=== PATIENT | female | born 1935 | race Caucasian/White ===

== ENCOUNTER → 2016-11-08 | Outpatient (CLI) | payer MEDICARE, BC ==
[~2016-11-08] MED LIST: DENOSUMAB 60 MG/ML 1 ML SYRINGE SQ ONE
[2016-11-08 12:14] VITALS: BP 97/56; PULSE 89; RESP 20; TEMP 97.9
[2016-11-08 12:28] LABS: Basophils # (A) 0.1 k/uL (0-0.2); Basophils % (A) 1 %; CH 28.4; CHCM 32.6; Eosinophils # (A) 0.4 k/uL (0-0.7); Eosinophils % (A) 3 %; HCT 40.8 % (34.0-46.0); HDW 2.45; HGB 13.3 gm/dL (11.4-16.0); Luc # (Auto) 0.14; Luc % (Auto) 1; Lymphocytes # (A) 1.4 k/uL (1.0-4.8); Lymphocytes % (A) 14 %; MCH 28.5 pg (25.0-35.0); MCHC 32.5 g/dL (31.0-37.0); MCV 87.6 fL (80.0-100.0); Mean Platelet Volume 7.9; Monocytes # (A) 0.4 k/uL (0-1.0); Monocytes % (A) 4 %; Neutrophils # (A) 8.1 k/uL (1.3-7.7); Neutrophils % (A) 77 %; RBC 4.66 m/uL (3.80-5.40); RDW 15.7 % (11.5-15.5); WBC 10.6 k/uL (3.8-10.6); WBC (Perox) 10.51
[2016-11-08 12:40] LABS: Potassium 4.2 mmol/L (3.5-5.1); Total Bilirubin 0.7 mg/dL (0.2-1.3); Total Protein 6.5 g/dL (6.3-8.2)
== END | disposition home or self-care (01) ==
LOC: PROCWHC3 11:32
PROVIDERS: ATTEND Family Medicine
DX: M81.0 Age-related osteoporosis without current pathological fracture (principal); I10 Essential (primary) hypertension; Z79.899 Other long term (current) drug therapy
CPT/HCPCS: 80061; 80053; 84443; 85025; 96372; 36415; J0897

== ENCOUNTER 2017-09-13 13:05 | Inpatient (IN) | payer MEDICARE, BC ==
[2017-09-13] MEDS ORDERED: SODIUM CHLORIDE 0.9% 1,000 ML IV STA (13:42)
[2017-09-13] MEDS ORDERED: methylPREDNISolone SOD SUCCI 125 MG/2 ML VIAL IV STA (13:46)
[2017-09-13 14:34] LABS: VBG PH 7.46 (7.31-7.41)
[2017-09-13 14:37] LABS: Calcium 9.5 mg/dL (8.4-10.2); Total Bilirubin 0.7 mg/dL (0.2-1.3); Total Protein 5.8 g/dL (6.3-8.2)
[2017-09-13 14:41] LABS: HCT 37.2 % (34.0-46.0); HGB 12.2 gm/dL (11.4-16.0); MCH 27.4 pg (25.0-35.0); MCHC 32.7 g/dL (31.0-37.0); MCV 83.7 fL (80.0-100.0); Mean Platelet Volume 7.3; Platelet Count 415 k/uL (150-450); Potassium 5.2 mmol/L (3.5-5.1); RBC 4.44 m/uL (3.80-5.40); RDW 14.9 % (11.5-15.5)
--- NOTE | 2017-09-13 14:45 | CT ---
EXAMINATION TYPE: CT brain wo con DATE OF EXAM: 09/13/2017 COMPARISON: NONE HISTORY: Altered mental status, weakness CT DLP: 1072.3 mGycm Automated exposure control for dose reduction was used. FINDINGS: Mild generalized degenerative change. Faint periventricular low-attenuation nonspecific but most typi karson remote microvascular ischemia. No midline shift or acute hemorrhage. Calvarium intact. Dental artifact does limit the exam. IMPRESSION: NO ACUTE HEMORRHAGE OR MASS EFFECT. IF THERE IS CONCERN FOR ACUTE ISCHEMIA CORRELATE WITH MRI CLIN ICALLY WARRANTED.
[2017-09-13 14:46] LABS: WBC 29.4 k/uL (3.8-10.6)
[2017-09-13] MEDS ORDERED: PIPERACILLIN-TAZOBACTAM 3.375 GM in DEXTROSE/WATER 1 50ML.BAG IVPB STA (14:47)
--- NOTE | 2017-09-13 14:47 | XR ---
EXAMINATION TYPE: XR chest 2V DATE OF EXAM: 09/13/2017 COMPARISON: NONE HISTORY: Shortness of breath TECHNIQUE: Frontal and lateral views of the chest are obtained. FINDINGS: Scattered senescent parenchymal changes noted. No evidence for infiltrate. No evidence for atelectasis. Heart size is stable. Mediastinal structures are stable and grossly unremarkable. No evidence for hilar prominence. Degenerative changes dorsal spine. IMPRESSION: 1. No evidence for acute pulmonary disease.
[2017-09-13 15:03] LABS: Creatine Kinase MB 1.9 ng/mL (0.0-2.4); Troponin I 0.014 ng/mL (0.000-0.034)
[2017-09-13 15:04] LABS: INR 1.2 (<1.2); Partial Thromboplastin Time 24.9 sec (22.0-30.0); Prothrombin Time 11.8 sec (9.0-12.0)
[2017-09-13 15:06] LABS: D-Dimer 5.64 mg/L FEU (<0.60)
[2017-09-13 15:08] LABS: Eosinophils # (M) 0.29 k/uL (0-0.7); Lymphocytes # (M) 0.88 k/uL (1.0-4.8); Monocytes # (M) 1.18 k/uL (0-1.0); Neutrophils # (M) 27.05 k/uL (1.3-7.7); Neutrophils % (M) 92 %; Nucleated Red Blood Cells 0 /100 WBC (0-0); Total Cells Counted 100
[2017-09-13 15:09] LABS: Toxic Granulation Present
--- NOTE | 2017-09-13 15:59 | US ---
EXAMINATION TYPE: US venous doppler duplex LE RT DATE OF EXAM: 09/13/2017 1:44 PM COMPARISON: NONE CLINICAL HISTORY: Pain. Right leg swelling per patient. Discomfort when tries to elevated leg. SIDE PERFORMED: Right TECHNIQUE: The lower extremity deep venous system is examined utilizing real time linear array sonog nilesh with graded compression, doppler sonography and color-flow sonography. VESSELS IMAGED: External Iliac Vein (EIV) Common Femoral Vein Deep Femoral Vein Greater Saphenous Vein * Femoral Vein Popliteal Vein Small Saphenous Vein * Proximal Calf Veins (* superficial vessels) Grayscale, color doppler, spectral doppler imaging performed of the deep veins of the lower extremiti es. There is normal flow, compressibility, vascular waveforms. Right Leg: Negative for DVT IMPRESSION: No evidence for DVT
--- NOTE | 2017-09-13 16:00 | ED ---
General Adult HPI - General Chief complaint: Weakness Stated complaint: COPD Time Seen by Provider: 09/13/17 13:33 Source: patient Mode of arrival: ambulatory Limitations: no limitations - History of Present Illness Initial comments: 81 years old female was sent in by her caregiver she noticed that her shortness of breath is worse heart rate was high weakness has gotten worse she is not able to ambulate she does have a history of COPD she has smoked for greater than 60 years and family noticed that she is confused today there is altered mental status and she herself denies any headache no neck stiffness she is short -winded no abdominal pain no frequency urgency dysuria, no signs of TIA or CVA - Related Data Home Medications Medication Instructions Recorded Confirmed Aspirin 81 mg PO HS 02/25/14 09/13/17 Donepezil [Aricept] 10 mg PO DAILY 09/13/17 09/13/17 Famotidine [Pepcid] 20 mg PO DAILY 09/13/17 09/13/17 Meclizine [Antivert] 12.5 mg PO DAILY 09/13/17 09/13/17 Memantine [Namenda] 10 mg PO BID 09/13/17 09/13/17 Multivitamins, Thera [Multivitamin 1 tab PO DAILY 09/13/17 09/13/17 (formulary)] Naproxen Sodium [Aleve] 220 mg PO DAILY 09/13/17 09/13/17 [place]-3 Fatty Acids [[place]-3] 1,000 mg PO HS 09/13/17 09/13/17 Allergies Allergy/AdvReac Type Severity Reaction Status Date / Time No Known Allergies Allergy Verified 09/13/17 13:55 Review of Systems ROS Statement: Those systems with pertinent positive or pertinent negative responses have been documented in the HPI. ROS Other: All systems not noted in ROS Statement are negative. Past Medical History Past Medical History: COPD, Hyperlipidemia Additional Past Medical History / Comment(s): VERTIGO Past Surgical History: Joint Replacement, Orthopedic Surgery Smoking Status: Former smoker General Exam - General Exam Comments Initial Comments: General: The patient is awake and alert, seems confused pleasant and cooperative Skin: Skin is warm and dry and no rashes or lesions are noted. Eye: Pupils are equal, round and reactive to light, extra-ocular movements are intact; there is normal conjunctiva bilaterally. Ears, nose, mouth and throat: Quite dehydrated, mucous membranes are dry Neck: The neck is supple, there is no tenderness, or signs of meningitis Cardiovascular: There is a regular rate and rhythm. No murmur, rub or gallop is appreciated. Noticed tachycardia Respiratory: To auscultation bilateral, exam consistent with COPD Gastrointestinal: Soft, non-distended, non-tender abdomen without masses or organomegaly noted. There is no rebound or guarding present. Bowel sounds are unremarkable. Back: There is no tenderness to palpation in the midline. There is no obvious deformity. Musculoskeletal: Normal ROM, no tenderness, There is no pedal edema. There is no calf tenderness or swelling. No cords were appreciated. Neurological: CN II-XII intact, Cranial nerves III through XII are intact. There are no obvious motor or sensory deficits. Coordination appears grossly intact. Speech is normal. Psychiatric: Cooperative, appropriate mood & affect, normal judgment. Limitations: no limitations Course Vital Signs 09/13/17 09/13/17 09/13/17 13:17 14:13 15:19 Temperature 98.7 F Pulse Rate 111 H 109 H 108 H Respiratory 20 16 16 Rate Blood Pressure 127/61 119/67 108/55 O2 Sat by Pulse 93 L 93 L 98 Oximetry EKG Findings - EKG Comments: EKG Findings:: EKG is sinus tachycardia ventricular rate is 110 DC interval is 122 QRS duration is 68 QT/QTC 320/433 review of this EKG does not reveal any ST elevation or ST depression noticed T-wave inversion in lead 3 Medical Decision Making - Lab Data Result diagrams: 09/13/17 14:00 09/13/17 14:00 Lab Results 09/13/17 09/13/17 09/13/17 Range/Units 14:00 14:00 14:00 WBC 29.4 H* (3.8-10.6) k/uL RBC 4.44 (3.80-5.40) m/uL Hgb 12.2 (11.4-16.0) gm/dL Hct 37.2 (34.0-46.0) % MCV 83.7 (80.0-100.0) fL MCH 27.4 (25.0-35.0) pg MCHC 32.7 (31.0-37.0) g/dL RDW 14.9 (11.5-15.5) % Plt Count 415 (150-450) k/uL Neutrophils % (Manual) 92 % Lymphocytes % (Manual) 3 % Monocytes % (Manual) 4 % Eosinophils % (Manual) 1 % Neutrophils # (Manual) 27.05 H (1.3-7.7) k/uL Lymphocytes # (Manual) 0.88 L (1.0-4.8) k/uL Monocytes # (Manual) 1.18 H (0-1.0) k/uL Eosinophils # (Manual) 0.29 (0-0.7) k/uL Nucleated RBCs 0 (0-0) /100 WBC Toxic Granulation Present PT (9.0-12.0) sec INR (<1.2) APTT (22.0-30.0) sec D-Dimer (<0.60) mg/L FEU VBG pH (7.31-7.41) VBG pCO2 (37-51) mmHg VBG HCO3 (24-28) mmol/L Sodium 144 (137-145) mmol/L Potassium 5.2 H (3.5-5.1) mmol/L Chloride 101 (98-107) mmol/L Carbon Dioxide 27 (22-30) mmol/L Anion Gap 16 mmol/L BUN 40 H (7-17) mg/dL Creatinine 1.20 H (0.52-1.04) mg/dL Est GFR (CKD-EPI)AfAm 48 (>60 ml/min/1.73 sqM) Est GFR (CKD-EPI)NonAf 42 (>60 ml/min/1.73 sqM) Glucose 94 (74-99) mg/dL Plasma Lactic Acid Mundo (0.7-2.0) mmol/L Calcium 9.5 (8.4-10.2) mg/dL Total Bilirubin 0.7 (0.2-1.3) mg/dL AST 47 H (14-36) U/L ALT 20 (9-52) U/L Alkaline Phosphatase 145 H (38-126) U/L Total Creatine Kinase 32 (30-135) U/L CK-MB (CK-2) 1.9 (0.0-2.4) ng/mL CK-MB (CK-2) Rel Index 5.9 Troponin I 0.014 (0.000-0.034) ng/mL Total Protein 5.8 L (6.3-8.2) g/dL Albumin 3.0 L (3.5-5.0) g/dL TSH (0.465-4.680) mIU/L 09/13/17 09/13/17 09/13/17 Range/Units 14:00 14:00 14:00 WBC (3.8-10.6) k/uL RBC (3.80-5.40) m/uL Hgb (11.4-16.0) gm/dL Hct (34.0-46.0) % MCV (80.0-100.0) fL MCH (25.0-35.0) pg MCHC (31.0-37.0) g/dL RDW (11.5-15.5) % Plt Count (150-450) k/uL Neutrophils % (Manual) % Lymphocytes % (Manual) % Monocytes % (Manual) % Eosinophils % (Manual) % Neutrophils # (Manual) (1.3-7.7) k/uL Lymphocytes # (Manual) (1.0-4.8) k/uL Monocytes # (Manual) (0-1.0) k/uL Eosinophils # (Manual) (0-0.7) k/uL Nucleated RBCs (0-0) /100 WBC Toxic Granulation PT 11.8 (9.0-12.0) sec INR 1.2 H (<1.2) APTT 24.9 (22.0-30.0) sec D-Dimer 5.64 H (<0.60) mg/L FEU VBG pH 7.46 H (7.31-7.41) VBG pCO2 35 L (37-51) mmHg VBG HCO3 24 (24-28) mmol/L Sodium (137-145) mmol/L Potassium (3.5-5.1) mmol/L Chloride (98-107) mmol/L Carbon Dioxide (22-30) mmol/L Anion Gap mmol/L BUN (7-17) mg/dL Creatinine (0.52-1.04) mg/dL Est GFR (CKD-EPI)AfAm (>60 ml/min/1.73 sqM) Est GFR (CKD-EPI)NonAf (>60 ml/min/1.73 sqM) Glucose (74-99) mg/dL Plasma Lactic Acid Mundo 1.5 (0.7-2.0) mmol/L Calcium (8.4-10.2) mg/dL Total Bilirubin (0.2-1.3) mg/dL AST (14-36) U/L ALT (9-52) U/L Alkaline Phosphatase (38-126) U/L Total Creatine Kinase (30-135) U/L CK-MB (CK-2) (0.0-2.4) ng/mL CK-MB (CK-2) Rel Index Troponin I (0.000-0.034) ng/mL Total Protein (6.3-8.2) g/dL Albumin (3.5-5.0) g/dL TSH (0.465-4.680) mIU/L 09/13/17 Range/Units 14:00 WBC (3.8-10.6) k/uL RBC (3.80-5.40) m/uL Hgb (11.4-16.0) gm/dL Hct (34.0-46.0) % MCV (80.0-100.0) fL MCH (25.0-35.0) pg MCHC (31.0-37.0) g/dL RDW (11.5-15.5) % Plt Count (150-450) k/uL Neutrophils % (Manual) % Lymphocytes % (Manual) % Monocytes % (Manual) % Eosinophils % (Manual) % Neutrophils # (Manual) (1.3-7.7) k/uL Lymphocytes # (Manual) (1.0-4.8) k/uL Monocytes # (Manual) (0-1.0) k/uL Eosinophils # (Manual) (0-0.7) k/uL Nucleated RBCs (0-0) /100 WBC Toxic Granulation PT (9.0-12.0) sec INR (<1.2) APTT (22.0-30.0) sec D-Dimer (<0.60) mg/L FEU VBG pH (7.31-7.41) VBG pCO2 (37-51) mmHg VBG HCO3 (24-28) mmol/L Sodium (137-145) mmol/L Potassium (3.5-5.1) mmol/L Chloride (98-107) mmol/L Carbon Dioxide (22-30) mmol/L Anion Gap mmol/L BUN (7-17) mg/dL Creatinine (0.52-1.04) mg/dL Est GFR (CKD-EPI)AfAm (>60 ml/min/1.73 sqM) Est GFR (CKD-EPI)NonAf (>60 ml/min/1.73 sqM) Glucose (74-99) mg/dL Plasma Lactic Acid Mundo (0.7-2.0) mmol/L Calcium (8.4-10.2) mg/dL Total Bilirubin (0.2-1.3) mg/dL AST (14-36) U/L ALT (9-52) U/L Alkaline Phosphatase (38-126) U/L Total Creatine Kinase (30-135) U/L CK-MB (CK-2) (0.0-2.4) ng/mL CK-MB (CK-2) Rel Index Troponin I (0.000-0.034) ng/mL Total Protein (6.3-8.2) g/dL Albumin (3.5-5.0) g/dL TSH 1.720 (0.465-4.680) mIU/L Critical Care Time Total Critical Care Time: 30 Critical Care Time: Blood pressure initially was slow though she was afebrile but term she was quite confused head CT is normal white count is 30 with a massive left shift d- dimer is quite elevated she was started on a fluids we did fluid resuscitation was given some broad-spectrum antibiotics creatinine is 1.20 potassium is 5.2 chest x-ray is fine unfortunately urine sample, contaminated blood cultures urine cultures lactate were drawn fluid resuscitation was done venous Doppler of the right leg is normal rule out any DVT though she does have a massive swelling of the right leg to follow up with the d-dimer I am unable to do the CT chest angiogram or do a VQ scan she be admitted to Dr. Tejada's service empiric heparin therapy be started to get up consult the nephrology as well as ID Disposition Clinical Impression: Sepsis, Elevated d-dimer, Change in mental status Disposition: ADMITTED IP TO THIS HOSP Referrals: Laine Fuentes DO [Primary Care Provider] - 1-2 days
[2017-09-13] MEDS ORDERED: HEPARIN SODIUM,PORCINE 5,000 UNIT/ML 1 ML VIAL IV ONE (16:23)
[2017-09-13] MEDS ORDERED: HEPARIN SODIUM,PORCINE 5,000 UNIT/ML 1 ML VIAL IV PRN (16:23)
[2017-09-13] MEDS ORDERED: ONDANSETRON 4 MG/2 ML VIAL IVP PRN (16:23)
[2017-09-13] MEDS ORDERED: NALOXONE 0.4 MG/ML 1 ML VIAL IV PRN (16:23)
[2017-09-13] MEDS ORDERED: HEPARIN SODIUM,PORCINE 25,000 UNIT in DEXTROSE 5% IN WATER 500 ML IV SCH ×2 (16:30)
[2017-09-13] MEDS: SODIUM CHLORIDE 0.9% 1,000 ML IV SCH (16:42)
[2017-09-13 16:47] LABS: Amorphous Sediment,Urine Few /hpf; Appearance,Urine Cloudy (Clear); Bilirubin,Urine Negative (Negative); Blood,Urine Negative (Negative); Color,Urine Yellow; Glucose,Urine (UA) Negative (Negative); Granular Casts,Urine 20 /lpf (0); Ketones,Urine Trace (Negative); Leukocyte Esterase,Urine Negative (Negative); Mucus,Urine Rare /hpf; Nitrite,Urine Negative (Negative); PH, Urine 5.5 (5.0-8.0); Protein,Urine 1+ (Negative); RBC,Urine 1 /hpf (0-5); Specific Gravity,Urine 1.025 (1.001-1.035); Squamous Epithelial Cell,Urine 1 /hpf (0-4); WBC,Urine 4 /hpf (0-5)
--- NOTE | 2017-09-13 18:26 | NM ---
EXAMINATION TYPE: NM pul vent and perfuse DATE OF EXAM: 09/13/2017 COMPARISON: Chest radiographs 09/13/2017 at 2:37 PM HISTORY: Dyspnea. Patient confused, suspicion for pulmonary embolism clinically TECHNIQUE: Utilizing inhalation of 35.3 mCi Tc 99m DTPA aerosol and intravenous injection of 5.1 mCi of Tc 99m MAA, ventilation and perfusion images are acquired post injection in multiple projections. FINDINGS: There is a markedly heterogeneous distribution of the ventilation radiopharmaceutical activity throug hout the lung. There is relatively mild heterogeneity of the perfusion radiopharmaceutical activity throughout the l ungs. There are no definite mismatched defects. IMPRESSION: Overall impression is low probability for pulmonary embolism.
[2017-09-13] MEDS ORDERED: NON-FORMULARY DRUG (Omega-3 Fatty Acids [Omega-3] 1,000 MG) PO SCH (21:00)
[2017-09-13 22:17] LABS: Hemoglobin A1C 5.4 % (4.0-6.0)
[2017-09-13] MEDS: ASPIRIN 81 MG PO SCH (22:39)
[2017-09-13] MEDS: MEMANTINE 10 MG TAB PO SCH (22:39)
--- NOTE | 2017-09-13 23:29 | CONS ---
CONSULTATION DATE OF SERVICE: 09/13/2017. REASON FOR CONSULTATION: Leukocytosis and possible sepsis. HISTORY OF PRESENT ILLNESS: The patient is an 81-year-old female, past medical history significant for COPD, has been brought into the ER at [facility] by the caregiver; however, the patient noticed to have increasing shortness of breath, tachycardia, weakness that is getting worse until finally the patient was unable to ambulate. Apparently, her symptoms had been going on for more than a week now and she was evaluated in the outpatient setting by her primary care physician about a week ago and diagnosed with a possible UTI and the patient had just finished a course of oral Macrobid. However, the patient continued very weak and tired and no energy. There is no clear history of any increased fever or chills. No history of any high-grade shortness of breath, any cough or sputum production. No clear history of any abdominal pain or any diarrhea. Recently the patient has been evaluated by the ER physician. The patient on arrival to the ER did have a high white count of 29,000, slightly elevated BUN and creatinine. Urine was not significantly positive. Chest x-ray report was negative. She did have elevated D-dimer related to a nuclear scan that was reported negative or low probability for PE. The patient has been started on Zosyn, admitted to the hospital. Infectious Disease was consulted for further recommendation of antibiotic therapy. Most of the information has been obtained from the caregiver, who is present at bedside, as the patient denies any symptoms or not specifically. REVIEW OF SYSTEMS: CONSTITUTIONAL: Positive for weakness, but no high-grade fever. EYES: No complaint. ENT: No complaint. RESPIRATORY: As per HPI. CARDIOVASCULAR: No complaint. GENITOURINARY: No complaint. GASTROINTESTINAL: No complaint. MUSCULOSKELETAL: No complaint. INTEGUMENTARY: No complaint. PSYCHOLOGICAL: No complaint. ENDOCRINE: No complaint. NEUROLOGIC: No complaint. PAST MEDICAL HISTORY: COPD, hyperlipidemia, osteoarthritis. PAST SURGICAL HISTORY: Joint replacement. SOCIAL HISTORY: 60 pack-years smoking. No drinking or drug use. FAMILY HISTORY: No pertinent findings noticed. ALLERGIES: No known drug allergies. MEDICATIONS: Include the patient is currently on: 1. Aspirin. 2. Aricept. 3. Pepcid. 4. Heparin. 5. Antivert. 6. Narcan. 7. Zofran. 8. Pip/tazobactam and. 9. IV fluid. EXAMINATION: Her blood pressure is 115/60 with a pulse of 103, temperature 98.6, 95% on 4L nasal cannula. General description is an elderly female lying in bed in no distress. No tachypnea or accessory muscle of respiration use. HEENT shows no pallor or scleral icterus. Oral mucous membranes dry. No pharyngeal erythema or thrush. NECK: Trachea central. No thyromegaly. LUNGS: Unlabored breathing with decreased breath sounds. No wheeze. HEART: S1, S2. Regular rate and rhythm. ABDOMEN: Soft. No guarding, rigidity. No organomegaly. EXTREMITIES: No edema of feet. SKIN: No rash or mass palpable. NEUROLOGICAL: The patient is awake, alert, oriented x2. Mood and affect normal. LABS: Hemoglobin is 12.2 with a white count of 9.4. BUN of 14, creatinine 1.20. D-dimer 5.64. ALT was normal. Urine was cloudy; however, leukocyte esterase and nitrite negative. Chest x-ray reported negative for any acute infiltrate. DIAGNOSTIC IMPRESSION AND PLAN: Patient admitted to hospital with generalized weakness in a patient who did have a component of elevated white count of 29,000. She was noticed to be slightly tachycardic; however, no high-grade fever or any hypertension. Symptomatology could be related to underlying dehydration from decreased oral intake, as the patient seemed to have no clear focus of infection at this point. Chest x-ray report negative for any pneumonia. Urine was negative. No evidence of any cellulitis or joint swelling. However, underlying intra-abdominal pathology not entirely excluded. PLAN: 1. We will order a CT of abdomen and pelvis with oral contrast for the morning to complete the workup. 2. Keep the patient empirically on Zosyn at 3.75 g q.8h while waiting for the culture to finalize. 3. IV fluid. 4. Depending upon the clinical response as well as cultures, will adjust her medications further if needed. Thank you for this consultation. Will follow this patient along with you. MMODL / IJN: [id number] /
[2017-09-14] MEDS: PIPERACILLIN-TAZOBACTAM 3.375 GM in DEXTROSE/WATER 1 50ML.BAG IVPB SCH ×4 (01:07→23:50)
[2017-09-14] MEDS: HEPARIN SODIUM,PORCINE 5,000 UNIT/ML 1 ML VIAL SQ SCH ×4 (01:09→23:50)
[2017-09-14] MEDS: SODIUM CHLORIDE 0.9% 1,000 ML IV SCH ×3 (06:49→22:02)
[2017-09-14 07:09] LABS: Basophils % (A) 0 %; Eosinophils % (A) 0 %; HCT 37.5 % (34.0-46.0); HGB 11.8 gm/dL (11.4-16.0); Lymphocytes # (A) 0.8 k/uL (1.0-4.8); Lymphocytes % (A) 2 %; MCH 27.1 pg (25.0-35.0); MCHC 31.4 g/dL (31.0-37.0); MCV 86.4 fL (80.0-100.0); Mean Platelet Volume 7.1; Monocytes # (A) 0.5 k/uL (0-1.0); Monocytes % (A) 2 %; Neutrophils # (A) 31.8 k/uL (1.3-7.7); Neutrophils % (A) 96 %; Platelet Count 416 k/uL (150-450); RBC 4.34 m/uL (3.80-5.40); RDW 14.9 % (11.5-15.5)
[2017-09-14 07:11] LABS: WBC 33.2 k/uL (3.8-10.6)
[2017-09-14 07:37] LABS: Albumin 2.6 g/dL (3.5-5.0); Potassium 4.7 mmol/L (3.5-5.1); Total Bilirubin 0.5 mg/dL (0.2-1.3); Total Protein 5.2 g/dL (6.3-8.2)
[2017-09-14] MEDS: IOPAMIDOL-300 CONTRAST 30 ML VIAL (ORAL USE) PO PRN ×2 (08:32→09:35)
[2017-09-14] MEDS: MECLIZINE 12.5 MG TAB PO SCH (08:33)
[2017-09-14] MEDS: FAMOTIDINE 20 MG TAB PO SCH (08:33)
[2017-09-14] MEDS: MEMANTINE 10 MG TAB PO SCH ×2 (08:33→21:35)
[2017-09-14] MEDS: DONEPEZIL 10 MG TAB PO SCH (08:33)
--- NOTE | 2017-09-14 10:33 | CT ---
EXAMINATION TYPE: CT abdomen pelvis wo con DATE OF EXAM: 09/14/2017 COMPARISON: NONE HISTORY: Generalized pain CT DLP: 267.8 mGycm Automated exposure control for dose reduction was used. FINDINGS: There is interstitial change within the lungs. This may be on the basis of heart failure. T here are small, bilateral effusions, greater on the right than the left. There is a 7 mm pericardial effusion. There is extensive calcification of the mitral annulus. Within the abdomen, there is a gallstone within the collapsed gallbladder. Liver and spleen are wyatt l. Both adrenal glands are normal. There is a 9 mm nonobstructing calculus in one of the lower pole calyces of the right kidney. There i s no evidence of hydronephrosis. Limited views of the pancreas are unremarkable. There is extensive extensive calcification of the visualized arterial tree. There is no significant r etroperitoneal, iliac or inguinal adenopathy. The bladder is unremarkable. Uterus is unremarkable. The ovaries are not visualized with certainty. There is moderate diverticular change involving the sigmoid colon with scattered diverticula elsewher e throughout the left side of the colon. The appendix is not visualized. There is thickening of the small bowel proximally suggestive of enteritis. There is a ventral hernia containing fat only with a mouth measuring 27 mm. There is a left hip prosthesis in place. There is a moderate dextroscoliosis. There is extensive dege nerative disc disease, facet arthropathy and hypertrophic spondylosis. IMPRESSION: 1. INTERSTITIAL CHANGE WITHIN THE LUNGS MAY REFLECT HEART FAILURE. 2. SMALL, BILATERAL PLEURAL EFFUSIONS AND A PERICARDIAL EFFUSION. 3. CHOLELITHIASIS. 4. THICKENING OF THE PROXIMAL SMALL BOWEL SUGGESTIVE OF ENTERITIS. 5. NONOBSTRUCTING, 9 MM RIGHT LOWER POLE RENAL CALCULUS. 6. UNCOMPLICATED DIVERTICULOSIS. 7. EXTENSIVE DEGENERATIVE CHANGE WITHIN THE SPINE. 8. VENTRAL HERNIA CONTAINING FAT ONLY WITH A MOUTH MEASURING 2.7 CM.
[2017-09-14] MEDS: MULTIVITAMINS, THERA 1 EACH TAB PO SCH (11:29)
--- NOTE | 2017-09-14 12:42 | P.HPIM ---
History of Present Illness H&P Date: 09/14/17 Brenda Dave is an 81-year-old female, patient of [facility], who presented to [facility] emergency room with a chief complaint of generalized weakness, daughter states that patient was seen at [facility] one week ago, she was given an antibiotic for presumed urinary tract infection, however her condition continued to worsen, she was seen by her visiting nurse and was advised to come to emergency room. Patient was evaluated by Dr. Brown in the emergency room, she had evidence of sepsis with hypotension, tachycardia, and leukocytosis, also d-dimer was elevated at 5.64, she was admitted to telemetry floor, she was started on IV antibiotic and IV fluid. Bilateral lower extremity Doppler was done and was negative for DVT, VQ scan was done and was low probability for pulmonary embolism. Past Medical History Past Medical History: COPD, Dementia, GERD/Reflux, Hyperlipidemia, Memory Impairment, Pneumonia Additional Past Medical History / Comment(s): VERTIGO ,per family pt has home 02 3 liters,family stated pt does have some dementia but request you don't talk about it with pt she gets upset.phlebitis long time ago, arthritis,hx of cholesterol but was taken off her meds 3 months ago History of Any Multi-Drug Resistant Organisms: None Reported Past Surgical History: Joint Replacement, Orthopedic Surgery, Tonsillectomy Additional Past Surgical History / Comment(s): hip replacement, shoulder replacement Past Anesthesia/Blood Transfusion Reactions: Motion Sickness, Postoperative Nausea & Vomiting (PONV) Additional Past Anesthesia/Blood Transfusion Reaction / Comment(s): never received any blood transfusions Smoking Status: Former smoker - Past Family History Father Additional Family Medical History / Comment(s): committed suicide in his 50's Mother Family Medical History: No Reported History Additional Family Medical History / Comment(s): of unk causes at age 62 Sister(s) Family Medical History: Cancer Additional Family Medical History / Comment(s): breast cancer Medications and Allergies Home Medications Medication Instructions Recorded Confirmed Type Aspirin 81 mg PO HS 02/25/14 09/13/17 History Donepezil [Aricept] 10 mg PO DAILY 09/13/17 09/13/17 History Famotidine [Pepcid] 20 mg PO DAILY 09/13/17 09/13/17 History Meclizine [Antivert] 12.5 mg PO DAILY 09/13/17 09/13/17 History Memantine [Namenda] 10 mg PO BID 09/13/17 09/13/17 History Multivitamins, Thera [Multivitamin 1 tab PO DAILY 09/13/17 09/13/17 History (formulary)] Naproxen Sodium [Aleve] 220 mg PO DAILY 09/13/17 09/13/17 History [place]-3 Fatty Acids [[place]-3] 1,000 mg PO HS 09/13/17 09/13/17 History Allergies Allergy/AdvReac Type Severity Reaction Status Date / Time No Known Allergies Allergy Verified 09/13/17 13:55 Physical Exam Vitals: Vital Signs Temp Pulse Pulse Resp BP BP Pulse Ox 09/14/17 11:13 103 H 09/14/17 11:12 98.2 F 103 H 18 117/69 93 L 09/14/17 08:00 97.0 F L 105 H 18 117/57 100 09/14/17 04:00 97.0 F L 97 16 126/70 93 L 09/14/17 00:00 97.1 F L 108 H 16 115/64 92 L 09/13/17 20:00 97.6 F 100 16 101/64 92 L 09/13/17 19:02 98.6 F 103 H 16 09/13/17 18:13 106 H 16 115/60 95 09/13/17 16:37 103 H 16 108/60 94 L 09/13/17 15:19 108 H 16 108/55 98 09/13/17 14:13 109 H 16 119/67 93 L 09/13/17 13:17 98.7 F 111 H 20 127/61 93 L Intake and Output 09/13/17 09/14/17 09/14/17 22:59 06:59 14:59 Other: Voiding Method Bedside Commode Bedside Commode # Voids 1 Weight 49.895 kg 48.5 kg In general patient is alert, slightly confused in no apparent distress HEENT head normocephalic and atraumatic Neck is supple no JVD no goiter no lymphadenopathy Chest exam reveals a few scattered rhonchi no wheezing Cardiac exam reveals regular heart sounds S1 and S2 no gallops no murmurs Abdomen is soft nontender no organomegaly with normal bowel sounds Extremity exam reveals no edema no cyanosis or clubbing Results CBC & Chem 7: 09/14/17 06:42 09/14/17 06:42 Labs: Abnormal Lab Results - Last 24 Hours (Table) 09/13/17 09/13/17 09/13/17 Range/Units 14:00 14:00 14:00 WBC 29.4 H* (3.8-10.6) k/uL Neutrophils # (1.3-7.7) k/uL Neutrophils # (Manual) 27.05 H (1.3-7.7) k/uL Lymphocytes # (1.0-4.8) k/uL Lymphocytes # (Manual) 0.88 L (1.0-4.8) k/uL Monocytes # (Manual) 1.18 H (0-1.0) k/uL INR 1.2 H (<1.2) D-Dimer 5.64 H (<0.60) mg/L FEU VBG pH (7.31-7.41) VBG pCO2 (37-51) mmHg Sodium (137-145) mmol/L Potassium 5.2 H (3.5-5.1) mmol/L BUN 40 H (7-17) mg/dL Creatinine 1.20 H (0.52-1.04) mg/dL Glucose (74-99) mg/dL AST 47 H (14-36) U/L Alkaline Phosphatase 145 H (38-126) U/L Total Protein 5.8 L (6.3-8.2) g/dL Albumin 3.0 L (3.5-5.0) g/dL Urine Appearance (Clear) Urine Protein (Negative) Urine Ketones (Negative) Amorphous Sediment (None) /hpf Urine Mucus (None) /hpf 09/13/17 09/13/17 09/14/17 Range/Units 14:00 16:30 06:42 WBC 33.2 H* (3.8-10.6) k/uL Neutrophils # 31.8 H (1.3-7.7) k/uL Neutrophils # (Manual) (1.3-7.7) k/uL Lymphocytes # 0.8 L (1.0-4.8) k/uL Lymphocytes # (Manual) (1.0-4.8) k/uL Monocytes # (Manual) (0-1.0) k/uL INR (<1.2) D-Dimer (<0.60) mg/L FEU VBG pH 7.46 H (7.31-7.41) VBG pCO2 35 L (37-51) mmHg Sodium (137-145) mmol/L Potassium (3.5-5.1) mmol/L BUN (7-17) mg/dL Creatinine (0.52-1.04) mg/dL Glucose (74-99) mg/dL AST (14-36) U/L Alkaline Phosphatase (38-126) U/L Total Protein (6.3-8.2) g/dL Albumin (3.5-5.0) g/dL Urine Appearance Cloudy H (Clear) Urine Protein 1+ H (Negative) Urine Ketones Trace H (Negative) Amorphous Sediment Few H (None) /hpf Urine Mucus Rare H (None) /hpf 09/14/17 Range/Units 06:42 WBC (3.8-10.6) k/uL Neutrophils # (1.3-7.7) k/uL Neutrophils # (Manual) (1.3-7.7) k/uL Lymphocytes # (1.0-4.8) k/uL Lymphocytes # (Manual) (1.0-4.8) k/uL Monocytes # (Manual) (0-1.0) k/uL INR (<1.2) D-Dimer (<0.60) mg/L FEU VBG pH (7.31-7.41) VBG pCO2 (37-51) mmHg Sodium 146 H (137-145) mmol/L Potassium (3.5-5.1) mmol/L BUN 43 H (7-17) mg/dL Creatinine 1.46 H (0.52-1.04) mg/dL Glucose 130 H (74-99) mg/dL AST (14-36) U/L Alkaline Phosphatase (38-126) U/L Total Protein 5.2 L (6.3-8.2) g/dL Albumin 2.6 L (3.5-5.0) g/dL Urine Appearance (Clear) Urine Protein (Negative) Urine Ketones (Negative) Amorphous Sediment (None) /hpf Urine Mucus (None) /hpf Thrombosis Risk Factor Assmnt - Choose All That Apply Any of the Below Risk Factors Present?: Yes Each Factor Represents 1 point: Sepsis (< 1month), Swollen legs (current) Each Risk Factor Represents 3 Points: Age 75 years or older, Family history of DVT/PE Thrombosis Risk Factor Assessment Total Risk Factor Score: 8 Thrombosis Risk Factor Assessment Level: High Risk Assessment and Plan Plan: #1 sepsis, initial site of infection is not clear, patient was partially treated with oral antibiotic as outpatient, will check blood culture and urine culture, patient was started on IV antibiotic Zosyn Will continue at this time. #2 elevated d-dimer, lower extremity Doppler was negative for DVT, VQ scan was low probability for pulmonary embolism, at this time patient is maintained on subcu heparin for DVT prophylaxis. #3 underlying history of COPD, at this time patient will be given DuoNeb updraft , no need for systemic steroids #4 evidence of bilateral pleural effusion and pericardial effusion on computed tomography scan, will obtain echocardiogram #5 underlying history of dementia maintained on Aricept and Namenda #6 for GI prophylaxis patient on Pepcid for DVT prophylaxis patient on subcu heparin Continue was current management will follow closely
--- NOTE | 2017-09-14 13:54 | P.CNPUL ---
History of Present Illness Consult date: 09/14/17 Reason for consult: COPD, abnormal CXR/CT Chief complaint: Mental status changes, sepsis History of present illness: Pulmonary consult dated 09/14/2017 This is an 81-year-old female who was sent in by her caregiver because of mental status changes and possibly some shortness of breath as well as a high heart rate. She was very weak and fatigued and could not ambulate. We are asked to see her because she has some underlying COPD. She does wear oxygen at home religiously 03/12. She does have medications for her breathing at home but does not use them at all. She has smoked for more than 60 years. Apparently used to see a lung doctor but she does not remember the name of that doctor. Also, her daughter who was in the room with her cannot remember the name of that doctor. Again she has inhalers puffers and a nebulizer machine at home but does not use any of them. She is a very poor historian. It appears that her only complaint is shortness of breath on exertion. She is apparently much more awake now than she was when she first came in. She is not complaining of any respiratory issues at this time. She's not short of breath at rest. Her primary care physician is Dr. Laine Fuentes. Her home medications in addition to oxygen include aspirin Aricept Pepcid Antivert Namenda multiple vitamins Aleve and 3 omega fatty acids. Review of Systems ROS unobtainable: due to mental status (Most of the history is obtained from the daughter who was in the room with the patient. The patient herself is a very poor historian.) Past Medical History Past Medical History: COPD, Dementia, GERD/Reflux, Hyperlipidemia, Memory Impairment, Pneumonia Additional Past Medical History / Comment(s): VERTIGO ,per family pt has home 02 3 liters,family stated pt does have some dementia but request you don't talk about it with pt she gets upset.phlebitis long time ago, arthritis,hx of cholesterol but was taken off her meds 3 months ago History of Any Multi-Drug Resistant Organisms: None Reported Past Surgical History: Joint Replacement, Orthopedic Surgery, Tonsillectomy Additional Past Surgical History / Comment(s): hip replacement, shoulder replacement Past Anesthesia/Blood Transfusion Reactions: Motion Sickness, Postoperative Nausea & Vomiting (PONV) Additional Past Anesthesia/Blood Transfusion Reaction / Comment(s): never received any blood transfusions Smoking Status: Former smoker - Past Family History Father Additional Family Medical History / Comment(s): committed suicide in his 50's Mother Family Medical History: No Reported History Additional Family Medical History / Comment(s): of unk causes at age 62 Sister(s) Family Medical History: Cancer Additional Family Medical History / Comment(s): breast cancer Medications and Allergies Home Medications Medication Instructions Recorded Confirmed Type Aspirin 81 mg PO HS 02/25/14 09/13/17 History Donepezil [Aricept] 10 mg PO DAILY 09/13/17 09/13/17 History Famotidine [Pepcid] 20 mg PO DAILY 09/13/17 09/13/17 History Meclizine [Antivert] 12.5 mg PO DAILY 09/13/17 09/13/17 History Memantine [Namenda] 10 mg PO BID 09/13/17 09/13/17 History Multivitamins, Thera [Multivitamin 1 tab PO DAILY 09/13/17 09/13/17 History (formulary)] Naproxen Sodium [Aleve] 220 mg PO DAILY 09/13/17 09/13/17 History [place]-3 Fatty Acids [[place]-3] 1,000 mg PO HS 09/13/17 09/13/17 History Allergies Allergy/AdvReac Type Severity Reaction Status Date / Time No Known Allergies Allergy Verified 09/13/17 13:55 Physical Exam Osteopathic Statement: *. No significant issues noted on an osteopathic structural exam other than those noted in the History and Physical/Consult. Vitals: Vital Signs Temp Pulse Pulse Resp BP BP Pulse Ox 09/14/17 11:13 103 H 09/14/17 11:12 98.2 F 103 H 18 117/69 93 L 09/14/17 08:00 97.0 F L 105 H 18 117/57 100 09/14/17 04:00 97.0 F L 97 16 126/70 93 L 09/14/17 00:00 97.1 F L 108 H 16 115/64 92 L 09/13/17 20:00 97.6 F 100 16 101/64 92 L 09/13/17 19:02 98.6 F 103 H 16 09/13/17 18:13 106 H 16 115/60 95 09/13/17 16:37 103 H 16 108/60 94 L 09/13/17 15:19 108 H 16 108/55 98 09/13/17 14:13 109 H 16 119/67 93 L Intake and Output 09/13/17 09/14/17 09/14/17 22:59 06:59 14:59 Other: Voiding Method Bedside Commode Bedside Commode # Voids 1 Weight 49.895 kg 48.5 kg No acute distress, oriented X2, wearing oxygen therapy. In no acute distress. HEENT examination is grossly unremarkable. Mucous membranes are moist. No oral lesions. Neck supple. Full range of motion. No adenopathy thyromegaly or neck vein distention. Cardiovascular examination reveals regular rhythm rate. S1-S2 normal. No S3 or S4. No discernible murmur noted. Lungs reveal clear but diminished breath sounds. No wheezes rhonchi or crackles. Breath sounds are equal bilaterally. Abdomen soft bowel sounds are heard. No masses or tenderness. Extremities are intact. No cyanosis clubbing or edema. Skin is without rash or lesion. Neurologic examination is brief but nonfocal. Results - Laboratory Findings CBC and BMP: 09/14/17 06:42 09/14/17 06:42 PT/INR, D-dimer PT 11.8 sec (9.0-12.0) 09/13/17 14:00 INR 1.2 (<1.2) H 09/13/17 14:00 D-Dimer 5.64 mg/L FEU (<0.60) H 09/13/17 14:00 Abnormal lab findings: Abnormal Labs 09/13/17 09/13/17 09/13/17 14:00 14:00 14:00 WBC 29.4 H* Neutrophils # Neutrophils # (Manual) 27.05 H Lymphocytes # Lymphocytes # (Manual) 0.88 L Monocytes # (Manual) 1.18 H INR 1.2 H D-Dimer 5.64 H VBG pH VBG pCO2 Sodium Potassium 5.2 H BUN 40 H Creatinine 1.20 H Glucose AST 47 H Alkaline Phosphatase 145 H Total Protein 5.8 L Albumin 3.0 L Urine Appearance Urine Protein Urine Ketones Amorphous Sediment Urine Mucus 09/13/17 09/13/17 09/14/17 14:00 16:30 06:42 WBC 33.2 H* Neutrophils # 31.8 H Neutrophils # (Manual) Lymphocytes # 0.8 L Lymphocytes # (Manual) Monocytes # (Manual) INR D-Dimer VBG pH 7.46 H VBG pCO2 35 L Sodium Potassium BUN Creatinine Glucose AST Alkaline Phosphatase Total Protein Albumin Urine Appearance Cloudy H Urine Protein 1+ H Urine Ketones Trace H Amorphous Sediment Few H Urine Mucus Rare H 09/14/17 06:42 WBC Neutrophils # Neutrophils # (Manual) Lymphocytes # Lymphocytes # (Manual) Monocytes # (Manual) INR D-Dimer VBG pH VBG pCO2 Sodium 146 H Potassium BUN 43 H Creatinine 1.46 H Glucose 130 H AST Alkaline Phosphatase Total Protein 5.2 L Albumin 2.6 L Urine Appearance Urine Protein Urine Ketones Amorphous Sediment Urine Mucus - Diagnostic Findings Chest x-ray: image reviewed (Labs x-rays and medications are all reviewed.) Assessment and Plan Assessment: Assessment Mental status changes which apparently have improved over the last 24-36 hours Suspected infection, source unclear Possible mild heart failure History of COPD with chronic oxygen therapy. Medical noncompliance with COPD regimen. History of heavy tobacco use Doubt pulmonary embolism Plan: Plan dated 09/14/2017 The patient seemed be doing a lot better. She is awake and alert. Much of the history is provided by the daughter. The patient does wear oxygen 03/12. " COPD." Currently she is just on oxygen therapy. Not on any treatments. She does not want any treatments. I did ask her to come back and see us in the office post discharge. That may help to better define her COPD. No clearcut source of infection at this time. Chest x-ray does not show any clear-cut infiltrate. Microbiologic studies are negative and urine looks pretty good. We 'll continue to follow. No additional recommendations are made. Time with Patient: Greater than 30
[2017-09-14] MEDS ORDERED: IPRATROPIUM-ALBUTEROL 3 ML NEB INHALATION PRN (13:58)
[2017-09-14] MEDS: IPRATROPIUM-ALBUTEROL 3 ML NEB INHALATION SCH (19:22)
[2017-09-14] MEDS: ASPIRIN 81 MG PO SCH (21:35)
[2017-09-15] MEDS: SODIUM CHLORIDE 0.9% 1,000 ML IV SCH (06:30)
[2017-09-15] MEDS: IPRATROPIUM-ALBUTEROL 3 ML NEB INHALATION SCH ×3 (07:28→20:17)
[2017-09-15] MEDS: PIPERACILLIN-TAZOBACTAM 3.375 GM in DEXTROSE/WATER 1 50ML.BAG IVPB SCH ×3 (07:40→23:56)
[2017-09-15] MEDS: HEPARIN SODIUM,PORCINE 5,000 UNIT/ML 1 ML VIAL SQ SCH ×3 (07:40→23:56)
[2017-09-15] MEDS: MECLIZINE 12.5 MG TAB PO SCH (07:41)
[2017-09-15] MEDS: FAMOTIDINE 20 MG TAB PO SCH (07:41)
[2017-09-15] MEDS: DONEPEZIL 10 MG TAB PO SCH (07:41)
[2017-09-15] MEDS: MEMANTINE 10 MG TAB PO SCH ×2 (07:41→20:08)
[2017-09-15 07:54] LABS: Basophils # (A) 0.1 k/uL (0-0.2); Basophils % (A) 0 %; Eosinophils # (A) 0.1 k/uL (0-0.7); Eosinophils % (A) 0 %; HCT 39.3 % (34.0-46.0); HGB 12.3 gm/dL (11.4-16.0); Lymphocytes # (A) 1.4 k/uL (1.0-4.8); Lymphocytes % (A) 5 %; MCH 26.5 pg (25.0-35.0); MCHC 31.3 g/dL (31.0-37.0); MCV 84.8 fL (80.0-100.0); Mean Platelet Volume 7.3; Monocytes % (A) 3 %; Neutrophils # (A) 27.7 k/uL (1.3-7.7); Neutrophils % (A) 91 %; Platelet Count 412 k/uL (150-450); RBC 4.64 m/uL (3.80-5.40); RDW 15.4 % (11.5-15.5)
[2017-09-15 07:55] LABS: WBC 30.5 k/uL (3.8-10.6)
[2017-09-15 08:23] LABS: Albumin 2.8 g/dL (3.5-5.0); Calcium 8.8 mg/dL (8.4-10.2); Total Bilirubin 0.6 mg/dL (0.2-1.3); Total Protein 5.5 g/dL (6.3-8.2)
[2017-09-15 08:29] LABS: Potassium 4.9 mmol/L (3.5-5.1)
--- NOTE | 2017-09-15 10:27 | P.PN ---
Subjective Progress Note Date: 09/15/17 Principal diagnosis: Shortness of breath, mental status changes, possible sepsis Progress note dated 09/15/2017 81-year-old female with history of mental status changes, possible sepsis/ infection, mild CHF COPD medical noncompliance with COPD regimen and previous history of heavy tobacco use. The patient was feeling better and was able to be moved from the 6 for down to the fifth floor yesterday. Her respiratory status is improved. She does use oxygen 24 7. Does not really take her breathing medications at this time. Apparently has seen a lung doctor in the past. Does have an established diagnosis of COPD. Her primary care physician is Dr. Laine Fuentes. Objective - Vital Signs Vital signs: Vital Signs Temp 97.6 F 09/15/17 07:45 Pulse 109 H 09/15/17 08:00 Resp 16 09/15/17 08:00 BP 135/67 09/15/17 07:45 Pulse Ox 95 09/15/17 07:45 Intake & Output 09/14/17 09/15/17 09/15/17 18:59 06:59 18:59 Intake Total 550 Balance 550 Intake: Intake, IV Titration 550 Amount Sodium Chloride 0.9% 1, 550 000 ml @ 100 mls/hr IV . Q10H [facility] Rx#:[id number] Other: Voiding Method Bedside Commode Bedside Commode # Voids 3 1 # Bowel Movements 3 - Exam No acute distress, oriented 3. Nasal O2 at [address] HEENT examination is grossly unremarkable. Mucous membranes are moist. No oral lesions. Neck supple. Full range of motion. No adenopathy thyromegaly or neck vein distention. Cardiovascular examination reveals regular rhythm rate. S1-S2 normal. No S3 or S4. No discernible murmur noted. Lungs reveal a few scattered bibasilar crackles. Breath sounds are equal. No wheezes. No rhonchi.. Abdomen soft bowel sounds are heard. No masses or tenderness. Extremities are intact. No cyanosis clubbing or edema. Skin is without rash or lesion. Neurologic examination is brief but nonfocal. - Labs CBC & Chem 7: 09/15/17 07:32 09/15/17 07:32 Labs: Abnormal Lab Results - Last 24 Hours (Table) 09/15/17 09/15/17 Range/Units 07:32 07:32 WBC 30.5 H* (3.8-10.6) k/uL Neutrophils # 27.7 H (1.3-7.7) k/uL Sodium 149 H (137-145) mmol/L Chloride 112 H (98-107) mmol/L BUN 45 H (7-17) mg/dL Creatinine 1.30 H (0.52-1.04) mg/dL AST 47 H (14-36) U/L Total Protein 5.5 L (6.3-8.2) g/dL Albumin 2.8 L (3.5-5.0) g/dL Assessment and Plan Assessment: Assessment Mental status changes which apparently have improved over the last 24-36 hours Suspected infection, source unclear Possible mild heart failure History of COPD with chronic oxygen therapy. Medical noncompliance with COPD regimen. History of heavy tobacco use Doubt pulmonary embolism Hypernatremia and hyperchloremia. Prerenal azotemia Plan: Plan dated 09/14/2017 The patient seemed be doing a lot better. She is awake and alert. Much of the history is provided by the daughter. The patient does wear oxygen 03/12. " COPD." Currently she is just on oxygen therapy. Not on any treatments. She does not want any treatments. I did ask her to come back and see us in the office post discharge. That may help to better define her COPD. No clearcut source of infection at this time. Chest x-ray does not show any clear-cut infiltrate. Microbiologic studies are negative and urine looks pretty good. We 'll continue to follow. No additional recommendations are made. Plan dated 09/15/2017 The patient appears much more stable today. Much more awake and alert. Not having any respiratory issues. The patient remains on oxygen therapy. She remains on Zosyn for suspected infection, source unclear. She also remains on updrafts with DuoNeb 3 times a day and when necessary. Lung sounds have improved. She's is not a particular good historian. Has a history of significant dementia. Time with Patient: Less than 30
[2017-09-15] MEDS ORDERED: SODIUM CHLORIDE 0.45% 1,000 ML IV SCH (13:15)
[2017-09-15] MEDS ORDERED: VANCOMYCIN IV PER PHARMACY 1 EACH MISC MISCELLANE PRN (15:40)
--- NOTE | 2017-09-15 15:46 | P.PN ---
Subjective Progress Note Date: 09/15/17 Brenda Dave is an 81-year-old female, patient of [facility], who presented to [facility] emergency room with a chief complaint of generalized weakness, daughter states that patient was seen at [facility] one week ago, she was given an antibiotic for presumed urinary tract infection, however her condition continued to worsen, she was seen by her visiting nurse and was advised to come to emergency room. Patient was evaluated by Dr. Brown in the emergency room, she had evidence of sepsis with hypotension, tachycardia, and leukocytosis, also d-dimer was elevated at 5.64, she was admitted to telemetry floor, she was started on IV antibiotic and IV fluid. Bilateral lower extremity Doppler was done and was negative for DVT, VQ scan was done and was low probability for pulmonary embolism. On 09/15/2017 patient is alert and oriented 3 in no apparent distress, she is complaining of feeling cold and having shaking chills, otherwise no complaints, patient has tachycardia, and has evidence sepsis, with leukocytosis white blood count still at 30,000, primary site of infection is still unclear she is complaining of cough, chest x-ray did not reveal any evidence of pneumonia, blood culture is pending, echocardiogram is pending, sodium is up to 114 9 IV fluid change to half-normal saline, will check lactic acid. Objective - Vital Signs Vital signs: Vital Signs Temp 97.6 F 09/15/17 07:45 Pulse 88 09/15/17 13:45 Resp 16 09/15/17 08:00 BP 135/67 09/15/17 07:45 Pulse Ox 95 09/15/17 07:45 Intake & Output 09/14/17 09/15/17 09/15/17 18:59 06:59 18:59 Intake Total 550 575 Balance 550 575 Intake: Intake, IV Titration 550 575 Amount Piperacillin-Tazobactam 3 50 .375 gm In Dextrose/Water 1 50ml.bag @ 12.5 mls/hr IVPB Q8HR [facility] Rx#: [id number] Sodium Chloride 0.45% 1, 525 000 ml @ 75 mls/hr IV . [id number] [facility] Rx#:[id number] Sodium Chloride 0.9% 1, 550 000 ml @ 100 mls/hr IV . Q10H [facility] Rx#:[id number] Other: Voiding Method Bedside Commode Bedside Commode # Voids 3 1 # Bowel Movements 3 - Exam In general patient is alert, slightly confused in no apparent distress HEENT head normocephalic and atraumatic Neck is supple no JVD no goiter no lymphadenopathy Chest exam reveals a few scattered rhonchi no wheezing Cardiac exam reveals regular heart sounds S1 and S2 no gallops no murmurs Abdomen is soft nontender no organomegaly with normal bowel sounds Extremity exam reveals no edema no cyanosis or clubbing - Labs CBC & Chem 7: 09/15/17 07:32 09/15/17 07:32 Labs: Abnormal Lab Results - Last 24 Hours (Table) 09/15/17 09/15/17 Range/Units 07:32 07:32 WBC 30.5 H* (3.8-10.6) k/uL Neutrophils # 27.7 H (1.3-7.7) k/uL Sodium 149 H (137-145) mmol/L Chloride 112 H (98-107) mmol/L BUN 45 H (7-17) mg/dL Creatinine 1.30 H (0.52-1.04) mg/dL AST 47 H (14-36) U/L Total Protein 5.5 L (6.3-8.2) g/dL Albumin 2.8 L (3.5-5.0) g/dL Microbiology - Last 24 Hours (Table) 09/14/17 13:10 Blood Culture - Preliminary Blood No Growth after 24 hours Assessment and Plan Plan: #1 sepsis, initial site of infection is not clear, patient was partially treated with oral antibiotic as outpatient, will check blood culture and urine culture, patient was started on IV antibiotic Zosyn Will continue at this time. We will add IV vancomycin due to continued leukocytosis and having shaking chills awaiting culture results. #2 elevated d-dimer, lower extremity Doppler was negative for DVT, VQ scan was low probability for pulmonary embolism, at this time patient is maintained on subcu heparin for DVT prophylaxis. #3 underlying history of COPD, at this time patient will be given DuoNeb updraft , no need for systemic steroids #4 evidence of bilateral pleural effusion and pericardial effusion on computed tomography scan, will obtain echocardiogram #5 underlying history of dementia maintained on Aricept and Namenda #6 for GI prophylaxis patient on Pepcid for DVT prophylaxis patient on subcu heparin Continue was current management will follow closely
[2017-09-15] MEDS: MULTIVITAMINS, THERA 1 EACH TAB PO SCH (15:59)
[2017-09-15] MEDS ORDERED: VANCOMYCIN 750 MG in SODIUM CHLORIDE 0.9% 250 ML IVPB ONE ×2 (16:00→20:00)
[2017-09-15] MEDS: ASPIRIN 81 MG PO SCH (20:08)
[2017-09-15] MEDS: SODIUM CHLORIDE 0.45% 1,000 ML IV SCH (23:09)
--- NOTE | 2017-09-15 23:55 | PN ---
PROGRESS NOTE DATE OF SERVICE: 09/15/2017 REASON FOR FOLLOWUP: Leukocytosis and concern of sepsis. INTERVAL HISTORY: The patient remains to be afebrile. She is currently feeling weak and tired and some chills. The patient denies any nausea, no vomiting. No abdominal pain. No diarrhea. Oral intake remains to be poor. EXAMINATION: Blood pressure 126/58 with a pulse of 105, temperature of 98.3. She is 98% on 3 L nasal cannula. General description is an elderly female lying in bed in no distress. RESPIRATORY SYSTEM: Unlabored breathing, decreased breath sounds at bases. No wheeze. HEART: S1, S2. Regular rate and rhythm and rhythm. ABDOMEN: Soft, no tenderness. LABS: Hemoglobin 12.2, white count of 30,000, BUN of 45, creatinine 1.30. Lactic acid elevated at 2.5. Repeat is 1.7. Blood culture negative so far. Urine is negative. DIAGNOSTIC IMPRESSION AND PLAN: Patient admitted to the hospital with generalized weakness in a patient who did have elevated white count. However, the patient did have extensive workup including a chest x-ray that was reported to be negative for any pneumonia. A CT abdomen and pelvis did not show any acute inflammation. Urine has been negative and continued to have jump in white count. Vanco has been added today. We will repeat a chest x-ray tomorrow. Keep the patient on Zosyn. Continue supportive care. MMODL / IJN: [id number] /
[2017-09-16] MEDS: SODIUM CHLORIDE 0.45% 1,000 ML IV SCH ×2 (02:55→08:03)
[2017-09-16] MEDS: IPRATROPIUM-ALBUTEROL 3 ML NEB INHALATION SCH ×3 (07:31→20:29)
[2017-09-16] MEDS: MECLIZINE 12.5 MG TAB PO SCH (07:54)
[2017-09-16] MEDS: MEMANTINE 10 MG TAB PO SCH ×2 (07:54→21:43)
[2017-09-16] MEDS: FAMOTIDINE 20 MG TAB PO SCH (07:54)
[2017-09-16] MEDS: DONEPEZIL 10 MG TAB PO SCH (07:55)
[2017-09-16] MEDS: PIPERACILLIN-TAZOBACTAM 3.375 GM in DEXTROSE/WATER 1 50ML.BAG IVPB SCH ×2 (07:55→16:14)
[2017-09-16] MEDS: HEPARIN SODIUM,PORCINE 5,000 UNIT/ML 1 ML VIAL SQ SCH ×2 (07:55→16:14)
[2017-09-16 08:27] LABS: Albumin 2.5 g/dL (3.5-5.0); Calcium 8.6 mg/dL (8.4-10.2); Potassium 4.6 mmol/L (3.5-5.1); Total Bilirubin 0.9 mg/dL (0.2-1.3)
[2017-09-16 08:50] LABS: Basophils # (A) 0.1 k/uL (0-0.2); Basophils % (A) 0 %; Eosinophils # (A) 0.2 k/uL (0-0.7); Eosinophils % (A) 1 %; HGB 10.7 gm/dL (11.4-16.0); Lymphocytes # (A) 1.3 k/uL (1.0-4.8); Lymphocytes % (A) 4 %; MCH 26.8 pg (25.0-35.0); MCHC 31.4 g/dL (31.0-37.0); MCV 85.3 fL (80.0-100.0); Mean Platelet Volume 8.3; Monocytes % (A) 3 %; Neutrophils # (A) 27.8 k/uL (1.3-7.7); Neutrophils % (A) 91 %; Platelet Count 442 k/uL (150-450); RBC 3.99 m/uL (3.80-5.40); RDW 15.7 % (11.5-15.5); WBC 30.5 k/uL (3.8-10.6)
--- NOTE | 2017-09-16 09:57 | XR ---
EXAMINATION TYPE: XR chest 1V portable DATE OF EXAM: 09/16/2017 CLINICAL HISTORY: Difficulty breathing, sepsis, flulike symptoms, and elevated d-dimer. TECHNIQUE: Single AP portable upright view of the chest is obtained. COMPARISON: Chest x-ray from 3 days earlier. FINDINGS: Cardiomegaly with atherosclerotic and ectatic thoracic aorta is redemonstrated. There is c hronic parenchymal change without suspicious new focal airspace opacity, pleural effusion, or pneumot horax seen. Osseous structures are demineralized. S-shaped scoliosis is present. Metallic hardware fr om left shoulder surgery is redemonstrated IMPRESSION: Overall stable findings, chronic changes and cardiomegaly without suspicious acute infi ltrate.
[2017-09-16] MEDS ORDERED: VANCOMYCIN 750 MG in SODIUM CHLORIDE 0.9% 250 ML IVPB ONE (12:00)
--- NOTE | 2017-09-16 12:22 | P.PN ---
Subjective Progress Note Date: 09/16/17 Brenda Dave is an 81-year-old female, patient of [facility], who presented to [facility] emergency room with a chief complaint of generalized weakness, daughter states that patient was seen at [facility] one week ago, she was given an antibiotic for presumed urinary tract infection, however her condition continued to worsen, she was seen by her visiting nurse and was advised to come to emergency room. Patient was evaluated by Dr. Brown in the emergency room, she had evidence of sepsis with hypotension, tachycardia, and leukocytosis, also d-dimer was elevated at 5.64, she was admitted to telemetry floor, she was started on IV antibiotic and IV fluid. Bilateral lower extremity Doppler was done and was negative for DVT, VQ scan was done and was low probability for pulmonary embolism. On 09/15/2017 patient is alert and oriented 3 in no apparent distress, she is complaining of feeling cold and having shaking chills, otherwise no complaints, patient has tachycardia, and has evidence sepsis, with leukocytosis white blood count still at 30,000, primary site of infection is still unclear she is complaining of cough, chest x-ray did not reveal any evidence of pneumonia, blood culture is pending, echocardiogram is pending, sodium is up to 114 9 IV fluid change to half-normal saline, will check lactic acid. 09/16/2017 patient is confused. She states things like "did you know that I am ". Patient's son is at bedside patient does have some baseline confusion usually mostly short term memory loss. However, since she's been sick the confusion has worsened. Patient is lying in bed comfortably no evidence of distress. Earlier this morning per nursing staff patient was satting around 84% on 3 L and had to be increased to 5 L and was able to get into the 90s. Patient's white count is still elevated at 30.5. Infectious disease and pulmonary service are following. Repeat chest x-ray shows no acute changes. And for the screening negative. Patient denies any chest pain. Patient has been having some cough. Denies any nausea or vomiting no diarrhea. Patient did have one loose stool, but not watery. Objective - Vital Signs Vital signs: Vital Signs Temp 97.8 F 09/16/17 07:50 Pulse 108 H 09/16/17 07:50 Resp 20 09/16/17 07:50 BP 115/71 09/16/17 07:50 Pulse Ox 92 L 09/16/17 07:50 Intake & Output 09/15/17 09/16/17 09/16/17 18:59 06:59 18:59 Intake Total 575 1487 Balance 575 1487 Weight 48.6 kg Intake: Intake, IV Titration 575 1487 Amount Piperacillin-Tazobactam 3 50 50 .375 gm In Dextrose/Water 1 50ml.bag @ 12.5 mls/hr IVPB Q8HR OBDULIO Rx#: [id number] Sodium Chloride 0.45% 1, 1437 000 ml @ 125 mls/hr IV . Q8H OBDULIO Rx#:[id number] Sodium Chloride 0.45% 1, 525 000 ml @ 75 mls/hr IV . [id number] OBDULIO Rx#:[id number] Other: Voiding Method Bedside Commode Bedside Commode Bedside Commode # Voids 3 - Exam Head normocephalic Neck supple Lungs clear to auscultation bilaterally no wheezing or crackles Heart regular rate and rhythm S1-S2, no rub or gallop Abdomen is soft nontender nondistended positive bowel sounds no hepatosplenomegaly Extremities no edema Neuro awake and alert but confused - Labs CBC & Chem 7: 09/16/17 07:08 09/16/17 07:08 Labs: Abnormal Lab Results - Last 24 Hours (Table) 09/15/17 09/16/17 09/16/17 Range/Units 15:47 07:08 07:08 WBC 30.5 H* (3.8-10.6) k/uL Hgb 10.7 L (11.4-16.0) gm/dL RDW 15.7 H (11.5-15.5) % Neutrophils # 27.8 H (1.3-7.7) k/uL Chloride 113 H (98-107) mmol/L Carbon Dioxide 15 L (22-30) mmol/L BUN 33 H (7-17) mg/dL Creatinine 1.23 H (0.52-1.04) mg/dL Plasma Lactic Acid Mundo 2.8 H* (0.7-2.0) mmol/L AST 57 H (14-36) U/L ALT 54 H (9-52) U/L Total Protein 5.0 L (6.3-8.2) g/dL Albumin 2.5 L (3.5-5.0) g/dL Microbiology - Last 24 Hours (Table) 09/14/17 13:10 Blood Culture - Preliminary Blood No Growth after 24 hours Assessment and Plan Assessment: #1 sepsis, initial site of infection is not clear, patient was partially treated with oral antibiotic as outpatient, blood culture negative. Urinalysis no evidence of UTI. Repeat chest x-ray no evidence of pneumonia. Patient remains on Zosyn and vancomycin. Infectious disease following closely #2 elevated d-dimer, lower extremity Doppler was negative for DVT, VQ scan was low probability for pulmonary embolism, at this time patient is maintained on subcu heparin for DVT prophylaxis. #3 underlying history of COPD, at this time patient will be given DuoNeb updraft , no need for systemic steroids #4 evidence of bilateral pleural effusion and pericardial effusion on computed tomography scan, will obtain echocardiogram #5 underlying history of dementia maintained on Aricept and Namenda #6 hypernatremia improved. Sodium has gone down to 144 #7 acute on chronic renal failure, stage III. Creatinine down to 1.23. Continue to monitor on IV fluids for GI prophylaxis patient on Pepcid for DVT prophylaxis patient on subcu heparin I performed an examination of the patient and discussed their management with the physician Food Service Supervisor. I have reviewed the Physician Food Service Supervisor's notes and agree with the documented findings and plan of care
[2017-09-16] MEDS: MULTIVITAMINS, THERA 1 EACH TAB PO SCH (12:37)
--- NOTE | 2017-09-16 13:41 | ECHOF ---
Referral Reason:pleural and pericardial effusion MEASUREMENTS -------- HEIGHT: 154.9 cm WEIGHT: 48.5 kg BP: 126/58 IVSd: 1.3 cm (0.6 - 1.1) LVIDd: 3.8 cm (3.9 - 5.3) LVPWd: 1.4 cm (0.6 - 1.1) EDV(Teich): 62 ml IVSs: 1.4 cm LVIDs: 2.6 cm LVPWs: 1.6 cm ESV(Teich): 24 ml EF(Teich): 62 % %FS: 33 % SV(Teich): 38 ml LVOT Diam: 2.0 cm RVIDd: 3.1 cm (< 3.3) LALs A4C: 6.2 cm LAAs A4C: 24.8 cm LAESV A-L A4C: 86 ml LAESV MOD A4C: 84 ml LALs A2C: 5.8 cm LAAs A2C: 18.8 cm LAESV A-L A2C: 52 ml LAESV MOD A2C: 51 ml LAESV(A-L): 69 ml LAESV Index (A-L): 47.40 ml/m Ao Diam: 2.7 cm (2.0 - 3.7) LA Diam: 4.1 cm (2.7 - 3.8) AV Cusp: 1.0 cm (1.5 - 2.6) MV E Myke: 0.98 m/s MV DecT: 438 ms MV Dec [place]: 2.2 m/s MV A Myke: 2.08 m/s MV E/A Ratio: 0.47 MV Vmax: 2.18 m/s MV Vmean: 1.11 m/s MV maxP.14 mmHg MV meanP.41 mmHg MV VTI: 30.3 cm MVA (VTI): 3.0 cm LVOT Vmax: 1.52 m/s LVOT Vmean: 1.01 m/s LVOT maxP.26 mmHg LVOT meanP.67 mmHg LVOT Env.Ti: 298 ms LVOT VTI: 30.2 cm AV Vmax: 2.08 m/s AV Vmean: 1.43 m/s AV maxP.34 mmHg AV meanP.90 mmHg AV Env.Ti: 241 ms AV VTI: 34.4 cm REJI Vmax: 2.2 cm REJI (VTI): 2.6 cm AVAI (VTI): 1.805 cm/m AVAI Vmax: 1.508 cm/m TR Vmax: 4.91 m/s TR maxP.26 mmHg RAP: 15.00 mmHg RVSP: 113.26 mmHg FINDINGS -------- Resting tachycardia (HR>100bpm). This was a technically good study. The left ventricular size is normal. There is mild concentric left ventricular hypertrophy. Left ventricular systolic function is hyperdynamic with an estimated EF of >70%. Possible left ventricul ar cavity obliteration. The right ventricle is normal in size. The right ventricular systolic function is moderately impair ed. The right ventricular septal wall is flattened in diastole and systole which is consistent wit h right ventricular volume and pressure overload. LA is severely dilated >40 ml/m2 The right atrium is markedly enlarged. Aortic valve is trileaflet and is moderately thickened. There is no evidence of aortic regurgitatio n. There is no evidence of aortic stenosis. The mitral valve leaflets are moderately thickened. Moderate mitral annular calcification present. The peak and mean MV gradients are 19.14mmHg 6.41mmHg as measured by doppler. Mild mitral stenos is. Severe tricuspid regurgitation present. There is severe pulmonary hypertension. The right ventric ular systolic pressure, as measured by Doppler, is 113.26mmHg. Trace/mild (physiologic) pulmonic regurgitation. The aortic root size is normal. The inferior vena cava is dilated with no significant inspiratory collapse which is consistent estima dayron right atrial pressure of >20 mmHg. There is a small pericardial effusion is located near the right ventricle. CONCLUSIONS -------- 1. Resting tachycardia (HR>100bpm). 2. This was a technically good study. 3. The left ventricular size is normal. 4. There is mild concentric left ventricular hypertrophy. 5. Left ventricular systolic function is hyperdynamic with an estimated EF of >70%. 6. Possible left ventricular cavity obliteration. 7. The right ventricular systolic function is moderately impaired. 8. The right ventricular septal wall is flattened in diastole and systole which is consistent with r ight ventricular volume and pressure overload. 9. LA is severely dilated >40 ml/m2 10. The right atrium is markedly enlarged. 11. Aortic valve is trileaflet and is moderately thickened. 12. The mitral valve leaflets are moderately thickened. 13. Moderate mitral annular calcification present. 14. The peak and mean MV gradients are 19.14mmHg 6.41mmHg as measured by doppler. 15. Mild mitral stenosis. 16. Severe tricuspid regurgitation present. 17. There is severe pulmonary hypertension. 18. The right ventricular systolic pressure, as measured by Doppler, is 113.26mmHg. 19. Trace/mild (physiologic) pulmonic regurgitation. 20. The aortic root size is normal. 21. The inferior vena cava is dilated with no significant inspiratory collapse which is consistent es timated right atrial pressure of >20 mmHg. 22. There is a small pericardial effusion is located near the right ventricle. DIRECTOR CHILD ABUSE THERAPY: Reynaldo Chavis RDCS
[2017-09-16] MEDS ORDERED: RX INFO: IV CONTRAST WAS GIVEN 1 EACH MISC MISCELLANE PRN (14:18)
[2017-09-16] MEDS ORDERED: DEXTROSE 5% IN WATER 1,000 ML with SODIUM BICARB (1 MEQ/ML) 150 ML IV SCH (15:00)
--- NOTE | 2017-09-16 15:34 | P.PN ---
Subjective Progress Note Date: 09/16/17 I'm seeing this 81-year-old female patient in follow-up and there is an obvious concern about her health in general as the patient comes in with altered mentation, hypoxic history failure with worsening in her oxygenation status as the patient has limited at least about 2 by nasal cannula and currently is up to 6 L in addition to leukocytosis and evolving metabolic acidosis. A septic workup has been completed and the patient is being seen by infectious disease. Cultures of been negative. The patient is slightly tachycardic. She has leukocytosis. D-dimer is positive. Echocardiogram shows severe pulmonary hypertension with a PA pressure estimated to be around 120 and there is also evidence of moderate mitral regurgitation, mild mitral stenosis, severe tricuspid regurgitation, severe pulmonary hypertension, small pericardial effusion, and dilated the right-sided cardiac structures. The left and ejection fraction is about 70%. The CAT scan of the abdomen revealed no acute abnormalities then some chronic interstitial changes in lung bases, small bilateral pleural effusion, small pericardial effusion, cholelithiasis and questionable thickening of the proximal small bowel/enteritis and nonobstructing 9 mm right lower pole renal calculus and complicated diverticulosis. There is also degenerative changes in the spine and Ventolin hernia containing fat only. Doppler of the lower extremities was negative. Patient has underlying dementia at baseline. On and off she sounds to be more confused. Things Objective - Vital Signs Vital signs: Vital Signs Temp 98 F 09/16/17 14:35 Pulse 110 H 09/16/17 14:35 Resp 18 09/16/17 14:35 BP 120/73 09/16/17 14:35 Pulse Ox 93 L 09/16/17 14:35 Intake & Output 09/15/17 09/16/17 09/16/17 18:59 06:59 18:59 Intake Total 575 1487 Balance 575 1487 Weight 48.6 kg Intake: Intake, IV Titration 575 1487 Amount Piperacillin-Tazobactam 3 50 50 .375 gm In Dextrose/Water 1 50ml.bag @ 12.5 mls/hr IVPB Q8HR [facility]BDULIO Rx#: [id number] Sodium Chloride 0.45% 1, 1437 000 ml @ 125 mls/hr IV . Q8H OBDULIO Rx#:[id number] Sodium Chloride 0.45% 1, 525 000 ml @ 75 mls/hr IV . [id number] OBDULIO Rx#:[id number] Other: Voiding Method Bedside Commode Bedside Commode Bedside Commode # Voids 3 - Exam Gen. appearance the patient is arousable and awake it seems to be lethargic at times confused. A mild degree of respiratory distress even at rest. Examination of the neck reveals bilateral jugular venous distention. This is also noted that third-degree bed elevation. No neck masses. Neck is supple there is no lymphadenopathy and there is no cervical or supraclavicular lymphadenopathy. Mucous membranes are dry and there is no thrush. Head exam was generally normal. There was no scleral icterus or corneal arcus. Mucous membranes were moist. Lungs sounds are diminished bilaterally along with some limited bibasilar crackles. Breath sounds are diminished bilaterally and there is some scattered expiratory wheezes throughout the lung bosch. Heart sounds reveal accentuation of the second heart sound. No cervical murmurs appreciated. The patient is slightly tachycardic yet the rhythm seems to be sinus at this point. Abdominal exam revealed normal bowel sounds. The abdomen was soft, non-tender, and without masses, organomegaly, or appreciable enlargement of the abdominal aorta. Examination of the extremities revealed easily palpable radial, femoral and pedal pulses. There was no cyanosis, clubbing or edema. Examination of the skin revealed no evidence of significant rashes, suspicious appearing nevi or other concerning lesions. Neurologically the patient is neurologic exam is nonfocal. The patient will go 4 extremities without any limitation. No cranial nerve deficits. - Labs CBC & Chem 7: 09/16/17 07:08 09/16/17 07:08 Labs: Abnormal Lab Results - Last 24 Hours (Table) 09/15/17 09/16/17 09/16/17 Range/Units 15:47 07:08 07:08 WBC 30.5 H* (3.8-10.6) k/uL Hgb 10.7 L (11.4-16.0) gm/dL RDW 15.7 H (11.5-15.5) % Neutrophils # 27.8 H (1.3-7.7) k/uL Chloride 113 H (98-107) mmol/L Carbon Dioxide 15 L (22-30) mmol/L BUN 33 H (7-17) mg/dL Creatinine 1.23 H (0.52-1.04) mg/dL Plasma Lactic Acid Mundo 2.8 H* (0.7-2.0) mmol/L AST 57 H (14-36) U/L ALT 54 H (9-52) U/L Total Protein 5.0 L (6.3-8.2) g/dL Albumin 2.5 L (3.5-5.0) g/dL Microbiology - Last 24 Hours (Table) 09/14/17 13:10 Blood Culture - Preliminary Blood No Growth after 24 hours Assessment and Plan Plan: Assessment 1 acute on chronic hypoxic history failure with worsening in her oxygenation and the patient is currently requiring high flow oxygen 6 L/m nasal cannula. No clear indication of an underlying pneumonia. Rule out pulmonary embolism especially with the worsening or very high right-sided pressures and severe pulmonary hypertension 2 severe pulmonary hypertension, acute versus chronic currently under investigation. 3 COPD with chronic hypoxic respiratory failure maintained on feeds of oxygen at baseline 4 leukocytosis 5 mild anion gap metabolic acidosis with some lactic acidosis at the time of admission which is improving and the lactic acid is down to 1.7 6 dementia with episodes of altered mentation 7. Generalized weakness 8 acute versus chronic renal insufficiency, probably stage II to 3 chronic kidney failure and creatinine is at 1.2 9 small bilateral pleural effusion 10 nephrolithiasis 11 degenerative arthritis Plan The patient will to the intensive care unit for close monitoring. Check lactic acid level. Check blood gas. Check fever pattern. Monitor white cell count. Continue current antibiotic coverage. ID to be staying on the case. Obtain a CT angios the chest with contrast to further investigate the hypoxemia and the severely elevated pulmonary artery pressure. Echocardiac Juanito was noted. The patient has severe pulmonary hypertension and this is likely an acute on top of chronic secondary pulmonary hypertension and will look for any other secondary causes of the beatings is high pressures including possibility of pulmonary embolism. Doubt infective endocarditis. Put the patient on bicarb drip to help her with an anion gap metabolic acidosis. Heparin subcu for DVT prophylaxis. Continue DuoNeb about seems on the clock. Empiric antibiotic coverage with IV Zosyn along with vancomycin. We'll continue to follow.
--- NOTE | 2017-09-16 16:33 | CT ---
EXAMINATION TYPE: CT chest angio for PE DATE OF EXAM: 09/16/2017 COMPARISON: NONE HISTORY: Shortness of breath. CT DLP: 480 mGycm. Automated Exposure Control for Dose Reduction was Utilized. CONTRAST: CTA scan of the thorax is performed with IV Contrast, patient injected with 80 mL of Isovue 370, pulm onary embolism protocol. MIP Images are created on CT scanner and reviewed. FINDINGS: LUNGS: Small right and trace left pleural effusions with associated bibasilar subsegmental atelectasi s are seen. Additionally there are extensive centrilobular and paraseptal emphysematous changes throu ghout the lungs. The lungs are grossly clear, there is no concerning parenchymal mass or nodule ident ified. There is no pleural effusion or pneumothorax seen. The tracheobronchial tree is patent. MEDIASTINUM: There is satisfactory enhancement of the pulmonary artery and its branches, there is no CT evidence for pulmonary embolism. There are no greater than 1 cm hilar or mediastinal lymph nodes. There is a moderate low-density pericardial effusion measuring 1.2 cm in greatest thickness with no pericardial enhancement to suggest pericarditis. OTHER: No additional significant abnormality is seen. Mild multilevel degenerative changes of the th oracic spine are noted. IMPRESSION: 1. No evidence of pulmonary embolus. 2. Extensive centrilobular and paraseptal emphysematous changes throughout the entirety of the lungs. 3. Small right and trace left pleural effusions with associated compressive atelectasis. 4. Moderate simple appearing pericardial effusion without CT evidence of pericarditis.
[2017-09-16 16:37] LABS: ABG Base Excess -4.3 mmol/L; ABG HCO3 20 mmol/L (21-25); ABG Oxygen Saturation 90.3 % (94-97); ABG PCO2 31 mmHg (35-45); ABG PH 7.42 (7.35-7.45); ABG PO2 56 mmHg (83-108); ABG TCO2 21 mmol/L (19-24)
[2017-09-16] MEDS: ASPIRIN 81 MG PO SCH (21:43)
--- NOTE | 2017-09-16 22:17 | PN ---
PROGRESS NOTE DATE OF SERVICE: 09/16/2017. REASON FOR FOLLOWUP: Leukocytosis and possible sepsis. INTERVAL HISTORY: The patient was seen on rounds this morning. The patient has been afebrile and slightly confused though. The patient denies having any chest pain or cough. Some shortness of breath. No nausea, vomiting. No abdominal pain. No diarrhea. EXAMINATION: Blood pressure 127/56, pulse of 109, temperature 98.2. She is 97% on high-flow oxygen. General description is an elderly female lying in bed in no distress. Respiratory system unlabored breathing. Decreased breath sounds at bases. No wheeze. Heart S1, S2. Tachycardic. ABDOMEN: Soft, no tenderness. No guarding or rigidity. Extremities: No edema of the feet. LABS: Hemoglobin 10.7, white count of 13,000, BUN of 33, creatinine 1.23. Liver enzymes slightly elevated. Cultures have been negative. DIAGNOSTIC IMPRESSION AND PLAN: Patient admitted to the hospital with weakness, no energy. The patient did have elevated white count on admission of 29,000. Subsequently, white count remains to be elevated. The patient did have extensive workup including a UA that was negative. CT of abdominal and pelvis was negative for any inflammation except some and a CT angiogram done this morning him by Pulmonary did not show any evidence of PE. She is currently is on broad spectrum antibiotic in the form Vancomycin, this can be continued. White count is being watching the kidney function closely as well as cultures. Continue with supportive care. MMODL / IJN: [id number] /
[2017-09-17] MEDS: PIPERACILLIN-TAZOBACTAM 3.375 GM in DEXTROSE/WATER 1 50ML.BAG IVPB SCH ×3 (01:39→16:22)
[2017-09-17] MEDS: HEPARIN SODIUM,PORCINE 5,000 UNIT/ML 1 ML VIAL SQ SCH ×3 (01:39→16:21)
[2017-09-17 05:24] LABS: Basophils % (A) 0 %; Eosinophils # (A) 0.5 k/uL (0-0.7); Eosinophils % (A) 2 %; HCT 31.7 % (34.0-46.0); HGB 10.1 gm/dL (11.4-16.0); Hypochromasia Slight; Lymphocytes # (A) 1.2 k/uL (1.0-4.8); Lymphocytes % (A) 5 %; MCH 27.2 pg (25.0-35.0); MCHC 31.8 g/dL (31.0-37.0); MCV 85.8 fL (80.0-100.0); Monocytes # (A) 0.9 k/uL (0-1.0); Monocytes % (A) 3 %; Neutrophils # (A) 22.6 k/uL (1.3-7.7); Neutrophils % (A) 89 %; Platelet Count 437 k/uL (150-450); RDW 15.9 % (11.5-15.5)
[2017-09-17 05:43] LABS: Calcium 8.5 mg/dL (8.4-10.2); Phosphorus 4.1 mg/dL (2.5-4.5); Potassium 4.1 mmol/L (3.5-5.1)
[2017-09-17 05:45] LABS: WBC 25.4 k/uL (3.8-10.6)
[2017-09-17] MEDS: IPRATROPIUM-ALBUTEROL 3 ML NEB INHALATION SCH ×3 (07:58→20:57)
--- NOTE | 2017-09-17 08:08 | XR ---
EXAMINATION TYPE: XR chest 1V DATE OF EXAM: 09/17/2017 COMPARISON: 09/16/2017 HISTORY: 81 year-old female shortness of breath TECHNIQUE: Single frontal view of the chest is obtained. FINDINGS: Heart remains mildly enlarged. Diffuse interstitial prominence may be slightly increased. There is ne w blunting of the costophrenic angles and new patchy opacity at the right base. IMPRESSION: 1. Interval worsening. There is cardiomegaly and possible developing pulmonary vascular congestion. 2. New right greater than left bibasilar infiltrates could represent areas of pulmonary edema versus infectious or aspiration pneumonitis. Underlying small effusions are suggested as well.
[2017-09-17] MEDS ORDERED: FUROSEMIDE 10 MG/ML 4 ML VIAL IV STA (08:16)
--- NOTE | 2017-09-17 08:57 | US ---
EXAMINATION TYPE: US abdomen complete DATE OF EXAM: 09/17/2017 COMPARISON: CT 09/14/2017 CLINICAL HISTORY: 81-year-old female elevated LFTs , gallstones on CT scan. Screwhead Polisher notes: Patient disoriented, poor historian, exam done portable in ICU. TECHNIQUE: Multiple sonographic images of the abdomen are obtained. FINDINGS: EXAM MEASUREMENTS: Liver Length: 15.6 cm Gallbladder Wall: 0.2 cm CBD: 7.8 mm Spleen: 9.7 cm Right Kidney: 9.6 x 4.4 x 4.4 cm Left Kidney: 9.1 x 4.3 x 3.9 cm Pancreas: tail obscured by overlying bowel gas. Visualized portions show no gross abnormality. Liver: somewhat heterogeneous without any definite lesions seen at this time, mildly dilated portal vein at 1.6 cm. Gallbladder: 0.6cm echogenic foci, small amount of fluid seen adjacent to gallbladder Evidence for sonographic Bender's sign: suboptimal assessment due to patient positioning. CBD: dilated, but within normal limits given patient's age. Spleen: visualized portions wnl, limited by rib shadowing and overlying bowel gas Right Kidney: No hydronephrosis. 0.6cm echogenic shadowing foci inferior pole, small amount of fluid in Holt's pouch Left Kidney: visualized portions wnl, limited by rib shadowing and overlying bowel gas. No hydroneph rosis. Upper IVC: wnl Abd Aorta: distal portion obscured by overlying midline bowel gas Right pleural effusion noted IMPRESSION: 1. Mildly heterogeneous liver parenchyma could been on a technical basis or could reflect nonspecific hepatocellular disease. 2. 6 mm gallstone. Small amount of fluid adjacent to the gallbladder, nonspecific, possible trace asc ites. A small right pleural effusion is also noted. No ancillary findings of acute cholecystitis at t his time. 3. Mildly dilated bile duct (7.8 mm), within normal limits for patient's age. 4. A 6 mm nonobstructive lower pole right renal calculus.
[2017-09-17] MEDS: MEMANTINE 10 MG TAB PO SCH ×2 (09:24→20:25)
[2017-09-17] MEDS: FAMOTIDINE 20 MG TAB PO SCH (09:24)
[2017-09-17] MEDS: DONEPEZIL 10 MG TAB PO SCH (09:24)
[2017-09-17] MEDS: MECLIZINE 12.5 MG TAB PO SCH (09:24)
[2017-09-17] MEDS: SODIUM CHLORIDE 0.45% 1,000 ML IV SCH (11:22)
[2017-09-17] MEDS ORDERED: VANCOMYCIN 1,000 MG in SODIUM CHLORIDE 0.9% 250 ML IVPB ONE (12:00)
[2017-09-17] MEDS: MULTIVITAMINS, THERA 1 EACH TAB PO SCH (12:03)
--- NOTE | 2017-09-17 13:00 | P.PN ---
Subjective Progress Note Date: 09/17/17 I'm seeing this 81-year-old female patient in follow-up and there is an obvious concern about her health in general as the patient comes in with altered mentation, hypoxic history failure with worsening in her oxygenation status as the patient has limited at least about 2 by nasal cannula and currently is up to 6 L in addition to leukocytosis and evolving metabolic acidosis. A septic workup has been completed and the patient is being seen by infectious disease. Cultures of been negative. The patient is slightly tachycardic. She has leukocytosis. D-dimer is positive. Echocardiogram shows severe pulmonary hypertension with a PA pressure estimated to be around 120 and there is also evidence of moderate mitral regurgitation, mild mitral stenosis, severe tricuspid regurgitation, severe pulmonary hypertension, small pericardial effusion, and dilated the right-sided cardiac structures. The left and ejection fraction is about 70%. The CAT scan of the abdomen revealed no acute abnormalities then some chronic interstitial changes in lung bases, small bilateral pleural effusion, small pericardial effusion, cholelithiasis and questionable thickening of the proximal small bowel/enteritis and nonobstructing 9 mm right lower pole renal calculus and complicated diverticulosis. There is also degenerative changes in the spine and Ventolin hernia containing fat only. Doppler of the lower extremities was negative. Patient has underlying dementia at baseline. On and off she sounds to be more confused. On today's evaluation of 09/17/2017 the patient is being seen in follow-up in the intensive care unit. She seems to be improved compared to yesterday. On and off she is still confused. No focal neurological deficits. Family is at the bedside. She is on 6 L of oxygen nasal cannula and she is also having some bibasilar crackles and for that reason I have suggested some diuresis. Meanwhile, the white cell count is improving is down to 25. He was dynamically stable. No pressors. The patient has not been found to have any source of an infection. She is afebrile. Ultrasound the gallbladder showed no evidence of any cholecystitis. The patient is cholelithiasis. Abnormalities in LFTs is probably related to right-sided failure. No evidence of any urine tract infection. No evidence of any blood infection. Doubt endocarditis. Echocardiogram showed severe pulmonary hypertension and evidence of right-sided heart failure probably related to chronic hypoxemia. CAT scan of the chest showed diffuse emphysema and small right-sided pleural effusion and compressive atelectasis of the right lung base and there was no evidence of any pulmonary embolism or filling defects. The patient is on DuoNeb nebulized treatments around the clock. The patient was given a dose of Lasix. The patient is on examination of Zosyn and vancomycin for now as an empiric antibiotic coverage. ID is on the case. Objective - Vital Signs Vital signs: Vital Signs Temp 97.7 F 09/17/17 12:00 Pulse 109 H 09/17/17 12:55 Resp 12 09/17/17 12:00 BP 123/68 09/17/17 12:00 Pulse Ox 90 L 09/17/17 12:00 Intake & Output 09/16/17 09/17/17 09/17/17 18:59 06:59 18:59 Intake Total 220 770 50 Output Total 800 1000 Balance 220 -30 -950 Weight 59.8 kg 59.8 kg Intake: IV 720 50 Dextrose 5% in Water 1, 600 000 ml @ 50 mls/hr IV . Q23H OBDULIO with Sodium Bicarb (1 Meq/ml) 150 ml Rx#:[id number] Sodium Chloride 0.45% 1, 120 50 000 ml @ 125 mls/hr IV . Q8H OBDULIO Rx#:[id number] Intake, IV Titration 100 50 Amount Dextrose 5% in Water 1, 50 000 ml @ 50 mls/hr IV . Q23H OBDULIO with Sodium Bicarb (1 Meq/ml) 150 ml Rx#:[id number] Piperacillin-Tazobactam 3 50 50 .375 gm In Dextrose/Water 1 50ml.bag @ 12.5 mls/hr IVPB Q8HR OBDULIO Rx#: [id number] Oral 120 Output: Urine 800 1000 Other: Voiding Method Incontinent Incontinent Incontinent - Exam Gen. appearance the patient is arousable and awake it seems to be lethargic at times confused. A mild degree of respiratory distress even at rest. Examination of the neck reveals bilateral jugular venous distention. This is also noted that third-degree bed elevation. No neck masses. Neck is supple there is no lymphadenopathy and there is no cervical or supraclavicular lymphadenopathy. Mucous membranes are dry and there is no thrush. Head exam was generally normal. There was no scleral icterus or corneal arcus. Mucous membranes were moist. Lungs sounds are diminished bilaterally along with some limited bibasilar crackles. Breath sounds are diminished bilaterally and there is some scattered expiratory wheezes throughout the lung bosch. Heart sounds reveal accentuation of the second heart sound. No cervical murmurs appreciated. The patient is slightly tachycardic yet the rhythm seems to be sinus at this point. Abdominal exam revealed normal bowel sounds. The abdomen was soft, non-tender, and without masses, organomegaly, or appreciable enlargement of the abdominal aorta. Examination of the extremities revealed easily palpable radial, femoral and pedal pulses. There was no cyanosis, clubbing or edema. Examination of the skin revealed no evidence of significant rashes, suspicious appearing nevi or other concerning lesions. Neurologically the patient is neurologic exam is nonfocal. The patient will go 4 extremities without any limitation. No cranial nerve deficits. - Labs CBC & Chem 7: 09/17/17 04:15 09/17/17 04:15 Labs: Abnormal Lab Results - Last 24 Hours (Table) 09/16/17 09/17/17 09/17/17 Range/Units 16:35 04:15 04:15 WBC 25.4 H* (3.8-10.6) k/uL RBC 3.70 L (3.80-5.40) m/uL Hgb 10.1 L (11.4-16.0) gm/dL Hct 31.7 L (34.0-46.0) % RDW 15.9 H (11.5-15.5) % Neutrophils # 22.6 H (1.3-7.7) k/uL ABG pCO2 31 L (35-45) mmHg ABG pO2 56 L (83-108) mmHg ABG HCO3 20 L (21-25) mmol/L ABG O2 Saturation 90.3 L (94-97) % Chloride 108 H (98-107) mmol/L BUN 31 H (7-17) mg/dL Creatinine 1.30 H (0.52-1.04) mg/dL Microbiology - Last 24 Hours (Table) 09/15/17 15:46 Blood Culture - Preliminary Blood No Growth after 24 hours 09/14/17 13:10 Blood Culture - Preliminary Blood No Growth after 48 hours Assessment and Plan Plan: Assessment 1 acute on chronic hypoxic history failure with worsening in her oxygenation and the patient is currently requiring high flow oxygen 6 L/m nasal cannula. No clear indication of an underlying pneumonia. The patient had a CT angios the chest that showed no evidence of any pulmonary embolism. His advanced COPD and emphysema and small right-sided pleural effusion and compressive atelectasis of the right lung base. 2 severe pulmonary hypertension, most likely chronic in nature and a CT angios the chest showed no this any pulmonary embolism. 3 COPD with chronic hypoxic respiratory failure maintained on 3 L of oxygen at baseline 4 leukocytosis, improving 5 mild anion gap metabolic acidosis with some lactic acidosis at the time of admission , , recovered and the patient will be taken off the bicarb drip today as the patient's bicarb level is normalized 6 dementia with episodes of altered mentation 7. Generalized weakness 8 acute versus chronic renal insufficiency, probably stage II to 3 chronic kidney failure and creatinine is at 1.2 9 small bilateral pleural effusion 10 nephrolithiasis 11 degenerative arthritis 12 cholelithiasis without evidence of any cholecystitis Plan Give the patient dose of Lasix 40 mg IV push. Continue with the antibiotics. Kept on the IV fluids and stop the bicarb drip for now. Monitor the blood cultures. Monitor the white cell count. Monitor the liver function tests. Acidosis of recovered. Mentation is still on and off altered and confused. We' ll continue to follow. The patient is somewhat more stable compared to yesterday and she'll be kept in ICU for further monitoring. Family was updated on her condition.
--- NOTE | 2017-09-17 14:06 | CONS ---
CONSULTATION Mrs. Dave is an 81-year-old female, who is seen for cardiac evaluation. Patient's chart reviewed. History was obtained from the patient as well as patient's daughter and chart. This patient has been in the hospital for last 3 days. She was intubated with change in the mental status and hypoxic respiratory failure. Patient condition worsened yesterday and patient was transferred to the intensive care unit for the sepsis workup. Patient's echocardiogram shows evidence of severe degree of pulmonary hypertension. Left ventricular systolic function was normal and it was hyperdynamic. Patient does have a history of advanced COPD. There is no definite previous history of myocardial infarction. According to the patient's daughter, she has been told in the past that she has a pulmonary hypertension, she uses oxygen for last 3 years. There is no definite previous history of myocardial infarction. PAST MEDICAL HISTORY: Includes history of joint replacement, orthopedic surgery, hip replacement, shoulder replacement, history of home oxygen, hyperlipidemia and memory impairment. HOME MEDICATIONS: Included Truxton-3 once a day, naproxen, Antivert, Pepcid, Aricept, and Namenda. PHYSICAL EXAMINATION: At present reveals an 81-year-old female, who is at present lying comfortably in the bed without any respiratory distress. Patient's heart rate is 110 per minute, blood pressure is 121/79 mmHg, oxygen saturation is 94%. HEENT examination is negative. Neck is supple. There is no increase in jugular venous pressure. Both the carotid pulses are felt. There is no bruit. Chest is symmetrical. Heart, the PMI is not felt. First and second heart sounds are heard. Lung examination reveals bilateral diminished air entry. Abdomen is soft. Extremities, peripheral pulsations are not very well felt. EKG on admission revealed sinus tachycardia. Patient's white count remains elevated in the range of 25 to 30,000. So far all the cultures are negative and an exact source of infection is unclear. Patient's creatinine is 1.3. FINAL IMPRESSION: 1. This patient is admitted with change in the mental status and acute hypoxic respiratory failure. Patient has a history of severe chronic obstructive pulmonary disease and she has been oxygen-dependent. 2. Patient has evidence of severe degree of pulmonary hypertension which is probably exacerbated by a recent illness. Patient must have a chronic secondary pulmonary hypertension due to underlying chronic obstructive pulmonary disease. We will recommend patient to continue her respiratory treatments and diuretics if patient's blood pressure permits. We will recommend to start the patient on Aldactone 25 mg daily. MMODL / IJN: [id number] /
--- NOTE | 2017-09-17 14:50 | P.PN ---
Subjective Progress Note Date: 09/17/17 Brenda Dave is an 81-year-old female, patient of [facility], who presented to [facility] emergency room with a chief complaint of generalized weakness, daughter states that patient was seen at [facility] one week ago, she was given an antibiotic for presumed urinary tract infection, however her condition continued to worsen, she was seen by her visiting nurse and was advised to come to emergency room. Patient was evaluated by Dr. Brown in the emergency room, she had evidence of sepsis with hypotension, tachycardia, and leukocytosis, also d-dimer was elevated at 5.64, she was admitted to telemetry floor, she was started on IV antibiotic and IV fluid. Bilateral lower extremity Doppler was done and was negative for DVT, VQ scan was done and was low probability for pulmonary embolism. On 09/15/2017 patient is alert and oriented 3 in no apparent distress, she is complaining of feeling cold and having shaking chills, otherwise no complaints, patient has tachycardia, and has evidence sepsis, with leukocytosis white blood count still at 30,000, primary site of infection is still unclear she is complaining of cough, chest x-ray did not reveal any evidence of pneumonia, blood culture is pending, echocardiogram is pending, sodium is up to 114 9 IV fluid change to half-normal saline, will check lactic acid. 09/16/2017 patient is confused. She states things like "did you know that I am ". Patient's son is at bedside patient does have some baseline confusion usually mostly short term memory loss. However, since she's been sick the confusion has worsened. Patient is lying in bed comfortably no evidence of distress. Earlier this morning per nursing staff patient was satting around 84% on 3 L and had to be increased to 5 L and was able to get into the 90s. Patient's white count is still elevated at 30.5. Infectious disease and pulmonary service are following. Repeat chest x-ray shows no acute changes. And for the screening negative. Patient denies any chest pain. Patient has been having some cough. Denies any nausea or vomiting no diarrhea. Patient did have one loose stool, but not watery. 09/17/2017 patient was transferred to the ICU yesterday afternoon for closer monitoring. She remains in the ICU. Case was discussed with pulmonary service in detail. Patient's white count has been decreased from 30.5-25.4 she's on 10 L oxygen satting at 95%. The exact source of infection is still unclear. She remains on Zosyn and vancomycin. Echocardiogram shows severe pulmonary hypertension and severe tricuspid regurgitation. CTA of the chest was negative for a PE did reveal atelectasis and a small right-sided pleural effusion. Moderate pericardial effusion and no evidence of pericarditis. Abdominal ultrasound showed no evidence of an acute cholecystitis. Did reveal cholelithiasis. Pulmonary service did order a dose of IV Lasix for her fluid overload. Infectious disease is also following. Urine output is adequate. Patient is still confused. Objective - Vital Signs Vital signs: Vital Signs Temp 97.7 F 09/17/17 12:00 Pulse 114 H 09/17/17 14:00 Resp 20 09/17/17 14:00 BP 108/56 09/17/17 14:00 Pulse Ox 92 L 09/17/17 14:00 Intake & Output 09/16/17 09/17/17 09/17/17 18:59 06:59 18:59 Intake Total 220 770 70 Output Total 800 1400 Balance Weight 59.8 kg 59.8 kg Intake: IV 720 70 Dextrose 5% in Water 1, 600 000 ml @ 50 mls/hr IV . Q23H OBDULIO with Sodium Bicarb (1 Meq/ml) 150 ml Rx#:[id number] Sodium Chloride 0.45% 1, 120 70 000 ml @ 125 mls/hr IV . Q8H OBDULIO Rx#:[id number] Intake, IV Titration 100 50 Amount Dextrose 5% in Water 1, 50 000 ml @ 50 mls/hr IV . Q23H OBDULIO with Sodium Bicarb (1 Meq/ml) 150 ml Rx#:[id number] Piperacillin-Tazobactam 3 50 50 .375 gm In Dextrose/Water 1 50ml.bag @ 12.5 mls/hr IVPB Q8HR OBDULIO Rx#: [id number] Oral 120 Output: Urine 800 1400 Other: Voiding Method Incontinent Incontinent Incontinent - Exam Head normocephalic Neck supple Lungs crackles at the bases with diffuse wheezing Heart regular rate and rhythm S1-S2, no rub or gallop Abdomen is soft nontender nondistended positive bowel sounds no hepatosplenomegaly Extremities no edema Neuro awake and alert but confused - Labs CBC & Chem 7: 09/17/17 04:15 09/17/17 04:15 Labs: Abnormal Lab Results - Last 24 Hours (Table) 09/16/17 09/17/17 09/17/17 Range/Units 16:35 04:15 04:15 WBC 25.4 H* (3.8-10.6) k/uL RBC 3.70 L (3.80-5.40) m/uL Hgb 10.1 L (11.4-16.0) gm/dL Hct 31.7 L (34.0-46.0) % RDW 15.9 H (11.5-15.5) % Neutrophils # 22.6 H (1.3-7.7) k/uL ABG pCO2 31 L (35-45) mmHg ABG pO2 56 L (83-108) mmHg ABG HCO3 20 L (21-25) mmol/L ABG O2 Saturation 90.3 L (94-97) % Chloride 108 H (98-107) mmol/L BUN 31 H (7-17) mg/dL Creatinine 1.30 H (0.52-1.04) mg/dL Microbiology - Last 24 Hours (Table) 09/15/17 15:46 Blood Culture - Preliminary Blood No Growth after 24 hours 09/14/17 13:10 Blood Culture - Preliminary Blood No Growth after 48 hours Assessment and Plan Assessment: #1 sepsis, initial site of infection is not clear, patient was partially treated with oral antibiotic as outpatient, blood culture negative. Urinalysis no evidence of UTI. Repeat chest x-ray no evidence of pneumonia. Patient remains on Zosyn and vancomycin. Infectious disease following closely. Blood cultures remain negative. Abdominal ultrasound showed no evidence of cholecystitis. Infectious disease following #2 acute on chronic hypoxic respiratory failure. Patient requiring high flow oxygen. No evidence of pneumonia. CT of the chest showed no evidence of a pulmonary embolism. Possibly related to her advanced COPD and fluid overload #3 underlying history of COPD, at this time patient will be given DuoNeb updraft , no need for systemic steroids #4 severe pulmonary hypertension likely secondary to her COPD and exacerbated by her recent illness. Seen by cardiology they're recommending respiratory treatments and diuretics. #5 underlying history of dementia maintained on Aricept and Namenda #6 hypernatremia improved. Sodium has gone down to 144 #7 acute on chronic renal failure, stage III. Creatinine down to 1.23. Continue to monitor on IV fluids #8 metabolic acidosis improved after sodium bicarb drip. Sodium bicarbonate drip discontinued by pulmonary service today #9 metabolic encephalopathy secondary to her acute infection with underlying history of dementia for GI prophylaxis patient on Pepcid for DVT prophylaxis patient on subcu heparin I performed an examination of the patient and discussed their management with the physician Insecticide Supervisor. I have reviewed the Physician Insecticide Supervisor's notes and agree with the documented findings and plan of care
[2017-09-17] MEDS: ASPIRIN 81 MG PO SCH (20:25)
--- NOTE | 2017-09-17 22:30 | PN ---
PROGRESS NOTE DATE OF SERVICE: 09/17/2017 REASON FOR FOLLOWUP: Leukocytosis and questionable sepsis. INTERVAL HISTORY: The patient is afebrile. She seems to be breathing more comfortably. She did have slight cough. No significant sputum, though. No chest pain. No abdominal pain. No diarrhea. PHYSICAL EXAMINATION: Blood pressure is 116/66, pulse of 100, temperature 98.2. She is 97% on 10 L of high- flow oxygen. General description is a middle-aged female lying in bed in no distress. RESPIRATORY SYSTEM: Unlabored breathing with decreased breath sounds at the bases. No wheeze. HEART: S1, S2. Regular rate and rhythm. ABDOMEN: Soft. No tenderness. EXTREMITIES: No edema of the feet. LABS: Hemoglobin is 10.1, white count 25.4, BUN of 31, creatinine 1.30. Blood culture so far negative. DIAGNOSTIC IMPRESSION AND PLAN: Patient with leukocytosis, also has a component of hypoxemia with a question of possible pulmonary source. She did have negative. Blood culture is negative so far. White count is responding to the Zosyn, and that will be continued while waiting for clinical condition to stabilize. Continue with supportive care. MMODL / IJN: [id number] /
[2017-09-18] MEDS: PIPERACILLIN-TAZOBACTAM 3.375 GM in DEXTROSE/WATER 1 50ML.BAG IVPB SCH ×4 (00:03→23:15)
[2017-09-18] MEDS: HEPARIN SODIUM,PORCINE 5,000 UNIT/ML 1 ML VIAL SQ SCH ×4 (00:50→23:15)
[2017-09-18] MEDS: SODIUM CHLORIDE 0.45% 1,000 ML IV SCH ×2 (04:21→23:15)
[2017-09-18 04:24] LABS: Basophils # (A) 0.1 k/uL (0-0.2); Basophils % (A) 0 %; Eosinophils # (A) 0.5 k/uL (0-0.7); Eosinophils % (A) 2 %; HCT 33.8 % (34.0-46.0); HGB 10.6 gm/dL (11.4-16.0); Hypochromasia Slight; Lymphocytes # (A) 1.1 k/uL (1.0-4.8); Lymphocytes % (A) 5 %; MCH 26.8 pg (25.0-35.0); MCHC 31.3 g/dL (31.0-37.0); MCV 85.9 fL (80.0-100.0); Mean Platelet Volume 7.9; Monocytes # (A) 0.7 k/uL (0-1.0); Monocytes % (A) 3 %; Neutrophils # (A) 20.8 k/uL (1.3-7.7); Neutrophils % (A) 89 %; Platelet Count 474 k/uL (150-450); RBC 3.94 m/uL (3.80-5.40); RDW 15.9 % (11.5-15.5); WBC 23.2 k/uL (3.8-10.6)
[2017-09-18 04:34] LABS: Calcium 8.9 mg/dL (8.4-10.2)
[2017-09-18] MEDS ORDERED: VANCOMYCIN TROUGH DUE 1 EACH MISC MISCELLANE ONE (07:00)
--- NOTE | 2017-09-18 07:08 | XR ---
EXAMINATION TYPE: XR chest 1V DATE OF EXAM: 09/18/2017 COMPARISON: 09/27/2018 HISTORY: Shortness of breath TECHNIQUE: Single frontal view of the chest is obtained. FINDINGS: There is improved aeration of the lung bases with residual minimal bibasilar strand-like o pacities, right greater than left. There is also diffuse interstitial prominence unchanged from the p rior. Cardiomegaly remains. Left-sided arthroplasty is partially visualized degenerative changes of t he osseous structures and diffuse osseous demineralization. Again there is blunting of the costophren ic angles. IMPRESSION: 1. Improved aeration of the lung bases with minimal residual strand-like bibasilar opacities, right g reater than left. 2. Diffuse interstitial prominence remains unchanged and may represent mild interstitial edema or pne umonitis. 3. Trace pleural effusions are unchanged.
--- NOTE | 2017-09-18 09:14 | P.PN ---
Subjective Progress Note Date: 09/18/17 Brenda Dave is an 81-year-old female, patient of [facility], who presented to [facility] emergency room with a chief complaint of generalized weakness, daughter states that patient was seen at [facility] one week ago, she was given an antibiotic for presumed urinary tract infection, however her condition continued to worsen, she was seen by her visiting nurse and was advised to come to emergency room. Patient was evaluated by Dr. Brown in the emergency room, she had evidence of sepsis with hypotension, tachycardia, and leukocytosis, also d-dimer was elevated at 5.64, she was admitted to telemetry floor, she was started on IV antibiotic and IV fluid. Bilateral lower extremity Doppler was done and was negative for DVT, VQ scan was done and was low probability for pulmonary embolism. On 09/15/2017 patient is alert and oriented 3 in no apparent distress, she is complaining of feeling cold and having shaking chills, otherwise no complaints, patient has tachycardia, and has evidence sepsis, with leukocytosis white blood count still at 30,000, primary site of infection is still unclear she is complaining of cough, chest x-ray did not reveal any evidence of pneumonia, blood culture is pending, echocardiogram is pending, sodium is up to 114 9 IV fluid change to half-normal saline, will check lactic acid. 09/16/2017 patient is confused. She states things like "did you know that I am ". Patient's son is at bedside patient does have some baseline confusion usually mostly short term memory loss. However, since she's been sick the confusion has worsened. Patient is lying in bed comfortably no evidence of distress. Earlier this morning per nursing staff patient was satting around 84% on 3 L and had to be increased to 5 L and was able to get into the 90s. Patient's white count is still elevated at 30.5. Infectious disease and pulmonary service are following. Repeat chest x-ray shows no acute changes. And for the screening negative. Patient denies any chest pain. Patient has been having some cough. Denies any nausea or vomiting no diarrhea. Patient did have one loose stool, but not watery. 09/17/2017 patient was transferred to the ICU yesterday afternoon for closer monitoring. She remains in the ICU. Case was discussed with pulmonary service in detail. Patient's white count has been decreased from 30.5-25.4 she's on 10 L oxygen satting at 95%. The exact source of infection is still unclear. She remains on Zosyn and vancomycin. Echocardiogram shows severe pulmonary hypertension and severe tricuspid regurgitation. CTA of the chest was negative for a PE did reveal atelectasis and a small right-sided pleural effusion. Moderate pericardial effusion and no evidence of pericarditis. Abdominal ultrasound showed no evidence of an acute cholecystitis. Did reveal cholelithiasis. Pulmonary service did order a dose of IV Lasix for her fluid overload. Infectious disease is also following. Urine output is adequate. Patient is still confused. On 09/18/2017 patient is more alert she denies any pain or discomfort she was seen and examined in the intensive care unit there is no fever or chills no headache no dizziness no chest pain, shortness of breath is improving, still complaining of cough, no nausea or vomiting no abdominal pain no diarrhea and no urinary symptoms. Objective - Vital Signs Vital signs: Vital Signs Temp 98.8 F 09/18/17 04:00 Pulse 97 09/18/17 07:00 Resp 22 09/18/17 07:00 BP 99/63 09/18/17 07:00 Pulse Ox 95 09/18/17 07:00 Intake & Output 09/17/17 09/18/17 09/18/17 18:59 06:59 18:59 Intake Total 110 150.0 10 Output Total 2200 780 200 Balance -2090 -630.0 -190 Weight 59.8 kg 61 kg Intake: IV 80 100.0 10 Piperacillin-Tazobactam 3 50.0 .375 gm In Dextrose/Water 1 50ml.bag @ 12.5 mls/hr IVPB Q8HR [facility] Rx#: [id number] Sodium Chloride 0.45% 1, 80 50 10 000 ml @ 125 mls/hr IV . Q8H [facility] Rx#:[id number] Intake, IV Titration 30 50 Amount Sodium Chloride 0.45% 1, 30 50 000 ml @ 50 mls/hr IV . Q20H [facility] Rx#:[id number] Output: Urine 2200 780 200 Other: Voiding Method Incontinent Incontinent - Exam In general patient is alert, slightly confused in no apparent distress HEENT head normocephalic and atraumatic Neck is supple no JVD no goiter no lymphadenopathy Chest exam reveals a few scattered rhonchi no wheezing Cardiac exam reveals regular heart sounds S1 and S2 no gallops no murmurs Abdomen is soft nontender no organomegaly with normal bowel sounds Extremity exam reveals no edema no cyanosis or clubbing - Labs CBC & Chem 7: 09/18/17 03:44 09/18/17 03:44 Labs: Abnormal Lab Results - Last 24 Hours (Table) 09/18/17 09/18/17 Range/Units 03:44 03:44 WBC 23.2 H (3.8-10.6) k/uL Hgb 10.6 L (11.4-16.0) gm/dL Hct 33.8 L (34.0-46.0) % RDW 15.9 H (11.5-15.5) % Plt Count 474 H (150-450) k/uL Neutrophils # 20.8 H (1.3-7.7) k/uL BUN 30 H (7-17) mg/dL Creatinine 1.60 H (0.52-1.04) mg/dL Glucose 71 L (74-99) mg/dL Microbiology - Last 24 Hours (Table) 09/17/17 15:00 Gram Stain - Preliminary Sputum Sputum Culture - Preliminary 09/15/17 15:46 Blood Culture - Preliminary Blood No Growth after 48 hours 09/14/17 13:10 Blood Culture - Preliminary Blood No Growth after 72 hours Assessment and Plan Plan: #1 sepsis, initial site of infection is not clear, possibly related to pneumonia.patient was partially treated with oral antibiotic as outpatient, blood culture negative. Urinalysis no evidence of UTI. Patient remains on Zosyn and vancomycin. Infectious disease following closely. Blood cultures remain negative. Abdominal ultrasound showed no evidence of cholecystitis. Infectious disease following #2 acute on chronic hypoxic respiratory failure. Patient requiring high flow oxygen. No evidence of pneumonia. CT of the chest showed no evidence of a pulmonary embolism. Possibly related to her advanced COPD and fluid overload #3 underlying history of COPD, at this time patient will be given DuoNeb updraft , no need for systemic steroids #4 severe pulmonary hypertension likely secondary to her COPD and exacerbated by her recent illness. Seen by cardiology they're recommending respiratory treatments and diuretics. #5 underlying history of dementia maintained on Aricept and Namenda #6 hypernatremia improved. Sodium has gone down to 144 #7 acute on chronic renal failure, stage III. Creatinine down to 1.23. Continue to monitor on IV fluids #8 metabolic acidosis improved after sodium bicarb drip. Sodium bicarbonate drip discontinued by pulmonary service today #9 metabolic encephalopathy secondary to her acute infection with underlying history of dementia for GI prophylaxis patient on Pepcid for DVT prophylaxis patient on subcu heparin
[2017-09-18] MEDS ORDERED: FUROSEMIDE 10 MG/ML 4 ML VIAL IV STA (09:27)
[2017-09-18] MEDS: MULTIVITAMINS, THERA 1 EACH TAB PO SCH (09:28)
[2017-09-18] MEDS: MEMANTINE 10 MG TAB PO SCH ×2 (09:28→20:21)
[2017-09-18] MEDS: DONEPEZIL 10 MG TAB PO SCH (09:28)
[2017-09-18] MEDS: FAMOTIDINE 20 MG TAB PO SCH (09:28)
[2017-09-18] MEDS: SPIRONOLACTONE 25 MG TAB PO SCH (09:28)
[2017-09-18] MEDS: MECLIZINE 12.5 MG TAB PO SCH (09:29)
[2017-09-18] MEDS: IPRATROPIUM-ALBUTEROL 3 ML NEB INHALATION SCH ×3 (09:34→19:26)
[2017-09-18] MEDS ORDERED: VANCOMYCIN 1,000 MG in SODIUM CHLORIDE 0.9% 250 ML IVPB ONE (12:00)
--- NOTE | 2017-09-18 13:22 | PN ---
PROGRESS NOTE DATE OF SERVICE: 09/18/2017. REASON FOR FOLLOWUP: Leukocytosis, questionable pneumonia. INTERVAL HISTORY: The patient is afebrile. She is to be more awake, alert. Her breathing has improved and O2 requirement is down to 4 L. The patient denies having any chest pain. Cough is mostly dry in nature. No abdominal pain. No diarrhea. EXAMINATION: Blood pressure 104/57, pulse of 107, temperature 98.1. She is 93% on 4 L nasal cannula. General description is an elderly female lying in bed in no distress. RESPIRATORY SYSTEM: Unlabored breathing, decreased breath sounds at base. No wheeze. HEART: S1, S2. Regular rate and rhythm. ABDOMEN: Soft, no tenderness. LABS: Hemoglobin is 10.6, white count 23.2 with a BUN of 30, creatinine 1.60. Blood culture negative so far. Sputum has been obtained, currently pending. DIAGNOSTIC IMPRESSION AND PLAN: Patient with leukocytosis, respiratory difficulty and hypoxemia pointing more towards a possible respiratory tract infection. CT angiogram was negative for any PE. CT abdomen and pelvis negative for any infection. He is currently on Zosyn and vancomycin with a white count showing downward trend. That will be continued while waiting for the culture to finalize. Continue supportive care. MMODL / IJN: [id number] /
--- NOTE | 2017-09-18 13:36 | P.PN ---
Subjective Progress Note Date: 09/18/17 I'm seeing this 81-year-old female patient in follow-up and there is an obvious concern about her health in general as the patient comes in with altered mentation, hypoxic history failure with worsening in her oxygenation status as the patient has limited at least about 2 by nasal cannula and currently is up to 6 L in addition to leukocytosis and evolving metabolic acidosis. A septic workup has been completed and the patient is being seen by infectious disease. Cultures of been negative. The patient is slightly tachycardic. She has leukocytosis. D-dimer is positive. Echocardiogram shows severe pulmonary hypertension with a PA pressure estimated to be around 120 and there is also evidence of moderate mitral regurgitation, mild mitral stenosis, severe tricuspid regurgitation, severe pulmonary hypertension, small pericardial effusion, and dilated the right-sided cardiac structures. The left and ejection fraction is about 70%. The CAT scan of the abdomen revealed no acute abnormalities then some chronic interstitial changes in lung bases, small bilateral pleural effusion, small pericardial effusion, cholelithiasis and questionable thickening of the proximal small bowel/enteritis and nonobstructing 9 mm right lower pole renal calculus and complicated diverticulosis. There is also degenerative changes in the spine and Ventolin hernia containing fat only. Doppler of the lower extremities was negative. Patient has underlying dementia at baseline. On and off she sounds to be more confused. On today's evaluation of 09/17/2017 the patient is being seen in follow-up in the intensive care unit. She seems to be improved compared to yesterday. On and off she is still confused. No focal neurological deficits. Family is at the bedside. She is on 6 L of oxygen nasal cannula and she is also having some bibasilar crackles and for that reason I have suggested some diuresis. Meanwhile, the white cell count is improving is down to 25. He was dynamically stable. No pressors. The patient has not been found to have any source of an infection. She is afebrile. Ultrasound the gallbladder showed no evidence of any cholecystitis. The patient is cholelithiasis. Abnormalities in LFTs is probably related to right-sided failure. No evidence of any urine tract infection. No evidence of any blood infection. Doubt endocarditis. Echocardiogram showed severe pulmonary hypertension and evidence of right-sided heart failure probably related to chronic hypoxemia. CAT scan of the chest showed diffuse emphysema and small right-sided pleural effusion and compressive atelectasis of the right lung base and there was no evidence of any pulmonary embolism or filling defects. The patient is on DuoNeb nebulized treatments around the clock. The patient was given a dose of Lasix. The patient is on examination of Zosyn and vancomycin for now as an empiric antibiotic coverage. ID is on the case. On 09/18/2017 the patient is still in the intensive care unit. She is calm and comfortable. She is on and off confused and I think there is obvious component of dementia. According to the family she is more alert and awake compared to yesterday. Family is at the bedside. She is having no significant respiratory distress. Her pulse ox is 92% on 4 L of oxygen by nasal cannula and she baseline carries on 3 L of oxygen by nasal cannula. She has a congested cough. She was given another dose of Lasix today. She was given a dose yesterday and her net fluid balance has been negative over the past 24 hours. She denies having any chest pain. No shortness of breath. Her white cell count is down to 23. Her CAT scan of the chest showed no evidence of any pulmonary embolism and the patient had extensive emphysema, right-sided pleural effusion, right lower lobe compressive atelectasis. Renal function remains impaired with a creatinine of 1.6 and this is a chronic renal failure. She remains on a combination of Zosyn and vancomycin although there is no clear-cut infectious source for this patient. Objective - Vital Signs Vital signs: Vital Signs Temp 98.1 F 09/18/17 12:00 Pulse 111 H 09/18/17 13:00 Resp 14 09/18/17 13:00 BP 106/64 09/18/17 13:00 Pulse Ox 92 L 09/18/17 13:00 Intake & Output 09/17/17 09/18/17 09/18/17 18:59 06:59 18:59 Intake Total 110 150.0 60 Output Total 2200 780 1200 Balance -2090 -630.0 -1140 Weight 59.8 kg 61 kg Intake: IV 80 100.0 60 Piperacillin-Tazobactam 3 50.0 50 .375 gm In Dextrose/Water 1 50ml.bag @ 12.5 mls/hr IVPB Q8HR [facility] Rx#: [id number] Sodium Chloride 0.45% 1, 80 50 10 000 ml @ 125 mls/hr IV . Q8H [facility] Rx#:[id number] Intake, IV Titration 30 50 Amount Sodium Chloride 0.45% 1, 30 50 000 ml @ 50 mls/hr IV . Q20H [facility] Rx#:[id number] Output: Urine 2200 780 1200 Other: Voiding Method Incontinent Incontinent Incontinent # Bowel Movements 1 - Exam Gen. appearance the patient is arousable and awake it seems to be lethargic at times confused. A mild degree of respiratory distress even at rest. Examination of the neck reveals bilateral jugular venous distention. This is also noted that third-degree bed elevation. No neck masses. Neck is supple there is no lymphadenopathy and there is no cervical or supraclavicular lymphadenopathy. Mucous membranes are dry and there is no thrush. Head exam was generally normal. There was no scleral icterus or corneal arcus. Mucous membranes were moist. Lungs sounds are diminished bilaterally along with some limited bibasilar crackles. Breath sounds are diminished bilaterally and there is some scattered expiratory wheezes throughout the lung bosch. Heart sounds reveal accentuation of the second heart sound. No cervical murmurs appreciated. The patient is slightly tachycardic yet the rhythm seems to be sinus at this point. Abdominal exam revealed normal bowel sounds. The abdomen was soft, non-tender, and without masses, organomegaly, or appreciable enlargement of the abdominal aorta. Examination of the extremities revealed easily palpable radial, femoral and pedal pulses. There was no cyanosis, clubbing or edema. Examination of the skin revealed no evidence of significant rashes, suspicious appearing nevi or other concerning lesions. Neurologically the patient is neurologic exam is nonfocal. The patient will go 4 extremities without any limitation. No cranial nerve deficits. The patient is on off confused and she has memory problems specially with short-term memory. She was unable to tell me what. Her breakfast. This morning however she was able to recall the year - Labs CBC & Chem 7: 09/18/17 03:44 09/18/17 03:44 Labs: Abnormal Lab Results - Last 24 Hours (Table) 09/18/17 09/18/17 Range/Units 03:44 03:44 WBC 23.2 H (3.8-10.6) k/uL Hgb 10.6 L (11.4-16.0) gm/dL Hct 33.8 L (34.0-46.0) % RDW 15.9 H (11.5-15.5) % Plt Count 474 H (150-450) k/uL Neutrophils # 20.8 H (1.3-7.7) k/uL BUN 30 H (7-17) mg/dL Creatinine 1.60 H (0.52-1.04) mg/dL Glucose 71 L (74-99) mg/dL Microbiology - Last 24 Hours (Table) 09/17/17 15:00 Gram Stain - Preliminary Sputum Sputum Culture - Preliminary 09/15/17 15:46 Blood Culture - Preliminary Blood No Growth after 48 hours 09/14/17 13:10 Blood Culture - Preliminary Blood No Growth after 72 hours Assessment and Plan Plan: Assessment 1 acute on chronic hypoxic history failure with worsening in her oxygenation and the patient is currently requiring high flow oxygen 6 L/m nasal cannula. No clear indication of an underlying pneumonia. The patient had a CT angios the chest that showed no evidence of any pulmonary embolism. His advanced COPD and emphysema and small right-sided pleural effusion and compressive atelectasis of the right lung base. The patient got diuresed yesterday and she is in a negative fluid balance. Another dose of diuretics will be given to her today. No signs of any respiratory distress. FiO2 has been weaned down to 3 oxygen nasal cannula. 2 severe pulmonary hypertension, most likely chronic in nature and a CT angios the chest showed no this any pulmonary embolism. 3 COPD with chronic hypoxic respiratory failure maintained on 3 L of oxygen at baseline 4 leukocytosis, improving and the white cell count is down to 23. 5 mild anion gap metabolic acidosis with some lactic acidosis at the time of admission , recovered completely 6 dementia with episodes of altered mentation, episodic 7. Generalized weakness 8 acute versus chronic renal insufficiency, probably stage II to 3 chronic kidney failure 9 small bilateral pleural effusion 10 nephrolithiasis 11 degenerative arthritis 12 cholelithiasis without evidence of any cholecystitis Plan Monitor the white cell count. The white cell count is dropped down to 23. Monitor mental status and the patient has an underlying component of dementia for sure. Monitor the oxygenation. Give the patient another dose of Lasix and wean down the FiO2 if possible down to 3 L today. Sit up on a chair. We'll continue to follow. She can be transferred to a telemetry unit. No signs of septicemia or any infectious source. The patient remains on accommodation Zosyn and vancomycin. Cultures of been all negative for now.
--- NOTE | 2017-09-18 13:37 | PN ---
PROGRESS NOTE This patient was transferred to the intensive care unit with the change in the mental status, acute respiratory distress and possible sepsis syndrome. Patient is feeling better. Her heart rate is 100 per minute, blood pressure is 104/72 mmHg. Lungs examination reveals bilateral diminished air entry. The patient has been diuresing fairly [place] [id number]. Exact source of infection is unclear at present. Patient's creatinine is 1.6. We will continue the current medications. We will recommend to follow up for echocardiogram as an outpatient to monitor the pulmonary pressures. MMODL / IJN: [id number] /
[2017-09-18] MEDS: ASPIRIN 81 MG PO SCH (20:21)
[2017-09-19 05:55] LABS: Anisocytosis Slight; Basophils # (A) 0.1 k/uL (0-0.2); Basophils % (A) 0 %; Eosinophils # (A) 0.4 k/uL (0-0.7); Eosinophils % (A) 2 %; HCT 31.4 % (34.0-46.0); HGB 10.4 gm/dL (11.4-16.0); Lymphocytes # (A) 1.4 k/uL (1.0-4.8); Lymphocytes % (A) 7 %; MCH 27.7 pg (25.0-35.0); MCHC 33.2 g/dL (31.0-37.0); MCV 83.4 fL (80.0-100.0); Mean Platelet Volume 7.3; Monocytes # (A) 0.7 k/uL (0-1.0); Monocytes % (A) 3 %; Neutrophils # (A) 17.7 k/uL (1.3-7.7); Neutrophils % (A) 87 %; Platelet Count 540 k/uL (150-450); RBC 3.76 m/uL (3.80-5.40); RDW 16.5 % (11.5-15.5); WBC 20.4 k/uL (3.8-10.6)
[2017-09-19 06:07] LABS: Albumin 2.4 g/dL (3.5-5.0); Calcium 8.5 mg/dL (8.4-10.2); Magnesium 1.8 mg/dL (1.6-2.3); Potassium 3.6 mmol/L (3.5-5.1); Total Bilirubin 0.6 mg/dL (0.2-1.3); Total Protein 4.6 g/dL (6.3-8.2)
--- NOTE | 2017-09-19 07:16 | XR ---
EXAMINATION TYPE: XR chest 1V DATE OF EXAM: 09/19/2017 CLINICAL HISTORY: Difficulty breathing progress study. TECHNIQUE: Single AP portable upright view of the chest is obtained. COMPARISON: Chest x-ray from one day earlier and older studies. CTA chest from 3 days ago. FINDINGS: Osseous structures are demineralized. Underlying scoliosis is again seen. Metallic hardwar e from left shoulder surgery is partially imaged. There is persistent cardiomegaly with atherosclerot ic and ectatic thoracic aorta. There is chronic emphysematous change with persistent bibasilar opacit y felt to reflect atelectasis and/or infiltrate and likely small bilateral pleural effusions. There i s moderate right greater than left biapical pleural/parenchymal scarring. No new suspicious focal air space opacity or pneumothorax is identified. IMPRESSION: Overall stable findings, cardiomegaly and chronic emphysematous change with small to ti ny bilateral pleural effusions and associated bibasilar atelectasis and/or infiltrate all redemonstra dayron. No new infiltrate is seen.
[2017-09-19] MEDS: IPRATROPIUM-ALBUTEROL 3 ML NEB INHALATION SCH ×3 (08:42→19:19)
[2017-09-19] MEDS: MEMANTINE 10 MG TAB PO SCH ×2 (08:57→21:48)
[2017-09-19] MEDS: DONEPEZIL 10 MG TAB PO SCH (08:57)
[2017-09-19] MEDS: MECLIZINE 12.5 MG TAB PO SCH (08:57)
[2017-09-19] MEDS: FAMOTIDINE 20 MG TAB PO SCH (08:57)
[2017-09-19] MEDS: HEPARIN SODIUM,PORCINE 5,000 UNIT/ML 1 ML VIAL SQ SCH (08:57)
[2017-09-19] MEDS: PIPERACILLIN-TAZOBACTAM 3.375 GM in DEXTROSE/WATER 1 50ML.BAG IVPB SCH ×2 (08:58→18:40)
[2017-09-19] MEDS: SPIRONOLACTONE 25 MG TAB PO SCH (08:58)
[2017-09-19] MEDS: MULTIVITAMINS, THERA 1 EACH TAB PO SCH (08:58)
[2017-09-19 11:26] LABS: Anisocytosis Slight; Basophils # (A) 0.1 k/uL (0-0.2); Basophils % (A) 0 %; Eosinophils # (A) 0.3 k/uL (0-0.7); Eosinophils % (A) 2 %; HCT 33.3 % (34.0-46.0); HGB 10.8 gm/dL (11.4-16.0); Lymphocytes # (A) 1.2 k/uL (1.0-4.8); Lymphocytes % (A) 6 %; MCH 27.4 pg (25.0-35.0); MCHC 32.2 g/dL (31.0-37.0); MCV 84.9 fL (80.0-100.0); Mean Platelet Volume 7.8; Monocytes # (A) 0.6 k/uL (0-1.0); Monocytes % (A) 3 %; Neutrophils # (A) 18.8 k/uL (1.3-7.7); Neutrophils % (A) 89 %; Platelet Count 548 k/uL (150-450); RBC 3.93 m/uL (3.80-5.40); RDW 16.7 % (11.5-15.5); WBC 21.2 k/uL (3.8-10.6)
[2017-09-19 11:45] LABS: Glucose,Whole Blood 100 mg/dL (75-99)
--- NOTE | 2017-09-19 12:51 | P.CONS ---
History of Present Illness - Reason for Consult Consult date: 09/19/17 GI bleed Requesting physician: Lacho Tejada - History of Present Illness 81-year-old female admitted week ago acute on chronic hypoxic respiratory failure small right pleural effusion with underlying advanced COPD emphysema. Consult requested for GI bleed. Patient had a large painless burgundy bowel movement transferred to the ICU setting for further evaluation. CT imaging 09/14/17 reported moderate colonic sigmoid diverticulosis. Resume resting in the ICU setting without abdominal pain nausea vomiting. No reports of fever chills hematemesis or melena. Son is at bedside assisting with history taking. Last colonoscopy several years ago to her memory was normal. No EGD. No history GI bleeds or peptic ulcer disease. No history of gastric or colonic surgeries. Patient was receiving aspirin and Lovenox since discontinued. Admission hemoglobin 12.2 presently 10.8. Platelet 548. White count 21.2. INR 1.2. BUN 30. Creatinine 1.4 relatively unchanged over the last 48 hours and improved since admission. Review of Systems Constitutional: Denies fever, chills, sweats, weight gain, or loss. HEENT: Negative for migraines, blurred vision or loss, earaches, drainage, tinnitus, oral mucosal lesions, dysphagia, or odynophagia. CARDIAC: Negative for chest pain, arrhythmias, or palpitation. RESPIRATORY: Admitted with shortness of breath denies hemoptysis, cough, or sputum production. GI: See HPI for pertinent findings. : Negative for hematuria, urgency, frequency, polyuria, or dysuria. GYNc: Denies possibility of . Negative vaginal discharge. MUSCULOSKELETAL: Negative for muscle aches, swelling, arthritis, and arthralgias. NEUROLOGIC: Negative for stroke or TIA. ENDOCRINE: Negative for thyroid problems. SKIN: Negative for rash or itching. PSYCHIATRIC: Negative history for depression and anxiety Past Medical History Past Medical History: COPD, Dementia, GERD/Reflux, Hyperlipidemia, Memory Impairment, Pneumonia Additional Past Medical History / Comment(s): VERTIGO ,per family pt has home 02 3 liters,family stated pt does have some dementia but request you don't talk about it with pt she gets upset.phlebitis long time ago, arthritis,hx of cholesterol but was taken off her meds 3 months ago History of Any Multi-Drug Resistant Organisms: None Reported Past Surgical History: Joint Replacement, Orthopedic Surgery, Tonsillectomy Additional Past Surgical History / Comment(s): hip replacement, shoulder replacement Past Anesthesia/Blood Transfusion Reactions: Motion Sickness, Postoperative Nausea & Vomiting (PONV) Additional Past Anesthesia/Blood Transfusion Reaction / Comm: never received any blood transfusions Smoking Status: Former smoker - Past Family History Father Additional Family Medical History / Comment(s): committed suicide in his 50's Mother Family Medical History: No Reported History Additional Family Medical History / Comment(s): of unk causes at age 62 Sister(s) Family Medical History: Cancer Additional Family Medical History / Comment(s): breast cancer Medications and Allergies Home Medications Medication Instructions Recorded Confirmed Type Aspirin 81 mg PO HS 02/25/14 09/13/17 History Donepezil [Aricept] 10 mg PO DAILY 09/13/17 09/13/17 History Famotidine [Pepcid] 20 mg PO DAILY 09/13/17 09/13/17 History Meclizine [Antivert] 12.5 mg PO DAILY 09/13/17 09/13/17 History Memantine [Namenda] 10 mg PO BID 09/13/17 09/13/17 History Multivitamins, Thera [Multivitamin 1 tab PO DAILY 09/13/17 09/13/17 History (formulary)] Naproxen Sodium [Aleve] 220 mg PO DAILY 09/13/17 09/13/17 History [place]-3 Fatty Acids [[place]-3] 1,000 mg PO HS 09/13/17 09/13/17 History Allergies Allergy/AdvReac Type Severity Reaction Status Date / Time No Known Allergies Allergy Verified 09/13/17 13:55 Physical Exam Vitals: Vital Signs Temp Pulse Pulse Resp BP BP BP 09/19/17 09:26 97.7 F 104 H 16 101/57 09/19/17 08:57 104 H 09/19/17 08:42 102 H 09/19/17 04:00 100 14 99/58 09/19/17 00:00 103 H 14 09/18/17 23:13 98.5 F 103 H 93/54 09/18/17 20:00 112 H 14 92/56 09/18/17 19:36 107 H 09/18/17 19:29 105 H 09/18/17 17:58 100 18 09/18/17 17:57 98.1 F 100 18 104/60 09/18/17 15:00 118 H 20 94/53 09/18/17 14:00 110 H 22 101/62 09/18/17 13:55 108 H 09/18/17 13:45 112 H 09/18/17 13:00 111 H 14 106/64 Pulse Ox 09/19/17 09:26 91 L 09/19/17 08:57 09/19/17 08:42 92 L 09/19/17 04:00 91 L 09/19/17 00:00 09/18/17 23:13 91 L 09/18/17 20:00 91 L 09/18/17 19:36 09/18/17 19:29 09/18/17 17:58 09/18/17 17:57 91 L 09/18/17 15:00 92 L 09/18/17 14:00 92 L 09/18/17 13:55 09/18/17 13:45 09/18/17 13:00 92 L Intake and Output 09/18/17 09/19/17 09/19/17 22:59 06:59 14:59 Intake Total 960 400 Output Total 100 Balance 860 400 Intake: IV 60 50 Piperacillin-Tazobactam 3 50 50 .375 gm In Dextrose/Water 1 50ml.bag @ 12.5 mls/hr IVPB Q8HR [facility] Rx#: [id number] Sodium Chloride 0.45% 1, 10 000 ml @ 125 mls/hr IV . Q8H [facility] Rx#:[id number] Intake, IV Titration 600 350 Amount Sodium Chloride 0.45% 1, 600 350 000 ml @ 50 mls/hr IV . Q20H [facility] Rx#:[id number] Oral 300 Output: Urine 100 Other: Voiding Method Incontinent Incontinent Incontinent # Voids 1 # Bowel Movements 1 Weight 100.5 kg 100.5 kg General appearance: The patient is alert, oriented, in no acute distress. HET: Head is normocephalic and atraumatic. Pupils are equal and reactive. Oropharynx is clear without lesions. Neck: Supple without lymphadenopathy. Trachea midline. Heart: S1 S2. Regular rate and rhythm. Lungs: No crackles or wheezes are heard. Abdomen: Soft, nontender, nondistended with bowel sounds. No peritoneal signs. No palpable organomegaly or masses. Extremities: Normal skin color and turgor. No cyanosis, rash, ulceration, clubbing, or edema. Radial and pedal pulses are 2/4 bilaterally. Neurological: No focal deficits. Strength and sensation are grossly intact. Results CBC & Chem 7: 09/19/17 09:55 09/19/17 05:19 Labs: Abnormal Lab Results - Last 24 Hours (Table) 09/19/17 09/19/17 09/19/17 Range/Units 05:19 05:19 09:55 WBC 20.4 H 21.2 H (3.8-10.6) k/uL RBC 3.76 L (3.80-5.40) m/uL Hgb 10.4 L 10.8 L (11.4-16.0) gm/dL Hct 31.4 L 33.3 L (34.0-46.0) % RDW 16.5 H 16.7 H (11.5-15.5) % Plt Count 540 H 548 H (150-450) k/uL Neutrophils # 17.7 H 18.8 H (1.3-7.7) k/uL BUN 30 H (7-17) mg/dL Creatinine 1.44 H (0.52-1.04) mg/dL POC Glucose (mg/dL) (75-99) mg/dL Total Protein 4.6 L (6.3-8.2) g/dL Albumin 2.4 L (3.5-5.0) g/dL 09/19/17 Range/Units 11:43 WBC (3.8-10.6) k/uL RBC (3.80-5.40) m/uL Hgb (11.4-16.0) gm/dL Hct (34.0-46.0) % RDW (11.5-15.5) % Plt Count (150-450) k/uL Neutrophils # (1.3-7.7) k/uL BUN (7-17) mg/dL Creatinine (0.52-1.04) mg/dL POC Glucose (mg/dL) 100 H (75-99) mg/dL Total Protein (6.3-8.2) g/dL Albumin (3.5-5.0) g/dL Microbiology - Last 24 Hours (Table) 09/15/17 15:46 Blood Culture - Preliminary Blood No Growth after 72 hours 09/14/17 13:10 Blood Culture - Preliminary Blood No Growth after [address] scan - abdomen: report reviewed (Dr. Ferro) Assessment and Plan (1) Hematochezia Narrative/Plan: 81-year-old admitted about a week ago with acute restaurant failure severe COPD and underlying emphysema maintained on aspirin Lovenox developed painless bright red blood per rectum this morning with a mild hemoglobin drop suspect colonic diverticular in nature CT imaging this past week reported moderate sigmoid diverticulosis. Presently asymptomatic resting comfortably in the ICU setting. Current Visit: Yes Status: Acute Code(s): K92.1 - MELENA SNOMED Code(s): 328743538 (2) Diverticulosis of colon Current Visit: Yes Status: Acute Code(s): K57.30 - DVRTCLOS OF LG INT W/O PERFORATION OR ABSCESS W/O BLEEDING SNOMED Code(s): 716473913 (3) Acute blood loss anemia Current Visit: Yes Status: Acute Code(s): D62 - ACUTE POSTHEMORRHAGIC ANEMIA SNOMED Code(s): 359250410 Plan: 1. Clear liquids. Ensure 3 times a day with meals. CBC monitoring. Inpatient colonoscopy discussed and at this time not planned we'll pursue if clinically indicated. Outpatient colonoscopy discussed as well. At this time patient and family is agreeable with conservative measures patient and like to proceed with conservative measures. Family at bedside in agreeable with plan of care. Will follow closely with you. Thank you for this kind referral and the opportunity to participate in the care of your patient. This consultation was discussed with Dr. Ferro. The impression and plan of care have been directed as dictated.
--- NOTE | 2017-09-19 13:10 | P.PN ---
Subjective Progress Note Date: 09/19/17 Brenda Dave is an 81-year-old female, patient of [facility], who presented to [facility] emergency room with a chief complaint of generalized weakness, daughter states that patient was seen at [facility] one week ago, she was given an antibiotic for presumed urinary tract infection, however her condition continued to worsen, she was seen by her visiting nurse and was advised to come to emergency room. Patient was evaluated by Dr. Brown in the emergency room, she had evidence of sepsis with hypotension, tachycardia, and leukocytosis, also d-dimer was elevated at 5.64, she was admitted to telemetry floor, she was started on IV antibiotic and IV fluid. Bilateral lower extremity Doppler was done and was negative for DVT, VQ scan was done and was low probability for pulmonary embolism. On 09/15/2017 patient is alert and oriented 3 in no apparent distress, she is complaining of feeling cold and having shaking chills, otherwise no complaints, patient has tachycardia, and has evidence sepsis, with leukocytosis white blood count still at 30,000, primary site of infection is still unclear she is complaining of cough, chest x-ray did not reveal any evidence of pneumonia, blood culture is pending, echocardiogram is pending, sodium is up to 114 9 IV fluid change to half-normal saline, will check lactic acid. 09/16/2017 patient is confused. She states things like "did you know that I am ". Patient's son is at bedside patient does have some baseline confusion usually mostly short term memory loss. However, since she's been sick the confusion has worsened. Patient is lying in bed comfortably no evidence of distress. Earlier this morning per nursing staff patient was satting around 84% on 3 L and had to be increased to 5 L and was able to get into the 90s. Patient's white count is still elevated at 30.5. Infectious disease and pulmonary service are following. Repeat chest x-ray shows no acute changes. And for the screening negative. Patient denies any chest pain. Patient has been having some cough. Denies any nausea or vomiting no diarrhea. Patient did have one loose stool, but not watery. 09/17/2017 patient was transferred to the ICU yesterday afternoon for closer monitoring. She remains in the ICU. Case was discussed with pulmonary service in detail. Patient's white count has been decreased from 30.5-25.4 she's on 10 L oxygen satting at 95%. The exact source of infection is still unclear. She remains on Zosyn and vancomycin. Echocardiogram shows severe pulmonary hypertension and severe tricuspid regurgitation. CTA of the chest was negative for a PE did reveal atelectasis and a small right-sided pleural effusion. Moderate pericardial effusion and no evidence of pericarditis. Abdominal ultrasound showed no evidence of an acute cholecystitis. Did reveal cholelithiasis. Pulmonary service did order a dose of IV Lasix for her fluid overload. Infectious disease is also following. Urine output is adequate. Patient is still confused. 09/19/2017 nursing staff called and notified that patient had a massive bloody stool with large blood clots. Repeat hemoglobin check went up from 10.4-10.8. Patient was transferred to the ICU. Fluids were increased to 75 mL an hour. Patient was hypotensive earlier in the morning. Blood pressures are showing improvement. Case was discussed with poured concrete wall technician Dr. Romo. GI service was consulted. They have Re: Evaluated patient and there is no plan for colonoscopy at this point. Patient's previous computed tomography scan of the abdomen had showed evidence of diverticulosis this possibly could be related to a diverticular bleed. Patient denies any abdominal pain no nausea or vomiting reported. Currently on 8 L of oxygen. White count 21.2 Objective - Vital Signs Vital signs: Vital Signs Temp 97.7 F 09/19/17 09:26 Pulse 104 H 09/19/17 09:26 Resp 16 09/19/17 09:26 BP 101/57 09/19/17 09:26 Pulse Ox 91 L 09/19/17 09:26 Intake & Output 09/18/17 09/19/17 09/19/17 18:59 06:59 18:59 Intake Total 970 500 Output Total 1500 Balance -530 500 Weight 100.5 kg 100.5 kg Intake: IV 170 50 Piperacillin-Tazobactam 3 100 50 .375 gm In Dextrose/Water 1 50ml.bag @ 12.5 mls/hr IVPB Q8HR [facility] Rx#: [id number] Sodium Chloride 0.45% 1, 70 000 ml @ 125 mls/hr IV . Q8H [facility] Rx#:[id number] Intake, IV Titration 600 350 Amount Sodium Chloride 0.45% 1, 600 350 000 ml @ 50 mls/hr IV . Q20H [facility] Rx#:[id number] Oral 200 100 Output: Urine 1500 Other: Voiding Method Incontinent Incontinent Incontinent # Voids 1 # Bowel Movements 1 - Exam Head normocephalic Neck supple Lungs crackles at the bases with diffuse wheezing Heart regular rate and rhythm S1-S2, no rub or gallop Abdomen is soft nontender nondistended positive bowel sounds no hepatosplenomegaly Extremities no edema Neuro awake and alert but confused - Labs CBC & Chem 7: 09/19/17 09:55 09/19/17 05:19 Labs: Abnormal Lab Results - Last 24 Hours (Table) 09/19/17 09/19/17 09/19/17 Range/Units 05: 05:19 09:55 WBC 20.4 H 21.2 H (3.8-10.6) k/uL RBC 3.76 L (3.80-5.40) m/uL Hgb 10.4 L 10.8 L (11.4-16.0) gm/dL Hct 31.4 L 33.3 L (34.0-46.0) % RDW 16.5 H 16.7 H (11.5-15.5) % Plt Count 540 H 548 H (150-450) k/uL Neutrophils # 17.7 H 18.8 H (1.3-7.7) k/uL BUN 30 H (7-17) mg/dL Creatinine 1.44 H (0.52-1.04) mg/dL POC Glucose (mg/dL) (75-99) mg/dL Total Protein 4.6 L (6.3-8.2) g/dL Albumin 2.4 L (3.5-5.0) g/dL 09/19/17 Range/Units 11:43 WBC (3.8-10.6) k/uL RBC (3.80-5.40) m/uL Hgb (11.4-16.0) gm/dL Hct (34.0-46.0) % RDW (11.5-15.5) % Plt Count (150-450) k/uL Neutrophils # (1.3-7.7) k/uL BUN (7-17) mg/dL Creatinine (0.52-1.04) mg/dL POC Glucose (mg/dL) 100 H (75-99) mg/dL Total Protein (6.3-8.2) g/dL Albumin (3.5-5.0) g/dL Microbiology - Last 24 Hours (Table) 09/15/17 15:46 Blood Culture - Preliminary Blood No Growth after 72 hours 09/14/17 13:10 Blood Culture - Preliminary Blood No Growth after 96 hours Assessment and Plan Assessment: #1 sepsis, initial site of infection is not clear, patient was partially treated with oral antibiotic as outpatient, blood culture negative. Urinalysis no evidence of UTI. Repeat chest x-ray no evidence of pneumonia. Patient remains on Zosyn and vancomycin. Infectious disease following closely. Blood cultures remain negative. Abdominal ultrasound showed no evidence of cholecystitis. Infectious disease following area did infectious disease felt symptoms likely more UPPER respiratory track infection. Continue with antibiotics. #2 acute on chronic hypoxic respiratory failure. Patient requiring high flow oxygen. No evidence of pneumonia. CT of the chest showed no evidence of a pulmonary embolism. Possibly related to her advanced COPD and fluid overload #3 underlying history of COPD, at this time patient will be given DuoNeb updraft , no need for systemic steroids #4 severe pulmonary hypertension likely secondary to her COPD and exacerbated by her recent illness. HOC Lasix yesterday #5 underlying history of dementia maintained on Aricept and Namenda #6 hypernatremia improved. Sodium has gone down to 144 #7 acute on chronic renal failure, stage III. Creatinine down to 1.23. Continue to monitor on IV fluids #8 metabolic acidosis improved after sodium bicarb drip. Sodium bicarbonate drip discontinued by pulmonary service today #9 metabolic encephalopathy secondary to her acute infection with underlying history of dementia #10 acute lower GI bleed: With bloody stool and blood clots. Patient will be transferred to the ICU. GI service has been consulted. Continue to monitor hemoglobin. Aspirin and subcu heparin have been discontinued for GI prophylaxis patient on Pepcid for DVT prophylaxis patient place patient on SCDs I performed an examination of the patient and discussed their management with the physician Dental Floss Packer. I have reviewed the Physician Dental Floss Packer's notes and agree with the documented findings and plan of care
--- NOTE | 2017-09-19 14:26 | P.PN ---
Subjective Progress Note Date: 09/19/17 I'm seeing this 81-year-old female patient in follow-up and there is an obvious concern about her health in general as the patient comes in with altered mentation, hypoxic history failure with worsening in her oxygenation status as the patient has limited at least about 2 by nasal cannula and currently is up to 6 L in addition to leukocytosis and evolving metabolic acidosis. A septic workup has been completed and the patient is being seen by infectious disease. Cultures of been negative. The patient is slightly tachycardic. She has leukocytosis. D-dimer is positive. Echocardiogram shows severe pulmonary hypertension with a PA pressure estimated to be around 120 and there is also evidence of moderate mitral regurgitation, mild mitral stenosis, severe tricuspid regurgitation, severe pulmonary hypertension, small pericardial effusion, and dilated the right-sided cardiac structures. The left and ejection fraction is about 70%. The CAT scan of the abdomen revealed no acute abnormalities then some chronic interstitial changes in lung bases, small bilateral pleural effusion, small pericardial effusion, cholelithiasis and questionable thickening of the proximal small bowel/enteritis and nonobstructing 9 mm right lower pole renal calculus and complicated diverticulosis. There is also degenerative changes in the spine and Ventolin hernia containing fat only. Doppler of the lower extremities was negative. Patient has underlying dementia at baseline. On and off she sounds to be more confused. On today's evaluation of 09/17/2017 the patient is being seen in follow-up in the intensive care unit. She seems to be improved compared to yesterday. On and off she is still confused. No focal neurological deficits. Family is at the bedside. She is on 6 L of oxygen nasal cannula and she is also having some bibasilar crackles and for that reason I have suggested some diuresis. Meanwhile, the white cell count is improving is down to 25. He was dynamically stable. No pressors. The patient has not been found to have any source of an infection. She is afebrile. Ultrasound the gallbladder showed no evidence of any cholecystitis. The patient is cholelithiasis. Abnormalities in LFTs is probably related to right-sided failure. No evidence of any urine tract infection. No evidence of any blood infection. Doubt endocarditis. Echocardiogram showed severe pulmonary hypertension and evidence of right-sided heart failure probably related to chronic hypoxemia. CAT scan of the chest showed diffuse emphysema and small right-sided pleural effusion and compressive atelectasis of the right lung base and there was no evidence of any pulmonary embolism or filling defects. The patient is on DuoNeb nebulized treatments around the clock. The patient was given a dose of Lasix. The patient is on examination of Zosyn and vancomycin for now as an empiric antibiotic coverage. ID is on the case. On 09/18/2017 the patient is still in the intensive care unit. She is calm and comfortable. She is on and off confused and I think there is obvious component of dementia. According to the family she is more alert and awake compared to yesterday. Family is at the bedside. She is having no significant respiratory distress. Her pulse ox is 92% on 4 L of oxygen by nasal cannula and she baseline carries on 3 L of oxygen by nasal cannula. She has a congested cough. She was given another dose of Lasix today. She was given a dose yesterday and her net fluid balance has been negative over the past 24 hours. She denies having any chest pain. No shortness of breath. Her white cell count is down to 23. Her CAT scan of the chest showed no evidence of any pulmonary embolism and the patient had extensive emphysema, right-sided pleural effusion, right lower lobe compressive atelectasis. Renal function remains impaired with a creatinine of 1.6 and this is a chronic renal failure. She remains on a combination of Zosyn and vancomycin although there is no clear-cut infectious source for this patient. On 09/19/2017 the patient is being seen on a medical floor. Note that the patient was felt to be stable yesterday. Based on that I made recommendations to move this patient to a telemetry unit on a medical floor. Earlier this morning, I was informed by the nurses that the patient had a large bloody bowel movement. There was bright red blood with clots within the diaper in the bed. Despite this, the patient did not have any significant hypotension, tachycardia or any discomforts his chest pain or shortness of breath. Blood work is still pending for now. Meanwhile, the patient is currently on 6 L of oxygen nasal cannula. No major edema in lower extremities. No abdominal pain or distention. Mental status is off as the patient has an underlying component of dementia. White cell count is dropping. Cultures of been negative and the patient has been covered with a combination of Zosyn and vancomycin. Renal function is impaired as the patient has chronic renal failure. Objective - Vital Signs Vital signs: Vital Signs Temp 97.7 F 09/19/17 09:26 Pulse 96 09/19/17 14:01 Resp 16 09/19/17 09:26 BP 101/57 09/19/17 09:26 Pulse Ox 91 L 09/19/17 09:26 Intake & Output 09/18/17 09/19/17 09/19/17 18:59 06:59 18:59 Intake Total 970 500 Output Total 1500 Balance -530 500 Weight 100.5 kg 100.5 kg Intake: IV 170 50 Piperacillin-Tazobactam 3 100 50 .375 gm In Dextrose/Water 1 50ml.bag @ 12.5 mls/hr IVPB Q8HR [facility] Rx#: [id number] Sodium Chloride 0.45% 1, 70 000 ml @ 125 mls/hr IV . Q8H [facility] Rx#:[id number] Intake, IV Titration 600 350 Amount Sodium Chloride 0.45% 1, 600 350 000 ml @ 50 mls/hr IV . Q20H [facility] Rx#:[id number] Oral 200 100 Output: Urine 1500 Other: Voiding Method Incontinent Incontinent Incontinent # Voids 1 # Bowel Movements 1 - Exam Gen. appearance the patient is arousable and awake it seems to be lethargic at times confused. A mild degree of respiratory distress even at rest. Examination of the neck reveals bilateral jugular venous distention. This is also noted that third-degree bed elevation. No neck masses. Neck is supple there is no lymphadenopathy and there is no cervical or supraclavicular lymphadenopathy. Mucous membranes are dry and there is no thrush. Head exam was generally normal. There was no scleral icterus or corneal arcus. Mucous membranes were moist. Lungs sounds are diminished bilaterally along with some limited bibasilar crackles. Breath sounds are diminished bilaterally and there is some scattered expiratory wheezes throughout the lung bosch. Heart sounds reveal accentuation of the second heart sound. No cervical murmurs appreciated. The patient is slightly tachycardic yet the rhythm seems to be sinus at this point. Abdominal exam revealed normal bowel sounds. The abdomen was soft, non-tender, and without masses, organomegaly, or appreciable enlargement of the abdominal aorta. Examination of the extremities revealed easily palpable radial, femoral and pedal pulses. There was no cyanosis, clubbing or edema. Examination of the skin revealed no evidence of significant rashes, suspicious appearing nevi or other concerning lesions. Neurologically the patient is neurologic exam is nonfocal. The patient will go 4 extremities without any limitation. No cranial nerve deficits. The patient is on off confused and she has memory problems specially with short-term memory. She was unable to tell me what. Her breakfast. This morning however she was able to recall the year - Labs CBC & Chem 7: 09/19/17 09:55 09/19/17 05:19 Labs: Abnormal Lab Results - Last 24 Hours (Table) 09/19/17 09/19/17 09/19/17 Range/Units 05:19 05:19 09:55 WBC 20.4 H 21.2 H (3.8-10.6) k/uL RBC 3.76 L (3.80-5.40) m/uL Hgb 10.4 L 10.8 L (11.4-16.0) gm/dL Hct 31.4 L 33.3 L (34.0-46.0) % RDW 16.5 H 16.7 H (11.5-15.5) % Plt Count 540 H 548 H (150-450) k/uL Neutrophils # 17.7 H 18.8 H (1.3-7.7) k/uL BUN 30 H (7-17) mg/dL Creatinine 1.44 H (0.52-1.04) mg/dL POC Glucose (mg/dL) (75-99) mg/dL Total Protein 4.6 L (6.3-8.2) g/dL Albumin 2.4 L (3.5-5.0) g/dL 09/19/17 Range/Units 11:43 WBC (3.8-10.6) k/uL RBC (3.80-5.40) m/uL Hgb (11.4-16.0) gm/dL Hct (34.0-46.0) % RDW (11.5-15.5) % Plt Count (150-450) k/uL Neutrophils # (1.3-7.7) k/uL BUN (7-17) mg/dL Creatinine (0.52-1.04) mg/dL POC Glucose (mg/dL) 100 H (75-99) mg/dL Total Protein (6.3-8.2) g/dL Albumin (3.5-5.0) g/dL Microbiology - Last 24 Hours (Table) 09/15/17 15:46 Blood Culture - Preliminary Blood No Growth after 72 hours 09/14/17 13:10 Blood Culture - Preliminary Blood No Growth after 96 hours Assessment and Plan Plan: Assessment 1 acute on chronic hypoxic history failure with worsening in her oxygenation and the patient is currently requiring high flow oxygen 6 L/m nasal cannula. No clear indication of an underlying pneumonia. The patient had a CT angios the chest that showed no evidence of any pulmonary embolism. His advanced COPD and emphysema and small right-sided pleural effusion and compressive atelectasis of the right lung base. The patient's overall pulmonate status is stable and the patient was diuresed with Lasix. We will gradually weaning down the FiO2 as tolerated to maintain a saturation above 90%. 2 severe pulmonary hypertension, most likely chronic in nature and a CT angios the chest showed no this any pulmonary embolism. 3 COPD with chronic hypoxic respiratory failure maintained on 3 L of oxygen at baseline 4 leukocytosis, improving and the white cell count is down to 20,000 and there is no indication of an underlying sepsis. The patient was treated with a combination of Zosyn nd vancomycin. 5 mild anion gap metabolic acidosis with some lactic acidosis at the time of admission , recovered completely 6 dementia with episodes of altered mentation, episodic 7. Generalized weakness 8 acute versus chronic renal insufficiency, probably stage II to 3 chronic kidney failure 9 small bilateral pleural effusion 10 nephrolithiasis 11 degenerative arthritis 12 cholelithiasis without evidence of any cholecystitis 13 acute GI bleed, likely of a lower GI source as the patient had bloody bright red bowel movement with clots. The patient was asymptomatic. Repeat hemoglobin showed no significant drop in the levels which was at 10.8. Correlation profile is within normal limits. Plan Stop vancomycin. Stop aspirin. Stop subcu heparin. Consult GI. Monitor hemoglobin. Watch for any further signs of GI bleeding. Overall pulmonary status is stable. Monitor fever pattern. Monitor white count. We'll continue to follow. The patient was moved to the intensive care unit for further monitoring especially with her recent bout of GI bleeding.
[2017-09-19] MEDS: SODIUM CHLORIDE 0.45% 1,000 ML IV SCH (21:47)
--- NOTE | 2017-09-19 23:08 | PN ---
PROGRESS NOTE DATE OF SERVICE: 09/19/2017. REASON FOR FOLLOWUP VISIT: Leukocytosis, possible abdominal source. INTERVAL HISTORY: The patient was transferred to the ICU because of GI bleed. Hemodynamically stable, not requiring any pressor support. No nausea or vomiting has been noticed. No significant abdominal pain. EXAMINATION: Blood pressure 104/59 with a pulse of 105, temperature 98.8, she is 95% on 4 L of oxygen. GENERAL DESCRIPTION: An elderly female lying in bed in no distress. RESPIRATORY SYSTEM: Unlabored breathing, decreased breath sounds. No wheeze. HEART: S1, S2. Regular rate and rhythm. ABDOMEN: Soft, no tenderness. LABS: Hemoglobin 10.4, white count 20.4. BUN of 30, creatinine 1.44. Cultures remain to be negative. DIAGNOSTIC IMPRESSION AND PLAN: Patient with leukocytosis, feeling generalized weakness, now with GI bleed, possibly diverticular bleed and elevated white count, more likely due to underlying diverticular disease. No other clinical focus of infection. Currently Zosyn will be continued waiting for condition to stabilize. Continue supportive care. MMODL / IJN: [id number] /
[2017-09-20] MEDS: PIPERACILLIN-TAZOBACTAM 3.375 GM in DEXTROSE/WATER 1 50ML.BAG IVPB SCH ×4 (00:07→23:36)
[2017-09-20 05:04] LABS: Anisocytosis Slight; Basophils # (A) 0.1 k/uL (0-0.2); Basophils % (A) 0 %; Eosinophils # (A) 0.4 k/uL (0-0.7); Eosinophils % (A) 2 %; HCT 31.4 % (34.0-46.0); HGB 10.1 gm/dL (11.4-16.0); Lymphocytes # (A) 1.3 k/uL (1.0-4.8); Lymphocytes % (A) 7 %; MCH 27.4 pg (25.0-35.0); MCHC 32.1 g/dL (31.0-37.0); MCV 85.4 fL (80.0-100.0); Mean Platelet Volume 7.5; Monocytes # (A) 0.6 k/uL (0-1.0); Monocytes % (A) 3 %; Neutrophils # (A) 16.7 k/uL (1.3-7.7); Neutrophils % (A) 86 %; Platelet Count 526 k/uL (150-450); RBC 3.68 m/uL (3.80-5.40); WBC 19.4 k/uL (3.8-10.6)
[2017-09-20 05:14] LABS: Calcium 8.3 mg/dL (8.4-10.2); Potassium 3.5 mmol/L (3.5-5.1)
[2017-09-20 05:19] LABS: Vancomycin,Random 12.6 ug/mL
[2017-09-20] MEDS ORDERED: Potassium Replacement Protocol 1 EACH MISC MISCELLANE PRN (05:36)
[2017-09-20] MEDS: POTASSIUM CHLORIDE 10 MEQ in WATER FOR INJECTION 1 100ML.BAG IVPB SCH ×2 (06:02→07:10)
[2017-09-20] MEDS: FAMOTIDINE 20 MG TAB PO SCH (08:59)
[2017-09-20] MEDS: MEMANTINE 10 MG TAB PO SCH ×2 (08:59→21:29)
[2017-09-20] MEDS: MECLIZINE 12.5 MG TAB PO SCH (08:59)
[2017-09-20] MEDS: SPIRONOLACTONE 25 MG TAB PO SCH (08:59)
[2017-09-20] MEDS: DONEPEZIL 10 MG TAB PO SCH (08:59)
[2017-09-20] MEDS: IPRATROPIUM-ALBUTEROL 3 ML NEB INHALATION SCH ×4 (09:10→19:50)
--- NOTE | 2017-09-20 10:24 | P.PN ---
Subjective Progress Note Date: 09/20/17 Principal diagnosis: GI bleed No further bloody bowel movements. Feels well. Denies abdominal pain. Daughter at bedside. Afebrile. Hemoglobin 10.1. Objective - Vital Signs Vital signs: Vital Signs Temp 98.7 F 09/20/17 04:00 Pulse 96 09/20/17 09:24 Resp 18 09/20/17 07:00 BP 100/49 09/20/17 07:00 Pulse Ox 96 09/20/17 07:00 Intake & Output 09/19/17 09/20/17 09/20/17 18:59 06:59 18:59 Intake Total 400.0 687.5 100 Output Total 400 0 Balance 0 687.5 100 Weight 100.5 kg 55.7 kg Intake: IV 400.0 687.5 100 Piperacillin-Tazobactam 3 50.0 87.5 .375 gm In Dextrose/Water 1 50ml.bag @ 12.5 mls/hr IVPB Q8HR [facility] Rx#: [id number] Potassium Chloride 10 meq 100 In Water For Injection 1 100ml.bag @ 100 mls/hr IVPB Q1H [facility] Rx#: [id number] Sodium Chloride 0.45% 1, 350 600 000 ml @ 50 mls/hr IV . Q20H [facility] Rx#:[id number] Output: Urine 400 0 Other: Voiding Method Incontinent Incontinent # Voids 1 0 # Bowel Movements 1 1 - Exam General appearance: The patient is alert, oriented, in no acute distress. HET: Head is normocephalic and atraumatic. Pupils are equal and reactive. Oropharynx is clear without lesions. Neck: Supple without lymphadenopathy. Trachea midline. Heart: S1 S2. Regular rate and rhythm. Lungs: No crackles or wheezes are heard. Abdomen: Soft, nontender, nondistended with bowel sounds. No peritoneal signs. No palpable organomegaly or masses. Extremities: Normal skin color and turgor. No cyanosis, rash, ulceration, clubbing, or edema. Radial and pedal pulses are 2/4 bilaterally. Neurological: No focal deficits. Strength and sensation are grossly intact. - Labs CBC & Chem 7: 09/20/17 04:19 09/20/17 04:19 Labs: Abnormal Lab Results - Last 24 Hours (Table) 09/19/17 09/19/17 09/20/17 Range/Units 09:55 11:43 04:19 WBC 21.2 H (3.8-10.6) k/uL RBC (3.80-5.40) m/uL Hgb 10.8 L (11.4-16.0) gm/dL Hct 33.3 L (34.0-46.0) % RDW 16.7 H (11.5-15.5) % Plt Count 548 H (150-450) k/uL Neutrophils # 18.8 H (1.3-7.7) k/uL BUN 25 H (7-17) mg/dL Creatinine 1.40 H (0.52-1.04) mg/dL POC Glucose (mg/dL) 100 H (75-99) mg/dL Calcium 8.3 L (8.4-10.2) mg/dL 09/20/17 Range/Units 04:19 WBC 19.4 H (3.8-10.6) k/uL RBC 3.68 L (3.80-5.40) m/uL Hgb 10.1 L (11.4-16.0) gm/dL Hct 31.4 L (34.0-46.0) % RDW 17.0 H (11.5-15.5) % Plt Count 526 H (150-450) k/uL Neutrophils # 16.7 H (1.3-7.7) k/uL BUN (7-17) mg/dL Creatinine (0.52-1.04) mg/dL POC Glucose (mg/dL) (75-99) mg/dL Calcium (8.4-10.2) mg/dL Microbiology - Last 24 Hours (Table) 09/17/17 15:00 Gram Stain - Final Sputum Sputum Culture - Final Lucero albicans 09/15/17 15:46 Blood Culture - Preliminary Blood No Growth after 96 hours 09/14/17 13:10 Blood Culture - Preliminary Blood No Growth after 120 hours Assessment and Plan (1) Hematochezia Narrative/Plan: 81-year-old admitted about a week ago with acute restaurant failure severe COPD and underlying emphysema maintained on aspirin Lovenox developed painless bright red blood per rectum this morning with a mild hemoglobin drop suspect colonic diverticular in nature CT imaging this past week reported moderate sigmoid diverticulosis. Presently asymptomatic resting comfortably in the ICU setting. Current Visit: Yes Status: Acute Code(s): K92.1 - MELENA SNOMED Code(s): 376604948 (2) Diverticulosis of colon Current Visit: Yes Status: Acute Code(s): K57.30 - DVRTCLOS OF LG INT W/O PERFORATION OR ABSCESS W/O BLEEDING SNOMED Code(s): 713720360 (3) Acute blood loss anemia Current Visit: Yes Status: Acute Code(s): D62 - ACUTE POSTHEMORRHAGIC ANEMIA SNOMED Code(s): 279576673 Plan: 1. Bleeding appears to be subsiding. Continue CBC monitoring. Will allow full liquid diet and advance if bleeding does not recur. We'll continue to follow with you. Inpatient endoscopic exams not planned at this time. Assessment and plan a care discussed with Dr. Ferro
--- NOTE | 2017-09-20 13:33 | PN ---
PROGRESS NOTE DATE OF SERVICE: 09/20/2017. REASON FOR FOLLOWUP: Leukocytosis likely diverticular source. INTERVAL HISTORY: The patient is afebrile. She is more awake, alert. She did mention she has felt much better. Denies having any chest pain. Breathing has improved. No cough. No abdominal pain. No further bleed. No nausea, vomiting. EXAMINATION: Blood pressure is 111/60 with a pulse of 95, temperature 98. She is 93% on 6 L nasal cannula. General description is an elderly female lying in bed in no distress. RESPIRATORY SYSTEM: Unlabored breathing. Clear to auscultation. HEART: S1, S2. Regular rate and rhythm. ABDOMEN: Soft, no tenderness. EXTREMITIES: No edema of the feet. LABS: Hemoglobin is 10.1, white count 19.4 with a BUN of 25, creatinine is 1.40. DIAGNOSTIC IMPRESSION AND PLAN: Patient with leukocytosis, source is likely GI, likely diverticular source. The patient did have a diverticular bleed with spontaneous . Plan at this time is keep the patient on Zosyn and finish therapy with oral antibiotic on discharge. Continue supportive care. MMODL / IJN: [id number] /
--- NOTE | 2017-09-20 14:22 | P.PN ---
Subjective Progress Note Date: 09/20/17 Brenda Dave is an 81-year-old female, patient of [facility], who presented to [facility] emergency room with a chief complaint of generalized weakness, daughter states that patient was seen at [facility] one week ago, she was given an antibiotic for presumed urinary tract infection, however her condition continued to worsen, she was seen by her visiting nurse and was advised to come to emergency room. Patient was evaluated by Dr. Brown in the emergency room, she had evidence of sepsis with hypotension, tachycardia, and leukocytosis, also d-dimer was elevated at 5.64, she was admitted to telemetry floor, she was started on IV antibiotic and IV fluid. Bilateral lower extremity Doppler was done and was negative for DVT, VQ scan was done and was low probability for pulmonary embolism. On 09/15/2017 patient is alert and oriented 3 in no apparent distress, she is complaining of feeling cold and having shaking chills, otherwise no complaints, patient has tachycardia, and has evidence sepsis, with leukocytosis white blood count still at 30,000, primary site of infection is still unclear she is complaining of cough, chest x-ray did not reveal any evidence of pneumonia, blood culture is pending, echocardiogram is pending, sodium is up to 114 9 IV fluid change to half-normal saline, will check lactic acid. 09/16/2017 patient is confused. She states things like "did you know that I am ". Patient's son is at bedside patient does have some baseline confusion usually mostly short term memory loss. However, since she's been sick the confusion has worsened. Patient is lying in bed comfortably no evidence of distress. Earlier this morning per nursing staff patient was satting around 84% on 3 L and had to be increased to 5 L and was able to get into the 90s. Patient's white count is still elevated at 30.5. Infectious disease and pulmonary service are following. Repeat chest x-ray shows no acute changes. And for the screening negative. Patient denies any chest pain. Patient has been having some cough. Denies any nausea or vomiting no diarrhea. Patient did have one loose stool, but not watery. 09/17/2017 patient was transferred to the ICU yesterday afternoon for closer monitoring. She remains in the ICU. Case was discussed with pulmonary service in detail. Patient's white count has been decreased from 30.5-25.4 she's on 10 L oxygen satting at 95%. The exact source of infection is still unclear. She remains on Zosyn and vancomycin. Echocardiogram shows severe pulmonary hypertension and severe tricuspid regurgitation. CTA of the chest was negative for a PE did reveal atelectasis and a small right-sided pleural effusion. Moderate pericardial effusion and no evidence of pericarditis. Abdominal ultrasound showed no evidence of an acute cholecystitis. Did reveal cholelithiasis. Pulmonary service did order a dose of IV Lasix for her fluid overload. Infectious disease is also following. Urine output is adequate. Patient is still confused. 09/19/2017 nursing staff called and notified that patient had a massive bloody stool with large blood clots. Repeat hemoglobin check went up from 10.4-10.8. Patient was transferred to the ICU. Fluids were increased to 75 mL an hour. Patient was hypotensive earlier in the morning. Blood pressures are showing improvement. Case was discussed with compound mixer Dr. Romo. GI service was consulted. They have Re: Evaluated patient and there is no plan for colonoscopy at this point. Patient's previous computed tomography scan of the abdomen had showed evidence of diverticulosis this possibly could be related to a diverticular bleed. Patient denies any abdominal pain no nausea or vomiting reported. Currently on 8 L of oxygen. White count 21.2 09/20/2017 patient currently in the ICU. She is doing well. No further bloody bowel movements today. Likely symptoms related to a diverticular bleed. Seen by GI service. No plans for endoscopy at this time. Patient on 10 L options a 96%. Hemoglobin at 10.1. Objective - Vital Signs Vital signs: Vital Signs Temp 98.1 F 09/20/17 08:00 Pulse 95 09/20/17 11:00 Resp 17 09/20/17 11:00 BP 111/60 09/20/17 11:00 Pulse Ox 93 L 09/20/17 11:00 Intake & Output 09/19/17 09/20/17 09/20/17 18:59 06:59 18:59 Intake Total 400.0 687.5 400.0 Output Total 400 0 200 Balance 0 687.5 200.0 Weight 100.5 kg 55.7 kg Intake: IV 400.0 687.5 400.0 Piperacillin-Tazobactam 3 50.0 87.5 50.0 .375 gm In Dextrose/Water 1 50ml.bag @ 12.5 mls/hr IVPB Q8HR [facility] Rx#: [id number] Potassium Chloride 10 meq 200 In Water For Injection 1 100ml.bag @ 100 mls/hr IVPB Q1H [facility] Rx#: [id number] Sodium Chloride 0.45% 1, 350 600 150 000 ml @ 50 mls/hr IV . Q20H [facility] Rx#:[id number] Output: Urine 400 0 200 Other: Voiding Method Incontinent Incontinent Bedpan # Voids 1 0 # Bowel Movements 1 1 1 - Exam Head normocephalic Neck supple Lungs diminished bilaterally Heart regular rate and rhythm S1-S2, no rub or gallop Abdomen is soft nontender nondistended positive bowel sounds no hepatosplenomegaly Extremities no edema Neuro awake and alert but confused - Labs CBC & Chem 7: 09/20/17 04:19 09/20/17 04:19 Labs: Abnormal Lab Results - Last 24 Hours (Table) 09/20/17 09/20/17 Range/Units 04:19 04:19 WBC 19.4 H (3.8-10.6) k/uL RBC 3.68 L (3.80-5.40) m/uL Hgb 10.1 L (11.4-16.0) gm/dL Hct 31.4 L (34.0-46.0) % RDW 17.0 H (11.5-15.5) % Plt Count 526 H (150-450) k/uL Neutrophils # 16.7 H (1.3-7.7) k/uL BUN 25 H (7-17) mg/dL Creatinine 1.40 H (0.52-1.04) mg/dL Calcium 8.3 L (8.4-10.2) mg/dL Microbiology - Last 24 Hours (Table) 09/17/17 15:00 Gram Stain - Final Sputum Sputum Culture - Final Lucero albicans 09/15/17 15:46 Blood Culture - Preliminary Blood No Growth after 96 hours 09/14/17 13:10 Blood Culture - Preliminary Blood No Growth after 120 hours Assessment and Plan Assessment: #1 sepsis, initial site of infection is not clear, patient was partially treated with oral antibiotic as outpatient, blood culture negative. Urinalysis no evidence of UTI. Repeat chest x-ray no evidence of pneumonia. Patient remains on Zosyn and vancomycin. Infectious disease following closely. Blood cultures remain negative. Abdominal ultrasound showed no evidence of cholecystitis. Infectious disease following area did infectious disease felt symptoms could be related to diverticular disease. #2 acute on chronic hypoxic respiratory failure. Patient requiring high flow oxygen. No evidence of pneumonia. CT of the chest showed no evidence of a pulmonary embolism. Possibly related to her advanced COPD and fluid overload #3 underlying history of COPD, at this time patient will be given DuoNeb updraft , no need for systemic steroids #4 severe pulmonary hypertension likely secondary to her COPD and exacerbated by her recent illness. HOC Lasix yesterday #5 underlying history of dementia maintained on Aricept and Namenda #6 hypernatremia improved. Sodium level has normalized #7 acute on chronic renal failure, stage III. Continue IV fluids #8 metabolic acidosis improved after sodium bicarb drip. Sodium bicarbonate drip discontinued by pulmonary service #9 metabolic encephalopathy secondary to her acute infection with underlying history of dementia #10 acute lower GI bleed: Likely related to a diverticular bleed. Patient seen by GI service. No plan for colonoscopy at this time. Aspirin and subcu heparin were discontinued yesterday. Hemoglobin stable at 10.1. No further bloody bowel movements reported for GI prophylaxis patient on Pepcid for DVT prophylaxis patient place patient on SCDs Anticipating possible transfer out of the ICU today I performed an examination of the patient and discussed their management with the physician Linen Room Custodian. I have reviewed the Physician Linen Room Custodian's notes and agree with the documented findings and plan of care
[2017-09-20] MEDS: MULTIVITAMINS, THERA 1 EACH TAB PO SCH (14:42)
--- NOTE | 2017-09-20 14:50 | P.PN ---
Subjective Progress Note Date: 09/20/17 I'm seeing this 81-year-old female patient in follow-up and there is an obvious concern about her health in general as the patient comes in with altered mentation, hypoxic history failure with worsening in her oxygenation status as the patient has limited at least about 2 by nasal cannula and currently is up to 6 L in addition to leukocytosis and evolving metabolic acidosis. A septic workup has been completed and the patient is being seen by infectious disease. Cultures of been negative. The patient is slightly tachycardic. She has leukocytosis. D-dimer is positive. Echocardiogram shows severe pulmonary hypertension with a PA pressure estimated to be around 120 and there is also evidence of moderate mitral regurgitation, mild mitral stenosis, severe tricuspid regurgitation, severe pulmonary hypertension, small pericardial effusion, and dilated the right-sided cardiac structures. The left and ejection fraction is about 70%. The CAT scan of the abdomen revealed no acute abnormalities then some chronic interstitial changes in lung bases, small bilateral pleural effusion, small pericardial effusion, cholelithiasis and questionable thickening of the proximal small bowel/enteritis and nonobstructing 9 mm right lower pole renal calculus and complicated diverticulosis. There is also degenerative changes in the spine and Ventolin hernia containing fat only. Doppler of the lower extremities was negative. Patient has underlying dementia at baseline. On and off she sounds to be more confused. On today's evaluation of 09/17/2017 the patient is being seen in follow-up in the intensive care unit. She seems to be improved compared to yesterday. On and off she is still confused. No focal neurological deficits. Family is at the bedside. She is on 6 L of oxygen nasal cannula and she is also having some bibasilar crackles and for that reason I have suggested some diuresis. Meanwhile, the white cell count is improving is down to 25. He was dynamically stable. No pressors. The patient has not been found to have any source of an infection. She is afebrile. Ultrasound the gallbladder showed no evidence of any cholecystitis. The patient is cholelithiasis. Abnormalities in LFTs is probably related to right-sided failure. No evidence of any urine tract infection. No evidence of any blood infection. Doubt endocarditis. Echocardiogram showed severe pulmonary hypertension and evidence of right-sided heart failure probably related to chronic hypoxemia. CAT scan of the chest showed diffuse emphysema and small right-sided pleural effusion and compressive atelectasis of the right lung base and there was no evidence of any pulmonary embolism or filling defects. The patient is on DuoNeb nebulized treatments around the clock. The patient was given a dose of Lasix. The patient is on examination of Zosyn and vancomycin for now as an empiric antibiotic coverage. ID is on the case. On 09/18/2017 the patient is still in the intensive care unit. She is calm and comfortable. She is on and off confused and I think there is obvious component of dementia. According to the family she is more alert and awake compared to yesterday. Family is at the bedside. She is having no significant respiratory distress. Her pulse ox is 92% on 4 L of oxygen by nasal cannula and she baseline carries on 3 L of oxygen by nasal cannula. She has a congested cough. She was given another dose of Lasix today. She was given a dose yesterday and her net fluid balance has been negative over the past 24 hours. She denies having any chest pain. No shortness of breath. Her white cell count is down to 23. Her CAT scan of the chest showed no evidence of any pulmonary embolism and the patient had extensive emphysema, right-sided pleural effusion, right lower lobe compressive atelectasis. Renal function remains impaired with a creatinine of 1.6 and this is a chronic renal failure. She remains on a combination of Zosyn and vancomycin although there is no clear-cut infectious source for this patient. On 09/19/2017 the patient is being seen on a medical floor. Note that the patient was felt to be stable yesterday. Based on that I made recommendations to move this patient to a telemetry unit on a medical floor. Earlier this morning, I was informed by the nurses that the patient had a large bloody bowel movement. There was bright red blood with clots within the diaper in the bed. Despite this, the patient did not have any significant hypotension, tachycardia or any discomforts his chest pain or shortness of breath. Blood work is still pending for now. Meanwhile, the patient is currently on 6 L of oxygen nasal cannula. No major edema in lower extremities. No abdominal pain or distention. Mental status is off as the patient has an underlying component of dementia. White cell count is dropping. Cultures of been negative and the patient has been covered with a combination of Zosyn and vancomycin. Renal function is impaired as the patient has chronic renal failure. On 09/20/2017, the patient is stable. She got moved back to the intensive care unit as the patient was suspected to have ongoing GI bleed. Yesterday she had one bout of bloody bowel movement and she had to smaller episodes overnight. Her hemoglobin remains stable. This is suspected to be a diverticular bleed. No nausea. No vomiting. No abdominal pain. Mental status is appropriate this morning. She has underlying dementia. No significant respiratory distress. No cough or sputum production. The patient is still on 6 L/m nasal cannula to maintain saturation above 90%. Hemodynamically stable. IV fluids to kvo. Objective - Vital Signs Vital signs: Vital Signs Temp 98.1 F 09/20/17 08:00 Pulse 95 09/20/17 11:00 Resp 17 09/20/17 11:00 BP 111/60 09/20/17 11:00 Pulse Ox 93 L 09/20/17 11:00 Intake & Output 09/19/17 09/20/17 09/20/17 18:59 06:59 18:59 Intake Total 400.0 687.5 400.0 Output Total 400 0 200 Balance 0 687.5 200.0 Weight 100.5 kg 55.7 kg Intake: IV 400.0 687.5 400.0 Piperacillin-Tazobactam 3 50.0 87.5 50.0 .375 gm In Dextrose/Water 1 50ml.bag @ 12.5 mls/hr IVPB Q8HR [facility] Rx#: [id number] Potassium Chloride 10 meq 200 In Water For Injection 1 100ml.bag @ 100 mls/hr IVPB Q1H [facility] Rx#: [id number] Sodium Chloride 0.45% 1, 350 600 150 000 ml @ 50 mls/hr IV . Q20H [facility] Rx#:[id number] Output: Urine 400 0 200 Other: Voiding Method Incontinent Incontinent Bedpan # Voids 1 0 # Bowel Movements 1 1 1 - Exam Gen. appearance the patient is arousable and awake it seems to be lethargic at times confused. A mild degree of respiratory distress even at rest. Examination of the neck reveals bilateral jugular venous distention. This is also noted that third-degree bed elevation. No neck masses. Neck is supple there is no lymphadenopathy and there is no cervical or supraclavicular lymphadenopathy. Mucous membranes are dry and there is no thrush. Head exam was generally normal. There was no scleral icterus or corneal arcus. Mucous membranes were moist. Lungs sounds are diminished bilaterally along with some limited bibasilar crackles. Breath sounds are diminished bilaterally and there is some scattered expiratory wheezes throughout the lung bosch. Heart sounds reveal accentuation of the second heart sound. No cervical murmurs appreciated. The patient is slightly tachycardic yet the rhythm seems to be sinus at this point. Abdominal exam revealed normal bowel sounds. The abdomen was soft, non-tender, and without masses, organomegaly, or appreciable enlargement of the abdominal aorta. Examination of the extremities revealed easily palpable radial, femoral and pedal pulses. There was no cyanosis, clubbing or edema. Examination of the skin revealed no evidence of significant rashes, suspicious appearing nevi or other concerning lesions. Neurologically the patient is neurologic exam is nonfocal. The patient will go 4 extremities without any limitation. No cranial nerve deficits. The patient is on off confused and she has memory problems specially with short-term memory. She was unable to tell me what. Her breakfast. This morning however she was able to recall the year - Labs CBC & Chem 7: 09/20/17 04:19 09/20/17 04:19 Labs: Abnormal Lab Results - Last 24 Hours (Table) 09/20/17 09/20/17 Range/Units 04:19 04:19 WBC 19.4 H (3.8-10.6) k/uL RBC 3.68 L (3.80-5.40) m/uL Hgb 10.1 L (11.4-16.0) gm/dL Hct 31.4 L (34.0-46.0) % RDW 17.0 H (11.5-15.5) % Plt Count 526 H (150-450) k/uL Neutrophils # 16.7 H (1.3-7.7) k/uL BUN 25 H (7-17) mg/dL Creatinine 1.40 H (0.52-1.04) mg/dL Calcium 8.3 L (8.4-10.2) mg/dL Microbiology - Last 24 Hours (Table) 09/17/17 15:00 Gram Stain - Final Sputum Sputum Culture - Final Lucero albicans 09/15/17 15:46 Blood Culture - Preliminary Blood No Growth after 96 hours 09/14/17 13:10 Blood Culture - Preliminary Blood No Growth after 120 hours Assessment and Plan Plan: Assessment 1 acute on chronic hypoxic history failure with worsening in her oxygenation and the patient is currently requiring high flow oxygen 6 L/m nasal cannula. No clear indication of an underlying pneumonia. The patient had a CT angios the chest that showed no evidence of any pulmonary embolism. His advanced COPD and emphysema and small right-sided pleural effusion and compressive atelectasis of the right lung base. Overall oxygenation remains stable. 2 severe pulmonary hypertension, most likely chronic in nature and a CT angios the chest showed no pulmonary embolism. 3 COPD with chronic hypoxic respiratory failure maintained on 3 L of oxygen at baseline 4 leukocytosis, improving and the white cell count is down to 20,000 and there is no indication of an underlying sepsis. The patient was treated with a combination of Zosyn nd vancomycin. The vancomycin was discontinued and the patient remains on Zosyn. White cell count is down to 19 and is gradually improving. 5 mild anion gap metabolic acidosis with some lactic acidosis at the time of admission , recovered completely 6 dementia with episodes of altered mentation, episodic 7. Generalized weakness 8 acute versus chronic renal insufficiency, probably stage II to 3 chronic kidney failure 9 small bilateral pleural effusion 10 nephrolithiasis 11 degenerative arthritis 12 cholelithiasis without evidence of any cholecystitis 13 acute GI bleed, likely of a lower GI source as the patient had bloody bright red bowel movement with clots. The patient was asymptomatic. Repeat hemoglobin showed no significant drop and the patient remains hemodynamically stable and no plans to undergo any interventions at this point in time. Plan Wean FiO2. Monitor hemoglobin. The patient can be moved out of the intensive care unit. She is on clear liquid diet this can be gradually advanced. GI is on the case regarding the GI bleeding. We'll continue to follow.
[2017-09-20] MEDS: SODIUM CHLORIDE 0.45% 1,000 ML IV SCH (17:00)
[2017-09-21 07:47] LABS: Anisocytosis Slight; Basophils # (A) 0.1 k/uL (0-0.2); Basophils % (A) 0 %; Eosinophils # (A) 0.5 k/uL (0-0.7); Eosinophils % (A) 3 %; HCT 29.1 % (34.0-46.0); HGB 9.4 gm/dL (11.4-16.0); Hypochromasia Slight; Lymphocytes # (A) 1.4 k/uL (1.0-4.8); Lymphocytes % (A) 8 %; MCH 27.6 pg (25.0-35.0); MCHC 32.4 g/dL (31.0-37.0); MCV 85.4 fL (80.0-100.0); Mean Platelet Volume 7.6; Monocytes # (A) 0.5 k/uL (0-1.0); Monocytes % (A) 3 %; Neutrophils # (A) 15.3 k/uL (1.3-7.7); Neutrophils % (A) 85 %; Platelet Count 541 k/uL (150-450); RDW 17.3 % (11.5-15.5)
[2017-09-21 07:53] LABS: Calcium 8.8 mg/dL (8.4-10.2); Potassium 4.1 mmol/L (3.5-5.1)
[2017-09-21] MEDS: MEMANTINE 10 MG TAB PO SCH ×2 (08:00→20:06)
[2017-09-21] MEDS: FAMOTIDINE 20 MG TAB PO SCH (08:00)
[2017-09-21] MEDS: DONEPEZIL 10 MG TAB PO SCH (08:00)
[2017-09-21] MEDS: MECLIZINE 12.5 MG TAB PO SCH (08:00)
[2017-09-21] MEDS: SPIRONOLACTONE 25 MG TAB PO SCH (08:01)
[2017-09-21] MEDS: PIPERACILLIN-TAZOBACTAM 3.375 GM in DEXTROSE/WATER 1 50ML.BAG IVPB SCH (08:01)
[2017-09-21] MEDS: IPRATROPIUM-ALBUTEROL 3 ML NEB INHALATION SCH ×3 (08:21→20:35)
[2017-09-21] MEDS: SODIUM CHLORIDE 0.45% 1,000 ML IV SCH (11:12)
[2017-09-21] MEDS ORDERED: FUROSEMIDE 10 MG/ML 4 ML VIAL IV STA (12:13)
--- NOTE | 2017-09-21 13:00 | P.PN ---
Subjective Progress Note Date: 09/21/17 Principal diagnosis: Acute on chronic hypoxic respiratory failure. I'm seeing this 81-year-old female patient in follow-up and there is an obvious concern about her health in general as the patient comes in with altered mentation, hypoxic history failure with worsening in her oxygenation status as the patient has limited at least about 2 by nasal cannula and currently is up to 6 L in addition to leukocytosis and evolving metabolic acidosis. A septic workup has been completed and the patient is being seen by infectious disease. Cultures of been negative. The patient is slightly tachycardic. She has leukocytosis. D-dimer is positive. Echocardiogram shows severe pulmonary hypertension with a PA pressure estimated to be around 120 and there is also evidence of moderate mitral regurgitation, mild mitral stenosis, severe tricuspid regurgitation, severe pulmonary hypertension, small pericardial effusion, and dilated the right-sided cardiac structures. The left and ejection fraction is about 70%. The CAT scan of the abdomen revealed no acute abnormalities then some chronic interstitial changes in lung bases, small bilateral pleural effusion, small pericardial effusion, cholelithiasis and questionable thickening of the proximal small bowel/enteritis and nonobstructing 9 mm right lower pole renal calculus and complicated diverticulosis. There is also degenerative changes in the spine and Ventolin hernia containing fat only. Doppler of the lower extremities was negative. Patient has underlying dementia at baseline. On and off she sounds to be more confused. On today's evaluation of 09/17/2017 the patient is being seen in follow-up in the intensive care unit. She seems to be improved compared to yesterday. On and off she is still confused. No focal neurological deficits. Family is at the bedside. She is on 6 L of oxygen nasal cannula and she is also having some bibasilar crackles and for that reason I have suggested some diuresis. Meanwhile, the white cell count is improving is down to 25. He was dynamically stable. No pressors. The patient has not been found to have any source of an infection. She is afebrile. Ultrasound the gallbladder showed no evidence of any cholecystitis. The patient is cholelithiasis. Abnormalities in LFTs is probably related to right-sided failure. No evidence of any urine tract infection. No evidence of any blood infection. Doubt endocarditis. Echocardiogram showed severe pulmonary hypertension and evidence of right-sided heart failure probably related to chronic hypoxemia. CAT scan of the chest showed diffuse emphysema and small right-sided pleural effusion and compressive atelectasis of the right lung base and there was no evidence of any pulmonary embolism or filling defects. The patient is on DuoNeb nebulized treatments around the clock. The patient was given a dose of Lasix. The patient is on examination of Zosyn and vancomycin for now as an empiric antibiotic coverage. ID is on the case. On 09/18/2017 the patient is still in the intensive care unit. She is calm and comfortable. She is on and off confused and I think there is obvious component of dementia. According to the family she is more alert and awake compared to yesterday. Family is at the bedside. She is having no significant respiratory distress. Her pulse ox is 92% on 4 L of oxygen by nasal cannula and she baseline carries on 3 L of oxygen by nasal cannula. She has a congested cough. She was given another dose of Lasix today. She was given a dose yesterday and her net fluid balance has been negative over the past 24 hours. She denies having any chest pain. No shortness of breath. Her white cell count is down to 23. Her CAT scan of the chest showed no evidence of any pulmonary embolism and the patient had extensive emphysema, right-sided pleural effusion, right lower lobe compressive atelectasis. Renal function remains impaired with a creatinine of 1.6 and this is a chronic renal failure. She remains on a combination of Zosyn and vancomycin although there is no clear-cut infectious source for this patient. On 09/19/2017 the patient is being seen on a medical floor. Note that the patient was felt to be stable yesterday. Based on that I made recommendations to move this patient to a telemetry unit on a medical floor. Earlier this morning, I was informed by the nurses that the patient had a large bloody bowel movement. There was bright red blood with clots within the diaper in the bed. Despite this, the patient did not have any significant hypotension, tachycardia or any discomforts his chest pain or shortness of breath. Blood work is still pending for now. Meanwhile, the patient is currently on 6 L of oxygen nasal cannula. No major edema in lower extremities. No abdominal pain or distention. Mental status is off as the patient has an underlying component of dementia. White cell count is dropping. Cultures of been negative and the patient has been covered with a combination of Zosyn and vancomycin. Renal function is impaired as the patient has chronic renal failure. On 09/20/2017, the patient is stable. She got moved back to the intensive care unit as the patient was suspected to have ongoing GI bleed. Yesterday she had one bout of bloody bowel movement and she had to smaller episodes overnight. Her hemoglobin remains stable. This is suspected to be a diverticular bleed. No nausea. No vomiting. No abdominal pain. Mental status is appropriate this morning. She has underlying dementia. No significant respiratory distress. No cough or sputum production. The patient is still on 6 L/m nasal cannula to maintain saturation above 90%. Hemodynamically stable. IV fluids to kvo. The patient is seen again today 09/21/2017 in follow-up on the regular medical floor. She is currently sitting up in a chair at the bedside. She is awake and alert in no acute distress. She has not had any further GI bleeding. She is still requiring 8 L high flow nasal cannula to maintain O2 saturations greater than 90%. She denies any worsening shortness of breath, cough or congestion. He was positive for Lucero. Blood cultures reveal no growth. We cut has improved 18,000. Hemoglobin 9.4. Creatinine 1.33. She is continued on Zosyn. Objective - Vital Signs Vital signs: Vital Signs Temp 98.0 F 09/21/17 05:06 Pulse 96 09/21/17 08:36 Resp 18 09/21/17 08:00 BP 96/58 09/21/17 05:06 Pulse Ox 94 L 09/21/17 12:06 Intake & Output 09/20/17 09/21/17 09/21/17 18:59 06:59 18:59 Intake Total 400.0 Output Total 200 200 200 Balance 200.0 -200 -200 Weight 55.7 kg 55.6 kg Intake: IV 400.0 Piperacillin-Tazobactam 3 50.0 .375 gm In Dextrose/Water 1 50ml.bag @ 12.5 mls/hr IVPB Q8HR [facility] Rx#: [id number] Potassium Chloride 10 meq 200 In Water For Injection 1 100ml.bag @ 100 mls/hr IVPB Q1H [facility] Rx#: [id number] Sodium Chloride 0.45% 1, 150 000 ml @ 50 mls/hr IV . Q20H [facility] Rx#:[id number] Output: Urine 200 200 200 Other: Voiding Method Bedpan Bedpan Bedpan # Voids 0 0 0 # Bowel Movements 1 - Exam Gen. appearance the patient is arousable and awake at times confused. A mild degree of respiratory distress even at rest. Examination of the neck reveals bilateral jugular venous distention. No neck masses. Neck is supple there is no lymphadenopathy and there is no cervical or supraclavicular lymphadenopathy. Mucous membranes are dry and there is no thrush. Head exam was generally normal. There was no scleral icterus or corneal arcus. Mucous membranes were moist. Lungs sounds are diminished bilaterally along with some limited bibasilar crackles. Breath sounds are diminished bilaterally and there is some scattered expiratory wheezes throughout the lung bosch. Heart sounds reveal accentuation of the second heart sound. No cervical murmurs appreciated. The patient is slightly tachycardic yet the rhythm seems to be sinus at this point. Abdominal exam revealed normal bowel sounds. The abdomen was soft, non-tender, and without masses, organomegaly, or appreciable enlargement of the abdominal aorta. Examination of the extremities revealed easily palpable radial, femoral and pedal pulses. There was no cyanosis, clubbing or edema. Examination of the skin revealed no evidence of significant rashes, suspicious appearing nevi or other concerning lesions. Neurologically the patient is neurologic exam is nonfocal. The patient will go 4 extremities without any limitation. No cranial nerve deficits. The patient is on off confused and she has memory problems specially with short-term memory. She was unable to tell me what. Her breakfast. This morning however she was able to recall the year - Labs CBC & Chem 7: 09/21/17 06:51 09/21/17 06:51 Labs: Abnormal Lab Results - Last 24 Hours (Table) 09/21/17 09/21/17 Range/Units 06:51 06:51 WBC 18.0 H (3.8-10.6) k/uL RBC 3.40 L (3.80-5.40) m/uL Hgb 9.4 L (11.4-16.0) gm/dL Hct 29.1 L (34.0-46.0) % RDW 17.3 H (11.5-15.5) % Plt Count 541 H (150-450) k/uL Neutrophils # 15.3 H (1.3-7.7) k/uL BUN 20 H (7-17) mg/dL Creatinine 1.33 H (0.52-1.04) mg/dL Microbiology - Last 24 Hours (Table) 09/15/17 15:46 Blood Culture - Preliminary Blood No Growth after 120 hours 09/14/17 13:10 Blood Culture - Final Blood No Growth after 144 hours 09/17/17 15:00 Gram Stain - Final Sputum Sputum Culture - Final Lucero albicans Assessment and Plan Assessment: Assessment 1 acute on chronic hypoxic history failure with worsening in her oxygenation and the patient is currently requiring high flow oxygen 6 L/m nasal cannula. No clear indication of an underlying pneumonia. The patient had a CT angios the chest that showed no evidence of any pulmonary embolism. His advanced COPD and emphysema and small right-sided pleural effusion and compressive atelectasis of the right lung base. Overall oxygenation remains stable. 2 severe pulmonary hypertension, most likely chronic in nature and a CT angios the chest showed no pulmonary embolism. 3 COPD with chronic hypoxic respiratory failure maintained on 3 L of oxygen at baseline 4 leukocytosis, improving and the white cell count is down to 18,000 and there is no indication of an underlying sepsis. The patient was treated with a combination of Zosyn nd vancomycin. The vancomycin was discontinued and the patient remains on Zosyn. 5 mild anion gap metabolic acidosis with some lactic acidosis at the time of admission , recovered completely 6 dementia with episodes of altered mentation, episodic 7.generalized weakness 8 acute versus chronic renal insufficiency, probably stage II to 3 chronic kidney failure 9 small bilateral pleural effusion 10 nephrolithiasis 11 degenerative arthritis 12 cholelithiasis without evidence of any cholecystitis 13 acute GI bleed, likely of a lower GI source as the patient had bloody bright red bowel movement with clots. The patient was asymptomatic. Repeat hemoglobin showed no significant drop and the patient remains hemodynamically stable and no plans to undergo any interventions at this point in time. Plan The patient was seen and evaluated by Dr. Romo. She has been slow to progress. No further episodes of GI bleeding. We'll continue with her current treatment plan. Will switch her Zosyn to Augmentin. Give additional Lasix 40 mg IV push times one. Titrate down her FiO2 as tolerated. Currently on 6 L high flow nasal cannula. Overall prognosis remains quite guarded. We'll continue to follow make further recommendations based on her clinical status. I, the cosigning physician, performed a history & physical examination of the patient. Lungs sounds are clear bilateral posterior bases. Maintaining good O2 saturations in the 90s on 6 L high flow nasal cannula. I discussed the assessment and plan of care with my nurse practitioner, Dulce Maria El. I attest to the above note as dictated by her.
[2017-09-21] MEDS: MULTIVITAMINS, THERA 1 EACH TAB PO SCH (13:26)
--- NOTE | 2017-09-21 15:26 | P.PN ---
Subjective Progress Note Date: 09/21/17 Patient is doing well today. She is pleasantly demented. She does not have any specific concerns. Objective - Vital Signs Vital signs: Vital Signs Temp 98.0 F 09/21/17 05:06 Pulse 96 09/21/17 13:46 Resp 18 09/21/17 08:00 BP 96/58 09/21/17 05:06 Pulse Ox 94 L 09/21/17 12:06 Intake & Output 09/20/17 09/21/17 09/21/17 18:59 06:59 18:59 Intake Total 400.0 Output Total 200 200 200 Balance 200.0 -200 -200 Weight 55.7 kg 55.6 kg Intake: IV 400.0 Piperacillin-Tazobactam 3 50.0 .375 gm In Dextrose/Water 1 50ml.bag @ 12.5 mls/hr IVPB Q8HR [facility] Rx#: [id number] Potassium Chloride 10 meq 200 In Water For Injection 1 100ml.bag @ 100 mls/hr IVPB Q1H [facility] Rx#: [id number] Sodium Chloride 0.45% 1, 150 000 ml @ 50 mls/hr IV . Q20H [facility] Rx#:[id number] Output: Urine 200 200 200 Other: Voiding Method Bedpan Bedpan Bedpan # Voids 0 0 0 # Bowel Movements 1 - Exam General: The patient is awake and alert, in no distress Eye: there is normal conjunctiva bilaterally. Neck: The neck is supple, there is no JVD. Cardiovascular: Normal S1-S2, no S3-S4, no murmurs. Respiratory: Lungs clear to auscultation bilaterally Gastrointestinal: Abdomen is soft, nontender Musculoskeletal: There is no pedal edema. Neurological:. Speech is normal. Skin: Skin is warm and dry - Labs CBC & Chem 7: 09/21/17 06:51 09/21/17 06:51 Labs: Abnormal Lab Results - Last 24 Hours (Table) 09/21/17 09/21/17 Range/Units 06:51 06:51 WBC 18.0 H (3.8-10.6) k/uL RBC 3.40 L (3.80-5.40) m/uL Hgb 9.4 L (11.4-16.0) gm/dL Hct 29.1 L (34.0-46.0) % RDW 17.3 H (11.5-15.5) % Plt Count 541 H (150-450) k/uL Neutrophils # 15.3 H (1.3-7.7) k/uL BUN 20 H (7-17) mg/dL Creatinine 1.33 H (0.52-1.04) mg/dL Microbiology - Last 24 Hours (Table) 09/15/17 15:46 Blood Culture - Preliminary Blood No Growth after 120 hours 09/14/17 13:10 Blood Culture - Final Blood No Growth after 144 hours Assessment and Plan Assessment: #1 sepsis, initial site of infection is not clear: blood culture negative. Urinalysis no evidence of UTI. Repeat chest x-ray no evidence of pneumonia. Infectious disease following closely. Currently finishing antibiotic course with Augmentin. Abdominal ultrasound showed no evidence of cholecystitis. #2 acute on chronic hypoxic respiratory failure. Patient requiring high flow oxygen. No evidence of pneumonia. CT of the chest showed no evidence of a pulmonary embolism. Possibly related to her advanced COPD and fluid overload #3 underlying history of COPD with no evidence of exacerbation at #4 severe pulmonary hypertension: I would start Lasix 40 mg orally once a day #5 underlying history of dementia maintained on Aricept and Namenda #6 hypernatremia improved. Sodium level has normalized #7 acute on chronic renal failure, stage III #8 acute lower GI bleed: Likely related to a diverticular bleed. Patient seen by GI service. No plan for colonoscopy at this time. Aspirin and subcu heparin were discontinued. Hemoglobin stable. No further bloody bowel movements reported for GI prophylaxis patient on Pepcid for DVT prophylaxis patient place patient on SCDs
[2017-09-21] MEDS: AMOXIC-POT CLAV 500-125 MG 1 EACH TAB PO SCH ×2 (17:39→20:06)
--- NOTE | 2017-09-21 23:28 | PN ---
PROGRESS NOTE DATE OF SERVICE: 09/21/2017. REASON FOR FOLLOWUP: Leukocytosis likely abdominal source. INTERVAL HISTORY: The patient is afebrile. She is awake and alert, breathing comfortably. Denies having any chest pain, shortness of breath or cough. No abdominal pain and no further bleeding per rectum. EXAMINATION: Blood pressure 114/61 with a pulse of 90, temperature 96.8. She is 92% on 6 L nasal cannula. General description is an elderly female up in the chair in no distress. Respiratory system: Unlabored breathing. Decreased intensity of breath sounds. No wheeze. Heart S1, S2. Regular rate and rhythm. Abdomen soft, no tenderness. LABS: Hemoglobin 9.4, [place] [address], BUN of 20, creatinine 1.33. Cultures remain to be negative. DIAGNOSTIC IMPRESSION AND PLAN: Patient with leukocytosis, source likely abdomen. The patient did have evidence of a diverticular bleed. Subsequently has resolved. The patient at this time is on Zosyn, transitioning to oral once stable for discharge from admitting as well as other consults. Family present at bedside. Their questions were answered. MMODL / IJN: [id number] /
[2017-09-22 07:06] LABS: Anisocytosis Slight; Basophils # (A) 0.1 k/uL (0-0.2); Basophils % (A) 0 %; Eosinophils # (A) 0.4 k/uL (0-0.7); Eosinophils % (A) 3 %; HCT 31.9 % (34.0-46.0); HGB 9.6 gm/dL (11.4-16.0); Hypochromasia Moderate; Lymphocytes # (A) 1.1 k/uL (1.0-4.8); Lymphocytes % (A) 7 %; MCH 26.5 pg (25.0-35.0); MCHC 30.3 g/dL (31.0-37.0); MCV 87.7 fL (80.0-100.0); Mean Platelet Volume 7.8; Monocytes # (A) 0.5 k/uL (0-1.0); Monocytes % (A) 3 %; Neutrophils # (A) 13.3 k/uL (1.3-7.7); Neutrophils % (A) 85 %; Platelet Count 521 k/uL (150-450); RBC 3.63 m/uL (3.80-5.40); RDW 18.1 % (11.5-15.5); WBC 15.5 k/uL (3.8-10.6)
[2017-09-22] MEDS: SPIRONOLACTONE 25 MG TAB PO SCH (07:08)
[2017-09-22] MEDS: FAMOTIDINE 20 MG TAB PO SCH (07:08)
[2017-09-22] MEDS: AMOXIC-POT CLAV 500-125 MG 1 EACH TAB PO SCH ×2 (07:08→20:17)
[2017-09-22] MEDS: MECLIZINE 12.5 MG TAB PO SCH (07:08)
[2017-09-22] MEDS: FUROSEMIDE 40 MG TAB PO SCH (07:08)
[2017-09-22] MEDS: DONEPEZIL 10 MG TAB PO SCH (07:08)
[2017-09-22] MEDS: MEMANTINE 10 MG TAB PO SCH ×2 (07:09→20:17)
[2017-09-22 07:24] LABS: Albumin 2.7 g/dL (3.5-5.0); Calcium 8.9 mg/dL (8.4-10.2); Potassium 4.4 mmol/L (3.5-5.1); Total Bilirubin 0.3 mg/dL (0.2-1.3); Total Protein 5.3 g/dL (6.3-8.2)
[2017-09-22] MEDS: IPRATROPIUM-ALBUTEROL 3 ML NEB INHALATION SCH ×3 (07:33→19:58)
[2017-09-22] MEDS ORDERED: FUROSEMIDE 10 MG/ML 4 ML VIAL IV STA (11:42)
[2017-09-22] MEDS: MULTIVITAMINS, THERA 1 EACH TAB PO SCH (13:29)
--- NOTE | 2017-09-22 14:22 | P.PN ---
Subjective Progress Note Date: 09/22/17 Acute on chronic hypoxic respiratory failure. I'm seeing this 81-year-old female patient in follow-up and there is an obvious concern about her health in general as the patient comes in with altered mentation, hypoxic history failure with worsening in her oxygenation status as the patient has limited at least about 2 by nasal cannula and currently is up to 6 L in addition to leukocytosis and evolving metabolic acidosis. A septic workup has been completed and the patient is being seen by infectious disease. Cultures of been negative. The patient is slightly tachycardic. She has leukocytosis. D-dimer is positive. Echocardiogram shows severe pulmonary hypertension with a PA pressure estimated to be around 120 and there is also evidence of moderate mitral regurgitation, mild mitral stenosis, severe tricuspid regurgitation, severe pulmonary hypertension, small pericardial effusion, and dilated the right-sided cardiac structures. The left and ejection fraction is about 70%. The CAT scan of the abdomen revealed no acute abnormalities then some chronic interstitial changes in lung bases, small bilateral pleural effusion, small pericardial effusion, cholelithiasis and questionable thickening of the proximal small bowel/enteritis and nonobstructing 9 mm right lower pole renal calculus and complicated diverticulosis. There is also degenerative changes in the spine and Ventolin hernia containing fat only. Doppler of the lower extremities was negative. Patient has underlying dementia at baseline. On and off she sounds to be more confused. On today's evaluation of 09/17/2017 the patient is being seen in follow-up in the intensive care unit. She seems to be improved compared to yesterday. On and off she is still confused. No focal neurological deficits. Family is at the bedside. She is on 6 L of oxygen nasal cannula and she is also having some bibasilar crackles and for that reason I have suggested some diuresis. Meanwhile, the white cell count is improving is down to 25. He was dynamically stable. No pressors. The patient has not been found to have any source of an infection. She is afebrile. Ultrasound the gallbladder showed no evidence of any cholecystitis. The patient is cholelithiasis. Abnormalities in LFTs is probably related to right-sided failure. No evidence of any urine tract infection. No evidence of any blood infection. Doubt endocarditis. Echocardiogram showed severe pulmonary hypertension and evidence of right-sided heart failure probably related to chronic hypoxemia. CAT scan of the chest showed diffuse emphysema and small right-sided pleural effusion and compressive atelectasis of the right lung base and there was no evidence of any pulmonary embolism or filling defects. The patient is on DuoNeb nebulized treatments around the clock. The patient was given a dose of Lasix. The patient is on examination of Zosyn and vancomycin for now as an empiric antibiotic coverage. ID is on the case. On 09/18/2017 the patient is still in the intensive care unit. She is calm and comfortable. She is on and off confused and I think there is obvious component of dementia. According to the family she is more alert and awake compared to yesterday. Family is at the bedside. She is having no significant respiratory distress. Her pulse ox is 92% on 4 L of oxygen by nasal cannula and she baseline carries on 3 L of oxygen by nasal cannula. She has a congested cough. She was given another dose of Lasix today. She was given a dose yesterday and her net fluid balance has been negative over the past 24 hours. She denies having any chest pain. No shortness of breath. Her white cell count is down to 23. Her CAT scan of the chest showed no evidence of any pulmonary embolism and the patient had extensive emphysema, right-sided pleural effusion, right lower lobe compressive atelectasis. Renal function remains impaired with a creatinine of 1.6 and this is a chronic renal failure. She remains on a combination of Zosyn and vancomycin although there is no clear-cut infectious source for this patient. On 09/19/2017 the patient is being seen on a medical floor. Note that the patient was felt to be stable yesterday. Based on that I made recommendations to move this patient to a telemetry unit on a medical floor. Earlier this morning, I was informed by the nurses that the patient had a large bloody bowel movement. There was bright red blood with clots within the diaper in the bed. Despite this, the patient did not have any significant hypotension, tachycardia or any discomforts his chest pain or shortness of breath. Blood work is still pending for now. Meanwhile, the patient is currently on 6 L of oxygen nasal cannula. No major edema in lower extremities. No abdominal pain or distention. Mental status is off as the patient has an underlying component of dementia. White cell count is dropping. Cultures of been negative and the patient has been covered with a combination of Zosyn and vancomycin. Renal function is impaired as the patient has chronic renal failure. On 09/20/2017, the patient is stable. She got moved back to the intensive care unit as the patient was suspected to have ongoing GI bleed. Yesterday she had one bout of bloody bowel movement and she had to smaller episodes overnight. Her hemoglobin remains stable. This is suspected to be a diverticular bleed. No nausea. No vomiting. No abdominal pain. Mental status is appropriate this morning. She has underlying dementia. No significant respiratory distress. No cough or sputum production. The patient is still on 6 L/m nasal cannula to maintain saturation above 90%. Hemodynamically stable. IV fluids to kvo. The patient is seen again today 09/21/2017 in follow-up on the regular medical floor. She is currently sitting up in a chair at the bedside. She is awake and alert in no acute distress. She has not had any further GI bleeding. She is still requiring 8 L high flow nasal cannula to maintain O2 saturations greater than 90%. She denies any worsening shortness of breath, cough or congestion. He was positive for Lucero. Blood cultures reveal no growth. We cut has improved 18,000. Hemoglobin 9.4. Creatinine 1.33. She is continued on Zosyn. On 09/22/2017, the patient is still on oxygen at 6 L/m nasal cannula. No evidence of any GI bleeding. On and off confused secondary to underlying dementia. The patient has no respiratory distress. No cough or sputum production. No other complaints otherwise for the past 24 hours. While tach on is been gradually improving and the patient was switched to oral Augmentin. Objective - Vital Signs Vital signs: Vital Signs Temp 98.4 F 09/22/17 08:30 Pulse 96 09/22/17 13:47 Resp 16 09/22/17 09:00 BP 134/67 09/22/17 08:30 Pulse Ox 98 09/22/17 08:30 Intake & Output 09/21/17 09/22/17 09/22/17 18:59 06:59 18:59 Intake Total 360 240 Output Total 1000 2400 1100 Balance -640 -2400 -860 Weight 55 kg Intake: Oral 360 240 Output: Urine 1000 2400 1100 Other: Voiding Method Bedpan Bedpan Bedpan # Voids 0 1 3 # Bowel Movements 2 - Exam Gen. appearance the patient is arousable and awake it seems to be lethargic at times confused. A mild degree of respiratory distress even at rest. Examination of the neck reveals bilateral jugular venous distention. This is also noted that third-degree bed elevation. No neck masses. Neck is supple there is no lymphadenopathy and there is no cervical or supraclavicular lymphadenopathy. Mucous membranes are dry and there is no thrush. Head exam was generally normal. There was no scleral icterus or corneal arcus. Mucous membranes were moist. Lungs sounds are diminished bilaterally along with some limited bibasilar crackles. Breath sounds are diminished bilaterally and there is some scattered expiratory wheezes throughout the lung bosch. Heart sounds reveal accentuation of the second heart sound. No cervical murmurs appreciated. The patient is slightly tachycardic yet the rhythm seems to be sinus at this point. Abdominal exam revealed normal bowel sounds. The abdomen was soft, non-tender, and without masses, organomegaly, or appreciable enlargement of the abdominal aorta. Examination of the extremities revealed easily palpable radial, femoral and pedal pulses. There was no cyanosis, clubbing or edema. Examination of the skin revealed no evidence of significant rashes, suspicious appearing nevi or other concerning lesions. Neurologically the patient is neurologic exam is nonfocal. The patient will go 4 extremities without any limitation. No cranial nerve deficits. The patient is on off confused and she has memory problems specially with short-term memory. She was unable to tell me what. Her breakfast. This morning however she was able to recall the year - Labs CBC & Chem 7: 09/22/17 06:32 09/22/17 06:32 Labs: Abnormal Lab Results - Last 24 Hours (Table) 09/22/17 09/22/17 Range/Units 06:32 06:32 WBC 15.5 H (3.8-10.6) k/uL RBC 3.63 L (3.80-5.40) m/uL Hgb 9.6 L (11.4-16.0) gm/dL Hct 31.9 L (34.0-46.0) % MCHC 30.3 L (31.0-37.0) g/dL RDW 18.1 H (11.5-15.5) % Plt Count 521 H (150-450) k/uL Neutrophils # 13.3 H (1.3-7.7) k/uL BUN 19 H (7-17) mg/dL Creatinine 1.32 H (0.52-1.04) mg/dL Total Protein 5.3 L (6.3-8.2) g/dL Albumin 2.7 L (3.5-5.0) g/dL Microbiology - Last 24 Hours (Table) 09/15/17 15:46 Blood Culture - Final Blood No Growth after 144 hours Assessment and Plan Plan: 1 acute on chronic hypoxic history failure with worsening in her oxygenation and the patient is currently requiring high flow oxygen 6 L/m nasal cannula. No clear indication of an underlying pneumonia. The patient had a CT angios the chest that showed no evidence of any pulmonary embolism. His advanced COPD and emphysema and small right-sided pleural effusion and compressive atelectasis of the right lung base. Overall oxygenation remains stable. 2 severe pulmonary hypertension, most likely chronic in nature and a CT angios the chest showed no pulmonary embolism. 3 COPD with chronic hypoxic respiratory failure maintained on 3 L of oxygen at baseline 4 leukocytosis, improving and the white cell count is down to 15,000 without any source of an infection the patient was placed on oral Augmentin 5 mild anion gap metabolic acidosis with some lactic acidosis at the time of admission , recovered completely 6 dementia with episodes of altered mentation, episodic 7.generalized weakness 8 acute versus chronic renal insufficiency, probably stage II to 3 chronic kidney failure 9 small bilateral pleural effusion 10 nephrolithiasis 11 degenerative arthritis 12 cholelithiasis without evidence of any cholecystitis 13 acute GI bleed, likely of a lower GI source as the patient had bloody bright red bowel movement with clots. The patient was asymptomatic. The patient's hemoglobin is stable and the patient does not have any further bleeding episodes. Plan Give additional dose of 40 mg of IV Lasix. Wean down the FiO2 as tolerated. Monitor hemoglobin. Physical therapy. White cell count is improving. Continue oral Augmentin. We'll continue to follow.
--- NOTE | 2017-09-22 15:03 | P.PN ---
Subjective Patient is doing well today. She is pleasantly demented. She does not have any specific concerns. Objective - Vital Signs Vital signs: Vital Signs Temp 98.4 F 09/22/17 08:30 Pulse 96 09/22/17 13:47 Resp 16 09/22/17 09:00 BP 134/67 09/22/17 08:30 Pulse Ox 98 09/22/17 08:30 Intake & Output 09/21/17 09/22/17 09/22/17 18:59 06:59 18:59 Intake Total 360 240 Output Total 1000 2400 1100 Balance -640 -2400 -860 Weight 55 kg Intake: Oral 360 240 Output: Urine 1000 2400 1100 Other: Voiding Method Bedpan Bedpan Bedpan # Voids 0 1 3 # Bowel Movements 2 - Exam General: The patient is awake and alert, in no distress Eye: there is normal conjunctiva bilaterally. Neck: The neck is supple, there is no JVD. Cardiovascular: Normal S1-S2, no S3-S4, no murmurs. Respiratory: Lungs clear to auscultation bilaterally Gastrointestinal: Abdomen is soft, nontender Musculoskeletal: There is no pedal edema. Neurological:. Speech is normal. Skin: Skin is warm and dry - Labs CBC & Chem 7: 09/22/17 06:32 09/22/17 06:32 Labs: Abnormal Lab Results - Last 24 Hours (Table) 09/22/17 09/22/17 Range/Units 06:32 06:32 WBC 15.5 H (3.8-10.6) k/uL RBC 3.63 L (3.80-5.40) m/uL Hgb 9.6 L (11.4-16.0) gm/dL Hct 31.9 L (34.0-46.0) % MCHC 30.3 L (31.0-37.0) g/dL RDW 18.1 H (11.5-15.5) % Plt Count 521 H (150-450) k/uL Neutrophils # 13.3 H (1.3-7.7) k/uL BUN 19 H (7-17) mg/dL Creatinine 1.32 H (0.52-1.04) mg/dL Total Protein 5.3 L (6.3-8.2) g/dL Albumin 2.7 L (3.5-5.0) g/dL Microbiology - Last 24 Hours (Table) 09/15/17 15:46 Blood Culture - Final Blood No Growth after 144 hours Assessment and Plan Assessment: #1 sepsis, initial site of infection is not clear: blood culture negative. Urinalysis no evidence of UTI. Repeat chest x-ray no evidence of pneumonia. Infectious disease following closely. Currently finishing antibiotic course with Augmentin. Abdominal ultrasound showed no evidence of cholecystitis. #2 acute on chronic hypoxic respiratory failure. Patient requiring high flow oxygen. No evidence of pneumonia. CT of the chest showed no evidence of a pulmonary embolism. Possibly related to her advanced COPD and fluid overload #3 underlying history of COPD with no evidence of exacerbation at #4 severe pulmonary hypertension: I would start Lasix 40 mg orally once a day #5 underlying history of dementia maintained on Aricept and Namenda #6 hypernatremia improved. Sodium level has normalized #7 acute on chronic renal failure, stage III #8 acute lower GI bleed: Likely related to a diverticular bleed. Patient seen by GI service. No plan for colonoscopy at this time. Aspirin and subcu heparin were discontinued. Hemoglobin stable. No further bloody bowel movements reported for GI prophylaxis patient on Pepcid for DVT prophylaxis patient place patient on SCDs
--- NOTE | 2017-09-22 22:44 | PN ---
PROGRESS NOTE DATE OF SERVICE: 09/22/2017. REASON FOR FOLLOWUP: Leukocytosis, likely abdominal source. INTERVAL HISTORY: The patient is afebrile. She is currently breathing comfortably. Denies having any chest pain or shortness of breath. No cough. No abdominal pain. No diarrhea. No further bleeding per rectum. EXAMINATION: Blood pressure 120/59, pulse of 90, temperature 98, she is 96% on 6 L nasal cannula. GENERAL DESCRIPTION: An elderly female, lying in bed in no distress. RESPIRATORY SYSTEM: Unlabored breathing. Clear to auscultation anteriorly. HEART: S1, S2. Regular rate and rhythm. ABDOMEN: Soft, nontender. EXTREMITIES: No edema of the feet. LABS: Hemoglobin 9.6, white count 15.5 with a BUN of 19, creatinine 1.32. DIAGNOSTIC IMPRESSION AND PLAN: Patient with leukocytosis, likely abdominal. Patient did have a diverticular bleed. Overall improvement, currently on oral Augmentin. White count down to 15.0. The patient to continue Augmentin for about a week to finish a course of therapy. Family present at bedside. Their questions were answered. MMODL / IJN: [id number] /
[2017-09-23] MEDS: IPRATROPIUM-ALBUTEROL 3 ML NEB INHALATION SCH ×3 (07:11→19:26)
[2017-09-23] MEDS: AMOXIC-POT CLAV 500-125 MG 1 EACH TAB PO SCH ×2 (07:21→21:33)
[2017-09-23] MEDS: DONEPEZIL 10 MG TAB PO SCH (07:22)
[2017-09-23] MEDS: FUROSEMIDE 40 MG TAB PO SCH (07:22)
[2017-09-23] MEDS: FAMOTIDINE 20 MG TAB PO SCH (07:22)
[2017-09-23] MEDS: MEMANTINE 10 MG TAB PO SCH ×2 (07:22→21:33)
[2017-09-23] MEDS: MECLIZINE 12.5 MG TAB PO SCH (07:23)
[2017-09-23] MEDS: SPIRONOLACTONE 25 MG TAB PO SCH (07:23)
[2017-09-23 09:06] LABS: Anisocytosis Slight; Basophils # (A) 0.1 k/uL (0-0.2); Basophils % (A) 0 %; Eosinophils # (A) 0.3 k/uL (0-0.7); Eosinophils % (A) 2 %; HCT 32.1 % (34.0-46.0); HGB 10.4 gm/dL (11.4-16.0); Hypochromasia Slight; Lymphocytes # (A) 1.4 k/uL (1.0-4.8); Lymphocytes % (A) 10 %; MCH 27.7 pg (25.0-35.0); MCHC 32.5 g/dL (31.0-37.0); Mean Platelet Volume 7.3; Monocytes # (A) 0.4 k/uL (0-1.0); Monocytes % (A) 3 %; Neutrophils # (A) 11.5 k/uL (1.3-7.7); Neutrophils % (A) 82 %; Platelet Count 535 k/uL (150-450); RBC 3.78 m/uL (3.80-5.40); RDW 18.7 % (11.5-15.5)
[2017-09-23 09:47] LABS: Albumin 2.8 g/dL (3.5-5.0); Calcium 9.2 mg/dL (8.4-10.2); Potassium 5.1 mmol/L (3.5-5.1); Total Bilirubin 0.4 mg/dL (0.2-1.3); Total Protein 5.3 g/dL (6.3-8.2)
--- NOTE | 2017-09-23 10:58 | XR ---
EXAMINATION TYPE: XR chest 2V DATE OF EXAM: 09/23/2017 COMPARISON: Prior chest 09/19/2017 HISTORY: Congestive heart failure TECHNIQUE: Frontal and lateral views of the chest are obtained. FINDINGS: Findings are similar to prior exam. Patient is rotated. Heart remains enlarged. Right jarcoho diaphragm shows interval obscured appearance. No evident pneumothorax. Interstitium remains increased . Pulmonary vascularity and iman are similar. Prominent lung volumes suggest underlying COPD. Possibl e mitral annular calcification noted. Postop change noted to the left shoulder. IMPRESSION: There may be an interval increase in the size of the right pleural effusion. Correlate f or pulmonary venous hypertension and interstitial edema.
--- NOTE | 2017-09-23 11:42 | P.PN ---
Subjective Progress Note Date: 09/23/17 Brenda Dave is an 81-year-old female, patient of [facility], who presented to [facility] emergency room with a chief complaint of generalized weakness, daughter states that patient was seen at [facility] one week ago, she was given an antibiotic for presumed urinary tract infection, however her condition continued to worsen, she was seen by her visiting nurse and was advised to come to emergency room. Patient was evaluated by Dr. Brown in the emergency room, she had evidence of sepsis with hypotension, tachycardia, and leukocytosis, also d-dimer was elevated at 5.64, she was admitted to telemetry floor, she was started on IV antibiotic and IV fluid. Bilateral lower extremity Doppler was done and was negative for DVT, VQ scan was done and was low probability for pulmonary embolism. On 09/15/2017 patient is alert and oriented 3 in no apparent distress, she is complaining of feeling cold and having shaking chills, otherwise no complaints, patient has tachycardia, and has evidence sepsis, with leukocytosis white blood count still at 30,000, primary site of infection is still unclear she is complaining of cough, chest x-ray did not reveal any evidence of pneumonia, blood culture is pending, echocardiogram is pending, sodium is up to 114 9 IV fluid change to half-normal saline, will check lactic acid. 09/16/2017 patient is confused. She states things like "did you know that I am ". Patient's son is at bedside patient does have some baseline confusion usually mostly short term memory loss. However, since she's been sick the confusion has worsened. Patient is lying in bed comfortably no evidence of distress. Earlier this morning per nursing staff patient was satting around 84% on 3 L and had to be increased to 5 L and was able to get into the 90s. Patient's white count is still elevated at 30.5. Infectious disease and pulmonary service are following. Repeat chest x-ray shows no acute changes. And for the screening negative. Patient denies any chest pain. Patient has been having some cough. Denies any nausea or vomiting no diarrhea. Patient did have one loose stool, but not watery. 09/17/2017 patient was transferred to the ICU yesterday afternoon for closer monitoring. She remains in the ICU. Case was discussed with pulmonary service in detail. Patient's white count has been decreased from 30.5-25.4 she's on 10 L oxygen satting at 95%. The exact source of infection is still unclear. She remains on Zosyn and vancomycin. Echocardiogram shows severe pulmonary hypertension and severe tricuspid regurgitation. CTA of the chest was negative for a PE did reveal atelectasis and a small right-sided pleural effusion. Moderate pericardial effusion and no evidence of pericarditis. Abdominal ultrasound showed no evidence of an acute cholecystitis. Did reveal cholelithiasis. Pulmonary service did order a dose of IV Lasix for her fluid overload. Infectious disease is also following. Urine output is adequate. Patient is still confused. 09/19/2017 nursing staff called and notified that patient had a massive bloody stool with large blood clots. Repeat hemoglobin check went up from 10.4-10.8. Patient was transferred to the ICU. Fluids were increased to 75 mL an hour. Patient was hypotensive earlier in the morning. Blood pressures are showing improvement. Case was discussed with pinball machine repairer Dr. Romo. GI service was consulted. They have Re: Evaluated patient and there is no plan for colonoscopy at this point. Patient's previous computed tomography scan of the abdomen had showed evidence of diverticulosis this possibly could be related to a diverticular bleed. Patient denies any abdominal pain no nausea or vomiting reported. Currently on 8 L of oxygen. White count 21.2 09/20/2017 patient currently in the ICU. She is doing well. No further bloody bowel movements today. Likely symptoms related to a diverticular bleed. Seen by GI service. No plans for endoscopy at this time. Patient on 10 L options a 96%. Hemoglobin at 10.1. 09/23/2017 patient had a drop in oxygen saturation to around 80%. Oxygen has been increased to 8 L satting around 92%. Patient also complaining of some hoarseness and postnasal drip. Flonase has been ordered. Chest x-ray has also been ordered. Patient denies any chest pain or shortness of breath. Has had no further episodes of bleeding in her stools. Diet will be advanced to regular diet. Patient also is very weak and is working with physical therapy Objective - Vital Signs Vital signs: Vital Signs Temp 97.2 F L 09/23/17 06:56 Pulse 88 09/23/17 07:21 Resp 18 09/23/17 06:56 BP 116/62 09/23/17 06:56 Pulse Ox 90 L 09/23/17 06:56 Intake & Output 09/22/17 09/23/17 09/23/17 18:59 06:59 18:59 Intake Total 480 Output Total 1100 Balance -620 Weight 46 kg Intake: Oral 480 Output: Urine 1100 Other: Voiding Method Bedside Commode Bedside Commode Diaper Incontinent # Voids 3 2 1 # Bowel Movements 2 1 - Exam Head normocephalic Neck supple Lungs right lower lobe crackles Heart regular rate and rhythm S1-S2, no rub or gallop Abdomen is soft nontender nondistended positive bowel sounds no hepatosplenomegaly Extremities no edema Neuro awake and alert but confused - Labs CBC & Chem 7: 09/23/17 08:50 09/23/17 08:50 Labs: Abnormal Lab Results - Last 24 Hours (Table) 09/23/17 09/23/17 Range/Units 08:50 08:50 WBC 14.0 H (3.8-10.6) k/uL RBC 3.78 L (3.80-5.40) m/uL Hgb 10.4 L (11.4-16.0) gm/dL Hct 32.1 L (34.0-46.0) % RDW 18.7 H (11.5-15.5) % Plt Count 535 H (150-450) k/uL Neutrophils # 11.5 H (1.3-7.7) k/uL BUN 19 H (7-17) mg/dL Creatinine 1.20 H (0.52-1.04) mg/dL AST 37 H (14-36) U/L Total Protein 5.3 L (6.3-8.2) g/dL Albumin 2.8 L (3.5-5.0) g/dL Assessment and Plan Assessment: #1 sepsis, initial site of infection is not clear, patient was partially treated with oral antibiotic as outpatient, blood culture negative. Urinalysis no evidence of UTI. Repeat chest x-ray no evidence of pneumonia. Patient remains on Zosyn and vancomycin. Infectious disease following closely. Blood cultures remain negative. Abdominal ultrasound showed no evidence of cholecystitis. Infectious disease following area did infectious disease felt symptoms could be related to diverticular disease. Infectious disease is recommending Augmentin for 1 week at time of discharge #2 acute on chronic hypoxic respiratory failure. No evidence of pneumonia. CT of the chest showed no evidence of a pulmonary embolism. Possibly related to her advanced COPD and fluid overload. More this morning chest x-ray showing evidence interval increase in size of right pleural effusion. Will await further pulmonary recommendations #3 underlying history of COPD, at this time patient will be given DuoNeb updraft , no need for systemic steroids #4 severe pulmonary hypertension likely secondary to her COPD and exacerbated by her recent illness. Patient did receive a dose of IV Lasix yesterday. Has been started on oral Lasix 40 mg by mouth daily #5 underlying history of dementia maintained on Aricept and Namenda #6 hypernatremia improved. Sodium level has normalized #7 acute on chronic renal failure, stage III. #8 metabolic acidosis improved after sodium bicarb drip. Sodium bicarbonate drip discontinued by pulmonary service #9 metabolic encephalopathy secondary to her acute infection with underlying history of dementia #10 acute lower GI bleed: Likely related to a diverticular bleed. Patient seen by GI service. No plan for colonoscopy at this time. Aspirin and subcu heparin were discontinued yesterday. No further bloody bowel movements reported. Hemoglobin remained stable. We'll advance diet. for GI prophylaxis patient on Pepcid for DVT prophylaxis patient place patient on SCDs Continue working with Physical therapy I performed an examination of the patient and discussed their management with the physician Material Checker. I have reviewed the Physician Material Checker's notes and agree with the documented findings and plan of care
[2017-09-23] MEDS ORDERED: FUROSEMIDE 10 MG/ML 4 ML VIAL IV STA (12:02)
[2017-09-23] MEDS: MULTIVITAMINS, THERA 1 EACH TAB PO SCH (12:58)
[2017-09-23] MEDS: FLUTICASONE 50MCG/SPRAY NASAL 16GM EA NOSTRIL SCH (12:58)
--- NOTE | 2017-09-23 13:00 | P.PN ---
Subjective Progress Note Date: 09/23/17 Principal diagnosis: Acute on chronic hypoxic respiratory failure secondary to COPD and small right- sided pleural effusion. I'm seeing this 81-year-old female patient in follow-up and there is an obvious concern about her health in general as the patient comes in with altered mentation, hypoxic history failure with worsening in her oxygenation status as the patient has limited at least about 2 by nasal cannula and currently is up to 6 L in addition to leukocytosis and evolving metabolic acidosis. A septic workup has been completed and the patient is being seen by infectious disease. Cultures of been negative. The patient is slightly tachycardic. She has leukocytosis. D-dimer is positive. Echocardiogram shows severe pulmonary hypertension with a PA pressure estimated to be around 120 and there is also evidence of moderate mitral regurgitation, mild mitral stenosis, severe tricuspid regurgitation, severe pulmonary hypertension, small pericardial effusion, and dilated the right-sided cardiac structures. The left and ejection fraction is about 70%. The CAT scan of the abdomen revealed no acute abnormalities then some chronic interstitial changes in lung bases, small bilateral pleural effusion, small pericardial effusion, cholelithiasis and questionable thickening of the proximal small bowel/enteritis and nonobstructing 9 mm right lower pole renal calculus and complicated diverticulosis. There is also degenerative changes in the spine and Ventolin hernia containing fat only. Doppler of the lower extremities was negative. Patient has underlying dementia at baseline. On and off she sounds to be more confused. On today's evaluation of 09/17/2017 the patient is being seen in follow-up in the intensive care unit. She seems to be improved compared to yesterday. On and off she is still confused. No focal neurological deficits. Family is at the bedside. She is on 6 L of oxygen nasal cannula and she is also having some bibasilar crackles and for that reason I have suggested some diuresis. Meanwhile, the white cell count is improving is down to 25. He was dynamically stable. No pressors. The patient has not been found to have any source of an infection. She is afebrile. Ultrasound the gallbladder showed no evidence of any cholecystitis. The patient is cholelithiasis. Abnormalities in LFTs is probably related to right-sided failure. No evidence of any urine tract infection. No evidence of any blood infection. Doubt endocarditis. Echocardiogram showed severe pulmonary hypertension and evidence of right-sided heart failure probably related to chronic hypoxemia. CAT scan of the chest showed diffuse emphysema and small right-sided pleural effusion and compressive atelectasis of the right lung base and there was no evidence of any pulmonary embolism or filling defects. The patient is on DuoNeb nebulized treatments around the clock. The patient was given a dose of Lasix. The patient is on examination of Zosyn and vancomycin for now as an empiric antibiotic coverage. ID is on the case. On 09/18/2017 the patient is still in the intensive care unit. She is calm and comfortable. She is on and off confused and I think there is obvious component of dementia. According to the family she is more alert and awake compared to yesterday. Family is at the bedside. She is having no significant respiratory distress. Her pulse ox is 92% on 4 L of oxygen by nasal cannula and she baseline carries on 3 L of oxygen by nasal cannula. She has a congested cough. She was given another dose of Lasix today. She was given a dose yesterday and her net fluid balance has been negative over the past 24 hours. She denies having any chest pain. No shortness of breath. Her white cell count is down to 23. Her CAT scan of the chest showed no evidence of any pulmonary embolism and the patient had extensive emphysema, right-sided pleural effusion, right lower lobe compressive atelectasis. Renal function remains impaired with a creatinine of 1.6 and this is a chronic renal failure. She remains on a combination of Zosyn and vancomycin although there is no clear-cut infectious source for this patient. On 09/19/2017 the patient is being seen on a medical floor. Note that the patient was felt to be stable yesterday. Based on that I made recommendations to move this patient to a telemetry unit on a medical floor. Earlier this morning, I was informed by the nurses that the patient had a large bloody bowel movement. There was bright red blood with clots within the diaper in the bed. Despite this, the patient did not have any significant hypotension, tachycardia or any discomforts his chest pain or shortness of breath. Blood work is still pending for now. Meanwhile, the patient is currently on 6 L of oxygen nasal cannula. No major edema in lower extremities. No abdominal pain or distention. Mental status is off as the patient has an underlying component of dementia. White cell count is dropping. Cultures of been negative and the patient has been covered with a combination of Zosyn and vancomycin. Renal function is impaired as the patient has chronic renal failure. On 09/20/2017, the patient is stable. She got moved back to the intensive care unit as the patient was suspected to have ongoing GI bleed. Yesterday she had one bout of bloody bowel movement and she had to smaller episodes overnight. Her hemoglobin remains stable. This is suspected to be a diverticular bleed. No nausea. No vomiting. No abdominal pain. Mental status is appropriate this morning. She has underlying dementia. No significant respiratory distress. No cough or sputum production. The patient is still on 6 L/m nasal cannula to maintain saturation above 90%. Hemodynamically stable. IV fluids to kvo. The patient is seen again today 09/21/2017 in follow-up on the regular medical floor. She is currently sitting up in a chair at the bedside. She is awake and alert in no acute distress. She has not had any further GI bleeding. She is still requiring 8 L high flow nasal cannula to maintain O2 saturations greater than 90%. She denies any worsening shortness of breath, cough or congestion. He was positive for Lucero. Blood cultures reveal no growth. We cut has improved 18,000. Hemoglobin 9.4. Creatinine 1.33. She is continued on Zosyn. On 09/22/2017, the patient is still on oxygen at 6 L/m nasal cannula. No evidence of any GI bleeding. On and off confused secondary to underlying dementia. The patient has no respiratory distress. No cough or sputum production. No other complaints otherwise for the past 24 hours. While tach on is been gradually improving and the patient was switched to oral Augmentin. Reevaluated today on 09/23/2017, patient is now on high flow nasal cannula at 8 L , feeling better, occasional episodes of confusion related to underlying dementia. Patient does not seem to be in any respiratory distress, chest x-ray was reviewed and I recommended a dose of Lasix 40 mg IV push to be given once. I am still debating whether to proceed with a right-sided thoracentesis, however I have discussed her condition with the son at bedside, and recommended ultrasound to be of the chest to be done tomorrow if no improvement. May have to consider thoracentesis if her O2 sats saturation remains marginal. But that would all depend on the response to Lasix and on the follow-up ultrasound of the chest tomorrow. All labs were reviewed, BUN is 19 and creatinine is 1.20. Objective - Vital Signs Vital signs: Vital Signs Temp 97.2 F L 09/23/17 06:56 Pulse 88 09/23/17 07:21 Resp 18 09/23/17 06:56 BP 116/62 09/23/17 06:56 Pulse Ox 90 L 09/23/17 06:56 Intake & Output 09/22/17 09/23/17 09/23/17 18:59 06:59 18:59 Intake Total 480 Output Total 1100 Balance -620 Weight 46 kg Intake: Oral 480 Output: Urine 1100 Other: Voiding Method Bedside Commode Bedside Commode Diaper Incontinent # Voids 3 2 1 # Bowel Movements 2 1 - Exam Gen. Revealed an 81-year-old female slightly confused in no form of respiratory distress. On high flow nasal cannula. Examination of the neck reveals bilateral jugular venous distention. This is also noted that third-degree bed elevation. No neck masses. Neck is supple there is no lymphadenopathy and there is no cervical or supraclavicular lymphadenopathy. Mucous membranes are dry and there is no thrush. Head exam was generally normal. There was no scleral icterus or corneal arcus. Mucous membranes were moist. Lungs sounds are diminished bilaterally along with some limited bibasilar crackles. Breath sounds are diminished bilaterally and there is some scattered expiratory wheezes throughout the lung bosch. Heart sounds reveal accentuation of the second heart sound. No cervical murmurs appreciated. The patient is slightly tachycardic yet the rhythm seems to be sinus at this point. Abdominal exam revealed normal bowel sounds. The abdomen was soft, non-tender, and without masses, organomegaly, or appreciable enlargement of the abdominal aorta. Examination of the extremities revealed easily palpable radial, femoral and pedal pulses. There was no cyanosis, clubbing or edema. Examination of the skin revealed no evidence of significant rashes, suspicious appearing nevi or other concerning lesions. Neurologically the patient is neurologic exam is nonfocal. The patient will go 4 extremities without any limitation. No cranial nerve deficits. The patient is on off confused and she has memory problems specially with short-term memory. - Labs CBC & Chem 7: 09/23/17 08:50 09/23/17 08:50 Labs: Abnormal Lab Results - Last 24 Hours (Table) 09/23/17 09/23/17 Range/Units 08:50 08:50 WBC 14.0 H (3.8-10.6) k/uL RBC 3.78 L (3.80-5.40) m/uL Hgb 10.4 L (11.4-16.0) gm/dL Hct 32.1 L (34.0-46.0) % RDW 18.7 H (11.5-15.5) % Plt Count 535 H (150-450) k/uL Neutrophils # 11.5 H (1.3-7.7) k/uL BUN 19 H (7-17) mg/dL Creatinine 1.20 H (0.52-1.04) mg/dL AST 37 H (14-36) U/L Total Protein 5.3 L (6.3-8.2) g/dL Albumin 2.8 L (3.5-5.0) g/dL Assessment and Plan Assessment: 1 acute on chronic hypoxic history failure with worsening in her oxygenation and the patient is currently requiring high flow oxygen 8 L/m nasal cannula. No clear indication of an underlying pneumonia. The patient had a CT angios the chest that showed no evidence of any pulmonary embolism. His advanced COPD and emphysema and small right-sided pleural effusion and compressive atelectasis of the right lung base. Overall oxygenation remains poor 2 severe pulmonary hypertension, most likely chronic in nature and a CT angios the chest showed no pulmonary embolism. 3 COPD with chronic hypoxic respiratory failure maintained on 8 L of oxygen . Normally patient is on 3 L at home 4 leukocytosis, improving and the white cell count is down to 15,000 without any source of an infection the patient was placed on oral Augmentin 5 mild anion gap metabolic acidosis with some lactic acidosis at the time of admission , recovered completely 6 dementia with episodes of altered mentation, episodic 7.generalized weakness 8 acute versus chronic renal insufficiency, probably stage II to 3 chronic kidney failure 9 small bilateral pleural effusion 10 nephrolithiasis 11 degenerative arthritis 12 cholelithiasis without evidence of any cholecystitis 13 acute GI bleed, likely of a lower GI source as the patient had bloody bright red bowel movement with clots. The patient was asymptomatic. The patient's hemoglobin is stable and the patient does not have any further bleeding episodes. Recommendation: Continue bronchodilators, continue diuretics, and Her dose of Lasix IV push will be given today 40 mg, will repeat the chest x-ray in a.m., consider ultrasound of the chest and consider thoracentesis. That'll be decided upon depending on her chest x-ray tomorrow. Time with Patient: Less than 30
--- NOTE | 2017-09-23 23:24 | PN ---
PROGRESS NOTE DATE OF SERVICE: 09/23/2017 REASON FOR FOLLOWUP: Leukocytosis, likely abdominal source. INTERVAL HISTORY: The patient is afebrile. She seems to be breathing comfortably. Denies having any chest pain. Occasional cough. No abdominal pain or any diarrhea. PHYSICAL EXAMINATION: Her blood pressure is 102/52 with a pulse of 69, temperature 97.5. General description is an elderly female up in the bed in no distress. RESPIRATORY SYSTEM: Unlabored breathing with decreased breath sounds in the bases. No wheeze. HEART: S1, S2. Regular rate and rhythm. ABDOMEN: Soft. No tenderness. No guarding or rigidity. EXTREMITIES: No edema of the feet. LABS: Hemoglobin is 10.4, white count 14,000. BUN of 19, creatinine 1.20. Chest x-ray with interval increase in pleural effusion. DIAGNOSTIC IMPRESSION AND PLAN: Patient with leukocytosis. Source is likely abdominal, where the patient also had a diverticular bleed that has resolved. Plan will be to keep the patient on Augmentin for another week to finish a course of therapy. Continue supportive care. MMODL / IJN: [id number] /
[2017-09-24 07:45] LABS: Anisocytosis Slight; Basophils % (A) 0 %; Eosinophils # (A) 0.4 k/uL (0-0.7); Eosinophils % (A) 4 %; HCT 27.6 % (34.0-46.0); Hypochromasia Slight; Lymphocytes # (A) 1.3 k/uL (1.0-4.8); Lymphocytes % (A) 11 %; MCH 27.2 pg (25.0-35.0); MCHC 31.7 g/dL (31.0-37.0); MCV 85.9 fL (80.0-100.0); Mean Platelet Volume 9.6; Monocytes # (A) 0.4 k/uL (0-1.0); Monocytes % (A) 3 %; Neutrophils # (A) 9.1 k/uL (1.3-7.7); Neutrophils % (A) 80 %; Platelet Count 209 k/uL (150-450); RBC 3.22 m/uL (3.80-5.40); RDW 18.6 % (11.5-15.5); WBC 11.4 k/uL (3.8-10.6)
[2017-09-24 07:48] LABS: HGB 8.8 gm/dL (11.4-16.0)
[2017-09-24 08:23] LABS: Albumin 2.6 g/dL (3.5-5.0); Potassium 4.7 mmol/L (3.5-5.1); Total Bilirubin 0.3 mg/dL (0.2-1.3)
--- NOTE | 2017-09-24 08:28 | XR ---
EXAMINATION TYPE: XR chest 1V portable DATE OF EXAM: 09/24/2017 COMPARISON: 09/23/2017 HISTORY: Congestive heart failure TECHNIQUE: Single frontal view of the chest is obtained. FINDINGS: There is mild pulmonary vascular congestion and a small layering right pleural effusion, s lightly improved in the interim. Cardia mediastinal silhouette is enlarged. Right apical pleural thic kening is greater than left apical pleural thickening. Left-sided arthroplasty is noted. Mitral annul ar calcifications are incidentally seen. Underlying COPD is suspected as there is pulmonary hyperinfl ation. Mild generalized osseous demineralization is noted. IMPRESSION: Improved aeration of the right lung base although there remains a trace right pleural ef fusion on the basis of congestive heart failure and right basilar airspace disease. This is favored t o represent atelectasis however pneumonia should also be considered.
[2017-09-24] MEDS: IPRATROPIUM-ALBUTEROL 3 ML NEB INHALATION SCH ×3 (08:44→19:57)
[2017-09-24] MEDS: AMOXIC-POT CLAV 500-125 MG 1 EACH TAB PO SCH ×2 (09:56→22:18)
[2017-09-24] MEDS: FLUTICASONE 50MCG/SPRAY NASAL 16GM EA NOSTRIL SCH (09:57)
[2017-09-24] MEDS: MULTIVITAMINS, THERA 1 EACH TAB PO SCH (09:57)
[2017-09-24] MEDS: SPIRONOLACTONE 25 MG TAB PO SCH (09:57)
[2017-09-24] MEDS: FAMOTIDINE 20 MG TAB PO SCH (09:57)
[2017-09-24] MEDS: MEMANTINE 10 MG TAB PO SCH ×2 (09:57→22:18)
[2017-09-24] MEDS: FUROSEMIDE 40 MG TAB PO SCH (09:57)
[2017-09-24] MEDS: MECLIZINE 12.5 MG TAB PO SCH (09:58)
[2017-09-24] MEDS: DONEPEZIL 10 MG TAB PO SCH (09:58)
--- NOTE | 2017-09-24 10:17 | P.PN ---
Subjective Progress Note Date: 09/24/17 Brenda Dave is an 81-year-old female, patient of [facility], who presented to [facility] emergency room with a chief complaint of generalized weakness, daughter states that patient was seen at [facility] one week ago, she was given an antibiotic for presumed urinary tract infection, however her condition continued to worsen, she was seen by her visiting nurse and was advised to come to emergency room. Patient was evaluated by Dr. Brown in the emergency room, she had evidence of sepsis with hypotension, tachycardia, and leukocytosis, also d-dimer was elevated at 5.64, she was admitted to telemetry floor, she was started on IV antibiotic and IV fluid. Bilateral lower extremity Doppler was done and was negative for DVT, VQ scan was done and was low probability for pulmonary embolism. On 09/15/2017 patient is alert and oriented 3 in no apparent distress, she is complaining of feeling cold and having shaking chills, otherwise no complaints, patient has tachycardia, and has evidence sepsis, with leukocytosis white blood count still at 30,000, primary site of infection is still unclear she is complaining of cough, chest x-ray did not reveal any evidence of pneumonia, blood culture is pending, echocardiogram is pending, sodium is up to 114 9 IV fluid change to half-normal saline, will check lactic acid. 09/16/2017 patient is confused. She states things like "did you know that I am ". Patient's son is at bedside patient does have some baseline confusion usually mostly short term memory loss. However, since she's been sick the confusion has worsened. Patient is lying in bed comfortably no evidence of distress. Earlier this morning per nursing staff patient was satting around 84% on 3 L and had to be increased to 5 L and was able to get into the 90s. Patient's white count is still elevated at 30.5. Infectious disease and pulmonary service are following. Repeat chest x-ray shows no acute changes. And for the screening negative. Patient denies any chest pain. Patient has been having some cough. Denies any nausea or vomiting no diarrhea. Patient did have one loose stool, but not watery. 09/17/2017 patient was transferred to the ICU yesterday afternoon for closer monitoring. She remains in the ICU. Case was discussed with pulmonary service in detail. Patient's white count has been decreased from 30.5-25.4 she's on 10 L oxygen satting at 95%. The exact source of infection is still unclear. She remains on Zosyn and vancomycin. Echocardiogram shows severe pulmonary hypertension and severe tricuspid regurgitation. CTA of the chest was negative for a PE did reveal atelectasis and a small right-sided pleural effusion. Moderate pericardial effusion and no evidence of pericarditis. Abdominal ultrasound showed no evidence of an acute cholecystitis. Did reveal cholelithiasis. Pulmonary service did order a dose of IV Lasix for her fluid overload. Infectious disease is also following. Urine output is adequate. Patient is still confused. 09/19/2017 nursing staff called and notified that patient had a massive bloody stool with large blood clots. Repeat hemoglobin check went up from 10.4-10.8. Patient was transferred to the ICU. Fluids were increased to 75 mL an hour. Patient was hypotensive earlier in the morning. Blood pressures are showing improvement. Case was discussed with fitness and wellness instructor Dr. Romo. GI service was consulted. They have Re: Evaluated patient and there is no plan for colonoscopy at this point. Patient's previous computed tomography scan of the abdomen had showed evidence of diverticulosis this possibly could be related to a diverticular bleed. Patient denies any abdominal pain no nausea or vomiting reported. Currently on 8 L of oxygen. White count 21.2 09/20/2017 patient currently in the ICU. She is doing well. No further bloody bowel movements today. Likely symptoms related to a diverticular bleed. Seen by GI service. No plans for endoscopy at this time. Patient on 10 L options a 96%. Hemoglobin at 10.1. 09/23/2017 patient had a drop in oxygen saturation to around 80%. Oxygen has been increased to 8 L satting around 92%. Patient also complaining of some hoarseness and postnasal drip. Flonase has been ordered. Chest x-ray has also been ordered. Patient denies any chest pain or shortness of breath. Has had no further episodes of bleeding in her stools. Diet will be advanced to regular diet. Patient also is very weak and is working with physical therapy 09/24/2017 patient still requiring 8 L of oxygen. Denies any shortness of breath. Repeat chest x-ray from this morning shows improved aeration of the right lung base on the liver remains a trace right pleural effusion on the bases of congestive heart failure and right basilar airspace disease. This is favored to represent atelectasis however pneumonia should be considered. Incentive spirometer has been ordered. She remains on antibiotics. Patient is reporting a mild cough. She did receive an extra dose of IV Lasix yesterday. White count has improved from 14-11.4. Patient did have a drop in her hemoglobin from 10.4-8.8. Nursing staff and family reported known bloody bowel movements. Objective - Vital Signs Vital signs: Vital Signs Temp 97.9 F 09/24/17 07:01 Pulse 89 09/24/17 08:00 Resp 18 09/24/17 07:01 BP 117/62 09/24/17 07:01 Pulse Ox 91 L 09/24/17 07:01 Intake & Output 09/23/17 09/24/17 09/24/17 18:59 06:59 18:59 Intake Total 800 480 Balance 800 480 Weight 46 kg Intake: Oral 800 480 Other: Voiding Method Diaper Diaper Diaper Incontinent Incontinent Incontinent # Voids 1 3 # Bowel Movements 1 - Exam Head normocephalic Neck supple Lungs crackles at the bases bilaterally. Mild expiratory wheeze Heart regular rate and rhythm S1-S2, no rub or gallop Abdomen is soft nontender nondistended positive bowel sounds no hepatosplenomegaly Extremities no edema Neuro awake and alert but confused - Labs CBC & Chem 7: 09/24/17 07:19 09/24/17 07:19 Labs: Abnormal Lab Results - Last 24 Hours (Table) 09/24/17 09/24/17 Range/Units 07:19 07:19 WBC 11.4 H (3.8-10.6) k/uL RBC 3.22 L (3.80-5.40) m/uL Hgb 8.8 L D (11.4-16.0) gm/dL Hct 27.6 L (34.0-46.0) % RDW 18.6 H (11.5-15.5) % Neutrophils # 9.1 H (1.3-7.7) k/uL Carbon Dioxide 32 H (22-30) mmol/L BUN 22 H (7-17) mg/dL Creatinine 1.25 H (0.52-1.04) mg/dL Glucose 71 L (74-99) mg/dL Total Protein 5.0 L (6.3-8.2) g/dL Albumin 2.6 L (3.5-5.0) g/dL Assessment and Plan Assessment: #1 sepsis, initial site of infection is not clear, patient was partially treated with oral antibiotic as outpatient, blood culture negative. Urinalysis no evidence of UTI. Repeat chest x-ray no evidence of pneumonia. Patient remains on Zosyn and vancomycin. Infectious disease following closely. Blood cultures remain negative. Abdominal ultrasound showed no evidence of cholecystitis. Infectious disease following area did infectious disease felt symptoms could be related to diverticular disease. Infectious disease is recommending Augmentin for 1 week #2 acute on chronic hypoxic respiratory failure. No evidence of pneumonia. CT of the chest showed no evidence of a pulmonary embolism. Possibly related to her advanced COPD and fluid overload. More this morning chest x-ray showing evidence interval increase in size of right pleural effusion. Repeat chest x- ray showing improvement with aeration of the right lung base. She did receive a dose of IV Lasix yesterday. Continue to monitor. Await further pulmonary recommendations #3 underlying history of COPD, at this time patient will be given DuoNeb updraft , no need for systemic steroids #4 severe pulmonary hypertension likely secondary to her COPD and exacerbated by her recent illness. Patient did receive a dose of IV Lasix yesterday. Has been started on oral Lasix 40 mg by mouth daily #5 underlying history of dementia maintained on Aricept and Namenda #6 hypernatremia improved. Sodium level has normalized #7 acute on chronic renal failure, stage III. #8 metabolic acidosis improved after sodium bicarb drip. Sodium bicarbonate drip discontinued by pulmonary service #9 metabolic encephalopathy secondary to her acute infection with underlying history of dementia #10 acute lower GI bleed: Likely related to a diverticular bleed. Patient seen by GI service. No plan for colonoscopy at this time. Aspirin and subcu heparin were discontinued yesterday. No further bloody bowel movements reported. Hemoglobin did drop from 10.4-8.8. No evidence of active bleeding for GI prophylaxis patient on Pepcid for DVT prophylaxis patient place patient on SCDs Continue working with Physical therapy. Anticipate discharge to [facility] when medically stable I performed an examination of the patient and discussed their management with the physician [employer] Police Officer. I have reviewed the Physician [employer] Officer's notes and agree with the documented findings and plan of care
--- NOTE | 2017-09-24 15:15 | US ---
EXAMINATION TYPE: US chest DATE OF EXAM: 09/24/2017 COMPARISON: NONE CLINICAL HISTORY: pleural effusions. SOB EXAM MEASUREMENTS: Right Pleural Effusion fluid pocket: 9.0 cm Right skin to fluid thickness: 2.9 cm Left Pleural Effusion fluid pocket: 1.3 cm Right side marked for possible thoracentesis outside the dept. Left side NOT marked Pulmonologists are able to review the images in the patient?s EMR. IMPRESSIONS: Small right pleural effusion with associated right lung atelectasis. Trace left pleural effusion.
--- NOTE | 2017-09-24 16:10 | PN ---
PROGRESS NOTE DATE OF SERVICE: 09/24/2017. REASON FOR FOLLOWUP: Leukocytosis, likely abdominal source. INTERVAL HISTORY: The patient is afebrile. She is currently breathing comfortably. Denies having any chest pain or cough. No abdominal pain or diarrhea. EXAMINATION: Blood pressure 111/55, pulse of 92, temperature 97.5. She is 93% on 8 L nasal cannula. General description is an elderly female lying in bed in no distress. RESPIRATORY SYSTEM: Unlabored breathing with decreased breath sounds in the bases. No wheeze. HEART: S1, S2. Regular rate and rhythm. ABDOMEN: Soft, no tenderness. EXTREMITIES: No edema of the feet. LABS: Hemoglobin 8.8, white count 11.4, BUN of 22, creatinine 1.25. DIAGNOSTIC IMPRESSION AND PLAN: Patient with leukocytosis, likely abdomen, likely diverticular in nature. Patient responding to current antibiotic therapy and is on Augmentin, which she will continue for about 5-7 more days. Family present at bedside. Their questions were answered. MMODL / IJN: [id number] /
--- NOTE | 2017-09-24 16:35 | P.PN ---
Subjective Progress Note Date: 09/24/17 Principal diagnosis: Acute on chronic hypoxic respiratory failure secondary to COPD and small right- sided pleural effusion I'm seeing this 81-year-old female patient in follow-up and there is an obvious concern about her health in general as the patient comes in with altered mentation, hypoxic history failure with worsening in her oxygenation status as the patient has limited at least about 2 by nasal cannula and currently is up to 6 L in addition to leukocytosis and evolving metabolic acidosis. A septic workup has been completed and the patient is being seen by infectious disease. Cultures of been negative. The patient is slightly tachycardic. She has leukocytosis. D-dimer is positive. Echocardiogram shows severe pulmonary hypertension with a PA pressure estimated to be around 120 and there is also evidence of moderate mitral regurgitation, mild mitral stenosis, severe tricuspid regurgitation, severe pulmonary hypertension, small pericardial effusion, and dilated the right-sided cardiac structures. The left and ejection fraction is about 70%. The CAT scan of the abdomen revealed no acute abnormalities then some chronic interstitial changes in lung bases, small bilateral pleural effusion, small pericardial effusion, cholelithiasis and questionable thickening of the proximal small bowel/enteritis and nonobstructing 9 mm right lower pole renal calculus and complicated diverticulosis. There is also degenerative changes in the spine and Ventolin hernia containing fat only. Doppler of the lower extremities was negative. Patient has underlying dementia at baseline. On and off she sounds to be more confused. On today's evaluation of 09/17/2017 the patient is being seen in follow-up in the intensive care unit. She seems to be improved compared to yesterday. On and off she is still confused. No focal neurological deficits. Family is at the bedside. She is on 6 L of oxygen nasal cannula and she is also having some bibasilar crackles and for that reason I have suggested some diuresis. Meanwhile, the white cell count is improving is down to 25. He was dynamically stable. No pressors. The patient has not been found to have any source of an infection. She is afebrile. Ultrasound the gallbladder showed no evidence of any cholecystitis. The patient is cholelithiasis. Abnormalities in LFTs is probably related to right-sided failure. No evidence of any urine tract infection. No evidence of any blood infection. Doubt endocarditis. Echocardiogram showed severe pulmonary hypertension and evidence of right-sided heart failure probably related to chronic hypoxemia. CAT scan of the chest showed diffuse emphysema and small right-sided pleural effusion and compressive atelectasis of the right lung base and there was no evidence of any pulmonary embolism or filling defects. The patient is on DuoNeb nebulized treatments around the clock. The patient was given a dose of Lasix. The patient is on examination of Zosyn and vancomycin for now as an empiric antibiotic coverage. ID is on the case. On 09/18/2017 the patient is still in the intensive care unit. She is calm and comfortable. She is on and off confused and I think there is obvious component of dementia. According to the family she is more alert and awake compared to yesterday. Family is at the bedside. She is having no significant respiratory distress. Her pulse ox is 92% on 4 L of oxygen by nasal cannula and she baseline carries on 3 L of oxygen by nasal cannula. She has a congested cough. She was given another dose of Lasix today. She was given a dose yesterday and her net fluid balance has been negative over the past 24 hours. She denies having any chest pain. No shortness of breath. Her white cell count is down to 23. Her CAT scan of the chest showed no evidence of any pulmonary embolism and the patient had extensive emphysema, right-sided pleural effusion, right lower lobe compressive atelectasis. Renal function remains impaired with a creatinine of 1.6 and this is a chronic renal failure. She remains on a combination of Zosyn and vancomycin although there is no clear-cut infectious source for this patient. On 09/19/2017 the patient is being seen on a medical floor. Note that the patient was felt to be stable yesterday. Based on that I made recommendations to move this patient to a telemetry unit on a medical floor. Earlier this morning, I was informed by the nurses that the patient had a large bloody bowel movement. There was bright red blood with clots within the diaper in the bed. Despite this, the patient did not have any significant hypotension, tachycardia or any discomforts his chest pain or shortness of breath. Blood work is still pending for now. Meanwhile, the patient is currently on 6 L of oxygen nasal cannula. No major edema in lower extremities. No abdominal pain or distention. Mental status is off as the patient has an underlying component of dementia. White cell count is dropping. Cultures of been negative and the patient has been covered with a combination of Zosyn and vancomycin. Renal function is impaired as the patient has chronic renal failure. On 09/20/2017, the patient is stable. She got moved back to the intensive care unit as the patient was suspected to have ongoing GI bleed. Yesterday she had one bout of bloody bowel movement and she had to smaller episodes overnight. Her hemoglobin remains stable. This is suspected to be a diverticular bleed. No nausea. No vomiting. No abdominal pain. Mental status is appropriate this morning. She has underlying dementia. No significant respiratory distress. No cough or sputum production. The patient is still on 6 L/m nasal cannula to maintain saturation above 90%. Hemodynamically stable. IV fluids to kvo. The patient is seen again today 09/21/2017 in follow-up on the regular medical floor. She is currently sitting up in a chair at the bedside. She is awake and alert in no acute distress. She has not had any further GI bleeding. She is still requiring 8 L high flow nasal cannula to maintain O2 saturations greater than 90%. She denies any worsening shortness of breath, cough or congestion. He was positive for Lucero. Blood cultures reveal no growth. We cut has improved 18,000. Hemoglobin 9.4. Creatinine 1.33. She is continued on Zosyn. On 09/22/2017, the patient is still on oxygen at 6 L/m nasal cannula. No evidence of any GI bleeding. On and off confused secondary to underlying dementia. The patient has no respiratory distress. No cough or sputum production. No other complaints otherwise for the past 24 hours. While tach on is been gradually improving and the patient was switched to oral Augmentin. Reevaluated today on 09/23/2017, patient is now on high flow nasal cannula at 8 L , feeling better, occasional episodes of confusion related to underlying dementia. Patient does not seem to be in any respiratory distress, chest x-ray was reviewed and I recommended a dose of Lasix 40 mg IV push to be given once. I am still debating whether to proceed with a right-sided thoracentesis, however I have discussed her condition with the son at bedside, and recommended ultrasound to be of the chest to be done tomorrow if no improvement. May have to consider thoracentesis if her O2 sats saturation remains marginal. But that would all depend on the response to Lasix and on the follow-up ultrasound of the chest tomorrow. All labs were reviewed, BUN is 19 and creatinine is 1.20. On 09/24/2017 patient seen in follow-up on medical surgical floor, he is resting in bed, and her daughters at the bedside, patient is calm and comfortable, in no acute distress. His chest x-ray showed improved aeration of the right lung base and there is trace right pleural effusion on the bases of congestive heart failure and right basilar airspace disease likely to represent atelectasis. Ultrasound of the chest was obtained, and it showed right pleural effusion fluid pocket of 9 cm, and left pleural fluid pocket of 1.3 cm. WBC is trending down, down to 11.4, hemoglobin is 8.8, CO2 is 32, BUN is 22, creatinine is 1.25, patient is afebrile, denies any fever or chills, remains on 8 L per high flow nasal cannula with pulse ox of 93%. Patient was given a dose of IV Lasix yesterday, with subsequent improvement in aeration based on the chest x-ray results, she remains on oral Lasix of 40 mg daily, remains on oral Augmentin, and nebulized treatments. Blood cultures are negative to date, sputum culture just showed Lucero albicans likely contamination of oral ijeoma. Continue weaning oxygen, clinically patient is improving, denies any worsening shortness of breath cough or congestion. Objective - Vital Signs Vital signs: Vital Signs Temp 97.5 F L 09/24/17 14:24 Pulse 104 H 09/24/17 14:24 Resp 18 09/24/17 14:24 BP 111/55 09/24/17 14:24 Pulse Ox 93 L 09/24/17 14:24 Intake & Output 09/23/17 09/24/17 09/24/17 18:59 06:59 18:59 Intake Total 800 480 Balance 800 480 Weight 46 kg Intake: Oral 800 480 Other: Voiding Method Diaper Diaper Diaper Incontinent Incontinent Incontinent # Voids 1 3 1 # Bowel Movements 1 1 - Exam Gen. Revealed an 81-year-old female slightly confused in no form of respiratory distress. On high flow nasal cannula. Examination of the neck reveals bilateral jugular venous distention. This is also noted that third-degree bed elevation. No neck masses. Neck is supple there is no lymphadenopathy and there is no cervical or supraclavicular lymphadenopathy. Mucous membranes are dry and there is no thrush. Head exam was generally normal. There was no scleral icterus or corneal arcus. Mucous membranes were moist. Lungs sounds are diminished bilaterally along with some limited bibasilar crackles. Breath sounds are diminished bilaterally Heart sounds reveal accentuation of the second heart sound. No cervical murmurs appreciated. The patient is slightly tachycardic yet the rhythm seems to be sinus at this point. Abdominal exam revealed normal bowel sounds. The abdomen was soft, non-tender, and without masses, organomegaly, or appreciable enlargement of the abdominal aorta. Examination of the extremities revealed easily palpable radial, femoral and pedal pulses. There was no cyanosis, clubbing or edema. Examination of the skin revealed no evidence of significant rashes, suspicious appearing nevi or other concerning lesions. Neurologically the patient is neurologic exam is nonfocal. The patient will go 4 extremities without any limitation. No cranial nerve deficits. The patient is on off confused and she has memory problems specially with short-term memory. - Labs CBC & Chem 7: 09/24/17 07:19 09/24/17 07:19 Labs: Abnormal Lab Results - Last 24 Hours (Table) 09/24/17 09/24/17 Range/Units 07:19 07:19 WBC 11.4 H (3.8-10.6) k/uL RBC 3.22 L (3.80-5.40) m/uL Hgb 8.8 L D (11.4-16.0) gm/dL Hct 27.6 L (34.0-46.0) % RDW 18.6 H (11.5-15.5) % Neutrophils # 9.1 H (1.3-7.7) k/uL Carbon Dioxide 32 H (22-30) mmol/L BUN 22 H (7-17) mg/dL Creatinine 1.25 H (0.52-1.04) mg/dL Glucose 71 L (74-99) mg/dL Total Protein 5.0 L (6.3-8.2) g/dL Albumin 2.6 L (3.5-5.0) g/dL Assessment and Plan Plan: Assessment: 1 acute on chronic hypoxic history failure with worsening in her oxygenation and the patient is currently requiring high flow oxygen 8 L/m nasal cannula. No clear indication of an underlying pneumonia. The patient had a CT angios the chest that showed no evidence of any pulmonary embolism. His advanced COPD and emphysema and small right-sided pleural effusion and compressive atelectasis of the right lung base. Overall oxygenation remains poor 2 severe pulmonary hypertension, most likely chronic in nature and a CT angios the chest showed no pulmonary embolism. 3 COPD with chronic hypoxic respiratory failure maintained on 8 L of oxygen . Normally patient is on 3 L at home 4 leukocytosis, improving and the white cell count is down to 15,000 without any source of an infection the patient was placed on oral Augmentin 5 mild anion gap metabolic acidosis with some lactic acidosis at the time of admission , recovered completely 6 dementia with episodes of altered mentation, episodic 7.generalized weakness 8 acute versus chronic renal insufficiency, probably stage II to 3 chronic kidney failure 9 small bilateral pleural effusion 10 nephrolithiasis 11 degenerative arthritis 12 cholelithiasis without evidence of any cholecystitis 13 acute GI bleed, likely of a lower GI source as the patient had bloody bright red bowel movement with clots. The patient was asymptomatic. The patient's hemoglobin is stable and the patient does not have any further bleeding episodes. Plan: Chest x-ray and ultrasound the chest were reviewed, right pleural effusion is small, with trace left pleural effusion. Continue with oral Lasix, continue weaning FiO2. Continue with empiric antibiotic coverage, nebulized treatments. We will continue to follow I performed a history & physical examination of the patient and discussed their management with my nurse practitioner, Audra Solomon. I reviewed the nurse practitioner's note and agree with the documented findings and plan of care. Lung sounds are positive diminished with bibasilar crackles. The findings and the impression was discussed with the patient. I attest to the documentation by the nurse practitioner. Time with Patient: Less than 30
[2017-09-25] MEDS: IPRATROPIUM-ALBUTEROL 3 ML NEB INHALATION SCH ×3 (07:37→19:23)
[2017-09-25 07:42] LABS: Albumin 2.7 g/dL (3.5-5.0); Calcium 8.7 mg/dL (8.4-10.2); Potassium 4.4 mmol/L (3.5-5.1); Total Bilirubin 0.4 mg/dL (0.2-1.3); Total Protein 5.1 g/dL (6.3-8.2)
[2017-09-25 07:48] LABS: Anisocytosis Slight; Basophils # (A) 0.1 k/uL (0-0.2); Basophils % (A) 0 %; Eosinophils # (A) 0.4 k/uL (0-0.7); Eosinophils % (A) 3 %; HCT 32.6 % (34.0-46.0); HGB 10.2 gm/dL (11.4-16.0); Hypochromasia Slight; Lymphocytes # (A) 1.3 k/uL (1.0-4.8); Lymphocytes % (A) 11 %; MCH 27.2 pg (25.0-35.0); MCHC 31.2 g/dL (31.0-37.0); MCV 87.2 fL (80.0-100.0); Mean Platelet Volume 7.8; Monocytes # (A) 0.4 k/uL (0-1.0); Monocytes % (A) 3 %; Neutrophils # (A) 10.2 k/uL (1.3-7.7); Neutrophils % (A) 81 %; RBC 3.74 m/uL (3.80-5.40); RDW 18.7 % (11.5-15.5); WBC 12.5 k/uL (3.8-10.6)
[2017-09-25 07:52] LABS: Platelet Count 532 k/uL (150-450)
[2017-09-25] MEDS: FUROSEMIDE 40 MG TAB PO SCH (09:22)
[2017-09-25] MEDS: AMOXIC-POT CLAV 500-125 MG 1 EACH TAB PO SCH ×2 (09:22→20:01)
[2017-09-25] MEDS: MEMANTINE 10 MG TAB PO SCH ×2 (09:23→20:01)
[2017-09-25] MEDS: FAMOTIDINE 20 MG TAB PO SCH (09:23)
[2017-09-25] MEDS: DONEPEZIL 10 MG TAB PO SCH (09:24)
[2017-09-25] MEDS: MECLIZINE 12.5 MG TAB PO SCH (09:25)
[2017-09-25] MEDS: MULTIVITAMINS, THERA 1 EACH TAB PO SCH (09:25)
[2017-09-25] MEDS: SPIRONOLACTONE 25 MG TAB PO SCH (09:25)
[2017-09-25] MEDS: FLUTICASONE 50MCG/SPRAY NASAL 16GM EA NOSTRIL SCH (09:25)
--- NOTE | 2017-09-25 10:46 | P.PN ---
Subjective Progress Note Date: 09/25/17 Brenda Dave is an 81-year-old female, patient of [facility], who presented to [facility] emergency room with a chief complaint of generalized weakness, daughter states that patient was seen at [facility] one week ago, she was given an antibiotic for presumed urinary tract infection, however her condition continued to worsen, she was seen by her visiting nurse and was advised to come to emergency room. Patient was evaluated by Dr. Brown in the emergency room, she had evidence of sepsis with hypotension, tachycardia, and leukocytosis, also d-dimer was elevated at 5.64, she was admitted to telemetry floor, she was started on IV antibiotic and IV fluid. Bilateral lower extremity Doppler was done and was negative for DVT, VQ scan was done and was low probability for pulmonary embolism. On 09/15/2017 patient is alert and oriented 3 in no apparent distress, she is complaining of feeling cold and having shaking chills, otherwise no complaints, patient has tachycardia, and has evidence sepsis, with leukocytosis white blood count still at 30,000, primary site of infection is still unclear she is complaining of cough, chest x-ray did not reveal any evidence of pneumonia, blood culture is pending, echocardiogram is pending, sodium is up to 114 9 IV fluid change to half-normal saline, will check lactic acid. 09/16/2017 patient is confused. She states things like "did you know that I am ". Patient's son is at bedside patient does have some baseline confusion usually mostly short term memory loss. However, since she's been sick the confusion has worsened. Patient is lying in bed comfortably no evidence of distress. Earlier this morning per nursing staff patient was satting around 84% on 3 L and had to be increased to 5 L and was able to get into the 90s. Patient's white count is still elevated at 30.5. Infectious disease and pulmonary service are following. Repeat chest x-ray shows no acute changes. And for the screening negative. Patient denies any chest pain. Patient has been having some cough. Denies any nausea or vomiting no diarrhea. Patient did have one loose stool, but not watery. 09/17/2017 patient was transferred to the ICU yesterday afternoon for closer monitoring. She remains in the ICU. Case was discussed with pulmonary service in detail. Patient's white count has been decreased from 30.5-25.4 she's on 10 L oxygen satting at 95%. The exact source of infection is still unclear. She remains on Zosyn and vancomycin. Echocardiogram shows severe pulmonary hypertension and severe tricuspid regurgitation. CTA of the chest was negative for a PE did reveal atelectasis and a small right-sided pleural effusion. Moderate pericardial effusion and no evidence of pericarditis. Abdominal ultrasound showed no evidence of an acute cholecystitis. Did reveal cholelithiasis. Pulmonary service did order a dose of IV Lasix for her fluid overload. Infectious disease is also following. Urine output is adequate. Patient is still confused. On 09/18/2017 patient is more alert she denies any pain or discomfort she was seen and examined in the intensive care unit there is no fever or chills no headache no dizziness no chest pain, shortness of breath is improving, still complaining of cough, no nausea or vomiting no abdominal pain no diarrhea and no urinary symptoms. 09/19/2017 nursing staff called and notified that patient had a massive bloody stool with large blood clots. Repeat hemoglobin check went up from 10.4-10.8. Patient was transferred to the ICU. Fluids were increased to 75 mL an hour. Patient was hypotensive earlier in the morning. Blood pressures are showing improvement. Case was discussed with cosmetic sales advisor Dr. Romo. GI service was consulted. They have Re: Evaluated patient and there is no plan for colonoscopy at this point. Patient's previous computed tomography scan of the abdomen had showed evidence of diverticulosis this possibly could be related to a diverticular bleed. Patient denies any abdominal pain no nausea or vomiting reported. Currently on 8 L of oxygen. White count 21.2 09/20/2017 patient currently in the ICU. She is doing well. No further bloody bowel movements today. Likely symptoms related to a diverticular bleed. Seen by GI service. No plans for endoscopy at this time. Patient on 10 L options a 96%. Hemoglobin at 10.1. 09/23/2017 patient had a drop in oxygen saturation to around 80%. Oxygen has been increased to 8 L satting around 92%. Patient also complaining of some hoarseness and postnasal drip. Flonase has been ordered. Chest x-ray has also been ordered. Patient denies any chest pain or shortness of breath. Has had no further episodes of bleeding in her stools. Diet will be advanced to regular diet. Patient also is very weak and is working with physical therapy 09/24/2017 patient still requiring 8 L of oxygen. Denies any shortness of breath. Repeat chest x-ray from this morning shows improved aeration of the right lung base on the liver remains a trace right pleural effusion on the bases of congestive heart failure and right basilar airspace disease. This is favored to represent atelectasis however pneumonia should be considered. Incentive spirometer has been ordered. She remains on antibiotics. Patient is reporting a mild cough. She did receive an extra dose of IV Lasix yesterday. White count has improved from 14-11.4. Patient did have a drop in her hemoglobin from 10.4-8.8. Nursing staff and family reported known bloody bowel movements. On 09/25/2017 patient is alert slightly confused in no apparent distress, she is still requiring 8 L of oxygen nasal cannula, oxygen saturation is 90%, she was seen by pulmonary and there are no plans for thoracentesis at this time, otherwise patient is complaining of fatigue no other complaints, there is occasional cough but no chest pain, no nausea or vomiting no abdominal pain no diarrhea and no urinary symptoms. Objective - Vital Signs Vital signs: Vital Signs Temp 97.6 F 09/25/17 07:15 Pulse 93 09/25/17 07:47 Resp 18 09/25/17 07:15 BP 110/66 09/25/17 07:15 Pulse Ox 90 L 09/25/17 07:37 Intake & Output 09/24/17 09/25/17 09/25/17 18:59 06:59 18:59 Other: Voiding Method Diaper Diaper Incontinent Incontinent # Voids 1 3 # Bowel Movements 1 - Exam In general patient is alert, slightly confused in no apparent distress HEENT head normocephalic and atraumatic Neck is supple no JVD no goiter no lymphadenopathy Chest exam reveals a few scattered rhonchi no wheezing Cardiac exam reveals regular heart sounds S1 and S2 no gallops no murmurs Abdomen is soft nontender no organomegaly with normal bowel sounds Extremity exam reveals no edema no cyanosis or clubbing - Labs CBC & Chem 7: 09/25/17 06:55 09/25/17 06:55 Labs: Abnormal Lab Results - Last 24 Hours (Table) 09/25/17 09/25/17 Range/Units 06:55 06:55 WBC 12.5 H (3.8-10.6) k/uL RBC 3.74 L (3.80-5.40) m/uL Hgb 10.2 L (11.4-16.0) gm/dL Hct 32.6 L (34.0-46.0) % RDW 18.7 H (11.5-15.5) % Plt Count 532 H D (150-450) k/uL Neutrophils # 10.2 H (1.3-7.7) k/uL Carbon Dioxide 31 H (22-30) mmol/L BUN 26 H (7-17) mg/dL Creatinine 1.20 H (0.52-1.04) mg/dL Total Protein 5.1 L (6.3-8.2) g/dL Albumin 2.7 L (3.5-5.0) g/dL Assessment and Plan Plan: #1 sepsis, initial site of infection is not clear, patient was partially treated with oral antibiotic as outpatient, blood culture negative. Urinalysis no evidence of UTI. Repeat chest x-ray no evidence of pneumonia. Patient remains on Zosyn and vancomycin. Infectious disease following closely. Blood cultures remain negative. Abdominal ultrasound showed no evidence of cholecystitis. Infectious disease following area did infectious disease felt symptoms could be related to diverticular disease. Infectious disease is recommending Augmentin for 1 week #2 acute on chronic hypoxic respiratory failure. No evidence of pneumonia. CT of the chest showed no evidence of a pulmonary embolism. Possibly related to her advanced COPD and fluid overload. More this morning chest x-ray showing evidence interval increase in size of right pleural effusion. Repeat chest x- ray showing improvement with aeration of the right lung base. She did receive a dose of IV Lasix yesterday. Continue to monitor. Await further pulmonary recommendations #3 underlying history of COPD, at this time patient will be given DuoNeb updraft , no need for systemic steroids #4 severe pulmonary hypertension likely secondary to her COPD and exacerbated by her recent illness. Patient did receive a dose of IV Lasix yesterday. Has been started on oral Lasix 40 mg by mouth daily #5 underlying history of dementia maintained on Aricept and Namenda #6 hypernatremia improved. Sodium level has normalized #7 acute on chronic renal failure, stage III. #8 metabolic acidosis improved after sodium bicarb drip. Sodium bicarbonate drip discontinued by pulmonary service #9 metabolic encephalopathy secondary to her acute infection with underlying history of dementia #10 acute lower GI bleed: Likely related to a diverticular bleed. Patient seen by GI service. No plan for colonoscopy at this time. Aspirin and subcu heparin were discontinued yesterday. No further bloody bowel movements reported. No evidence of active bleeding, hemoglobin up to 10.2 today for GI prophylaxis patient on Pepcid for DVT prophylaxis patient place patient on SCDs Continue working with Physical therapy. Anticipate discharge to [facility] when medically stable
--- NOTE | 2017-09-25 11:47 | PN ---
PROGRESS NOTE DATE OF SERVICE: 09/25/2017 REASON FOR FOLLOWUP: Leukocytosis, possible abdominal source. INTERVAL HISTORY: The patient is afebrile. She has been breathing comfortably. She has been on high- flow oxygen. Denies having any chest pain. She did have a cough with dry nature. No abdominal pain. No diarrhea. No further bleeding per rectum. PHYSICAL EXAMINATION: Blood pressure 110/56, pulse of 93, temperature of 97.9. She is 94% on 8 L high-flow oxygen. General description is an elderly female, up in the bed in no distress. RESPIRATORY SYSTEM: Unlabored breathing with decreased breath sounds in the bases, no wheeze. HEART: S1, S2. Regular rate and rhythm. ABDOMEN: Soft, no tenderness. LABS: Hemoglobin 10.8, white count 12.5 with a BUN of 26, creatinine 1.20. DIAGNOSTIC IMPRESSION AND PLAN: Patient with leukocytosis, likely abdominal source in a patient with did have diverticular bleed as well. Currently on oral Augmentin. Slight elevation of the white count more likely related to hemoconcentration as the patient did have elevation of her hemoglobin as well as BUN and keep the patient on Augmentin for another 5 to 7 days. Family was present at the bedside, their questions were answered. MMODL / IJN: [id number] /
[2017-09-25 13:15] LABS: Total Protein 5.2 g/dL (6.3-8.2)
[2017-09-25 14:18] LABS: INR 1.2 (<1.2); Prothrombin Time 11.1 sec (9.0-12.0)
--- NOTE | 2017-09-25 14:44 | P.PN ---
Subjective Progress Note Date: 09/25/17 Principal diagnosis: Acute on chronic hypoxic respiratory failure secondary to COPD and small right- sided pleural effusion I'm seeing this 81-year-old female patient in follow-up and there is an obvious concern about her health in general as the patient comes in with altered mentation, hypoxic history failure with worsening in her oxygenation status as the patient has limited at least about 2 by nasal cannula and currently is up to 6 L in addition to leukocytosis and evolving metabolic acidosis. A septic workup has been completed and the patient is being seen by infectious disease. Cultures of been negative. The patient is slightly tachycardic. She has leukocytosis. D-dimer is positive. Echocardiogram shows severe pulmonary hypertension with a PA pressure estimated to be around 120 and there is also evidence of moderate mitral regurgitation, mild mitral stenosis, severe tricuspid regurgitation, severe pulmonary hypertension, small pericardial effusion, and dilated the right-sided cardiac structures. The left and ejection fraction is about 70%. The CAT scan of the abdomen revealed no acute abnormalities then some chronic interstitial changes in lung bases, small bilateral pleural effusion, small pericardial effusion, cholelithiasis and questionable thickening of the proximal small bowel/enteritis and nonobstructing 9 mm right lower pole renal calculus and complicated diverticulosis. There is also degenerative changes in the spine and Ventolin hernia containing fat only. Doppler of the lower extremities was negative. Patient has underlying dementia at baseline. On and off she sounds to be more confused. On today's evaluation of 09/17/2017 the patient is being seen in follow-up in the intensive care unit. She seems to be improved compared to yesterday. On and off she is still confused. No focal neurological deficits. Family is at the bedside. She is on 6 L of oxygen nasal cannula and she is also having some bibasilar crackles and for that reason I have suggested some diuresis. Meanwhile, the white cell count is improving is down to 25. He was dynamically stable. No pressors. The patient has not been found to have any source of an infection. She is afebrile. Ultrasound the gallbladder showed no evidence of any cholecystitis. The patient is cholelithiasis. Abnormalities in LFTs is probably related to right-sided failure. No evidence of any urine tract infection. No evidence of any blood infection. Doubt endocarditis. Echocardiogram showed severe pulmonary hypertension and evidence of right-sided heart failure probably related to chronic hypoxemia. CAT scan of the chest showed diffuse emphysema and small right-sided pleural effusion and compressive atelectasis of the right lung base and there was no evidence of any pulmonary embolism or filling defects. The patient is on DuoNeb nebulized treatments around the clock. The patient was given a dose of Lasix. The patient is on examination of Zosyn and vancomycin for now as an empiric antibiotic coverage. ID is on the case. On 09/18/2017 the patient is still in the intensive care unit. She is calm and comfortable. She is on and off confused and I think there is obvious component of dementia. According to the family she is more alert and awake compared to yesterday. Family is at the bedside. She is having no significant respiratory distress. Her pulse ox is 92% on 4 L of oxygen by nasal cannula and she baseline carries on 3 L of oxygen by nasal cannula. She has a congested cough. She was given another dose of Lasix today. She was given a dose yesterday and her net fluid balance has been negative over the past 24 hours. She denies having any chest pain. No shortness of breath. Her white cell count is down to 23. Her CAT scan of the chest showed no evidence of any pulmonary embolism and the patient had extensive emphysema, right-sided pleural effusion, right lower lobe compressive atelectasis. Renal function remains impaired with a creatinine of 1.6 and this is a chronic renal failure. She remains on a combination of Zosyn and vancomycin although there is no clear-cut infectious source for this patient. On 09/19/2017 the patient is being seen on a medical floor. Note that the patient was felt to be stable yesterday. Based on that I made recommendations to move this patient to a telemetry unit on a medical floor. Earlier this morning, I was informed by the nurses that the patient had a large bloody bowel movement. There was bright red blood with clots within the diaper in the bed. Despite this, the patient did not have any significant hypotension, tachycardia or any discomforts his chest pain or shortness of breath. Blood work is still pending for now. Meanwhile, the patient is currently on 6 L of oxygen nasal cannula. No major edema in lower extremities. No abdominal pain or distention. Mental status is off as the patient has an underlying component of dementia. White cell count is dropping. Cultures of been negative and the patient has been covered with a combination of Zosyn and vancomycin. Renal function is impaired as the patient has chronic renal failure. On 09/20/2017, the patient is stable. She got moved back to the intensive care unit as the patient was suspected to have ongoing GI bleed. Yesterday she had one bout of bloody bowel movement and she had to smaller episodes overnight. Her hemoglobin remains stable. This is suspected to be a diverticular bleed. No nausea. No vomiting. No abdominal pain. Mental status is appropriate this morning. She has underlying dementia. No significant respiratory distress. No cough or sputum production. The patient is still on 6 L/m nasal cannula to maintain saturation above 90%. Hemodynamically stable. IV fluids to kvo. The patient is seen again today 09/21/2017 in follow-up on the regular medical floor. She is currently sitting up in a chair at the bedside. She is awake and alert in no acute distress. She has not had any further GI bleeding. She is still requiring 8 L high flow nasal cannula to maintain O2 saturations greater than 90%. She denies any worsening shortness of breath, cough or congestion. He was positive for Lucero. Blood cultures reveal no growth. We cut has improved 18,000. Hemoglobin 9.4. Creatinine 1.33. She is continued on Zosyn. On 09/22/2017, the patient is still on oxygen at 6 L/m nasal cannula. No evidence of any GI bleeding. On and off confused secondary to underlying dementia. The patient has no respiratory distress. No cough or sputum production. No other complaints otherwise for the past 24 hours. While tach on is been gradually improving and the patient was switched to oral Augmentin. Reevaluated today on 09/23/2017, patient is now on high flow nasal cannula at 8 L , feeling better, occasional episodes of confusion related to underlying dementia. Patient does not seem to be in any respiratory distress, chest x-ray was reviewed and I recommended a dose of Lasix 40 mg IV push to be given once. I am still debating whether to proceed with a right-sided thoracentesis, however I have discussed her condition with the son at bedside, and recommended ultrasound to be of the chest to be done tomorrow if no improvement. May have to consider thoracentesis if her O2 sats saturation remains marginal. But that would all depend on the response to Lasix and on the follow-up ultrasound of the chest tomorrow. All labs were reviewed, BUN is 19 and creatinine is 1.20. On 09/24/2017 patient seen in follow-up on medical surgical floor, he is resting in bed, and her daughters at the bedside, patient is calm and comfortable, in no acute distress. His chest x-ray showed improved aeration of the right lung base and there is trace right pleural effusion on the bases of congestive heart failure and right basilar airspace disease likely to represent atelectasis. Ultrasound of the chest was obtained, and it showed right pleural effusion fluid pocket of 9 cm, and left pleural fluid pocket of 1.3 cm. WBC is trending down, down to 11.4, hemoglobin is 8.8, CO2 is 32, BUN is 22, creatinine is 1.25, patient is afebrile, denies any fever or chills, remains on 8 L per high flow nasal cannula with pulse ox of 93%. Patient was given a dose of IV Lasix yesterday, with subsequent improvement in aeration based on the chest x-ray results, she remains on oral Lasix of 40 mg daily, remains on oral Augmentin, and nebulized treatments. Blood cultures are negative to date, sputum culture just showed Lucero albicans likely contamination of oral ijeoma. Continue weaning oxygen, clinically patient is improving, denies any worsening shortness of breath cough or congestion. On 09/25/2017 patient seen in follow-up. Patient remains generally weak, incentive spirometry effort is 500-750 today, and patient becomes very fatigued with incentive spirometry exercises. Ultrasound the chest showed right pleural fluid pocket of 9 cm, and left pleural fluid 1.3 cm. Patient remains on 8 L per nasal cannula, with O2 saturation at 90%. Patient continues on oral Augmentin, oral Lasix, nebulized treatments. We will consult interventional radiology for ultrasound-guided thoracentesis. Consult physical therapy. Increase activity as tolerated, up in the chair. Patient will need outpatient rehab after discharge, and arrangements are being made for placement to [facility] Objective - Vital Signs Vital signs: Vital Signs Temp 97.6 F 09/25/17 07:15 Pulse 97 09/25/17 12:47 Resp 18 09/25/17 07:15 BP 110/66 09/25/17 07:15 Pulse Ox 90 L 09/25/17 07:37 Intake & Output 09/24/17 09/25/17 09/25/17 18:59 06:59 18:59 Weight 46 kg Other: Voiding Method Diaper Diaper Diaper Incontinent Incontinent Incontinent # Voids 1 3 # Bowel Movements 1 - Exam Gen. Revealed an 81-year-old female slightly confused in no form of respiratory distress. On high flow nasal cannula. Examination of the neck reveals bilateral jugular venous distention. This is also noted that third-degree bed elevation. No neck masses. Neck is supple there is no lymphadenopathy and there is no cervical or supraclavicular lymphadenopathy. Mucous membranes are dry and there is no thrush. Head exam was generally normal. There was no scleral icterus or corneal arcus. Mucous membranes were moist. Lungs sounds are diminished bilaterally along with some limited bibasilar crackles. Breath sounds are diminished bilaterally Heart sounds reveal accentuation of the second heart sound. No cervical murmurs appreciated. The patient is slightly tachycardic yet the rhythm seems to be sinus at this point. Abdominal exam revealed normal bowel sounds. The abdomen was soft, non-tender, and without masses, organomegaly, or appreciable enlargement of the abdominal aorta. Examination of the extremities revealed easily palpable radial, femoral and pedal pulses. There was no cyanosis, clubbing or edema. Examination of the skin revealed no evidence of significant rashes, suspicious appearing nevi or other concerning lesions. Neurologically the patient is neurologic exam is nonfocal. The patient will go 4 extremities without any limitation. No cranial nerve deficits. The patient is on off confused and she has memory problems specially with short-term memory. - Labs CBC & Chem 7: 09/25/17 06:55 09/25/17 06:55 Labs: Abnormal Lab Results - Last 24 Hours (Table) 09/25/17 09/25/17 09/25/17 Range/Units 06:55 06:55 06:55 WBC 12.5 H (3.8-10.6) k/uL RBC 3.74 L (3.80-5.40) m/uL Hgb 10.2 L (11.4-16.0) gm/dL Hct 32.6 L (34.0-46.0) % RDW 18.7 H (11.5-15.5) % Plt Count 532 H D (150-450) k/uL Neutrophils # 10.2 H (1.3-7.7) k/uL Carbon Dioxide 31 H (22-30) mmol/L BUN 26 H (7-17) mg/dL Creatinine 1.20 H (0.52-1.04) mg/dL Lactate Dehydrogenase 693 H (313-618) U/L Total Protein 5.1 L 5.2 L (6.3-8.2) g/dL Albumin 2.7 L (3.5-5.0) g/dL Assessment and Plan Plan: Assessment: 1 acute on chronic hypoxic history failure with worsening in her oxygenation and the patient is currently requiring high flow oxygen 8 L/m nasal cannula. No clear indication of an underlying pneumonia. The patient had a CT angios the chest that showed no evidence of any pulmonary embolism. His advanced COPD and emphysema and small right-sided pleural effusion and compressive atelectasis of the right lung base. Overall oxygenation remains poor 2 severe pulmonary hypertension, most likely chronic in nature and a CT angios the chest showed no pulmonary embolism. 3 COPD with chronic hypoxic respiratory failure maintained on 8 L of oxygen . Normally patient is on 3 L at home 4 leukocytosis, improving and the white cell count is down to 15,000 without any source of an infection the patient was placed on oral Augmentin 5 mild anion gap metabolic acidosis with some lactic acidosis at the time of admission , recovered completely 6 dementia with episodes of altered mentation, episodic 7.generalized weakness 8 acute versus chronic renal insufficiency, probably stage II to 3 chronic kidney failure 9 small bilateral pleural effusion 10 nephrolithiasis 11 degenerative arthritis 12 cholelithiasis without evidence of any cholecystitis 13 acute GI bleed, likely of a lower GI source as the patient had bloody bright red bowel movement with clots. The patient was asymptomatic. The patient's hemoglobin is stable and the patient does not have any further bleeding episodes. Plan: We will consult interventional radiology for right-sided US thoracentesis, pleural fluid will be sent for analysis, as well as cytology. Continue current antibiotic coverage, oral Lasix, and nebulized treatments continue encouraging incentive spirometry, sitting up in the chair. I performed a history & physical examination of the patient and discussed their management with my nurse practitioner, Audra Solomon. I reviewed the nurse practitioner's note and agree with the documented findings and plan of care. Lung sounds diminished, dullness to percussion on the right, some scattered rales . The findings and the impression was discussed with the patient. I attest to the documentation by the nurse practitioner. Time with Patient: Less than 30
[2017-09-26] MEDS: IPRATROPIUM-ALBUTEROL 3 ML NEB INHALATION SCH ×3 (07:45→19:15)
[2017-09-26 07:47] LABS: Anisocytosis Slight; Basophils % (A) 0 %; Eosinophils # (A) 0.4 k/uL (0-0.7); Eosinophils % (A) 3 %; HCT 31.6 % (34.0-46.0); Hypochromasia Slight; Lymphocytes # (A) 1.2 k/uL (1.0-4.8); Lymphocytes % (A) 11 %; MCH 27.7 pg (25.0-35.0); MCHC 31.6 g/dL (31.0-37.0); MCV 87.5 fL (80.0-100.0); Mean Platelet Volume 7.6; Monocytes # (A) 0.4 k/uL (0-1.0); Monocytes % (A) 4 %; Neutrophils # (A) 8.6 k/uL (1.3-7.7); Neutrophils % (A) 80 %; Platelet Count 540 k/uL (150-450); RBC 3.61 m/uL (3.80-5.40); RDW 19.2 % (11.5-15.5); WBC 10.7 k/uL (3.8-10.6)
[2017-09-26 08:16] LABS: Albumin 2.7 g/dL (3.5-5.0); Calcium 8.5 mg/dL (8.4-10.2); Potassium 4.3 mmol/L (3.5-5.1); Total Bilirubin 0.4 mg/dL (0.2-1.3)
[2017-09-26] MEDS ORDERED: LIDOCAINE (PF) 10 MG/ML 5ML AMP SQ STA (09:10)
--- NOTE | 2017-09-26 09:29 | XR ---
EXAMINATION TYPE: XR chest 1V portable DATE OF EXAM: 09/26/2017 CLINICAL HISTORY: Difficulty breathing progress study. TECHNIQUE: Single AP portable upright view of the chest is obtained. COMPARISON: Chest x-ray from 2 days earlier. CTA chest September 16, 2017. FINDINGS: There is chronic parenchymal change with improved right basilar opacity after right-sided thoracentesis. No sizable pneumothorax is present. There is moderate to severe right apical masslike pleural/parenchymal scarring redemonstrated, this is not significantly changed from 2012 CT. There is background chronic emphysematous change. There is background cardiomegaly with ectatic thoracic aort a. Osseous structures are demineralized. Underlying scoliosis is present. Metallic hardware left shou lder is noted. IMPRESSION: No sizable pneumothorax after right-sided thoracentesis. Background chronic emphysematous change and cardiomegaly with improved aeration right lung base after thoracentesis.
--- NOTE | 2017-09-26 09:36 | US ---
Ultrasound-guided therapeutic and diagnostic thoracentesis DATE OF EXAM: 09/26/2017 CLINICAL HISTORY: Right pleural effusion The procedure was discussed with the patient. The risks, complications, benefits, and alternatives we re discussed and any questions were answered. Informed consent was obtained. The patient was placed supine on the ultrasound table and prepped and draped in the usual sterile fas hion. All elements of maximal barrier and sterile technique were utilized. Under ultrasound guidance, access into the pleural space was obtained, via the thoracentesis catheter system and direct ultrasound guidance. Ap proximately 0.46 liters of straw-colored fluid was removed. Sample sent to pathology for analysis. The patient was stable throughout the procedure and remained stable upon discharge from Department of Radiology. IMPRESSION: 1. Successful therapeutic and diagnostic thoracentesis under ultrasound guidance.
[2017-09-26] MEDS: FUROSEMIDE 40 MG TAB PO SCH (10:05)
[2017-09-26] MEDS: MECLIZINE 12.5 MG TAB PO SCH (10:05)
[2017-09-26] MEDS: AMOXIC-POT CLAV 500-125 MG 1 EACH TAB PO SCH ×2 (10:05→20:24)
[2017-09-26] MEDS: SPIRONOLACTONE 25 MG TAB PO SCH (10:05)
[2017-09-26] MEDS: FLUTICASONE 50MCG/SPRAY NASAL 16GM EA NOSTRIL SCH (10:06)
[2017-09-26] MEDS: FAMOTIDINE 20 MG TAB PO SCH (10:06)
[2017-09-26] MEDS: MEMANTINE 10 MG TAB PO SCH ×2 (10:06→20:24)
[2017-09-26] MEDS: DONEPEZIL 10 MG TAB PO SCH (10:08)
[2017-09-26] MEDS ORDERED: traMADol 50 MG TAB PO PRN (11:13)
--- NOTE | 2017-09-26 11:42 | P.PN ---
Subjective Progress Note Date: 09/26/17 Brenda Dave is an 81-year-old female, patient of [facility], who presented to [facility] emergency room with a chief complaint of generalized weakness, daughter states that patient was seen at [facility] one week ago, she was given an antibiotic for presumed urinary tract infection, however her condition continued to worsen, she was seen by her visiting nurse and was advised to come to emergency room. Patient was evaluated by Dr. Brown in the emergency room, she had evidence of sepsis with hypotension, tachycardia, and leukocytosis, also d-dimer was elevated at 5.64, she was admitted to telemetry floor, she was started on IV antibiotic and IV fluid. Bilateral lower extremity Doppler was done and was negative for DVT, VQ scan was done and was low probability for pulmonary embolism. On 09/15/2017 patient is alert and oriented 3 in no apparent distress, she is complaining of feeling cold and having shaking chills, otherwise no complaints, patient has tachycardia, and has evidence sepsis, with leukocytosis white blood count still at 30,000, primary site of infection is still unclear she is complaining of cough, chest x-ray did not reveal any evidence of pneumonia, blood culture is pending, echocardiogram is pending, sodium is up to 114 9 IV fluid change to half-normal saline, will check lactic acid. 09/16/2017 patient is confused. She states things like "did you know that I am ". Patient's son is at bedside patient does have some baseline confusion usually mostly short term memory loss. However, since she's been sick the confusion has worsened. Patient is lying in bed comfortably no evidence of distress. Earlier this morning per nursing staff patient was satting around 84% on 3 L and had to be increased to 5 L and was able to get into the 90s. Patient's white count is still elevated at 30.5. Infectious disease and pulmonary service are following. Repeat chest x-ray shows no acute changes. And for the screening negative. Patient denies any chest pain. Patient has been having some cough. Denies any nausea or vomiting no diarrhea. Patient did have one loose stool, but not watery. 09/17/2017 patient was transferred to the ICU yesterday afternoon for closer monitoring. She remains in the ICU. Case was discussed with pulmonary service in detail. Patient's white count has been decreased from 30.5-25.4 she's on 10 L oxygen satting at 95%. The exact source of infection is still unclear. She remains on Zosyn and vancomycin. Echocardiogram shows severe pulmonary hypertension and severe tricuspid regurgitation. CTA of the chest was negative for a PE did reveal atelectasis and a small right-sided pleural effusion. Moderate pericardial effusion and no evidence of pericarditis. Abdominal ultrasound showed no evidence of an acute cholecystitis. Did reveal cholelithiasis. Pulmonary service did order a dose of IV Lasix for her fluid overload. Infectious disease is also following. Urine output is adequate. Patient is still confused. 09/19/2017 nursing staff called and notified that patient had a massive bloody stool with large blood clots. Repeat hemoglobin check went up from 10.4-10.8. Patient was transferred to the ICU. Fluids were increased to 75 mL an hour. Patient was hypotensive earlier in the morning. Blood pressures are showing improvement. Case was discussed with construction project engineer Dr. Romo. GI service was consulted. They have Re: Evaluated patient and there is no plan for colonoscopy at this point. Patient's previous computed tomography scan of the abdomen had showed evidence of diverticulosis this possibly could be related to a diverticular bleed. Patient denies any abdominal pain no nausea or vomiting reported. Currently on 8 L of oxygen. White count 21.2 09/20/2017 patient currently in the ICU. She is doing well. No further bloody bowel movements today. Likely symptoms related to a diverticular bleed. Seen by GI service. No plans for endoscopy at this time. Patient on 10 L options a 96%. Hemoglobin at 10.1. 09/23/2017 patient had a drop in oxygen saturation to around 80%. Oxygen has been increased to 8 L satting around 92%. Patient also complaining of some hoarseness and postnasal drip. Flonase has been ordered. Chest x-ray has also been ordered. Patient denies any chest pain or shortness of breath. Has had no further episodes of bleeding in her stools. Diet will be advanced to regular diet. Patient also is very weak and is working with physical therapy 09/24/2017 patient still requiring 8 L of oxygen. Denies any shortness of breath. Repeat chest x-ray from this morning shows improved aeration of the right lung base on the liver remains a trace right pleural effusion on the bases of congestive heart failure and right basilar airspace disease. This is favored to represent atelectasis however pneumonia should be considered. Incentive spirometer has been ordered. She remains on antibiotics. Patient is reporting a mild cough. She did receive an extra dose of IV Lasix yesterday. White count has improved from 14-11.4. Patient did have a drop in her hemoglobin from 10.4-8.8. Nursing staff and family reported known bloody bowel movements. 09/26/2017 patient underwent a right-sided thoracentesis this morning she had 460 mL's removed. Follow-up chest x-ray shows no evidence of pneumothorax. Does show improvement in aeration of the right lung base after thoracentesis. Patient currently on 8 L. Pulmonary service following. Patient denies any chest pain or shortness of breath. She did have a bowel movement this morning no blood reported per nursing staff. Patient denies any nausea or vomiting. Denies any chest pain or shortness of breath. Patient had been complaining of some pain at the thoracentesis site. Ultram has been ordered. Objective - Vital Signs Vital signs: Vital Signs Temp 97.9 F 09/26/17 07:30 Pulse 91 09/26/17 09:20 Resp 18 09/26/17 09:20 BP 97/57 09/26/17 09:20 Pulse Ox 99 09/26/17 09:20 Intake & Output 09/25/17 09/26/17 09/26/17 18:59 06:59 18:59 Weight 46 kg Other: Voiding Method Diaper Diaper Diaper Incontinent Incontinent Incontinent # Voids 3 2 - Exam Head normocephalic Neck supple Lungs crackles at the bases bilaterally. Mild expiratory wheeze Heart regular rate and rhythm S1-S2, no rub or gallop Abdomen is soft nontender nondistended positive bowel sounds no hepatosplenomegaly Extremities no edema Neuro awake and alert but confused - Labs CBC & Chem 7: 09/26/17 06:55 09/26/17 06:55 Labs: Abnormal Lab Results - Last 24 Hours (Table) 09/25/17 09/25/17 09/26/17 Range/Units 06:55 13:35 06:55 WBC 10.7 H (3.8-10.6) k/uL RBC 3.61 L (3.80-5.40) m/uL Hgb 10.0 L (11.4-16.0) gm/dL Hct 31.6 L (34.0-46.0) % RDW 19.2 H (11.5-15.5) % Plt Count 540 H (150-450) k/uL Neutrophils # 8.6 H (1.3-7.7) k/uL INR 1.2 H (<1.2) Chloride (98-107) mmol/L Carbon Dioxide (22-30) mmol/L BUN (7-17) mg/dL Creatinine (0.52-1.04) mg/dL Glucose (74-99) mg/dL Lactate Dehydrogenase 693 H (313-618) U/L Total Protein 5.2 L (6.3-8.2) g/dL Albumin (3.5-5.0) g/dL // Range/Units 06:55 WBC (3.8-10.6) k/uL RBC (3.80-5.40) m/uL Hgb (11.4-16.0) gm/dL Hct (34.0-46.0) % RDW (11.5-15.5) % Plt Count (150-450) k/uL Neutrophils # (1.3-7.7) k/uL INR (<1.2) Chloride 97 L (98-107) mmol/L Carbon Dioxide 36 H (22-30) mmol/L BUN 27 H (7-17) mg/dL Creatinine 1.22 H (0.52-1.04) mg/dL Glucose 73 L (74-99) mg/dL Lactate Dehydrogenase (313-618) U/L Total Protein 5.0 L (6.3-8.2) g/dL Albumin 2.7 L (3.5-5.0) g/dL Assessment and Plan Assessment: #1 sepsis, initial site of infection is not clear, patient was partially treated with oral antibiotic as outpatient, blood culture negative. Urinalysis no evidence of UTI. Repeat chest x-ray no evidence of pneumonia. Patient remains on Zosyn and vancomycin. Infectious disease following closely. Blood cultures remain negative. Abdominal ultrasound showed no evidence of cholecystitis. Infectious disease following area did infectious disease felt symptoms could be related to diverticular disease. Infectious disease is recommending Augmentin for 1 week #2 acute on chronic hypoxic respiratory failure. No evidence of pneumonia. CT of the chest showed no evidence of a pulmonary embolism. Possibly related to her advanced COPD and pleural effusion #3 underlying history of COPD, at this time patient will be given DuoNeb updraft , no need for systemic steroids #4 severe pulmonary hypertension likely secondary to her COPD and exacerbated by her recent illness. Patient did receive a dose of IV Lasix yesterday. Has been started on oral Lasix 40 mg by mouth daily #5 underlying history of dementia maintained on Aricept and Namenda #6 hypernatremia improved. Sodium level has normalized #7 acute on chronic renal failure, stage III. #8 metabolic acidosis improved after sodium bicarb drip. Sodium bicarbonate drip discontinued by pulmonary service #9 metabolic encephalopathy secondary to her acute infection with underlying history of dementia #10 acute lower GI bleed: Likely related to a diverticular bleed. Patient seen by GI service. No plan for colonoscopy at this time. Aspirin and subcu heparin were discontinued yesterday. No further bloody bowel movements reported. Hemoglobin stable at 10. no further bloody stools #11 right-sided pleural effusion status post thoracentesis with 460 mL's removed. for GI prophylaxis patient on Pepcid for DVT prophylaxis patient place patient on SCDs Continue working with Physical therapy. Anticipate discharge to [facility] when medically stable I performed an examination of the patient and discussed their management with the physician Second Steward. I have reviewed the Physician Second Steward's notes and agree with the documented findings and plan of care
--- NOTE | 2017-09-26 12:06 | P.PN ---
Subjective Progress Note Date: 09/26/17 Principal diagnosis: Acute on chronic hypoxic respiratory failure. I'm seeing this 81-year-old female patient in follow-up and there is an obvious concern about her health in general as the patient comes in with altered mentation, hypoxic history failure with worsening in her oxygenation status as the patient has limited at least about 2 by nasal cannula and currently is up to 6 L in addition to leukocytosis and evolving metabolic acidosis. A septic workup has been completed and the patient is being seen by infectious disease. Cultures of been negative. The patient is slightly tachycardic. She has leukocytosis. D-dimer is positive. Echocardiogram shows severe pulmonary hypertension with a PA pressure estimated to be around 120 and there is also evidence of moderate mitral regurgitation, mild mitral stenosis, severe tricuspid regurgitation, severe pulmonary hypertension, small pericardial effusion, and dilated the right-sided cardiac structures. The left and ejection fraction is about 70%. The CAT scan of the abdomen revealed no acute abnormalities then some chronic interstitial changes in lung bases, small bilateral pleural effusion, small pericardial effusion, cholelithiasis and questionable thickening of the proximal small bowel/enteritis and nonobstructing 9 mm right lower pole renal calculus and complicated diverticulosis. There is also degenerative changes in the spine and Ventolin hernia containing fat only. Doppler of the lower extremities was negative. Patient has underlying dementia at baseline. On and off she sounds to be more confused. On today's evaluation of 09/17/2017 the patient is being seen in follow-up in the intensive care unit. She seems to be improved compared to yesterday. On and off she is still confused. No focal neurological deficits. Family is at the bedside. She is on 6 L of oxygen nasal cannula and she is also having some bibasilar crackles and for that reason I have suggested some diuresis. Meanwhile, the white cell count is improving is down to 25. He was dynamically stable. No pressors. The patient has not been found to have any source of an infection. She is afebrile. Ultrasound the gallbladder showed no evidence of any cholecystitis. The patient is cholelithiasis. Abnormalities in LFTs is probably related to right-sided failure. No evidence of any urine tract infection. No evidence of any blood infection. Doubt endocarditis. Echocardiogram showed severe pulmonary hypertension and evidence of right-sided heart failure probably related to chronic hypoxemia. CAT scan of the chest showed diffuse emphysema and small right-sided pleural effusion and compressive atelectasis of the right lung base and there was no evidence of any pulmonary embolism or filling defects. The patient is on DuoNeb nebulized treatments around the clock. The patient was given a dose of Lasix. The patient is on examination of Zosyn and vancomycin for now as an empiric antibiotic coverage. ID is on the case. On 09/18/2017 the patient is still in the intensive care unit. She is calm and comfortable. She is on and off confused and I think there is obvious component of dementia. According to the family she is more alert and awake compared to yesterday. Family is at the bedside. She is having no significant respiratory distress. Her pulse ox is 92% on 4 L of oxygen by nasal cannula and she baseline carries on 3 L of oxygen by nasal cannula. She has a congested cough. She was given another dose of Lasix today. She was given a dose yesterday and her net fluid balance has been negative over the past 24 hours. She denies having any chest pain. No shortness of breath. Her white cell count is down to 23. Her CAT scan of the chest showed no evidence of any pulmonary embolism and the patient had extensive emphysema, right-sided pleural effusion, right lower lobe compressive atelectasis. Renal function remains impaired with a creatinine of 1.6 and this is a chronic renal failure. She remains on a combination of Zosyn and vancomycin although there is no clear-cut infectious source for this patient. On 09/19/2017 the patient is being seen on a medical floor. Note that the patient was felt to be stable yesterday. Based on that I made recommendations to move this patient to a telemetry unit on a medical floor. Earlier this morning, I was informed by the nurses that the patient had a large bloody bowel movement. There was bright red blood with clots within the diaper in the bed. Despite this, the patient did not have any significant hypotension, tachycardia or any discomforts his chest pain or shortness of breath. Blood work is still pending for now. Meanwhile, the patient is currently on 6 L of oxygen nasal cannula. No major edema in lower extremities. No abdominal pain or distention. Mental status is off as the patient has an underlying component of dementia. White cell count is dropping. Cultures of been negative and the patient has been covered with a combination of Zosyn and vancomycin. Renal function is impaired as the patient has chronic renal failure. On 09/20/2017, the patient is stable. She got moved back to the intensive care unit as the patient was suspected to have ongoing GI bleed. Yesterday she had one bout of bloody bowel movement and she had to smaller episodes overnight. Her hemoglobin remains stable. This is suspected to be a diverticular bleed. No nausea. No vomiting. No abdominal pain. Mental status is appropriate this morning. She has underlying dementia. No significant respiratory distress. No cough or sputum production. The patient is still on 6 L/m nasal cannula to maintain saturation above 90%. Hemodynamically stable. IV fluids to kvo. The patient is seen again today 09/21/2017 in follow-up on the regular medical floor. She is currently sitting up in a chair at the bedside. She is awake and alert in no acute distress. She has not had any further GI bleeding. She is still requiring 8 L high flow nasal cannula to maintain O2 saturations greater than 90%. She denies any worsening shortness of breath, cough or congestion. He was positive for Lucero. Blood cultures reveal no growth. We cut has improved 18,000. Hemoglobin 9.4. Creatinine 1.33. She is continued on Zosyn. On 09/22/2017, the patient is still on oxygen at 6 L/m nasal cannula. No evidence of any GI bleeding. On and off confused secondary to underlying dementia. The patient has no respiratory distress. No cough or sputum production. No other complaints otherwise for the past 24 hours. While tach on is been gradually improving and the patient was switched to oral Augmentin. Reevaluated today on 09/23/2017, patient is now on high flow nasal cannula at 8 L , feeling better, occasional episodes of confusion related to underlying dementia. Patient does not seem to be in any respiratory distress, chest x-ray was reviewed and I recommended a dose of Lasix 40 mg IV push to be given once. I am still debating whether to proceed with a right-sided thoracentesis, however I have discussed her condition with the son at bedside, and recommended ultrasound to be of the chest to be done tomorrow if no improvement. May have to consider thoracentesis if her O2 sats saturation remains marginal. But that would all depend on the response to Lasix and on the follow-up ultrasound of the chest tomorrow. All labs were reviewed, BUN is 19 and creatinine is 1.20. On 09/24/2017 patient seen in follow-up on medical surgical floor, he is resting in bed, and her daughters at the bedside, patient is calm and comfortable, in no acute distress. His chest x-ray showed improved aeration of the right lung base and there is trace right pleural effusion on the bases of congestive heart failure and right basilar airspace disease likely to represent atelectasis. Ultrasound of the chest was obtained, and it showed right pleural effusion fluid pocket of 9 cm, and left pleural fluid pocket of 1.3 cm. WBC is trending down, down to 11.4, hemoglobin is 8.8, CO2 is 32, BUN is 22, creatinine is 1.25, patient is afebrile, denies any fever or chills, remains on 8 L per high flow nasal cannula with pulse ox of 93%. Patient was given a dose of IV Lasix yesterday, with subsequent improvement in aeration based on the chest x-ray results, she remains on oral Lasix of 40 mg daily, remains on oral Augmentin, and nebulized treatments. Blood cultures are negative to date, sputum culture just showed Lucero albicans likely contamination of oral ijeoma. Continue weaning oxygen, clinically patient is improving, denies any worsening shortness of breath cough or congestion. On 09/25/2017 patient seen in follow-up. Patient remains generally weak, incentive spirometry effort is 500-750 today, and patient becomes very fatigued with incentive spirometry exercises. Ultrasound the chest showed right pleural fluid pocket of 9 cm, and left pleural fluid 1.3 cm. Patient remains on 8 L per nasal cannula, with O2 saturation at 90%. Patient continues on oral Augmentin, oral Lasix, nebulized treatments. We will consult interventional radiology for ultrasound-guided thoracentesis. Consult physical therapy. Increase activity as tolerated, up in the chair. Patient will need outpatient rehab after discharge, and arrangements are being made for placement to [facility] The patient is seen again today 09/26/2017 in follow-up on the regular medical floor. She is currently awake and alert and resting comfortably in bed. She did undergo an ultrasound guided right-sided thoracentesis with approximately 460 mL of straw-colored fluid removed. Fluid was sent for analysis and pathology. Follow-up chest x-ray did reveal improved aeration in the right lung. No evidence of pneumothorax. She is still requiring high flow nasal cannula at 8 L/m per nasal cannula. We'll continue to titrate that down now. She has been afebrile. Hemodynamically stable. White count 10.7. Hemoglobin 10.0. Creatinine 1.22. Discharge planning is in place for [facility] for inpatient rehabilitation. Objective - Vital Signs Vital signs: Vital Signs Temp 97.9 F 09/26/17 07:30 Pulse 91 09/26/17 09:20 Resp 18 09/26/17 09:20 BP 97/57 09/26/17 09:20 Pulse Ox 99 09/26/17 09:20 Intake & Output 09/25/17 09/26/17 09/26/17 18:59 06:59 18:59 Weight 46 kg Other: Voiding Method Diaper Diaper Diaper Incontinent Incontinent Incontinent # Voids 3 2 - Exam Gen. appearance the patient is arousable and awake at times confused. A mild degree of respiratory distress even at rest. Examination of the neck reveals bilateral jugular venous distention. No neck masses. Neck is supple there is no lymphadenopathy and there is no cervical or supraclavicular lymphadenopathy. Mucous membranes are dry and there is no thrush. Head exam was generally normal. There was no scleral icterus or corneal arcus. Mucous membranes were moist. Lungs sounds are diminished bilaterally along with some limited bibasilar crackles. Breath sounds are diminished bilaterally and there is some scattered expiratory wheezes throughout the lung bosch. Heart sounds reveal accentuation of the second heart sound. No cervical murmurs appreciated. The patient is slightly tachycardic yet the rhythm seems to be sinus at this point. Abdominal exam revealed normal bowel sounds. The abdomen was soft, non-tender, and without masses, organomegaly, or appreciable enlargement of the abdominal aorta. Examination of the extremities revealed easily palpable radial, femoral and pedal pulses. There was no cyanosis, clubbing or edema. Examination of the skin revealed no evidence of significant rashes, suspicious appearing nevi or other concerning lesions. Neurologically the patient is neurologic exam is nonfocal. The patient will go 4 extremities without any limitation. No cranial nerve deficits. The patient is on off confused and she has memory problems specially with short-term memory. She was unable to tell me what. Her breakfast. This morning however she was able to recall the year - Labs CBC & Chem 7: 09/26/17 06:55 09/26/17 06:55 Labs: Abnormal Lab Results - Last 24 Hours (Table) 09/25/17 09/25/17 09/26/17 Range/Units 06:55 13:35 06:55 WBC 10.7 H (3.8-10.6) k/uL RBC 3.61 L (3.80-5.40) m/uL Hgb 10.0 L (11.4-16.0) gm/dL Hct 31.6 L (34.0-46.0) % RDW 19.2 H (11.5-15.5) % Plt Count 540 H (150-450) k/uL Neutrophils # 8.6 H (1.3-7.7) k/uL INR 1.2 H (<1.2) Chloride (98-107) mmol/L Carbon Dioxide (22-30) mmol/L BUN (7-17) mg/dL Creatinine (0.52-1.04) mg/dL Glucose (74-99) mg/dL Lactate Dehydrogenase 693 H (313-618) U/L Total Protein 5.2 L (6.3-8.2) g/dL Albumin (3.5-5.0) g/dL 09/26/17 Range/Units 06:55 WBC (3.8-10.6) k/uL RBC (3.80-5.40) m/uL Hgb (11.4-16.0) gm/dL Hct (34.0-46.0) % RDW (11.5-15.5) % Plt Count (150-450) k/uL Neutrophils # (1.3-7.7) k/uL INR (<1.2) Chloride 97 L (98-107) mmol/L Carbon Dioxide 36 H (22-30) mmol/L BUN 27 H (7-17) mg/dL Creatinine 1.22 H (0.52-1.04) mg/dL Glucose 73 L (74-99) mg/dL Lactate Dehydrogenase (313-618) U/L Total Protein 5.0 L (6.3-8.2) g/dL Albumin 2.7 L (3.5-5.0) g/dL Assessment and Plan Assessment: Assessment 1 acute on chronic hypoxic history failure with worsening in her oxygenation and the patient is currently requiring high flow oxygen 8 L/m nasal cannula. No clear indication of an underlying pneumonia. The patient had a CT angios the chest that showed no evidence of any pulmonary embolism. Has advanced COPD and emphysema. She did undergo a right-sided thoracentesis with 460 mL's of straw colored fluid removed. Analysis pending. 2 severe pulmonary hypertension, most likely chronic in nature and a CT angios the chest showed no pulmonary embolism. 3 COPD with chronic hypoxic respiratory failure maintained on 3 L of oxygen at baseline 4 leukocytosis, improving and the white cell count is down to 18,000 and there is no indication of an underlying sepsis. The patient was treated with a combination of Zosyn nd vancomycin. The vancomycin was discontinued and the patient remains on Zosyn. 5 mild anion gap metabolic acidosis with some lactic acidosis at the time of admission , recovered completely 6 dementia with episodes of altered mentation, episodic 7.generalized weakness 8 acute versus chronic renal insufficiency, probably stage II to 3 chronic kidney failure 9 small bilateral pleural effusion 10 nephrolithiasis 11 degenerative arthritis 12 cholelithiasis without evidence of any cholecystitis 13 acute GI bleed, likely of a lower GI source as the patient had bloody bright red bowel movement with clots. The patient was asymptomatic. Repeat hemoglobin showed no significant drop and the patient remains hemodynamically stable and no plans to undergo any interventions at this point in time. Plan The patient was seen and evaluated by Dr. Waldron. Postthoracentesis x-ray reviewed. She has been slow to progress. We'll continue with her current treatment plan. Continue to titrate down the FiO2 as tolerated. Overall prognosis remains quite guarded. We'll continue to follow make further recommendations based on her clinical status. I, the cosigning physician, performed a history & physical examination of the patient. Lungs sounds few scattered rhonchi. Diminished. Maintaining good O2 saturations in the 90s on 8 L high flow nasal cannula. I discussed the assessment and plan of care with my nurse practitioner, Dulce Maria El. I attest to the above note as dictated by her.
[2017-09-26] MEDS: MULTIVITAMINS, THERA 1 EACH TAB PO SCH (12:47)
[2017-09-26 13:42] LABS: Appearance,BF Hazy; Color,BF Yellow; Nucleated Cells, Body Fluid 117 /uL; RBC, Body Fluid 522 /uL
[2017-09-26 13:45] LABS: Mononuclear WBC,Body Fluid 96 %; Polynuclear WBC,Body Fluid 4 %; Total Cells Counted,Body Fluid 100
--- NOTE | 2017-09-26 15:30 | NM ---
EXAMINATION TYPE: NM pul vent and perfuse DATE OF EXAM: 09/26/2017 COMPARISON: Chest x-ray earlier today. CTA chest 10 days ago. HISTORY: Confusion and shortness of breath rule out pulmonary embolism TECHNIQUE: Utilizing inhalation of 65.4 mCi Tc 99m DTPA aerosol and intravenous injection of 5.1 mCi of Tc 99m MAA, ventilation and perfusion images are acquired post injection in multiple projections. FINDINGS: Central clumping consistent with underlying COPD is noted on ventilation images. There are some small matching defects. There is no evidence of mismatched defects. IMPRESSION: Low scintigraphic evidence for pulmonary embolism.
[2017-09-26 18:00] LABS: Total Protein, Body Fluid 1360 mg/dL
--- NOTE | 2017-09-26 21:03 | PN ---
PROGRESS NOTE DATE OF SERVICE: 09/26/2017. REASON FOR FOLLOWUP: Leukocytosis, likely abdominal source. INTERVAL HISTORY: The patient is afebrile. The patient is status post thoracocentesis done today. The patient has tolerated the procedure, complaining of some shortness of breath. No chest pain. No cough. No abdominal pain or any diarrhea has been noticed. EXAMINATION: Blood pressure 99/60 with a pulse of 89, temperature 97. She is 94% on 5L high-flow oxygen. General description is an elderly female up in the bed in no distress. RESPIRATORY SYSTEM: Unlabored breathing. Clear to auscultation anteriorly. HEART: S1, S2. Regular rate and rhythm. ABDOMEN: Soft. No tenderness. LABS: Hemoglobin is 10 with a white count of 10.7, BUN of 27, creatinine is 1.22. DIAGNOSTIC IMPRESSION AND PLAN: Patient with leukocytosis, source is likely abdomen. The patient did have evidence of diverticular bleed that has resolved. Currently on oral only Augmentin for a few days. White count has normalized and no other clinical focus of infection. Son was present at the bedside. Questions were answered. MMODL / IJN: [id number] /
[2017-09-27] MEDS: FUROSEMIDE 40 MG TAB PO SCH (08:08)
[2017-09-27] MEDS: MECLIZINE 12.5 MG TAB PO SCH (08:08)
[2017-09-27] MEDS: FLUTICASONE 50MCG/SPRAY NASAL 16GM EA NOSTRIL SCH (08:08)
[2017-09-27] MEDS: SPIRONOLACTONE 25 MG TAB PO SCH (08:08)
[2017-09-27] MEDS: FAMOTIDINE 20 MG TAB PO SCH (08:08)
[2017-09-27] MEDS: MULTIVITAMINS, THERA 1 EACH TAB PO SCH (08:08)
[2017-09-27] MEDS: AMOXIC-POT CLAV 500-125 MG 1 EACH TAB PO SCH (08:08)
[2017-09-27] MEDS: MEMANTINE 10 MG TAB PO SCH ×2 (08:08→22:02)
[2017-09-27] MEDS: DONEPEZIL 10 MG TAB PO SCH (08:08)
[2017-09-27 08:42] LABS: Anisocytosis Slight; Basophils # (A) 0.1 k/uL (0-0.2); Basophils % (A) 0 %; Eosinophils # (A) 0.4 k/uL (0-0.7); Eosinophils % (A) 3 %; HCT 36.6 % (34.0-46.0); HGB 11.5 gm/dL (11.4-16.0); Hypochromasia Slight; Lymphocytes % (A) 8 %; MCH 27.9 pg (25.0-35.0); MCHC 31.4 g/dL (31.0-37.0); MCV 88.7 fL (80.0-100.0); Mean Platelet Volume 7.2; Monocytes # (A) 0.5 k/uL (0-1.0); Monocytes % (A) 4 %; Neutrophils # (A) 9.8 k/uL (1.3-7.7); Neutrophils % (A) 83 %; Platelet Count 509 k/uL (150-450); RBC 4.13 m/uL (3.80-5.40); WBC 11.8 k/uL (3.8-10.6)
[2017-09-27 08:53] LABS: Calcium 9.1 mg/dL (8.4-10.2); Potassium 4.3 mmol/L (3.5-5.1); Total Bilirubin 0.4 mg/dL (0.2-1.3); Total Protein 5.7 g/dL (6.3-8.2)
[2017-09-27] MEDS: IPRATROPIUM-ALBUTEROL 3 ML NEB INHALATION SCH ×3 (09:03→19:18)
--- NOTE | 2017-09-27 11:10 | P.PN ---
Subjective Progress Note Date: 09/27/17 Brenda Dave is an 81-year-old female, patient of [facility], who presented to [facility] emergency room with a chief complaint of generalized weakness, daughter states that patient was seen at [facility] one week ago, she was given an antibiotic for presumed urinary tract infection, however her condition continued to worsen, she was seen by her visiting nurse and was advised to come to emergency room. Patient was evaluated by Dr. Brown in the emergency room, she had evidence of sepsis with hypotension, tachycardia, and leukocytosis, also d-dimer was elevated at 5.64, she was admitted to telemetry floor, she was started on IV antibiotic and IV fluid. Bilateral lower extremity Doppler was done and was negative for DVT, VQ scan was done and was low probability for pulmonary embolism. On 09/15/2017 patient is alert and oriented 3 in no apparent distress, she is complaining of feeling cold and having shaking chills, otherwise no complaints, patient has tachycardia, and has evidence sepsis, with leukocytosis white blood count still at 30,000, primary site of infection is still unclear she is complaining of cough, chest x-ray did not reveal any evidence of pneumonia, blood culture is pending, echocardiogram is pending, sodium is up to 114 9 IV fluid change to half-normal saline, will check lactic acid. 09/16/2017 patient is confused. She states things like "did you know that I am ". Patient's son is at bedside patient does have some baseline confusion usually mostly short term memory loss. However, since she's been sick the confusion has worsened. Patient is lying in bed comfortably no evidence of distress. Earlier this morning per nursing staff patient was satting around 84% on 3 L and had to be increased to 5 L and was able to get into the 90s. Patient's white count is still elevated at 30.5. Infectious disease and pulmonary service are following. Repeat chest x-ray shows no acute changes. And for the screening negative. Patient denies any chest pain. Patient has been having some cough. Denies any nausea or vomiting no diarrhea. Patient did have one loose stool, but not watery. 09/17/2017 patient was transferred to the ICU yesterday afternoon for closer monitoring. She remains in the ICU. Case was discussed with pulmonary service in detail. Patient's white count has been decreased from 30.5-25.4 she's on 10 L oxygen satting at 95%. The exact source of infection is still unclear. She remains on Zosyn and vancomycin. Echocardiogram shows severe pulmonary hypertension and severe tricuspid regurgitation. CTA of the chest was negative for a PE did reveal atelectasis and a small right-sided pleural effusion. Moderate pericardial effusion and no evidence of pericarditis. Abdominal ultrasound showed no evidence of an acute cholecystitis. Did reveal cholelithiasis. Pulmonary service did order a dose of IV Lasix for her fluid overload. Infectious disease is also following. Urine output is adequate. Patient is still confused. On 09/18/2017 patient is more alert she denies any pain or discomfort she was seen and examined in the intensive care unit there is no fever or chills no headache no dizziness no chest pain, shortness of breath is improving, still complaining of cough, no nausea or vomiting no abdominal pain no diarrhea and no urinary symptoms. 09/19/2017 nursing staff called and notified that patient had a massive bloody stool with large blood clots. Repeat hemoglobin check went up from 10.4-10.8. Patient was transferred to the ICU. Fluids were increased to 75 mL an hour. Patient was hypotensive earlier in the morning. Blood pressures are showing improvement. Case was discussed with parks recreation coordinator Dr. Romo. GI service was consulted. They have Re: Evaluated patient and there is no plan for colonoscopy at this point. Patient's previous computed tomography scan of the abdomen had showed evidence of diverticulosis this possibly could be related to a diverticular bleed. Patient denies any abdominal pain no nausea or vomiting reported. Currently on 8 L of oxygen. White count 21.2 09/20/2017 patient currently in the ICU. She is doing well. No further bloody bowel movements today. Likely symptoms related to a diverticular bleed. Seen by GI service. No plans for endoscopy at this time. Patient on 10 L options a 96%. Hemoglobin at 10.1. 09/23/2017 patient had a drop in oxygen saturation to around 80%. Oxygen has been increased to 8 L satting around 92%. Patient also complaining of some hoarseness and postnasal drip. Flonase has been ordered. Chest x-ray has also been ordered. Patient denies any chest pain or shortness of breath. Has had no further episodes of bleeding in her stools. Diet will be advanced to regular diet. Patient also is very weak and is working with physical therapy 09/24/2017 patient still requiring 8 L of oxygen. Denies any shortness of breath. Repeat chest x-ray from this morning shows improved aeration of the right lung base on the liver remains a trace right pleural effusion on the bases of congestive heart failure and right basilar airspace disease. This is favored to represent atelectasis however pneumonia should be considered. Incentive spirometer has been ordered. She remains on antibiotics. Patient is reporting a mild cough. She did receive an extra dose of IV Lasix yesterday. White count has improved from 14-11.4. Patient did have a drop in her hemoglobin from 10.4-8.8. Nursing staff and family reported known bloody bowel movements. On 09/25/2017 patient is alert slightly confused in no apparent distress, she is still requiring 8 L of oxygen nasal cannula, oxygen saturation is 90%, she was seen by pulmonary and there are no plans for thoracentesis at this time, otherwise patient is complaining of fatigue no other complaints, there is occasional cough but no chest pain, no nausea or vomiting no abdominal pain no diarrhea and no urinary symptoms. 09/26/2017 patient underwent a right-sided thoracentesis this morning she had 460 mL's removed. Follow-up chest x-ray shows no evidence of pneumothorax. Does show improvement in aeration of the right lung base after thoracentesis. Patient currently on 8 L. Pulmonary service following. Patient denies any chest pain or shortness of breath. She did have a bowel movement this morning no blood reported per nursing staff. Patient denies any nausea or vomiting. Denies any chest pain or shortness of breath. Patient had been complaining of some pain at the thoracentesis site. Ultram has been ordered. On 09/27/2017 patient is alert and responsive in no apparent distress she is still requiring 6 L of oxygen nasal cannula to keep her oxygen saturation at 90 % she is resting comfortably in bed without any complaints at this time there is no fever or chills no headache or dizziness she has occasional cough no chest pain no shortness of breath at rest no nausea or vomiting no abdominal pain no diarrhea and no urinary symptoms. Objective - Vital Signs Vital signs: Vital Signs Temp 98.0 F 09/27/17 07:54 Pulse 89 09/27/17 07:54 Resp 16 09/27/17 07:54 BP 108/56 09/27/17 07:54 Pulse Ox 90 L 09/27/17 07:54 Intake & Output 09/26/17 09/27/17 09/27/17 18:59 06:59 18:59 Other: Voiding Method Diaper Diaper Diaper Incontinent Incontinent Incontinent # Voids 3 2 # Bowel Movements 2 - Exam In general patient is alert, slightly confused in no apparent distress HEENT head normocephalic and atraumatic Neck is supple no JVD no goiter no lymphadenopathy Chest exam reveals a few scattered rhonchi no wheezing Cardiac exam reveals regular heart sounds S1 and S2 no gallops no murmurs Abdomen is soft nontender no organomegaly with normal bowel sounds Extremity exam reveals no edema no cyanosis or clubbing - Labs CBC & Chem 7: 09/27/17 07:48 09/27/17 07:48 Labs: Abnormal Lab Results - Last 24 Hours (Table) 09/27/17 09/27/17 Range/Units 07:48 07:48 WBC 11.8 H (3.8-10.6) k/uL RDW 19.0 H (11.5-15.5) % Plt Count 509 H (150-450) k/uL Neutrophils # 9.8 H (1.3-7.7) k/uL Chloride 95 L (98-107) mmol/L Carbon Dioxide 38 H (22-30) mmol/L BUN 29 H (7-17) mg/dL Creatinine 1.41 H (0.52-1.04) mg/dL Total Protein 5.7 L (6.3-8.2) g/dL Albumin 3.0 L (3.5-5.0) g/dL Microbiology - Last 24 Hours (Table) 09/26/17 09:00 Gram Stain - Preliminary Pleural Fluid Body Fluid Culture - Preliminary 09/26/17 09:00 Anaerobic Culture - Preliminary Pleural Fluid Assessment and Plan Plan: #1 sepsis, initial site of infection is not clear, patient was partially treated with oral antibiotic as outpatient, blood culture negative. Urinalysis no evidence of UTI. Repeat chest x-ray no evidence of pneumonia. Patient remains on Zosyn and vancomycin. Infectious disease following closely. Blood cultures remain negative. Abdominal ultrasound showed no evidence of cholecystitis. Infectious disease following area did infectious disease felt symptoms could be related to diverticular disease. Infectious disease is recommending Augmentin for 1 week #2 acute on chronic hypoxic respiratory failure. No evidence of pneumonia. CT of the chest showed no evidence of a pulmonary embolism. Possibly related to her advanced COPD and pleural effusion #3 underlying history of COPD, at this time patient will be given DuoNeb updraft , no need for systemic steroids #4 severe pulmonary hypertension likely secondary to her COPD and exacerbated by her recent illness. Patient did receive a dose of IV Lasix yesterday. Has been started on oral Lasix 40 mg by mouth daily #5 underlying history of dementia maintained on Aricept and Namenda #6 hypernatremia improved. Sodium level has normalized #7 acute on chronic renal failure, stage III. #8 metabolic acidosis improved after sodium bicarb drip. Sodium bicarbonate drip discontinued by pulmonary service #9 metabolic encephalopathy secondary to her acute infection with underlying history of dementia #10 acute lower GI bleed: Likely related to a diverticular bleed. Patient seen by GI service. No plan for colonoscopy at this time. Aspirin and subcu heparin were discontinued yesterday. No further bloody bowel movements reported. Hemoglobin stable at 10. no further bloody stools #11 right-sided pleural effusion status post thoracentesis with 460 mL's removed. for GI prophylaxis patient on Pepcid for DVT prophylaxis patient place patient on SCDs Continue working with Physical therapy. Anticipate discharge to [facility] when medically stable, patient still has significant oxygen requirement and is not medically stable. For discharge.
[2017-09-27 13:31] LABS: Glucose,Whole Blood 129 mg/dL (75-99)
--- NOTE | 2017-09-27 15:09 | XR ---
EXAMINATION TYPE: XR chest 1V DATE OF EXAM: 09/27/2017 COMPARISON: 09/16/2017 HISTORY: Aspiration, shortness of breath, and hypoxia. TECHNIQUE: Single frontal view of the chest is obtained. FINDINGS: There is a new right small pleural effusion, right basilar airspace disease, and left basi lar airspace disease. Mild interstitial prominence and pulmonary vascular congestion are similar to t he prior. Heart is enlarged. Left-sided arthroplasty is identified. Osseous demineralization is gener alized. IMPRESSION: New right basilar small pleural effusions and bibasilar airspace disease. Given history of aspiration, aspiration pneumonia should be considered. Additionally there is mild decompensated co ngestive heart failure with pulmonary vascular congestion and cardiomegaly.
--- NOTE | 2017-09-27 15:13 | P.PN ---
Subjective Progress Note Date: 09/27/17 Principal diagnosis: Acute on chronic hypoxic respiratory failure secondary to COPD and small right- sided pleural effusion I'm seeing this 81-year-old female patient in follow-up and there is an obvious concern about her health in general as the patient comes in with altered mentation, hypoxic history failure with worsening in her oxygenation status as the patient has limited at least about 2 by nasal cannula and currently is up to 6 L in addition to leukocytosis and evolving metabolic acidosis. A septic workup has been completed and the patient is being seen by infectious disease. Cultures of been negative. The patient is slightly tachycardic. She has leukocytosis. D-dimer is positive. Echocardiogram shows severe pulmonary hypertension with a PA pressure estimated to be around 120 and there is also evidence of moderate mitral regurgitation, mild mitral stenosis, severe tricuspid regurgitation, severe pulmonary hypertension, small pericardial effusion, and dilated the right-sided cardiac structures. The left and ejection fraction is about 70%. The CAT scan of the abdomen revealed no acute abnormalities then some chronic interstitial changes in lung bases, small bilateral pleural effusion, small pericardial effusion, cholelithiasis and questionable thickening of the proximal small bowel/enteritis and nonobstructing 9 mm right lower pole renal calculus and complicated diverticulosis. There is also degenerative changes in the spine and Ventolin hernia containing fat only. Doppler of the lower extremities was negative. Patient has underlying dementia at baseline. On and off she sounds to be more confused. On today's evaluation of 09/17/2017 the patient is being seen in follow-up in the intensive care unit. She seems to be improved compared to yesterday. On and off she is still confused. No focal neurological deficits. Family is at the bedside. She is on 6 L of oxygen nasal cannula and she is also having some bibasilar crackles and for that reason I have suggested some diuresis. Meanwhile, the white cell count is improving is down to 25. He was dynamically stable. No pressors. The patient has not been found to have any source of an infection. She is afebrile. Ultrasound the gallbladder showed no evidence of any cholecystitis. The patient is cholelithiasis. Abnormalities in LFTs is probably related to right-sided failure. No evidence of any urine tract infection. No evidence of any blood infection. Doubt endocarditis. Echocardiogram showed severe pulmonary hypertension and evidence of right-sided heart failure probably related to chronic hypoxemia. CAT scan of the chest showed diffuse emphysema and small right-sided pleural effusion and compressive atelectasis of the right lung base and there was no evidence of any pulmonary embolism or filling defects. The patient is on DuoNeb nebulized treatments around the clock. The patient was given a dose of Lasix. The patient is on examination of Zosyn and vancomycin for now as an empiric antibiotic coverage. ID is on the case. On 09/18/2017 the patient is still in the intensive care unit. She is calm and comfortable. She is on and off confused and I think there is obvious component of dementia. According to the family she is more alert and awake compared to yesterday. Family is at the bedside. She is having no significant respiratory distress. Her pulse ox is 92% on 4 L of oxygen by nasal cannula and she baseline carries on 3 L of oxygen by nasal cannula. She has a congested cough. She was given another dose of Lasix today. She was given a dose yesterday and her net fluid balance has been negative over the past 24 hours. She denies having any chest pain. No shortness of breath. Her white cell count is down to 23. Her CAT scan of the chest showed no evidence of any pulmonary embolism and the patient had extensive emphysema, right-sided pleural effusion, right lower lobe compressive atelectasis. Renal function remains impaired with a creatinine of 1.6 and this is a chronic renal failure. She remains on a combination of Zosyn and vancomycin although there is no clear-cut infectious source for this patient. On 09/19/2017 the patient is being seen on a medical floor. Note that the patient was felt to be stable yesterday. Based on that I made recommendations to move this patient to a telemetry unit on a medical floor. Earlier this morning, I was informed by the nurses that the patient had a large bloody bowel movement. There was bright red blood with clots within the diaper in the bed. Despite this, the patient did not have any significant hypotension, tachycardia or any discomforts his chest pain or shortness of breath. Blood work is still pending for now. Meanwhile, the patient is currently on 6 L of oxygen nasal cannula. No major edema in lower extremities. No abdominal pain or distention. Mental status is off as the patient has an underlying component of dementia. White cell count is dropping. Cultures of been negative and the patient has been covered with a combination of Zosyn and vancomycin. Renal function is impaired as the patient has chronic renal failure. On 09/20/2017, the patient is stable. She got moved back to the intensive care unit as the patient was suspected to have ongoing GI bleed. Yesterday she had one bout of bloody bowel movement and she had to smaller episodes overnight. Her hemoglobin remains stable. This is suspected to be a diverticular bleed. No nausea. No vomiting. No abdominal pain. Mental status is appropriate this morning. She has underlying dementia. No significant respiratory distress. No cough or sputum production. The patient is still on 6 L/m nasal cannula to maintain saturation above 90%. Hemodynamically stable. IV fluids to kvo. The patient is seen again today 09/21/2017 in follow-up on the regular medical floor. She is currently sitting up in a chair at the bedside. She is awake and alert in no acute distress. She has not had any further GI bleeding. She is still requiring 8 L high flow nasal cannula to maintain O2 saturations greater than 90%. She denies any worsening shortness of breath, cough or congestion. He was positive for Lucero. Blood cultures reveal no growth. We cut has improved 18,000. Hemoglobin 9.4. Creatinine 1.33. She is continued on Zosyn. On 09/22/2017, the patient is still on oxygen at 6 L/m nasal cannula. No evidence of any GI bleeding. On and off confused secondary to underlying dementia. The patient has no respiratory distress. No cough or sputum production. No other complaints otherwise for the past 24 hours. While tach on is been gradually improving and the patient was switched to oral Augmentin. Reevaluated today on 09/23/2017, patient is now on high flow nasal cannula at 8 L , feeling better, occasional episodes of confusion related to underlying dementia. Patient does not seem to be in any respiratory distress, chest x-ray was reviewed and I recommended a dose of Lasix 40 mg IV push to be given once. I am still debating whether to proceed with a right-sided thoracentesis, however I have discussed her condition with the son at bedside, and recommended ultrasound to be of the chest to be done tomorrow if no improvement. May have to consider thoracentesis if her O2 sats saturation remains marginal. But that would all depend on the response to Lasix and on the follow-up ultrasound of the chest tomorrow. All labs were reviewed, BUN is 19 and creatinine is 1.20. On 09/24/2017 patient seen in follow-up on medical surgical floor, he is resting in bed, and her daughters at the bedside, patient is calm and comfortable, in no acute distress. His chest x-ray showed improved aeration of the right lung base and there is trace right pleural effusion on the bases of congestive heart failure and right basilar airspace disease likely to represent atelectasis. Ultrasound of the chest was obtained, and it showed right pleural effusion fluid pocket of 9 cm, and left pleural fluid pocket of 1.3 cm. WBC is trending down, down to 11.4, hemoglobin is 8.8, CO2 is 32, BUN is 22, creatinine is 1.25, patient is afebrile, denies any fever or chills, remains on 8 L per high flow nasal cannula with pulse ox of 93%. Patient was given a dose of IV Lasix yesterday, with subsequent improvement in aeration based on the chest x-ray results, she remains on oral Lasix of 40 mg daily, remains on oral Augmentin, and nebulized treatments. Blood cultures are negative to date, sputum culture just showed Lucero albicans likely contamination of oral ijeoma. Continue weaning oxygen, clinically patient is improving, denies any worsening shortness of breath cough or congestion. On 09/25/2017 patient seen in follow-up. Patient remains generally weak, incentive spirometry effort is 500-750 today, and patient becomes very fatigued with incentive spirometry exercises. Ultrasound the chest showed right pleural fluid pocket of 9 cm, and left pleural fluid 1.3 cm. Patient remains on 8 L per nasal cannula, with O2 saturation at 90%. Patient continues on oral Augmentin, oral Lasix, nebulized treatments. We will consult interventional radiology for ultrasound-guided thoracentesis. Consult physical therapy. Increase activity as tolerated, up in the chair. Patient will need outpatient rehab after discharge, and arrangements are being made for placement to [facility] The patient is seen again today 09/26/2017 in follow-up on the regular medical floor. She is currently awake and alert and resting comfortably in bed. She did undergo an ultrasound guided right-sided thoracentesis with approximately 460 mL of straw-colored fluid removed. Fluid was sent for analysis and pathology. Follow-up chest x-ray did reveal improved aeration in the right lung. No evidence of pneumothorax. She is still requiring high flow nasal cannula at 8 L/m per nasal cannula. We'll continue to titrate that down now. She has been afebrile. Hemodynamically stable. White count 10.7. Hemoglobin 10.0. Creatinine 1.22. Discharge planning is in place for [facility] for inpatient rehabilitation. On 09/27/2017 patient was seen and examined again on the regular medical surgical floor. Patient is status post US guided right thoracentesis, cytology is pending, but the pleural fluid analysis is positive for transudative fluid, consistent with congestive heart failure. Overall patient is very weak, she is working on her incentive spirometry, and is able to achieve 500 on today. At the time of our evaluation patient was sitting in the chair, quite fatigued, when suddenly she was noted to go unresponsive, had vomited, this was witnessed by her daughter who immediately called us for help. Patient was placed in bed, there was emesis noted, patient started coming to, she was encouraged to cough, her oral pharynx was gently suctioned. She had briefly desaturated down to 56% , was placed on the 100% nonrebreather, and had subsequently recovered after being encouraged to take deep breaths and coughing. No evidence of acute bronchospasm was noted. Patient quickly recovered in the matter of a few minutes, vital signs were stable. Chest x-ray was ordered, patient was given a nebulized treatment. This episode was thought to be due to vasovagal episode possibly due to vomiting. Mental status was back to baseline, patient answering questions, although appears very weak and tired. She was transferred to the intensive care for further monitoring, chest x-ray was obtained, and the film was reviewed by Dr. Daly, it showed chronic emphysematous changes, with small bilateral pleural effusions and slightly increased interstitial prominence. Patient was seen in the ICU and her FiO2 had been weaned down to 8 L with a pulse ox of 95%. She denied worsening dyspnea, she appears to be calm and comfortable, awake and alert, oriented times 2, to person and place, vital signs are stable, no hemodynamic issues at this time. CODE STATUS was discussed with the daughter, who stated that at this time the family wishes to remain with a full code, in view of this issue never being discussed with the patient. Objective - Vital Signs Vital signs: Vital Signs Temp 98.0 F 09/27/17 07:54 Pulse 92 09/27/17 12:08 Resp 16 09/27/17 07:54 BP 108/56 09/27/17 07:54 Pulse Ox 90 L 09/27/17 07:54 Intake & Output 09/26/17 09/27/17 09/27/17 18:59 06:59 18:59 Other: Voiding Method Diaper Diaper Diaper Incontinent Incontinent Incontinent # Voids 3 2 # Bowel Movements 2 - Exam Gen. Revealed an 81-year-old female currently in the intensive care, was briefly placed on 100% nonrebreather after an acute episode of what thought to be vasovagal stimulation, respiratory difficulty after vomiting. Currently on 8 L per nasal cannula, she is calm and comfortable, in no acute distress Examination of the neck reveals bilateral jugular venous distention. This is also noted that third-degree bed elevation. No neck masses. Neck is supple there is no lymphadenopathy and there is no cervical or supraclavicular lymphadenopathy. Mucous membranes are dry and there is no thrush. Head exam was generally normal. There was no scleral icterus or corneal arcus. Mucous membranes were moist. Lungs sounds are diminished bilaterally along with some limited bibasilar crackles. Breath sounds are diminished bilaterally Heart sounds reveal accentuation of the second heart sound. No cervical murmurs appreciated. The patient is slightly tachycardic yet the rhythm seems to be sinus at this point. Abdominal exam revealed normal bowel sounds. The abdomen was soft, non-tender, and without masses, organomegaly, or appreciable enlargement of the abdominal aorta. Examination of the extremities revealed easily palpable radial, femoral and pedal pulses. There was no cyanosis, clubbing or edema. Examination of the skin revealed no evidence of significant rashes, suspicious appearing nevi or other concerning lesions. Neurologically the patient is neurologic exam is nonfocal. The patient will go 4 extremities without any limitation. No cranial nerve deficits. The patient is on off confused and she has memory problems specially with short-term memory. - Labs CBC & Chem 7: 09/27/17 07:48 09/27/17 07:48 Labs: Abnormal Lab Results - Last 24 Hours (Table) 09/27/17 09/27/17 Range/Units 07:48 07:48 WBC 11.8 H (3.8-10.6) k/uL RDW 19.0 H (11.5-15.5) % Plt Count 509 H (150-450) k/uL Neutrophils # 9.8 H (1.3-7.7) k/uL Chloride 95 L (98-107) mmol/L Carbon Dioxide 38 H (22-30) mmol/L BUN 29 H (7-17) mg/dL Creatinine 1.41 H (0.52-1.04) mg/dL Total Protein 5.7 L (6.3-8.2) g/dL Albumin 3.0 L (3.5-5.0) g/dL Microbiology - Last 24 Hours (Table) 09/26/17 09:00 Gram Stain - Preliminary Pleural Fluid Body Fluid Culture - Preliminary 09/26/17 09:00 Anaerobic Culture - Preliminary Pleural Fluid Assessment and Plan Plan: Assessment: 1 acute on chronic hypoxic history failure with worsening in her oxygenation and the patient is currently requiring high flow oxygen 8 L/m nasal cannula. No clear indication of an underlying pneumonia. The patient had a CT angios the chest that showed no evidence of any pulmonary embolism. His advanced COPD and emphysema and small right-sided pleural effusion and compressive atelectasis of the right lung base. We repeated the VQ scan on 09/27/2017 which showed low probability of pulmonary embolism. Overall oxygenation remains poor. Patient had an episode of vomiting, respiratory distress related to a vasovagal stimulation, patient was transferred to the intensive care on 100% nonrebreather this afternoon on 09/27/2017 2 severe pulmonary hypertension, most likely chronic in nature and a CT angios the chest showed no pulmonary embolism. 3 COPD with chronic hypoxic respiratory failure maintained on 8 L of oxygen . Normally patient is on 3 L at home 4 leukocytosis, improving and the white cell count is down to 11.8 without any source of an infection, patient was placed on empiric antibiotic in the form of Augmentin, and pleural fluid cultures are pending at this time, blood cultures have been negative since admission, sputum culture was only positive for Lucero , likely due to oral contamination 5 mild anion gap metabolic acidosis with some lactic acidosis at the time of admission , recovered completely 6 dementia with episodes of altered mentation, episodic 7.generalized weakness 8 acute versus chronic renal insufficiency, probably stage II to 3 chronic kidney failure 9 small bilateral pleural effusion 10 nephrolithiasis 11 degenerative arthritis 12 cholelithiasis without evidence of any cholecystitis 13 acute GI bleed, likely of a lower GI source as the patient had bloody bright red bowel movement with clots. The patient was asymptomatic. The patient's hemoglobin is stable and the patient does not have any further bleeding episodes. Plan: Pleural fluid analysis reveals transudate of pleural fluid consistent with congestive heart failure. Cytology is pending. Patient had an acute episode of respiratory distress due to vomiting, possible aspiration, decreased mentation, and desaturation. Patient was placed on 100% nonrebreather, she still has an effective cough, was able to cough, no evidence of acute bronchospasm was noted, her chest x-ray post episode revealed recurrence of bilateral pleural effusions, and slightly more prominent interstitium. Continue on Augmentin, pleural fluid cultures are still pending at this time, she nebulized treatments, patient has been placed in the intensive care, CODE STATUS was addressed with the family who wish to proceed with full focal status at this time. Overall long-term prognosis is extremely guarded in view of patient's advanced age multiple comorbidities, severe pulmonary hypertension, advanced COPD, overall general medical debility. I performed a history & physical examination of the patient and discussed their management with my nurse practitioner, Audra Solomon. I reviewed the nurse practitioner's note and agree with the documented findings and plan of care. Lung sounds diminished. The findings and the impression was discussed with the patient. I attest to the documentation by the nurse practitioner. Time with Patient: Less than 30
--- NOTE | 2017-09-27 18:13 | PN ---
PROGRESS NOTE DATE OF SERVICE: 09/27/2017 REASON FOR FOLLOWUP: 1. Leukocytosis, likely abdominal source with diverticulosis diverticulitis. 2. Patient with an episode of vomiting with concern about possible aspiration. INTERVAL HISTORY: The patient on the floor this morning did have an episode of vomiting. Afterward the patient had a syncopal episode. Subsequently the patient was transferred to the ICU for more close observation. She did have a chest x-ray which shows new right basilar small pleural effusion and bibasilar airspace disease; given history of aspiration, aspiration pneumonia should be considered. Patient seems to be breathing comfortably now on high-flow oxygen. No abdominal pain or any diarrhea. PHYSICAL EXAMINATION: Her blood pressure is 101/62 with a pulse of 96, temperature of 98. She is 93% on 12 L high-flow oxygen. General description is an elderly female up in the bed in no distress. RESPIRATORY SYSTEM: Unlabored breathing. Clear to auscultation anteriorly. HEART: S1, S2. Regular rate and rhythm. ABDOMEN: Soft. No tenderness. LABS: Hemoglobin is 11.5, white count 11.8. BUN of 29, creatinine 1.41. DIAGNOSTIC IMPRESSION AND PLAN: Patient admitted to hospital with leukocytosis. Initial concern was an abdominal source, now with an episode of vomiting and possible aspiration pneumonitis. We will go ahead and switch antibiotic therapy to Zosyn, discontinue the Augmentin. Daughter present at bedside; questions were answered. OLIVA / MICHELLEN: [phone] /
[2017-09-27] MEDS: PIPERACILLIN-TAZOBACTAM 3.375 GM in DEXTROSE/WATER 1 50ML.BAG IVPB SCH (19:27)
[2017-09-28] MEDS: PIPERACILLIN-TAZOBACTAM 3.375 GM in DEXTROSE/WATER 1 50ML.BAG IVPB SCH ×3 (00:38→18:23)
[2017-09-28 05:20] LABS: Anisocytosis Slight; Basophils % (A) 0 %; Eosinophils # (A) 0.2 k/uL (0-0.7); Eosinophils % (A) 1 %; HCT 32.3 % (34.0-46.0); HGB 10.2 gm/dL (11.4-16.0); Hypochromasia Slight; Lymphocytes # (A) 0.5 k/uL (1.0-4.8); Lymphocytes % (A) 3 %; MCH 28.1 pg (25.0-35.0); MCHC 31.6 g/dL (31.0-37.0); MCV 88.8 fL (80.0-100.0); Mean Platelet Volume 7.5; Monocytes # (A) 0.8 k/uL (0-1.0); Monocytes % (A) 4 %; Neutrophils # (A) 18.2 k/uL (1.3-7.7); Neutrophils % (A) 92 %; Platelet Count 374 k/uL (150-450); RBC 3.64 m/uL (3.80-5.40); RDW 18.6 % (11.5-15.5); WBC 19.8 k/uL (3.8-10.6)
[2017-09-28 05:43] LABS: Albumin 2.7 g/dL (3.5-5.0); Calcium 8.7 mg/dL (8.4-10.2); Magnesium 1.9 mg/dL (1.6-2.3); Phosphorus 4.1 mg/dL (2.5-4.5); Total Bilirubin 0.6 mg/dL (0.2-1.3); Total Protein 5.2 g/dL (6.3-8.2)
[2017-09-28] MEDS ORDERED: SODIUM CHLORIDE 0.9% 500 ML IV ONE (06:10)
[2017-09-28] MEDS ORDERED: Magnesium Replacement Protocol 1 EACH MISC MISCELLANE PRN (06:12)
[2017-09-28] MEDS: MAGNESIUM SULFATE-D5W PMX 1 GM in DEXTROSE/WATER 1 100ML.BAG IVPB SCH ×2 (07:05→08:10)
[2017-09-28] MEDS: IPRATROPIUM-ALBUTEROL 3 ML NEB INHALATION SCH ×3 (07:47→19:49)
--- NOTE | 2017-09-28 08:11 | XR ---
EXAMINATION TYPE: XR chest 1V portable DATE OF EXAM: 09/28/2017 COMPARISON: Prior chest x-ray 09/27/2017 HISTORY: Abnormal chest x-ray, pneumonia TECHNIQUE: Single frontal view of the chest is obtained. FINDINGS: Patient is rotated. Heart is enlarged. Interstitium is increased. Bibasilar density persis ts, the hemidiaphragms are obscured. No pneumothorax. There are overlying cardiac leads. Postop win e noted to the left shoulder. IMPRESSION: Correlate for pulmonary venous hypertension and interstitial edema, volume overload with basilar effusions and associated atelectasis versus edema, pneumonia not excluded.
[2017-09-28] MEDS: SPIRONOLACTONE 25 MG TAB PO SCH (10:30)
[2017-09-28] MEDS: FAMOTIDINE 20 MG TAB PO SCH (10:30)
[2017-09-28] MEDS: MECLIZINE 12.5 MG TAB PO SCH (10:30)
[2017-09-28] MEDS: MEMANTINE 5 MG TAB PO SCH ×2 (10:30→21:32)
[2017-09-28] MEDS: FLUTICASONE 50MCG/SPRAY NASAL 16GM EA NOSTRIL SCH (10:30)
[2017-09-28] MEDS: DONEPEZIL 10 MG TAB PO SCH (10:30)
[2017-09-28] MEDS: FUROSEMIDE 40 MG TAB PO SCH (10:30)
--- NOTE | 2017-09-28 10:39 | P.PN ---
Subjective Progress Note Date: 09/28/17 Principal diagnosis: Acute on chronic hypoxic respiratory failure secondary to COPD and small right- sided pleural effusion. I'm seeing this 81-year-old female patient in follow-up and there is an obvious concern about her health in general as the patient comes in with altered mentation, hypoxic history failure with worsening in her oxygenation status as the patient has limited at least about 2 by nasal cannula and currently is up to 6 L in addition to leukocytosis and evolving metabolic acidosis. A septic workup has been completed and the patient is being seen by infectious disease. Cultures of been negative. The patient is slightly tachycardic. She has leukocytosis. D-dimer is positive. Echocardiogram shows severe pulmonary hypertension with a PA pressure estimated to be around 120 and there is also evidence of moderate mitral regurgitation, mild mitral stenosis, severe tricuspid regurgitation, severe pulmonary hypertension, small pericardial effusion, and dilated the right-sided cardiac structures. The left and ejection fraction is about 70%. The CAT scan of the abdomen revealed no acute abnormalities then some chronic interstitial changes in lung bases, small bilateral pleural effusion, small pericardial effusion, cholelithiasis and questionable thickening of the proximal small bowel/enteritis and nonobstructing 9 mm right lower pole renal calculus and complicated diverticulosis. There is also degenerative changes in the spine and Ventolin hernia containing fat only. Doppler of the lower extremities was negative. Patient has underlying dementia at baseline. On and off she sounds to be more confused. On today's evaluation of 09/17/2017 the patient is being seen in follow-up in the intensive care unit. She seems to be improved compared to yesterday. On and off she is still confused. No focal neurological deficits. Family is at the bedside. She is on 6 L of oxygen nasal cannula and she is also having some bibasilar crackles and for that reason I have suggested some diuresis. Meanwhile, the white cell count is improving is down to 25. He was dynamically stable. No pressors. The patient has not been found to have any source of an infection. She is afebrile. Ultrasound the gallbladder showed no evidence of any cholecystitis. The patient is cholelithiasis. Abnormalities in LFTs is probably related to right-sided failure. No evidence of any urine tract infection. No evidence of any blood infection. Doubt endocarditis. Echocardiogram showed severe pulmonary hypertension and evidence of right-sided heart failure probably related to chronic hypoxemia. CAT scan of the chest showed diffuse emphysema and small right-sided pleural effusion and compressive atelectasis of the right lung base and there was no evidence of any pulmonary embolism or filling defects. The patient is on DuoNeb nebulized treatments around the clock. The patient was given a dose of Lasix. The patient is on examination of Zosyn and vancomycin for now as an empiric antibiotic coverage. ID is on the case. On 09/18/2017 the patient is still in the intensive care unit. She is calm and comfortable. She is on and off confused and I think there is obvious component of dementia. According to the family she is more alert and awake compared to yesterday. Family is at the bedside. She is having no significant respiratory distress. Her pulse ox is 92% on 4 L of oxygen by nasal cannula and she baseline carries on 3 L of oxygen by nasal cannula. She has a congested cough. She was given another dose of Lasix today. She was given a dose yesterday and her net fluid balance has been negative over the past 24 hours. She denies having any chest pain. No shortness of breath. Her white cell count is down to 23. Her CAT scan of the chest showed no evidence of any pulmonary embolism and the patient had extensive emphysema, right-sided pleural effusion, right lower lobe compressive atelectasis. Renal function remains impaired with a creatinine of 1.6 and this is a chronic renal failure. She remains on a combination of Zosyn and vancomycin although there is no clear-cut infectious source for this patient. On 09/19/2017 the patient is being seen on a medical floor. Note that the patient was felt to be stable yesterday. Based on that I made recommendations to move this patient to a telemetry unit on a medical floor. Earlier this morning, I was informed by the nurses that the patient had a large bloody bowel movement. There was bright red blood with clots within the diaper in the bed. Despite this, the patient did not have any significant hypotension, tachycardia or any discomforts his chest pain or shortness of breath. Blood work is still pending for now. Meanwhile, the patient is currently on 6 L of oxygen nasal cannula. No major edema in lower extremities. No abdominal pain or distention. Mental status is off as the patient has an underlying component of dementia. White cell count is dropping. Cultures of been negative and the patient has been covered with a combination of Zosyn and vancomycin. Renal function is impaired as the patient has chronic renal failure. On 09/20/2017, the patient is stable. She got moved back to the intensive care unit as the patient was suspected to have ongoing GI bleed. Yesterday she had one bout of bloody bowel movement and she had to smaller episodes overnight. Her hemoglobin remains stable. This is suspected to be a diverticular bleed. No nausea. No vomiting. No abdominal pain. Mental status is appropriate this morning. She has underlying dementia. No significant respiratory distress. No cough or sputum production. The patient is still on 6 L/m nasal cannula to maintain saturation above 90%. Hemodynamically stable. IV fluids to kvo. The patient is seen again today 09/21/2017 in follow-up on the regular medical floor. She is currently sitting up in a chair at the bedside. She is awake and alert in no acute distress. She has not had any further GI bleeding. She is still requiring 8 L high flow nasal cannula to maintain O2 saturations greater than 90%. She denies any worsening shortness of breath, cough or congestion. He was positive for Lucero. Blood cultures reveal no growth. We cut has improved 18,000. Hemoglobin 9.4. Creatinine 1.33. She is continued on Zosyn. On 09/22/2017, the patient is still on oxygen at 6 L/m nasal cannula. No evidence of any GI bleeding. On and off confused secondary to underlying dementia. The patient has no respiratory distress. No cough or sputum production. No other complaints otherwise for the past 24 hours. While tach on is been gradually improving and the patient was switched to oral Augmentin. Reevaluated today on 09/23/2017, patient is now on high flow nasal cannula at 8 L , feeling better, occasional episodes of confusion related to underlying dementia. Patient does not seem to be in any respiratory distress, chest x-ray was reviewed and I recommended a dose of Lasix 40 mg IV push to be given once. I am still debating whether to proceed with a right-sided thoracentesis, however I have discussed her condition with the son at bedside, and recommended ultrasound to be of the chest to be done tomorrow if no improvement. May have to consider thoracentesis if her O2 sats saturation remains marginal. But that would all depend on the response to Lasix and on the follow-up ultrasound of the chest tomorrow. All labs were reviewed, BUN is 19 and creatinine is 1.20. The patient is seen again today 09/26/2017 in follow-up on the regular medical floor. She is currently awake and alert and resting comfortably in bed. She did undergo an ultrasound guided right-sided thoracentesis with approximately 460 mL of straw-colored fluid removed. Fluid was sent for analysis and pathology. Follow-up chest x-ray did reveal improved aeration in the right lung. No evidence of pneumothorax. She is still requiring high flow nasal cannula at 8 L/m per nasal cannula. We'll continue to titrate that down now. She has been afebrile. Hemodynamically stable. White count 10.7. Hemoglobin 10.0. Creatinine 1.22. Discharge planning is in place for [facility] for inpatient rehabilitation. On 09/27/2017 patient was seen and examined again on the regular medical surgical floor. Patient is status post US guided right thoracentesis, cytology is pending, but the pleural fluid analysis is positive for transudative fluid, consistent with congestive heart failure. Overall patient is very weak, she is working on her incentive spirometry, and is able to achieve 500 on today. At the time of our evaluation patient was sitting in the chair, quite fatigued, when suddenly she was noted to go unresponsive, had vomited, this was witnessed by her daughter who immediately called us for help. Patient was placed in bed, there was emesis noted, patient started coming to, she was encouraged to cough, her oral pharynx was gently suctioned. She had briefly desaturated down to 56% , was placed on the 100% nonrebreather, and had subsequently recovered after being encouraged to take deep breaths and coughing. No evidence of acute bronchospasm was noted. Patient quickly recovered in the matter of a few minutes, vital signs were stable. Chest x-ray was ordered, patient was given a nebulized treatment. This episode was thought to be due to vasovagal episode possibly due to vomiting. Mental status was back to baseline, patient answering questions, although appears very weak and tired. She was transferred to the intensive care for further monitoring, chest x-ray was obtained, and the film was reviewed by Dr. Daly, it showed chronic emphysematous changes, with small bilateral pleural effusions and slightly increased interstitial prominence. Patient was seen in the ICU and her FiO2 had been weaned down to 8 L with a pulse ox of 95%. She denied worsening dyspnea, she appears to be calm and comfortable, awake and alert, oriented times 2, to person and place, vital signs are stable, no hemodynamic issues at this time. CODE STATUS was discussed with the daughter, who stated that at this time the family wishes to remain with a full code, in view of this issue never being discussed with the patient. Patient was reevaluated today on 09/28/2017, she remains in the intensive care unit, blood pressure is marginal with a systolic pressure of 85, and mean about 60. Chest x-ray is showing more congestive changes, patient remains on Lasix, and she was given a 500 mL fluid bolus this morning because of marginal blood pressure. Urine output is reasonable. Patient is responding well to treatment including Lasix. I will try to avoid more fluid boluses since the patient may develop worsening interstitial edema and pleural effusion. She is presently on 6 L nasal cannula. Quite comfortable, in no distress. Her O2 saturation is in the mid 90s. Objective - Vital Signs Vital signs: Vital Signs Temp 98.0 F 09/28/17 04:00 Pulse 84 09/28/17 08:01 Resp 25 H 09/28/17 08:00 BP 82/51 09/28/17 08:00 Pulse Ox 95 09/28/17 08:00 Intake & Output 09/27/17 09/28/17 09/28/17 18:59 06:59 18:59 Intake Total 420 550.0 100 Output Total 0 Balance 420 550.0 100 Weight 45.7 kg Intake: IV 525.0 100 Piperacillin-Tazobactam 3 25.0 .375 gm In Dextrose/Water 1 50ml.bag @ 12.5 mls/hr IVPB Q8HR OBDULIO Rx#: [id number] magnesium 100 sodium chloride 500 ml 500 Intake, IV Titration 25.0 Amount Piperacillin-Tazobactam 3 25.0 .375 gm In Dextrose/Water 1 50ml.bag @ 12.5 mls/hr IVPB Q8HR OBDULIO Rx#: [id number] Oral 420 Output: Stool 0 Other: Voiding Method Diaper Diaper Incontinent Incontinent # Voids 1 0 0 - Exam Gen. Revealed an 81-year-old female slightly confused in no form of respiratory distress. On 6 L nasal cannula Examination of the neck reveals bilateral jugular venous distention. No neck masses. Neck is supple there is no lymphadenopathy and there is no cervical or supraclavicular lymphadenopathy. Mucous membranes are dry and there is no thrush. Head exam was generally normal. There was no scleral icterus or corneal arcus. Mucous membranes were moist. Lungs sounds are diminished bilaterally along with some limited bibasilar crackles. Breath sounds are diminished bilaterally and there is some scattered expiratory wheezes throughout the lung bosch. Heart sounds reveal accentuation of the second heart sound. No cervical murmurs appreciated. The patient is slightly tachycardic yet the rhythm seems to be sinus at this point. Abdominal exam revealed normal bowel sounds. The abdomen was soft, non-tender, and without masses, organomegaly, or appreciable enlargement of the abdominal aorta. Examination of the extremities revealed easily palpable radial, femoral and pedal pulses. There was no cyanosis, clubbing or edema. Examination of the skin revealed no evidence of significant rashes, suspicious appearing nevi or other concerning lesions. Neurologically the patient is neurologic exam is nonfocal. - Labs CBC & Chem 7: 09/28/17 05:01 09/28/17 05:01 Labs: Abnormal Lab Results - Last 24 Hours (Table) 09/27/17 09/28/17 09/28/17 Range/Units 13:29 05:01 05:01 WBC 19.8 H (3.8-10.6) k/uL RBC 3.64 L (3.80-5.40) m/uL Hgb 10.2 L (11.4-16.0) gm/dL Hct 32.3 L (34.0-46.0) % RDW 18.6 H (11.5-15.5) % Neutrophils # 18.2 H (1.3-7.7) k/uL Lymphocytes # 0.5 L (1.0-4.8) k/uL Chloride 97 L (98-107) mmol/L Carbon Dioxide 36 H (22-30) mmol/L BUN 33 H (7-17) mg/dL Creatinine 1.50 H (0.52-1.04) mg/dL Glucose 104 H (74-99) mg/dL POC Glucose (mg/dL) 129 H (75-99) mg/dL Total Protein 5.2 L (6.3-8.2) g/dL Albumin 2.7 L (3.5-5.0) g/dL Microbiology - Last 24 Hours (Table) 09/26/17 09:00 Gram Stain - Preliminary Pleural Fluid Body Fluid Culture - Preliminary Assessment and Plan Assessment: 1 acute on chronic hypoxic history failure with worsening in her oxygenation and the patient is currently requiring high flow oxygen 8 L/m nasal cannula. No clear evidence of underlying pneumonia. The patient had a VQ scan that showed no evidence of any pulmonary embolism. Low probability VQ scan noted. Patient has advanced COPD and emphysema and small right-sided pleural effusion and compressive atelectasis of the right lung base. We repeated the VQ scan on 09/27/2017 which showed low probability of pulmonary embolism. Overall oxygenation remains poor. Patient had an episode of vomiting, respiratory distress related to a vasovagal stimulation, patient was transferred to the intensive care on 100% nonrebreather, patient will remain in the ICU for the next 24 hours. 2 severe pulmonary hypertension, most likely chronic in nature and a CT angios the chest showed no pulmonary embolism. 3 COPD with chronic hypoxic respiratory failure maintained on 6 L of oxygen . Normally patient is on 3 L at home 4 leukocytosis, improving and the white cell count is down to 11.8 without any source of an infection, patient was placed on empiric antibiotic in the form of Augmentin, and pleural fluid cultures are pending at this time, blood cultures have been negative since admission, sputum culture was only positive for Lucero , likely due to oral contamination. The pleural effusion was transudative in nature, speaks in favor of congestive heart failure, diastolic in nature since her LV function was noted to be good on previous echocardiogram. 5 mild anion gap metabolic acidosis with some lactic acidosis at the time of admission , recovered completely 6 dementia with episodes of altered mentation, episodic 7.generalized weakness 8 acute versus chronic renal insufficiency, probably stage II to 3 chronic kidney failure 9 small bilateral pleural effusion, secondary to diastolic congestive heart failure. 10 nephrolithiasis 11 degenerative arthritis 12 cholelithiasis without evidence of any cholecystitis 13 acute GI bleed, likely of a lower GI source as the patient had bloody bright red bowel movement with clots. The patient was asymptomatic. The patient's hemoglobin is stable and the patient does not have any further bleeding episodes. 14 possible aspiration pneumonia involving the right lower lobe. Recommendation: Continue present treatment plan, continue to monitor in the ICU , long-term prognosis is definitely poor and guarded. Had a long discussion with her daughter yesterday and the patient remains full code at present. Ration clearly had an episode of aspiration yesterday when she had the syncopal episode and I felt that the patient should be empirically started on Zosyn. Remains on Zosyn at present. Time with Patient: Less than 30
[2017-09-28] MEDS: MULTIVITAMINS, THERA 1 EACH TAB PO SCH (13:04)
--- NOTE | 2017-09-28 13:45 | P.PN ---
Subjective Progress Note Date: 09/28/17 Brenda Dave is an 81-year-old female, patient of [facility], who presented to [facility] emergency room with a chief complaint of generalized weakness, daughter states that patient was seen at [facility] one week ago, she was given an antibiotic for presumed urinary tract infection, however her condition continued to worsen, she was seen by her visiting nurse and was advised to come to emergency room. Patient was evaluated by Dr. Brown in the emergency room, she had evidence of sepsis with hypotension, tachycardia, and leukocytosis, also d-dimer was elevated at 5.64, she was admitted to telemetry floor, she was started on IV antibiotic and IV fluid. Bilateral lower extremity Doppler was done and was negative for DVT, VQ scan was done and was low probability for pulmonary embolism. On 09/15/2017 patient is alert and oriented 3 in no apparent distress, she is complaining of feeling cold and having shaking chills, otherwise no complaints, patient has tachycardia, and has evidence sepsis, with leukocytosis white blood count still at 30,000, primary site of infection is still unclear she is complaining of cough, chest x-ray did not reveal any evidence of pneumonia, blood culture is pending, echocardiogram is pending, sodium is up to 114 9 IV fluid change to half-normal saline, will check lactic acid. 09/16/2017 patient is confused. She states things like "did you know that I am ". Patient's son is at bedside patient does have some baseline confusion usually mostly short term memory loss. However, since she's been sick the confusion has worsened. Patient is lying in bed comfortably no evidence of distress. Earlier this morning per nursing staff patient was satting around 84% on 3 L and had to be increased to 5 L and was able to get into the 90s. Patient's white count is still elevated at 30.5. Infectious disease and pulmonary service are following. Repeat chest x-ray shows no acute changes. And for the screening negative. Patient denies any chest pain. Patient has been having some cough. Denies any nausea or vomiting no diarrhea. Patient did have one loose stool, but not watery. 09/17/2017 patient was transferred to the ICU yesterday afternoon for closer monitoring. She remains in the ICU. Case was discussed with pulmonary service in detail. Patient's white count has been decreased from 30.5-25.4 she's on 10 L oxygen satting at 95%. The exact source of infection is still unclear. She remains on Zosyn and vancomycin. Echocardiogram shows severe pulmonary hypertension and severe tricuspid regurgitation. CTA of the chest was negative for a PE did reveal atelectasis and a small right-sided pleural effusion. Moderate pericardial effusion and no evidence of pericarditis. Abdominal ultrasound showed no evidence of an acute cholecystitis. Did reveal cholelithiasis. Pulmonary service did order a dose of IV Lasix for her fluid overload. Infectious disease is also following. Urine output is adequate. Patient is still confused. On 09/18/2017 patient is more alert she denies any pain or discomfort she was seen and examined in the intensive care unit there is no fever or chills no headache no dizziness no chest pain, shortness of breath is improving, still complaining of cough, no nausea or vomiting no abdominal pain no diarrhea and no urinary symptoms. 09/19/2017 nursing staff called and notified that patient had a massive bloody stool with large blood clots. Repeat hemoglobin check went up from 10.4-10.8. Patient was transferred to the ICU. Fluids were increased to 75 mL an hour. Patient was hypotensive earlier in the morning. Blood pressures are showing improvement. Case was discussed with flight superintendent Dr. Romo. GI service was consulted. They have Re: Evaluated patient and there is no plan for colonoscopy at this point. Patient's previous computed tomography scan of the abdomen had showed evidence of diverticulosis this possibly could be related to a diverticular bleed. Patient denies any abdominal pain no nausea or vomiting reported. Currently on 8 L of oxygen. White count 21.2 09/20/2017 patient currently in the ICU. She is doing well. No further bloody bowel movements today. Likely symptoms related to a diverticular bleed. Seen by GI service. No plans for endoscopy at this time. Patient on 10 L options a 96%. Hemoglobin at 10.1. 09/23/2017 patient had a drop in oxygen saturation to around 80%. Oxygen has been increased to 8 L satting around 92%. Patient also complaining of some hoarseness and postnasal drip. Flonase has been ordered. Chest x-ray has also been ordered. Patient denies any chest pain or shortness of breath. Has had no further episodes of bleeding in her stools. Diet will be advanced to regular diet. Patient also is very weak and is working with physical therapy 09/24/2017 patient still requiring 8 L of oxygen. Denies any shortness of breath. Repeat chest x-ray from this morning shows improved aeration of the right lung base on the liver remains a trace right pleural effusion on the bases of congestive heart failure and right basilar airspace disease. This is favored to represent atelectasis however pneumonia should be considered. Incentive spirometer has been ordered. She remains on antibiotics. Patient is reporting a mild cough. She did receive an extra dose of IV Lasix yesterday. White count has improved from 14-11.4. Patient did have a drop in her hemoglobin from 10.4-8.8. Nursing staff and family reported known bloody bowel movements. On 09/25/2017 patient is alert slightly confused in no apparent distress, she is still requiring 8 L of oxygen nasal cannula, oxygen saturation is 90%, she was seen by pulmonary and there are no plans for thoracentesis at this time, otherwise patient is complaining of fatigue no other complaints, there is occasional cough but no chest pain, no nausea or vomiting no abdominal pain no diarrhea and no urinary symptoms. 09/26/2017 patient underwent a right-sided thoracentesis this morning she had 460 mL's removed. Follow-up chest x-ray shows no evidence of pneumothorax. Does show improvement in aeration of the right lung base after thoracentesis. Patient currently on 8 L. Pulmonary service following. Patient denies any chest pain or shortness of breath. She did have a bowel movement this morning no blood reported per nursing staff. Patient denies any nausea or vomiting. Denies any chest pain or shortness of breath. Patient had been complaining of some pain at the thoracentesis site. Ultram has been ordered. On 09/27/2017 patient is alert and responsive in no apparent distress she is still requiring 6 L of oxygen nasal cannula to keep her oxygen saturation at 90 % she is resting comfortably in bed without any complaints at this time there is no fever or chills no headache or dizziness she has occasional cough no chest pain no shortness of breath at rest no nausea or vomiting no abdominal pain no diarrhea and no urinary symptoms. On 09/28/2017 patient is alert and responsive in no apparent distress she had episode of syncope yesterday subsequence to that she started having worsening oxygen desaturation she was transferred to intensive care unit white blood count is elevated from 11.8-19.8 likely patient had an episode of aspiration pneumonia during her syncopal episode currently she is requiring 10 L of oxygen high flow she is complaining of cough otherwise she denies any symptoms there is no fever or chills no headache or dizziness no chest pain or shortness of breath no nausea or vomiting no abdominal pain no diarrhea and no urinary symptoms Objective - Vital Signs Vital signs: Vital Signs Temp 97.8 F 09/28/17 12:00 Pulse 89 09/28/17 13:22 Resp 22 09/28/17 12:00 BP 106/60 09/28/17 12:00 Pulse Ox 92 L 09/28/17 12:00 Intake & Output 09/27/17 09/28/17 09/28/17 18:59 06:59 18:59 Intake Total 420 550.0 470 Output Total 0 Balance 420 550.0 470 Weight 45.7 kg Intake: IV 525.0 120 0.9 Normal Saline 20 Piperacillin-Tazobactam 3 25.0 .375 gm In Dextrose/Water 1 50ml.bag @ 12.5 mls/hr IVPB Q8HR [facility]BD[facility] Rx#: [id number] magnesium 100 sodium chloride 500 ml 500 Intake, IV Titration 25.0 150 Amount Magnesium Sulfate-D5w Pmx 100 1 gm In Dextrose/Water 1 100ml.bag @ 100 mls/hr IVPB Q1H [facility]BD[facility] Rx#: [id number] Piperacillin-Tazobactam 3 25.0 50 .375 gm In Dextrose/Water 1 50ml.bag @ 12.5 mls/hr IVPB Q8HR [facility]BDULIO Rx#: [id number] Oral 420 200 Output: Stool 0 Other: Voiding Method Diaper Diaper Incontinent Incontinent # Voids 1 0 1 - Exam In general patient is alert, slightly confused in no apparent distress HEENT head normocephalic and atraumatic Neck is supple no JVD no goiter no lymphadenopathy Chest exam reveals a few scattered rhonchi no wheezing Cardiac exam reveals regular heart sounds S1 and S2 no gallops no murmurs Abdomen is soft nontender no organomegaly with normal bowel sounds Extremity exam reveals no edema no cyanosis or clubbing - Labs CBC & Chem 7: 09/28/17 05:01 09/28/17 05:01 Labs: Abnormal Lab Results - Last 24 Hours (Table) 09/28/17 09/28/17 Range/Units 05:01 05:01 WBC 19.8 H (3.8-10.6) k/uL RBC 3.64 L (3.80-5.40) m/uL Hgb 10.2 L (11.4-16.0) gm/dL Hct 32.3 L (34.0-46.0) % RDW 18.6 H (11.5-15.5) % Neutrophils # 18.2 H (1.3-7.7) k/uL Lymphocytes # 0.5 L (1.0-4.8) k/uL Chloride 97 L (98-107) mmol/L Carbon Dioxide 36 H (22-30) mmol/L BUN 33 H (7-17) mg/dL Creatinine 1.50 H (0.52-1.04) mg/dL Glucose 104 H (74-99) mg/dL Total Protein 5.2 L (6.3-8.2) g/dL Albumin 2.7 L (3.5-5.0) g/dL Microbiology - Last 24 Hours (Table) 09/26/17 09:00 Gram Stain - Preliminary Pleural Fluid Body Fluid Culture - Preliminary Assessment and Plan Plan: #1 sepsis, initial site of infection is not clear, patient was partially treated with oral antibiotic as outpatient, blood culture negative. Urinalysis no evidence of UTI. Repeat chest x-ray no evidence of pneumonia. Patient remains on Zosyn and vancomycin. Infectious disease following closely. Blood cultures remain negative. Abdominal ultrasound showed no evidence of cholecystitis. Infectious disease following area did infectious disease felt symptoms could be related to diverticular disease. Infectious disease is recommending Augmentin for 1 week #2 acute on chronic hypoxic respiratory failure. No evidence of pneumonia. CT of the chest showed no evidence of a pulmonary embolism. Possibly related to her advanced COPD and pleural effusion #3 underlying history of COPD, at this time patient will be given DuoNeb updraft , no need for systemic steroids #4 severe pulmonary hypertension likely secondary to her COPD and exacerbated by her recent illness. Patient did receive a dose of IV Lasix yesterday. Has been started on oral Lasix 40 mg by mouth daily #5 underlying history of dementia maintained on Aricept and Namenda #6 hypernatremia improved. Sodium level has normalized #7 acute on chronic renal failure, stage III. #8 metabolic acidosis improved after sodium bicarb drip. Sodium bicarbonate drip discontinued by pulmonary service #9 metabolic encephalopathy secondary to her acute infection with underlying history of dementia #10 acute lower GI bleed: Likely related to a diverticular bleed. Patient seen by GI service. No plan for colonoscopy at this time. Aspirin and subcu heparin were discontinued yesterday. No further bloody bowel movements reported. Hemoglobin stable at 10. no further bloody stools #11 right-sided pleural effusion status post thoracentesis with 460 mL's removed. #12 worsening O2 saturations requiring transfer to ICU and increasing oxygen to 10 L high flow this is likely related to an episode of aspiration pneumonia for GI prophylaxis patient on Pepcid for DVT prophylaxis patient place patient on SCDs Continue working with Physical therapy. Anticipate discharge to [facility] when medically stable, patient still has significant oxygen requirement and is not medically stable. For discharge.
[2017-09-29] MEDS: PIPERACILLIN-TAZOBACTAM 3.375 GM in DEXTROSE/WATER 1 50ML.BAG IVPB SCH ×3 (00:13→15:21)
[2017-09-29] MEDS: NOREPINEPHRIN 4 MG-0.9% NS PMX 4 MG/250 ML ML IV SCH ×2 (05:51→21:18)
[2017-09-29 06:53] LABS: Anisocytosis Slight; Basophils # (A) 0.1 k/uL (0-0.2); Basophils % (A) 0 %; Eosinophils # (A) 0.5 k/uL (0-0.7); Eosinophils % (A) 3 %; HCT 38.1 % (34.0-46.0); HGB 11.7 gm/dL (11.4-16.0); Hypochromasia Moderate; Lymphocytes # (A) 0.9 k/uL (1.0-4.8); Lymphocytes % (A) 5 %; MCH 27.7 pg (25.0-35.0); MCHC 30.6 g/dL (31.0-37.0); MCV 90.5 fL (80.0-100.0); Mean Platelet Volume 7.1; Monocytes # (A) 0.7 k/uL (0-1.0); Monocytes % (A) 4 %; Neutrophils % (A) 87 %; Platelet Count 397 k/uL (150-450); RBC 4.21 m/uL (3.80-5.40); RDW 18.8 % (11.5-15.5); WBC 18.4 k/uL (3.8-10.6)
[2017-09-29 07:11] LABS: Albumin 3.1 g/dL (3.5-5.0); Calcium 9.3 mg/dL (8.4-10.2); Magnesium 2.5 mg/dL (1.6-2.3); Phosphorus 4.3 mg/dL (2.5-4.5); Potassium 4.1 mmol/L (3.5-5.1); Total Bilirubin 0.8 mg/dL (0.2-1.3); Total Protein 5.9 g/dL (6.3-8.2)
--- NOTE | 2017-09-29 07:49 | XR ---
EXAMINATION TYPE: XR chest 1V portable DATE OF EXAM: 09/29/2017 COMPARISON: Prior chest x-ray 09/28/2017 HISTORY: Pneumonia TECHNIQUE: Single frontal view of the chest is obtained. FINDINGS: Patient is rotated. Apical scarring persists. Interstitium is increased as on prior exam. Bibasilar increased density persists. Heart remains enlarged. Right hemidiaphragm is obscured greater than the left. There are overlying cardiac leads. Central vascularity is prominent. IMPRESSION: Correlate for congestive heart failure, pulmonary venous hypertension and interstitial e ruben. There may be basilar effusion and associated atelectasis versus edema, pneumonia not excluded. Additional follow-up recommended.
[2017-09-29] MEDS: IPRATROPIUM-ALBUTEROL 3 ML NEB INHALATION SCH ×3 (08:04→20:24)
[2017-09-29] MEDS ORDERED: FUROSEMIDE 10 MG/ML 4 ML VIAL IV STA (09:36)
[2017-09-29] MEDS: MEMANTINE 5 MG TAB PO SCH ×2 (10:03→21:18)
[2017-09-29] MEDS: FAMOTIDINE 20 MG TAB PO SCH (10:03)
[2017-09-29] MEDS: FLUTICASONE 50MCG/SPRAY NASAL 16GM EA NOSTRIL SCH (10:03)
[2017-09-29] MEDS: SPIRONOLACTONE 25 MG TAB PO SCH (10:03)
[2017-09-29] MEDS: DONEPEZIL 10 MG TAB PO SCH (11:11)
[2017-09-29] MEDS: MECLIZINE 12.5 MG TAB PO SCH (11:11)
--- NOTE | 2017-09-29 12:10 | P.PN ---
Subjective Progress Note Date: 09/29/17 Brenda Dave is an 81-year-old female, patient of [facility], who presented to [facility] emergency room with a chief complaint of generalized weakness, daughter states that patient was seen at [facility] one week ago, she was given an antibiotic for presumed urinary tract infection, however her condition continued to worsen, she was seen by her visiting nurse and was advised to come to emergency room. Patient was evaluated by Dr. Brwon in the emergency room, she had evidence of sepsis with hypotension, tachycardia, and leukocytosis, also d-dimer was elevated at 5.64, she was admitted to telemetry floor, she was started on IV antibiotic and IV fluid. Bilateral lower extremity Doppler was done and was negative for DVT, VQ scan was done and was low probability for pulmonary embolism. On 09/15/2017 patient is alert and oriented 3 in no apparent distress, she is complaining of feeling cold and having shaking chills, otherwise no complaints, patient has tachycardia, and has evidence sepsis, with leukocytosis white blood count still at 30,000, primary site of infection is still unclear she is complaining of cough, chest x-ray did not reveal any evidence of pneumonia, blood culture is pending, echocardiogram is pending, sodium is up to 114 9 IV fluid change to half-normal saline, will check lactic acid. 09/16/2017 patient is confused. She states things like "did you know that I am ". Patient's son is at bedside patient does have some baseline confusion usually mostly short term memory loss. However, since she's been sick the confusion has worsened. Patient is lying in bed comfortably no evidence of distress. Earlier this morning per nursing staff patient was satting around 84% on 3 L and had to be increased to 5 L and was able to get into the 90s. Patient's white count is still elevated at 30.5. Infectious disease and pulmonary service are following. Repeat chest x-ray shows no acute changes. And for the screening negative. Patient denies any chest pain. Patient has been having some cough. Denies any nausea or vomiting no diarrhea. Patient did have one loose stool, but not watery. 09/17/2017 patient was transferred to the ICU yesterday afternoon for closer monitoring. She remains in the ICU. Case was discussed with pulmonary service in detail. Patient's white count has been decreased from 30.5-25.4 she's on 10 L oxygen satting at 95%. The exact source of infection is still unclear. She remains on Zosyn and vancomycin. Echocardiogram shows severe pulmonary hypertension and severe tricuspid regurgitation. CTA of the chest was negative for a PE did reveal atelectasis and a small right-sided pleural effusion. Moderate pericardial effusion and no evidence of pericarditis. Abdominal ultrasound showed no evidence of an acute cholecystitis. Did reveal cholelithiasis. Pulmonary service did order a dose of IV Lasix for her fluid overload. Infectious disease is also following. Urine output is adequate. Patient is still confused. On 09/18/2017 patient is more alert she denies any pain or discomfort she was seen and examined in the intensive care unit there is no fever or chills no headache no dizziness no chest pain, shortness of breath is improving, still complaining of cough, no nausea or vomiting no abdominal pain no diarrhea and no urinary symptoms. 09/19/2017 nursing staff called and notified that patient had a massive bloody stool with large blood clots. Repeat hemoglobin check went up from 10.4-10.8. Patient was transferred to the ICU. Fluids were increased to 75 mL an hour. Patient was hypotensive earlier in the morning. Blood pressures are showing improvement. Case was discussed with treating machine operator Dr. Romo. GI service was consulted. They have Re: Evaluated patient and there is no plan for colonoscopy at this point. Patient's previous computed tomography scan of the abdomen had showed evidence of diverticulosis this possibly could be related to a diverticular bleed. Patient denies any abdominal pain no nausea or vomiting reported. Currently on 8 L of oxygen. White count 21.2 09/20/2017 patient currently in the ICU. She is doing well. No further bloody bowel movements today. Likely symptoms related to a diverticular bleed. Seen by GI service. No plans for endoscopy at this time. Patient on 10 L options a 96%. Hemoglobin at 10.1. 09/23/2017 patient had a drop in oxygen saturation to around 80%. Oxygen has been increased to 8 L satting around 92%. Patient also complaining of some hoarseness and postnasal drip. Flonase has been ordered. Chest x-ray has also been ordered. Patient denies any chest pain or shortness of breath. Has had no further episodes of bleeding in her stools. Diet will be advanced to regular diet. Patient also is very weak and is working with physical therapy 09/24/2017 patient still requiring 8 L of oxygen. Denies any shortness of breath. Repeat chest x-ray from this morning shows improved aeration of the right lung base on the liver remains a trace right pleural effusion on the bases of congestive heart failure and right basilar airspace disease. This is favored to represent atelectasis however pneumonia should be considered. Incentive spirometer has been ordered. She remains on antibiotics. Patient is reporting a mild cough. She did receive an extra dose of IV Lasix yesterday. White count has improved from 14-11.4. Patient did have a drop in her hemoglobin from 10.4-8.8. Nursing staff and family reported known bloody bowel movements. On 09/25/2017 patient is alert slightly confused in no apparent distress, she is still requiring 8 L of oxygen nasal cannula, oxygen saturation is 90%, she was seen by pulmonary and there are no plans for thoracentesis at this time, otherwise patient is complaining of fatigue no other complaints, there is occasional cough but no chest pain, no nausea or vomiting no abdominal pain no diarrhea and no urinary symptoms. 09/26/2017 patient underwent a right-sided thoracentesis this morning she had 460 mL's removed. Follow-up chest x-ray shows no evidence of pneumothorax. Does show improvement in aeration of the right lung base after thoracentesis. Patient currently on 8 L. Pulmonary service following. Patient denies any chest pain or shortness of breath. She did have a bowel movement this morning no blood reported per nursing staff. Patient denies any nausea or vomiting. Denies any chest pain or shortness of breath. Patient had been complaining of some pain at the thoracentesis site. Ultram has been ordered. On 09/27/2017 patient is alert and responsive in no apparent distress she is still requiring 6 L of oxygen nasal cannula to keep her oxygen saturation at 90 % she is resting comfortably in bed without any complaints at this time there is no fever or chills no headache or dizziness she has occasional cough no chest pain no shortness of breath at rest no nausea or vomiting no abdominal pain no diarrhea and no urinary symptoms. On 09/28/2017 patient is alert and responsive in no apparent distress she had episode of syncope yesterday subsequence to that she started having worsening oxygen desaturation she was transferred to intensive care unit white blood count is elevated from 11.8-19.8 likely patient had an episode of aspiration pneumonia during her syncopal episode currently she is requiring 10 L of oxygen high flow she is complaining of cough otherwise she denies any symptoms there is no fever or chills no headache or dizziness no chest pain or shortness of breath no nausea or vomiting no abdominal pain no diarrhea and no urinary symptoms. On 09/29/2017 patient remains in ICU she is alert and responsive in no apparent distress, she is still requiring 10 L of high flow oxygen O2 sat duration is 96 % she denies any chest pain she has occasional cough she denies any shortness of breath at rest there is no fever or chills no nausea or vomiting no abdominal pain no diarrhea and no urinary symptoms. Objective - Vital Signs Vital signs: Vital Signs Temp 98.0 F 09/29/17 11:00 Pulse 83 09/29/17 11:28 Resp 20 09/29/17 11:28 BP 96/58 09/29/17 11:00 Pulse Ox 96 09/29/17 11:00 Intake & Output 09/28/17 09/29/17 09/29/17 18:59 06:59 18:59 Intake Total 520.0 124.875 111.937 Output Total 325 590 295 Balance 195.0 -465.125 -183.063 Weight 47.2 kg Intake: IV 170 122.5 90.0 0.9 Normal Saline 70 60 40 Piperacillin-Tazobactam 3 62.5 50.0 .375 gm In Dextrose/Water 1 50ml.bag @ 12.5 mls/hr IVPB Q8HR [facility] Rx#: [id number] magnesium 100 Intake, IV Titration 150.0 2.375 21.937 Amount Magnesium Sulfate-D5w Pmx 100 1 gm In Dextrose/Water 1 100ml.bag @ 100 mls/hr IVPB Q1H [facility] Rx#: [id number] Norepinephrin 4 mg-0.9% 2.375 21.937 Ns Pmx 4 mg In 250 ml @ Titrate IV .Q0M [facility] Rx#: [id number] Piperacillin-Tazobactam 3 50.0 .375 gm In Dextrose/Water 1 50ml.bag @ 12.5 mls/hr IVPB Q8HR [facility] Rx#: [id number] Oral 200 Output: Urine 325 590 295 Stool 0 0 Other: Voiding Method Diaper Indwelling Catheter Indwelling Catheter Incontinent # Voids 0 0 0 # Bowel Movements 1 - Exam In general patient is alert, slightly confused in no apparent distress HEENT head normocephalic and atraumatic Neck is supple no JVD no goiter no lymphadenopathy Chest exam reveals a few scattered rhonchi no wheezing Cardiac exam reveals regular heart sounds S1 and S2 no gallops no murmurs Abdomen is soft nontender no organomegaly with normal bowel sounds Extremity exam reveals no edema no cyanosis or clubbing - Labs CBC & Chem 7: 09/29/17 06:28 09/29/17 06:28 Labs: Abnormal Lab Results - Last 24 Hours (Table) 09/29/17 09/29/17 Range/Units 06:28 06:28 WBC 18.4 H (3.8-10.6) k/uL MCHC 30.6 L (31.0-37.0) g/dL RDW 18.8 H (11.5-15.5) % Neutrophils # 16.0 H (1.3-7.7) k/uL Lymphocytes # 0.9 L (1.0-4.8) k/uL Chloride 96 L (98-107) mmol/L Carbon Dioxide 35 H (22-30) mmol/L BUN 33 H (7-17) mg/dL Creatinine 1.60 H (0.52-1.04) mg/dL Magnesium 2.5 H (1.6-2.3) mg/dL Total Protein 5.9 L (6.3-8.2) g/dL Albumin 3.1 L (3.5-5.0) g/dL Microbiology - Last 24 Hours (Table) 09/28/17 19:30 Urine Culture - Preliminary Urine,Catheterized 09/26/17 09:00 Gram Stain - Preliminary Pleural Fluid Body Fluid Culture - Preliminary 09/26/17 09:00 Anaerobic Culture - Preliminary Pleural Fluid Assessment and Plan Plan: #1 sepsis, initial site of infection is not clear, patient was partially treated with oral antibiotic as outpatient, blood culture negative. Urinalysis no evidence of UTI. Repeat chest x-ray no evidence of pneumonia. Patient remains on Zosyn . Infectious disease following closely. Blood cultures remain negative. #2 acute on chronic hypoxic respiratory failure. No evidence of pneumonia. CT of the chest showed no evidence of a pulmonary embolism. Possibly related to her advanced COPD and pleural effusion #3 underlying history of COPD, at this time patient will be given DuoNeb updraft , no need for systemic steroids #4 severe pulmonary hypertension likely secondary to her COPD and exacerbated by her recent illness. Patient did receive a dose of IV Lasix yesterday. Has been started on oral Lasix 40 mg by mouth daily #5 underlying history of dementia maintained on Aricept and Namenda #6 hypernatremia improved. Sodium level has normalized #7 acute on chronic renal failure, stage III. #8 metabolic acidosis improved after sodium bicarb drip. Sodium bicarbonate drip discontinued by pulmonary service #9 metabolic encephalopathy secondary to her acute infection with underlying history of dementia #10 acute lower GI bleed: Likely related to a diverticular bleed. Patient seen by GI service. No plan for colonoscopy at this time. Aspirin and subcu heparin were discontinued yesterday. No further bloody bowel movements reported. Hemoglobin stable at 10. no further bloody stools #11 right-sided pleural effusion status post thoracentesis with 460 mL's removed. #12 worsening O2 saturations requiring transfer to ICU and increasing oxygen to 10 L high flow this is likely related to an episode of aspiration pneumonia for GI prophylaxis patient on Pepcid for DVT prophylaxis patient place patient on SCDs Continue aggressive management in the ICU, prognosis is guarded, CODE STATUS will be reviewed with family in the next 1-2 days
[2017-09-29] MEDS: MULTIVITAMINS, THERA 1 EACH TAB PO SCH (13:19)
--- NOTE | 2017-09-29 14:49 | P.PN ---
Subjective Progress Note Date: 09/29/17 Principal diagnosis: Acute on chronic hypoxic respiratory failure secondary to COPD and small right- sided pleural effusion. I'm seeing this 81-year-old female patient in follow-up and there is an obvious concern about her health in general as the patient comes in with altered mentation, hypoxic history failure with worsening in her oxygenation status as the patient has limited at least about 2 by nasal cannula and currently is up to 6 L in addition to leukocytosis and evolving metabolic acidosis. A septic workup has been completed and the patient is being seen by infectious disease. Cultures of been negative. The patient is slightly tachycardic. She has leukocytosis. D-dimer is positive. Echocardiogram shows severe pulmonary hypertension with a PA pressure estimated to be around 120 and there is also evidence of moderate mitral regurgitation, mild mitral stenosis, severe tricuspid regurgitation, severe pulmonary hypertension, small pericardial effusion, and dilated the right-sided cardiac structures. The left and ejection fraction is about 70%. The CAT scan of the abdomen revealed no acute abnormalities then some chronic interstitial changes in lung bases, small bilateral pleural effusion, small pericardial effusion, cholelithiasis and questionable thickening of the proximal small bowel/enteritis and nonobstructing 9 mm right lower pole renal calculus and complicated diverticulosis. There is also degenerative changes in the spine and Ventolin hernia containing fat only. Doppler of the lower extremities was negative. Patient has underlying dementia at baseline. On and off she sounds to be more confused. On today's evaluation of 09/17/2017 the patient is being seen in follow-up in the intensive care unit. She seems to be improved compared to yesterday. On and off she is still confused. No focal neurological deficits. Family is at the bedside. She is on 6 L of oxygen nasal cannula and she is also having some bibasilar crackles and for that reason I have suggested some diuresis. Meanwhile, the white cell count is improving is down to 25. He was dynamically stable. No pressors. The patient has not been found to have any source of an infection. She is afebrile. Ultrasound the gallbladder showed no evidence of any cholecystitis. The patient is cholelithiasis. Abnormalities in LFTs is probably related to right-sided failure. No evidence of any urine tract infection. No evidence of any blood infection. Doubt endocarditis. Echocardiogram showed severe pulmonary hypertension and evidence of right-sided heart failure probably related to chronic hypoxemia. CAT scan of the chest showed diffuse emphysema and small right-sided pleural effusion and compressive atelectasis of the right lung base and there was no evidence of any pulmonary embolism or filling defects. The patient is on DuoNeb nebulized treatments around the clock. The patient was given a dose of Lasix. The patient is on examination of Zosyn and vancomycin for now as an empiric antibiotic coverage. ID is on the case. On 09/18/2017 the patient is still in the intensive care unit. She is calm and comfortable. She is on and off confused and I think there is obvious component of dementia. According to the family she is more alert and awake compared to yesterday. Family is at the bedside. She is having no significant respiratory distress. Her pulse ox is 92% on 4 L of oxygen by nasal cannula and she baseline carries on 3 L of oxygen by nasal cannula. She has a congested cough. She was given another dose of Lasix today. She was given a dose yesterday and her net fluid balance has been negative over the past 24 hours. She denies having any chest pain. No shortness of breath. Her white cell count is down to 23. Her CAT scan of the chest showed no evidence of any pulmonary embolism and the patient had extensive emphysema, right-sided pleural effusion, right lower lobe compressive atelectasis. Renal function remains impaired with a creatinine of 1.6 and this is a chronic renal failure. She remains on a combination of Zosyn and vancomycin although there is no clear-cut infectious source for this patient. On 09/19/2017 the patient is being seen on a medical floor. Note that the patient was felt to be stable yesterday. Based on that I made recommendations to move this patient to a telemetry unit on a medical floor. Earlier this morning, I was informed by the nurses that the patient had a large bloody bowel movement. There was bright red blood with clots within the diaper in the bed. Despite this, the patient did not have any significant hypotension, tachycardia or any discomforts his chest pain or shortness of breath. Blood work is still pending for now. Meanwhile, the patient is currently on 6 L of oxygen nasal cannula. No major edema in lower extremities. No abdominal pain or distention. Mental status is off as the patient has an underlying component of dementia. White cell count is dropping. Cultures of been negative and the patient has been covered with a combination of Zosyn and vancomycin. Renal function is impaired as the patient has chronic renal failure. On 09/20/2017, the patient is stable. She got moved back to the intensive care unit as the patient was suspected to have ongoing GI bleed. Yesterday she had one bout of bloody bowel movement and she had to smaller episodes overnight. Her hemoglobin remains stable. This is suspected to be a diverticular bleed. No nausea. No vomiting. No abdominal pain. Mental status is appropriate this morning. She has underlying dementia. No significant respiratory distress. No cough or sputum production. The patient is still on 6 L/m nasal cannula to maintain saturation above 90%. Hemodynamically stable. IV fluids to kvo. The patient is seen again today 09/21/2017 in follow-up on the regular medical floor. She is currently sitting up in a chair at the bedside. She is awake and alert in no acute distress. She has not had any further GI bleeding. She is still requiring 8 L high flow nasal cannula to maintain O2 saturations greater than 90%. She denies any worsening shortness of breath, cough or congestion. He was positive for Lucero. Blood cultures reveal no growth. We cut has improved 18,000. Hemoglobin 9.4. Creatinine 1.33. She is continued on Zosyn. On 09/22/2017, the patient is still on oxygen at 6 L/m nasal cannula. No evidence of any GI bleeding. On and off confused secondary to underlying dementia. The patient has no respiratory distress. No cough or sputum production. No other complaints otherwise for the past 24 hours. While tach on is been gradually improving and the patient was switched to oral Augmentin. Reevaluated today on 09/23/2017, patient is now on high flow nasal cannula at 8 L , feeling better, occasional episodes of confusion related to underlying dementia. Patient does not seem to be in any respiratory distress, chest x-ray was reviewed and I recommended a dose of Lasix 40 mg IV push to be given once. I am still debating whether to proceed with a right-sided thoracentesis, however I have discussed her condition with the son at bedside, and recommended ultrasound to be of the chest to be done tomorrow if no improvement. May have to consider thoracentesis if her O2 sats saturation remains marginal. But that would all depend on the response to Lasix and on the follow-up ultrasound of the chest tomorrow. All labs were reviewed, BUN is 19 and creatinine is 1.20. The patient is seen again today 09/26/2017 in follow-up on the regular medical floor. She is currently awake and alert and resting comfortably in bed. She did undergo an ultrasound guided right-sided thoracentesis with approximately 460 mL of straw-colored fluid removed. Fluid was sent for analysis and pathology. Follow-up chest x-ray did reveal improved aeration in the right lung. No evidence of pneumothorax. She is still requiring high flow nasal cannula at 8 L/m per nasal cannula. We'll continue to titrate that down now. She has been afebrile. Hemodynamically stable. White count 10.7. Hemoglobin 10.0. Creatinine 1.22. Discharge planning is in place for [facility] for inpatient rehabilitation. On 09/27/2017 patient was seen and examined again on the regular medical surgical floor. Patient is status post US guided right thoracentesis, cytology is pending, but the pleural fluid analysis is positive for transudative fluid, consistent with congestive heart failure. Overall patient is very weak, she is working on her incentive spirometry, and is able to achieve 500 on today. At the time of our evaluation patient was sitting in the chair, quite fatigued, when suddenly she was noted to go unresponsive, had vomited, this was witnessed by her daughter who immediately called us for help. Patient was placed in bed, there was emesis noted, patient started coming to, she was encouraged to cough, her oral pharynx was gently suctioned. She had briefly desaturated down to 56% , was placed on the 100% nonrebreather, and had subsequently recovered after being encouraged to take deep breaths and coughing. No evidence of acute bronchospasm was noted. Patient quickly recovered in the matter of a few minutes, vital signs were stable. Chest x-ray was ordered, patient was given a nebulized treatment. This episode was thought to be due to vasovagal episode possibly due to vomiting. Mental status was back to baseline, patient answering questions, although appears very weak and tired. She was transferred to the intensive care for further monitoring, chest x-ray was obtained, and the film was reviewed by Dr. Daly, it showed chronic emphysematous changes, with small bilateral pleural effusions and slightly increased interstitial prominence. Patient was seen in the ICU and her FiO2 had been weaned down to 8 L with a pulse ox of 95%. She denied worsening dyspnea, she appears to be calm and comfortable, awake and alert, oriented times 2, to person and place, vital signs are stable, no hemodynamic issues at this time. CODE STATUS was discussed with the daughter, who stated that at this time the family wishes to remain with a full code, in view of this issue never being discussed with the patient. Patient was reevaluated today on 09/28/2017, she remains in the intensive care unit, blood pressure is marginal with a systolic pressure of 85, and mean about 60. Chest x-ray is showing more congestive changes, patient remains on Lasix, and she was given a 500 mL fluid bolus this morning because of marginal blood pressure. Urine output is reasonable. Patient is responding well to treatment including Lasix. I will try to avoid more fluid boluses since the patient may develop worsening interstitial edema and pleural effusion. She is presently on 6 L nasal cannula. Quite comfortable, in no distress. Her O2 saturation is in the mid 90s. Reevaluated today on 09/29/2017, patient is presently on norepinephrine at 4 mcg/ m, blood pressure is marginal, her chest x-ray is reflecting pulmonary edema, and seems to have recurrence of her right pleural effusion. Hence I have recommended Lasix 40 mg IV push every 12 hours, and the patient is clearly not ready to be discharged out of the ICU at this point yet. Labs were reviewed, WBC count is 18.4 hemoglobin is 11.7 basic metabolic profile is normal BUN is 33 creatinine is 1.60. Chest x-ray was reviewed and as noted above. Objective - Vital Signs Vital signs: Vital Signs Temp 98.0 F 09/29/17 11:00 Pulse 82 09/29/17 12:20 Resp 20 09/29/17 11:28 BP 96/58 09/29/17 11:00 Pulse Ox 96 09/29/17 11:00 Intake & Output 09/28/17 09/29/17 09/29/17 18:59 06:59 18:59 Intake Total 520.0 124.875 111.937 Output Total 325 590 295 Balance 195.0 -465.125 -183.063 Weight 47.2 kg Intake: IV 170 122.5 90.0 0.9 Normal Saline 70 60 40 Piperacillin-Tazobactam 3 62.5 50.0 .375 gm In Dextrose/Water 1 50ml.bag @ 12.5 mls/hr IVPB Q8HR [facility] Rx#: [id number] magnesium 100 Intake, IV Titration 150.0 2.375 21.937 Amount Magnesium Sulfate-D5w Pmx 100 1 gm In Dextrose/Water 1 100ml.bag @ 100 mls/hr IVPB Q1H [facility] Rx#: [id number] Norepinephrin 4 mg-0.9% 2.375 21.937 Ns Pmx 4 mg In 250 ml @ Titrate IV .Q0M [facility] Rx#: [id number] Piperacillin-Tazobactam 3 50.0 .375 gm In Dextrose/Water 1 50ml.bag @ 12.5 mls/hr IVPB Q8HR [facility] Rx#: [id number] Oral 200 Output: Urine 325 590 295 Stool 0 0 Other: Voiding Method Diaper Indwelling Catheter Indwelling Catheter Incontinent # Voids 0 0 0 # Bowel Movements 1 - Exam Gen. Revealed an 81-year-old female slightly confused in no form of respiratory distress. On 6 L nasal cannula Examination of the neck reveals bilateral jugular venous distention. No neck masses. Neck is supple there is no lymphadenopathy and there is no cervical or supraclavicular lymphadenopathy. Head exam was generally normal. There was no scleral icterus or corneal arcus. Mucous membranes were moist. Lungs sounds are diminished bilaterally along with some limited bibasilar crackles. Breath sounds are diminished bilaterally and there is bilateral crackles and rhonchi at the bases bilaterally more so on the left base. Diminished and dull at the right base. Heart sounds reveal accentuation of the second heart sound. No cervical murmurs appreciated. The patient is slightly tachycardic yet the rhythm seems to be sinus at this point. Abdominal exam revealed normal bowel sounds. The abdomen was soft, non-tender, and without masses, organomegaly, or appreciable enlargement of the abdominal aorta. Examination of the extremities revealed easily palpable radial, femoral and pedal pulses. There was no cyanosis, clubbing or edema. Examination of the skin revealed no evidence of significant rashes, suspicious appearing nevi or other concerning lesions. Neurologically the patient is neurologic exam is nonfocal. - Labs CBC & Chem 7: 09/29/17 06:28 09/29/17 06:28 Labs: Abnormal Lab Results - Last 24 Hours (Table) 09/29/17 09/29/17 Range/Units 06:28 06:28 WBC 18.4 H (3.8-10.6) k/uL MCHC 30.6 L (31.0-37.0) g/dL RDW 18.8 H (11.5-15.5) % Neutrophils # 16.0 H (1.3-7.7) k/uL Lymphocytes # 0.9 L (1.0-4.8) k/uL Chloride 96 L (98-107) mmol/L Carbon Dioxide 35 H (22-30) mmol/L BUN 33 H (7-17) mg/dL Creatinine 1.60 H (0.52-1.04) mg/dL Magnesium 2.5 H (1.6-2.3) mg/dL Total Protein 5.9 L (6.3-8.2) g/dL Albumin 3.1 L (3.5-5.0) g/dL Microbiology - Last 24 Hours (Table) 09/28/17 19:30 Urine Culture - Preliminary Urine,Catheterized 09/26/17 09:00 Gram Stain - Preliminary Pleural Fluid Body Fluid Culture - Preliminary 09/26/17 09:00 Anaerobic Culture - Preliminary Pleural Fluid Assessment and Plan Assessment: 1 acute on chronic hypoxic history failure with worsening in her oxygenation and the patient is currently requiring high flow oxygen 8 L/m nasal cannula. No clear evidence of underlying pneumonia. The patient had a VQ scan that showed no evidence of any pulmonary embolism. Low probability VQ scan noted. Patient has advanced COPD and emphysema and small right-sided pleural effusion and compressive atelectasis of the right lung base. We repeated the VQ scan on 09/27/2017 which showed low probability of pulmonary embolism. Overall oxygenation remains poor. Patient had an episode of vomiting, respiratory distress related to a vasovagal stimulation, patient was transferred to the intensive care on 100% nonrebreather, patient will remain in the ICU for the next 24 hours. 2 severe pulmonary hypertension, most likely chronic in nature and a CT angios the chest showed no pulmonary embolism. 3 COPD with chronic hypoxic respiratory failure maintained on 6 L of oxygen . Normally patient is on 3 L at home 4 leukocytosis, improving and the white cell count is down to 11.8 without any source of an infection, patient was placed on empiric antibiotic in the form of Augmentin, and pleural fluid cultures are pending at this time, blood cultures have been negative since admission, sputum culture was only positive for Lucero , likely due to oral contamination. The pleural effusion was transudative in nature, speaks in favor of congestive heart failure, diastolic in nature since her LV function was noted to be good on previous echocardiogram. Chest x-ray today is showing more evidence of congestive heart failure, hence Lasix was added. 5 mild anion gap metabolic acidosis with some lactic acidosis at the time of admission , recovered completely 6 dementia with episodes of altered mentation, episodic 7.generalized weakness 8 acute versus chronic renal insufficiency, probably stage II to 3 chronic kidney failure 9 small bilateral pleural effusion, secondary to diastolic congestive heart failure. 10 nephrolithiasis 11 degenerative arthritis 12 cholelithiasis without evidence of any cholecystitis 13 acute GI bleed, likely of a lower GI source as the patient had bloody bright red bowel movement with clots. The patient was asymptomatic. The patient's hemoglobin is stable and the patient does not have any further bleeding episodes. 14 possible aspiration pneumonia involving the right lower lobe. Recommendation: Continue present treatment plan, continue to monitor in the ICU , long-term prognosis is definitely poor and guarded. Discussed her condition with the son today, considering the patient is now on norepinephrine, we will keep in the ICU, no plans to transfer out of the ICU yet today. Continue antibiotics for presumptive aspiration pneumonia also. Time with Patient: Less than 30
[2017-09-29] MEDS: FUROSEMIDE 40 MG TAB PO SCH (17:03)
[2017-09-29 19:31] LABS: Glucose,Whole Blood 127 mg/dL (75-99)
[2017-09-29] MEDS: HEPARIN SODIUM,PORCINE 5,000 UNIT/ML 1 ML VIAL SQ SCH (21:18)
[2017-09-29] MEDS: FUROSEMIDE 10 MG/ML 4 ML VIAL IV SCH (21:18)
--- NOTE | 2017-09-29 22:41 | PN ---
PROGRESS NOTE DATE OF SERVICE: 09/29/2017. REASON FOR FOLLOWUP: Aspiration pneumonia. INTERVAL HISTORY: The patient is afebrile. He seems to be awake, alert, breathing comfortably. No further nausea or vomiting has been noticed or any diarrhea. However, the patient was noted to be hypotensive requiring a low-dose pressors in the form of Levophed. EXAMINATION: Blood pressure 99/52 with a pulse of 87, temperature of 98. She is 92% on 11L high- flow oxygen. General description is an elderly female lying in bed in no distress. RESPIRATORY SYSTEM: Unlabored breathing with decreased breath sounds in the bases, no wheeze. HEART: S1, S2. Regular rate and rhythm. ABDOMEN: Soft, no tenderness. EXTREMITIES: No edema of the feet. LABS: Hemoglobin 11.7, white count of 18.4, BUN of 33, creatinine 1.0. DIAGNOSTIC IMPRESSION AND PLAN: Patient with episodes of aspiration pneumonia. The patient is currently covered with Zosyn. White count slightly elevated and required low dose pressor support. We will try to obtain a sputum antibiotics. Overall prognosis remains guarded. Continue with supportive care. MMODL / IJN: [id number] /
[2017-09-30] MEDS: PIPERACILLIN-TAZOBACTAM 3.375 GM in DEXTROSE/WATER 1 50ML.BAG IVPB SCH ×3 (00:42→16:39)
[2017-09-30 04:57] LABS: Anisocytosis Slight; Basophils % (A) 0 %; Eosinophils # (A) 0.3 k/uL (0-0.7); Eosinophils % (A) 2 %; HCT 32.1 % (34.0-46.0); Hypochromasia Moderate; Lymphocytes # (A) 0.8 k/uL (1.0-4.8); Lymphocytes % (A) 5 %; MCH 27.7 pg (25.0-35.0); MCHC 31.3 g/dL (31.0-37.0); MCV 88.6 fL (80.0-100.0); Mean Platelet Volume 7.4; Monocytes # (A) 0.6 k/uL (0-1.0); Monocytes % (A) 4 %; Neutrophils # (A) 14.1 k/uL (1.3-7.7); Neutrophils % (A) 88 %; Platelet Count 364 k/uL (150-450); RBC 3.62 m/uL (3.80-5.40); RDW 18.4 % (11.5-15.5); WBC 16.1 k/uL (3.8-10.6)
[2017-09-30 05:29] LABS: Albumin 2.7 g/dL (3.5-5.0); Calcium 8.8 mg/dL (8.4-10.2); Magnesium 2.2 mg/dL (1.6-2.3); Phosphorus 3.6 mg/dL (2.5-4.5); Potassium 3.4 mmol/L (3.5-5.1); Total Bilirubin 0.5 mg/dL (0.2-1.3); Total Protein 5.3 g/dL (6.3-8.2)
[2017-09-30] MEDS: IPRATROPIUM-ALBUTEROL 3 ML NEB INHALATION SCH ×3 (07:08→19:26)
--- NOTE | 2017-09-30 07:41 | XR ---
EXAMINATION TYPE: XR chest 1V portable DATE OF EXAM: 09/30/2017 Comparison: 09/29/2017 Clinical History: 81-year-old female follow-up CHF Findings: Heart mildly enlarged. Diffuse interstitial and vascular prominence. Small to moderate right pleural effusion persists. Bibasilar patchy opacities. Partially visualized left shoulder arthroplasty. Impression: 1. Continued CHF with pulmonary vascular congestion. 2. Moderate pleural effusion with bibasilar atelectasis and/or consolidation is also similar.
[2017-09-30] MEDS: POTASSIUM CHLORIDE ER 20 MEQ TAB.ER PO SCH ×2 (08:34→10:33)
[2017-09-30] MEDS: DONEPEZIL 10 MG TAB PO SCH (08:34)
[2017-09-30] MEDS: FAMOTIDINE 20 MG TAB PO SCH (08:34)
[2017-09-30] MEDS: HEPARIN SODIUM,PORCINE 5,000 UNIT/ML 1 ML VIAL SQ SCH ×2 (09:02→21:06)
[2017-09-30] MEDS: MECLIZINE 12.5 MG TAB PO SCH (09:02)
--- NOTE | 2017-09-30 09:18 | P.PN ---
Subjective Progress Note Date: 09/30/17 Principal diagnosis: Acute on chronic hypoxic respiratory failure secondary to COPD and small right- sided pleural effusion I'm seeing this 81-year-old female patient in follow-up and there is an obvious concern about her health in general as the patient comes in with altered mentation, hypoxic history failure with worsening in her oxygenation status as the patient has limited at least about 2 by nasal cannula and currently is up to 6 L in addition to leukocytosis and evolving metabolic acidosis. A septic workup has been completed and the patient is being seen by infectious disease. Cultures of been negative. The patient is slightly tachycardic. She has leukocytosis. D-dimer is positive. Echocardiogram shows severe pulmonary hypertension with a PA pressure estimated to be around 120 and there is also evidence of moderate mitral regurgitation, mild mitral stenosis, severe tricuspid regurgitation, severe pulmonary hypertension, small pericardial effusion, and dilated the right-sided cardiac structures. The left and ejection fraction is about 70%. The CAT scan of the abdomen revealed no acute abnormalities then some chronic interstitial changes in lung bases, small bilateral pleural effusion, small pericardial effusion, cholelithiasis and questionable thickening of the proximal small bowel/enteritis and nonobstructing 9 mm right lower pole renal calculus and complicated diverticulosis. There is also degenerative changes in the spine and Ventolin hernia containing fat only. Doppler of the lower extremities was negative. Patient has underlying dementia at baseline. On and off she sounds to be more confused. On today's evaluation of 09/17/2017 the patient is being seen in follow-up in the intensive care unit. She seems to be improved compared to yesterday. On and off she is still confused. No focal neurological deficits. Family is at the bedside. She is on 6 L of oxygen nasal cannula and she is also having some bibasilar crackles and for that reason I have suggested some diuresis. Meanwhile, the white cell count is improving is down to 25. He was dynamically stable. No pressors. The patient has not been found to have any source of an infection. She is afebrile. Ultrasound the gallbladder showed no evidence of any cholecystitis. The patient is cholelithiasis. Abnormalities in LFTs is probably related to right-sided failure. No evidence of any urine tract infection. No evidence of any blood infection. Doubt endocarditis. Echocardiogram showed severe pulmonary hypertension and evidence of right-sided heart failure probably related to chronic hypoxemia. CAT scan of the chest showed diffuse emphysema and small right-sided pleural effusion and compressive atelectasis of the right lung base and there was no evidence of any pulmonary embolism or filling defects. The patient is on DuoNeb nebulized treatments around the clock. The patient was given a dose of Lasix. The patient is on examination of Zosyn and vancomycin for now as an empiric antibiotic coverage. ID is on the case. On 09/18/2017 the patient is still in the intensive care unit. She is calm and comfortable. She is on and off confused and I think there is obvious component of dementia. According to the family she is more alert and awake compared to yesterday. Family is at the bedside. She is having no significant respiratory distress. Her pulse ox is 92% on 4 L of oxygen by nasal cannula and she baseline carries on 3 L of oxygen by nasal cannula. She has a congested cough. She was given another dose of Lasix today. She was given a dose yesterday and her net fluid balance has been negative over the past 24 hours. She denies having any chest pain. No shortness of breath. Her white cell count is down to 23. Her CAT scan of the chest showed no evidence of any pulmonary embolism and the patient had extensive emphysema, right-sided pleural effusion, right lower lobe compressive atelectasis. Renal function remains impaired with a creatinine of 1.6 and this is a chronic renal failure. She remains on a combination of Zosyn and vancomycin although there is no clear-cut infectious source for this patient. On 09/19/2017 the patient is being seen on a medical floor. Note that the patient was felt to be stable yesterday. Based on that I made recommendations to move this patient to a telemetry unit on a medical floor. Earlier this morning, I was informed by the nurses that the patient had a large bloody bowel movement. There was bright red blood with clots within the diaper in the bed. Despite this, the patient did not have any significant hypotension, tachycardia or any discomforts his chest pain or shortness of breath. Blood work is still pending for now. Meanwhile, the patient is currently on 6 L of oxygen nasal cannula. No major edema in lower extremities. No abdominal pain or distention. Mental status is off as the patient has an underlying component of dementia. White cell count is dropping. Cultures of been negative and the patient has been covered with a combination of Zosyn and vancomycin. Renal function is impaired as the patient has chronic renal failure. On 09/20/2017, the patient is stable. She got moved back to the intensive care unit as the patient was suspected to have ongoing GI bleed. Yesterday she had one bout of bloody bowel movement and she had to smaller episodes overnight. Her hemoglobin remains stable. This is suspected to be a diverticular bleed. No nausea. No vomiting. No abdominal pain. Mental status is appropriate this morning. She has underlying dementia. No significant respiratory distress. No cough or sputum production. The patient is still on 6 L/m nasal cannula to maintain saturation above 90%. Hemodynamically stable. IV fluids to kvo. The patient is seen again today 09/21/2017 in follow-up on the regular medical floor. She is currently sitting up in a chair at the bedside. She is awake and alert in no acute distress. She has not had any further GI bleeding. She is still requiring 8 L high flow nasal cannula to maintain O2 saturations greater than 90%. She denies any worsening shortness of breath, cough or congestion. He was positive for Lucero. Blood cultures reveal no growth. We cut has improved 18,000. Hemoglobin 9.4. Creatinine 1.33. She is continued on Zosyn. On 09/22/2017, the patient is still on oxygen at 6 L/m nasal cannula. No evidence of any GI bleeding. On and off confused secondary to underlying dementia. The patient has no respiratory distress. No cough or sputum production. No other complaints otherwise for the past 24 hours. While tach on is been gradually improving and the patient was switched to oral Augmentin. Reevaluated today on 09/23/2017, patient is now on high flow nasal cannula at 8 L , feeling better, occasional episodes of confusion related to underlying dementia. Patient does not seem to be in any respiratory distress, chest x-ray was reviewed and I recommended a dose of Lasix 40 mg IV push to be given once. I am still debating whether to proceed with a right-sided thoracentesis, however I have discussed her condition with the son at bedside, and recommended ultrasound to be of the chest to be done tomorrow if no improvement. May have to consider thoracentesis if her O2 sats saturation remains marginal. But that would all depend on the response to Lasix and on the follow-up ultrasound of the chest tomorrow. All labs were reviewed, BUN is 19 and creatinine is 1.20. On 09/24/2017 patient seen in follow-up on medical surgical floor, he is resting in bed, and her daughters at the bedside, patient is calm and comfortable, in no acute distress. His chest x-ray showed improved aeration of the right lung base and there is trace right pleural effusion on the bases of congestive heart failure and right basilar airspace disease likely to represent atelectasis. Ultrasound of the chest was obtained, and it showed right pleural effusion fluid pocket of 9 cm, and left pleural fluid pocket of 1.3 cm. WBC is trending down, down to 11.4, hemoglobin is 8.8, CO2 is 32, BUN is 22, creatinine is 1.25, patient is afebrile, denies any fever or chills, remains on 8 L per high flow nasal cannula with pulse ox of 93%. Patient was given a dose of IV Lasix yesterday, with subsequent improvement in aeration based on the chest x-ray results, she remains on oral Lasix of 40 mg daily, remains on oral Augmentin, and nebulized treatments. Blood cultures are negative to date, sputum culture just showed Lucero albicans likely contamination of oral ijeoma. Continue weaning oxygen, clinically patient is improving, denies any worsening shortness of breath cough or congestion. On 09/25/2017 patient seen in follow-up. Patient remains generally weak, incentive spirometry effort is 500-750 today, and patient becomes very fatigued with incentive spirometry exercises. Ultrasound the chest showed right pleural fluid pocket of 9 cm, and left pleural fluid 1.3 cm. Patient remains on 8 L per nasal cannula, with O2 saturation at 90%. Patient continues on oral Augmentin, oral Lasix, nebulized treatments. We will consult interventional radiology for ultrasound-guided thoracentesis. Consult physical therapy. Increase activity as tolerated, up in the chair. Patient will need outpatient rehab after discharge, and arrangements are being made for placement to [facility] The patient is seen again today 09/26/2017 in follow-up on the regular medical floor. She is currently awake and alert and resting comfortably in bed. She did undergo an ultrasound guided right-sided thoracentesis with approximately 460 mL of straw-colored fluid removed. Fluid was sent for analysis and pathology. Follow-up chest x-ray did reveal improved aeration in the right lung. No evidence of pneumothorax. She is still requiring high flow nasal cannula at 8 L/m per nasal cannula. We'll continue to titrate that down now. She has been afebrile. Hemodynamically stable. White count 10.7. Hemoglobin 10.0. Creatinine 1.22. Discharge planning is in place for probable [facility] for inpatient rehabilitation. On 09/27/2017 patient was seen and examined again on the regular medical surgical floor. Patient is status post US guided right thoracentesis, cytology is pending, but the pleural fluid analysis is positive for transudative fluid, consistent with congestive heart failure. Overall patient is very weak, she is working on her incentive spirometry, and is able to achieve 500 on today. At the time of our evaluation patient was sitting in the chair, quite fatigued, when suddenly she was noted to go unresponsive, had vomited, this was witnessed by her daughter who immediately called us for help. Patient was placed in bed, there was emesis noted, patient started coming to, she was encouraged to cough, her oral pharynx was gently suctioned. She had briefly desaturated down to 56% , was placed on the 100% nonrebreather, and had subsequently recovered after being encouraged to take deep breaths and coughing. No evidence of acute bronchospasm was noted. Patient quickly recovered in the matter of a few minutes, vital signs were stable. Chest x-ray was ordered, patient was given a nebulized treatment. This episode was thought to be due to vasovagal episode possibly due to vomiting. Mental status was back to baseline, patient answering questions, although appears very weak and tired. She was transferred to the intensive care for further monitoring, chest x-ray was obtained, and the film was reviewed by Dr. Daly, it showed chronic emphysematous changes, with small bilateral pleural effusions and slightly increased interstitial prominence. Patient was seen in the ICU and her FiO2 had been weaned down to 8 L with a pulse ox of 95%. She denied worsening dyspnea, she appears to be calm and comfortable, awake and alert, oriented times 2, to person and place, vital signs are stable, no hemodynamic issues at this time. CODE STATUS was discussed with the daughter, who stated that at this time the family wishes to remain with a full code, in view of this issue never being discussed with the patient. Her graft on 09/30/2017 patient seen in follow-up in the intensive care unit. She is awake, alert, oriented to herself, and place. Denies any acute distress, and some IV is 0.9 normal seen at a rate of 10 ML per hour, Levaquin and is infusing at 2 mics per minute. Patient is currently on 12 L per high flow nasal cannula, with O2 sat at 95%, afebrile. Lung sounds are positive for breast sounds at the bases, with scattered rales. Today's chest x-ray was reviewed, and shows persistent pulmonary vascular congestion with bibasilar moderate pleural fluid with bibasilar atelectasis. Patient remains on IV diuretics at 40 mg every 12 hours, she is in negative fluid balance -1776 over the last 24 hours. She is tolerating oral intake. She continues on empiric antibiotics in the form of Zosyn. Her breathing is easier today, she is status post right-sided thoracentesis on 09/25/2017, which was consistent with transudate of pleural fluid secondary to fluid overload, pleural fluid cytology is still pending at this time. Today's lab work was reviewed, and shows a VBC of 16.1, hemoglobin of 10.0, serum potassium 3.4, chloride is 95, CO2 is 35, renal profile is slightly improved with BUN of 37, creatinine is 1.6. CODE STATUS was discussed with the patient, who seems to not being fever of life support. However there is questionable history of dementia and this will further be discussed with the patient's son and daughter. Objective - Vital Signs Vital signs: Vital Signs Temp 97.9 F 09/30/17 00:00 Pulse 80 09/30/17 07:20 Resp 18 09/30/17 07:00 BP 87/57 09/30/17 07:00 Pulse Ox 95 09/30/17 07:10 Intake & Output 09/29/17 09/30/17 09/30/17 18:59 06:59 18:59 Intake Total 251.937 526.75 105 Output Total 960 1595 215 Balance -708.063 -1068.25 -110 Weight 47.4 kg Intake: IV 130.0 132.5 80 0.9 Normal Saline 80 70 30 Piperacillin-Tazobactam 3 50.0 .375 gm In Dextrose/Water 1 50ml.bag @ 12.5 mls/hr IVPB Q8HR [facility] Rx#: [id number] Piperacillin-Tazobactam 3 62.5 50 .375 gm In Dextrose/Water 1 50ml.bag @ 12.5 mls/hr IVPB Q8HR [facility]BD[facility] Rx#: [id number] Intake, IV Titration 71.937 274.25 Amount Norepinephrin 4 mg-0.9% 21.937 274.25 Ns Pmx 4 mg In 250 ml @ Titrate IV .Q0M [facility] Rx#: [id number] Piperacillin-Tazobactam 3 50 .375 gm In Dextrose/Water 1 50ml.bag @ 12.5 mls/hr IVPB Q8HR [facility]BD[facility] Rx#: [id number] Oral 50 120 25 Output: Urine 960 1595 215 Stool 0 Other: Voiding Method Indwelling Catheter Indwelling Catheter # Voids 0 - Exam Gen. Revealed an 81-year-old female currently in the intensive care, was briefly placed on 100% nonrebreather after an acute episode of what thought to be vasovagal stimulation, respiratory difficulty after vomiting. Currently on 8 L per nasal cannula, she is calm and comfortable, in no acute distress Examination of the neck reveals bilateral jugular venous distention. This is also noted that third-degree bed elevation. No neck masses. Neck is supple there is no lymphadenopathy and there is no cervical or supraclavicular lymphadenopathy. Mucous membranes are dry and there is no thrush. Head exam was generally normal. There was no scleral icterus or corneal arcus. Mucous membranes were moist. Lungs sounds are diminished bilaterally along with some limited bibasilar crackles. Breath sounds are diminished bilaterally Heart sounds reveal accentuation of the second heart sound. No cervical murmurs appreciated. The patient is slightly tachycardic yet the rhythm seems to be sinus at this point. Abdominal exam revealed normal bowel sounds. The abdomen was soft, non-tender, and without masses, organomegaly, or appreciable enlargement of the abdominal aorta. Examination of the extremities revealed easily palpable radial, femoral and pedal pulses. There was no cyanosis, clubbing or edema. Examination of the skin revealed no evidence of significant rashes, suspicious appearing nevi or other concerning lesions. Neurologically the patient is neurologic exam is nonfocal. The patient will go 4 extremities without any limitation. No cranial nerve deficits. The patient is on off confused and she has memory problems specially with short-term memory. - Labs CBC & Chem 7: 09/30/17 04:28 09/30/17 04:28 Labs: Abnormal Lab Results - Last 24 Hours (Table) 09/29/17 09/30/17 09/30/17 Range/Units 19:27 04:28 04:28 WBC 16.1 H (3.8-10.6) k/uL RBC 3.62 L (3.80-5.40) m/uL Hgb 10.0 L D (11.4-16.0) gm/dL Hct 32.1 L (34.0-46.0) % RDW 18.4 H (11.5-15.5) % Neutrophils # 14.1 H (1.3-7.7) k/uL Lymphocytes # 0.8 L (1.0-4.8) k/uL Potassium 3.4 L (3.5-5.1) mmol/L Chloride 95 L (98-107) mmol/L Carbon Dioxide 35 H (22-30) mmol/L BUN 37 H (7-17) mg/dL Creatinine 1.60 H (0.52-1.04) mg/dL Glucose 110 H (74-99) mg/dL POC Glucose (mg/dL) 127 H (75-99) mg/dL Total Protein 5.3 L (6.3-8.2) g/dL Albumin 2.7 L (3.5-5.0) g/dL Microbiology - Last 24 Hours (Table) 09/26/17 09:00 Gram Stain - Final Pleural Fluid Body Fluid Culture - Final 09/28/17 19:30 Urine Culture - Preliminary Urine,Catheterized Assessment and Plan Plan: Assessment: 1 acute on chronic hypoxic history failure with worsening in her oxygenation and the patient is currently requiring high flow oxygen 12 L/m nasal cannula. No clear indication of an underlying pneumonia. The patient had a CT angios the chest that showed no evidence of any pulmonary embolism. His advanced COPD and emphysema and small right-sided pleural effusion and compressive atelectasis of the right lung base. We repeated the VQ scan on 09/27/2017 which showed low probability of pulmonary embolism. Overall oxygenation remains poor. Patient had an episode of presumable aspiration pneumonia significant to vomiting on 09/27/2017 and at present she seems to be stable, on any empiric antibiotics in the form of Zosyn 2 severe pulmonary hypertension, most likely chronic in nature and a CT angios the chest showed no pulmonary embolism. 3 COPD with chronic hypoxic respiratory failure maintained on 12 L of oxygen . Normally patient is on 3 L at home 4 leukocytosis, improving and the white cell count is down to 11.8 without any source of an infection, patient was placed on empiric antibiotic in the form of Zosyn, and pleural fluid cultures are pending at this time, blood cultures have been negative since admission, sputum culture was only positive for Lucero, likely due to oral contamination 5 mild anion gap metabolic acidosis with some lactic acidosis at the time of admission , recovered completely 6 dementia with episodes of altered mentation, episodic 7.generalized weakness 8 acute versus chronic renal insufficiency, probably stage II to 3 chronic kidney failure 9 small bilateral pleural effusion, status post ultrasound-guided right thoracentesis, with transudative pleural fluid and cytology still pending at this time 10 nephrolithiasis 11 degenerative arthritis 12 cholelithiasis without evidence of any cholecystitis 13 acute GI bleed, likely of a lower GI source as the patient had bloody bright red bowel movement with clots. The patient was asymptomatic. The patient's hemoglobin is stable and the patient does not have any further bleeding episodes. Plan: We will decrease the IV diuretics to 40 mg every daily, we will try to wean off the norepinephrine drip. Patient's awake and alert, in no acute distress, breathing easier. Weaning FiO2. Remains very generally weak, microbiology remains negative to date. Overall long-term prognosis is poor, patient had a protracted illness with her third trip to the intensive care. CODE STATUS was discussed again with the patient, who seems to be not in favor of life support however in view of patient's cognitive limitations, we will also discuss this with the patient's family members. I performed a history & physical examination of the patient and discussed their management with my nurse practitioner, Audra Solomon. I reviewed the nurse practitioner's note and agree with the documented findings and plan of care. Lung sounds diminished. The findings and the impression was discussed with the patient. I attest to the documentation by the nurse practitioner. Critical care time is over 30 minutes Time with Patient: Greater than 30
[2017-09-30] MEDS: SPIRONOLACTONE 25 MG TAB PO SCH (10:33)
[2017-09-30] MEDS: FLUTICASONE 50MCG/SPRAY NASAL 16GM EA NOSTRIL SCH (10:33)
--- NOTE | 2017-09-30 10:36 | P.PN ---
Subjective Progress Note Date: 09/30/17 Brenda Dave is an 81-year-old female, patient of [facility], who presented to [facility] emergency room with a chief complaint of generalized weakness, daughter states that patient was seen at [facility] one week ago, she was given an antibiotic for presumed urinary tract infection, however her condition continued to worsen, she was seen by her visiting nurse and was advised to come to emergency room. Patient was evaluated by Dr. Brown in the emergency room, she had evidence of sepsis with hypotension, tachycardia, and leukocytosis, also d-dimer was elevated at 5.64, she was admitted to telemetry floor, she was started on IV antibiotic and IV fluid. Bilateral lower extremity Doppler was done and was negative for DVT, VQ scan was done and was low probability for pulmonary embolism. On 09/15/2017 patient is alert and oriented 3 in no apparent distress, she is complaining of feeling cold and having shaking chills, otherwise no complaints, patient has tachycardia, and has evidence sepsis, with leukocytosis white blood count still at 30,000, primary site of infection is still unclear she is complaining of cough, chest x-ray did not reveal any evidence of pneumonia, blood culture is pending, echocardiogram is pending, sodium is up to 114 9 IV fluid change to half-normal saline, will check lactic acid. 09/16/2017 patient is confused. She states things like "did you know that I am ". Patient's son is at bedside patient does have some baseline confusion usually mostly short term memory loss. However, since she's been sick the confusion has worsened. Patient is lying in bed comfortably no evidence of distress. Earlier this morning per nursing staff patient was satting around 84% on 3 L and had to be increased to 5 L and was able to get into the 90s. Patient's white count is still elevated at 30.5. Infectious disease and pulmonary service are following. Repeat chest x-ray shows no acute changes. And for the screening negative. Patient denies any chest pain. Patient has been having some cough. Denies any nausea or vomiting no diarrhea. Patient did have one loose stool, but not watery. 09/17/2017 patient was transferred to the ICU yesterday afternoon for closer monitoring. She remains in the ICU. Case was discussed with pulmonary service in detail. Patient's white count has been decreased from 30.5-25.4 she's on 10 L oxygen satting at 95%. The exact source of infection is still unclear. She remains on Zosyn and vancomycin. Echocardiogram shows severe pulmonary hypertension and severe tricuspid regurgitation. CTA of the chest was negative for a PE did reveal atelectasis and a small right-sided pleural effusion. Moderate pericardial effusion and no evidence of pericarditis. Abdominal ultrasound showed no evidence of an acute cholecystitis. Did reveal cholelithiasis. Pulmonary service did order a dose of IV Lasix for her fluid overload. Infectious disease is also following. Urine output is adequate. Patient is still confused. 09/19/2017 nursing staff called and notified that patient had a massive bloody stool with large blood clots. Repeat hemoglobin check went up from 10.4-10.8. Patient was transferred to the ICU. Fluids were increased to 75 mL an hour. Patient was hypotensive earlier in the morning. Blood pressures are showing improvement. Case was discussed with baton teacher Dr. Romo. GI service was consulted. They have Re: Evaluated patient and there is no plan for colonoscopy at this point. Patient's previous computed tomography scan of the abdomen had showed evidence of diverticulosis this possibly could be related to a diverticular bleed. Patient denies any abdominal pain no nausea or vomiting reported. Currently on 8 L of oxygen. White count 21.2 09/20/2017 patient currently in the ICU. She is doing well. No further bloody bowel movements today. Likely symptoms related to a diverticular bleed. Seen by GI service. No plans for endoscopy at this time. Patient on 10 L options a 96%. Hemoglobin at 10.1. 09/23/2017 patient had a drop in oxygen saturation to around 80%. Oxygen has been increased to 8 L satting around 92%. Patient also complaining of some hoarseness and postnasal drip. Flonase has been ordered. Chest x-ray has also been ordered. Patient denies any chest pain or shortness of breath. Has had no further episodes of bleeding in her stools. Diet will be advanced to regular diet. Patient also is very weak and is working with physical therapy 09/24/2017 patient still requiring 8 L of oxygen. Denies any shortness of breath. Repeat chest x-ray from this morning shows improved aeration of the right lung base on the liver remains a trace right pleural effusion on the bases of congestive heart failure and right basilar airspace disease. This is favored to represent atelectasis however pneumonia should be considered. Incentive spirometer has been ordered. She remains on antibiotics. Patient is reporting a mild cough. She did receive an extra dose of IV Lasix yesterday. White count has improved from 14-11.4. Patient did have a drop in her hemoglobin from 10.4-8.8. Nursing staff and family reported known bloody bowel movements. 09/26/2017 patient underwent a right-sided thoracentesis this morning she had 460 mL's removed. Follow-up chest x-ray shows no evidence of pneumothorax. Does show improvement in aeration of the right lung base after thoracentesis. Patient currently on 8 L. Pulmonary service following. Patient denies any chest pain or shortness of breath. She did have a bowel movement this morning no blood reported per nursing staff. Patient denies any nausea or vomiting. Denies any chest pain or shortness of breath. Patient had been complaining of some pain at the thoracentesis site. Ultram has been ordered. On 09/27/2017 patient is alert and responsive in no apparent distress she is still requiring 6 L of oxygen nasal cannula to keep her oxygen saturation at 90 % she is resting comfortably in bed without any complaints at this time there is no fever or chills no headache or dizziness she has occasional cough no chest pain no shortness of breath at rest no nausea or vomiting no abdominal pain no diarrhea and no urinary symptoms. On 09/28/2017 patient is alert and responsive in no apparent distress she had episode of syncope yesterday subsequence to that she started having worsening oxygen desaturation she was transferred to intensive care unit white blood count is elevated from 11.8-19.8 likely patient had an episode of vomiting during her syncopal episode. She developed an aspiration pneumonia. currently she is requiring 10 L of oxygen high flow she is complaining of cough otherwise she denies any symptoms there is no fever or chills no headache or dizziness no chest pain or shortness of breath no nausea or vomiting no abdominal pain no diarrhea and no urinary symptoms. On 09/29/2017 patient remains in ICU she is alert and responsive in no apparent distress, she is still requiring 10 L of high flow oxygen O2 sat duration is 96 % she denies any chest pain she has occasional cough she denies any shortness of breath at rest there is no fever or chills no nausea or vomiting no abdominal pain no diarrhea and no urinary symptoms. 09/30/2017 patient remains in the ICU. She's on 1 ramesh of levo. They're working on titrating her off of the levo today. Supple pressure in the 90s. Patient also requiring 12 L of oxygen. Patient sitting up in bed comfortably. No evidence of distress. Family members at bedside questions were answered. Discussed case with pulmonary service. They will be titrating Lasix down to 40 mg every 12 hours. Chest x-ray still showing some evidence of congestive heart failure and pneumonia. Creatinine is up to 1.6. White count has come down from 18.4-16.1. Patient denies any chest pain shortness of breath. Denies any nausea or vomiting. He's having regular bowel movements no bleeding. Objective - Vital Signs Vital signs: Vital Signs Temp 98 F 09/30/17 08:30 Pulse 82 09/30/17 09:00 Resp 18 09/30/17 09:00 BP 90/60 09/30/17 09:00 Pulse Ox 97 09/30/17 09:00 Intake & Output 09/29/17 09/30/17 09/30/17 18:59 06:59 18:59 Intake Total 251.937 526.75 105 Output Total 960 1595 215 Balance -708.063 -1068.25 -110 Weight 47.4 kg Intake: IV 130.0 132.5 80 0.9 Normal Saline 80 70 30 Piperacillin-Tazobactam 3 50.0 .375 gm In Dextrose/Water 1 50ml.bag @ 12.5 mls/hr IVPB Q8HR [facility] Rx#: [id number] Piperacillin-Tazobactam 3 62.5 50 .375 gm In Dextrose/Water 1 50ml.bag @ 12.5 mls/hr IVPB Q8HR [facility] Rx#: [id number] Intake, IV Titration 71.937 274.25 Amount Norepinephrin 4 mg-0.9% 21.937 274.25 Ns Pmx 4 mg In 250 ml @ Titrate IV .Q0M [facility] Rx#: [id number] Piperacillin-Tazobactam 3 50 .375 gm In Dextrose/Water 1 50ml.bag @ 12.5 mls/hr IVPB Q8HR [facility] Rx#: [id number] Oral 50 120 25 Output: Urine 960 1595 215 Stool 0 Other: Voiding Method Indwelling Catheter Indwelling Catheter # Voids 0 - Exam Head normocephalic Neck supple Lungs crackles in the right lower lobe. No wheezing Heart regular rate and rhythm S1-S2, no rub or gallop Abdomen is soft nontender nondistended positive bowel sounds no hepatosplenomegaly Extremities no edema Neuro awake and alert but confused - Labs CBC & Chem 7: 09/30/17 04:28 09/30/17 04:28 Labs: Abnormal Lab Results - Last 24 Hours (Table) 09/29/17 09/30/17 09/30/17 Range/Units 19:27 04:28 04:28 WBC 16.1 H (3.8-10.6) k/uL RBC 3.62 L (3.80-5.40) m/uL Hgb 10.0 L D (11.4-16.0) gm/dL Hct 32.1 L (34.0-46.0) % RDW 18.4 H (11.5-15.5) % Neutrophils # 14.1 H (1.3-7.7) k/uL Lymphocytes # 0.8 L (1.0-4.8) k/uL Potassium 3.4 L (3.5-5.1) mmol/L Chloride 95 L (98-107) mmol/L Carbon Dioxide 35 H (22-30) mmol/L BUN 37 H (7-17) mg/dL Creatinine 1.60 H (0.52-1.04) mg/dL Glucose 110 H (74-99) mg/dL POC Glucose (mg/dL) 127 H (75-99) mg/dL Total Protein 5.3 L (6.3-8.2) g/dL Albumin 2.7 L (3.5-5.0) g/dL Microbiology - Last 24 Hours (Table) 09/26/17 09:00 Gram Stain - Final Pleural Fluid Body Fluid Culture - Final 09/28/17 19:30 Urine Culture - Preliminary Urine,Catheterized Assessment and Plan Assessment: #1 sepsis likely secondary to diverticular disease. Initially on Augmentin. This has improved. #2 acute on chronic hypoxic respiratory failure. CT of the chest showed no evidence of a pulmonary embolism. VQ scan showing low probability PE. Possibly related to her advanced COPD and pleural effusion. Worsening acute hypoxic respiratory failure due to aspiration pneumonia and fluid overload requiring 12 L of oxygen. Pulmonary following closely #3 underlying history of COPD, at this time patient will be given DuoNeb updraft , no need for systemic steroids #4 severe pulmonary hypertension likely secondary to her COPD and exacerbated by her recent illness. #5 underlying history of dementia maintained on Aricept and Namenda #6 hypernatremia improved. Sodium level has normalized #7 acute on chronic renal failure, stage III. Kidney functions showing a creatinine of 1.6. Lasix decreased today. Continue to monitor #8 metabolic acidosis improved after sodium bicarb drip. Sodium bicarbonate drip discontinued by pulmonary service #9 metabolic encephalopathy secondary to her acute infection with underlying history of dementia #10 acute lower GI bleed: Likely related to a diverticular bleed. Patient seen by GI service. No plan for colonoscopy at this time. No further bloody bowel movements reported. Hemoglobin stable #11 right-sided pleural effusion status post thoracentesis with 460 mL's removed. Primary service has decreased the IV Lasix to 40 mg IV daily. Test x- ray's still show some evidence of pleural effusion #12 aspiration pneumonia: Started on IV Zosyn over the weekend #13 hypotension titrating levo. #14 hypokalemia: Potassium 3.4. Patient receiving supplement. Repeat labs in a.m. CODE STATUS addressed with family members: Currently a wish for a full code. Patient has 5 adult children. One son would like to discuss CODE STATUS with the rest of his siblings before making a decision DVT prophylaxis subcu heparin I performed an examination of the patient and discussed their management with the physician Senior Etl Developer. I have reviewed the Physician Senior Etl Developer's notes and agree with the documented findings and plan of care
[2017-09-30] MEDS: MULTIVITAMINS, THERA 1 EACH TAB PO SCH (11:32)
[2017-09-30] MEDS: FUROSEMIDE 10 MG/ML 4 ML VIAL IV SCH (12:51)
[2017-09-30] MEDS ORDERED: TERBUTALINE FOR EXTRAVASATION 1 MG/ML VIAL SQ STA (20:43)
--- NOTE | 2017-09-30 20:45 | PN ---
PROGRESS NOTE DATE OF SERVICE: 09/30/2017 REASON FOR FOLLOWUP: Aspiration pneumonia. INTERVAL HISTORY: The patient is afebrile. She is currently breathing comfortably. Still requiring high- flow oxygen nasal cannula. She did have a congested cough, unable to get sputum up. No abdominal pain. No diarrhea. . On examination, blood pressure 97/55, pulse of 91, temperature is 97.8. She is 94% on 9 L nasal cannula. General description is an elderly female lying in bed in no distress. Respiratory system unlabored breathing with decreased breath sounds in the base. No wheeze. Heart S1, S2. Regular rate and rhythm. Abdomen soft. No tenderness. Extremities: No edema of the feet. LABS: Hemoglobin is 10 with white count 15.1, BUN of 37, creatinine 1.60. DIAGNOSTIC IMPRESSION AND PLAN: Patient with aspiration pneumonia is currently covered with Zosyn. We will try to obtain a sputum to narrow down her antibiotics. Family present at bedside. All their questions were answered. MMODL / IJN: [id number] /
[2017-09-30] MEDS: MEMANTINE 10 MG TAB PO SCH (21:06)
[2017-09-30] MEDS: NOREPINEPHRIN 4 MG-0.9% NS PMX 4 MG/250 ML ML IV SCH (21:15)
[2017-10-01] MEDS: PIPERACILLIN-TAZOBACTAM 3.375 GM in DEXTROSE/WATER 1 50ML.BAG IVPB SCH ×3 (00:05→21:01)
[2017-10-01 05:45] LABS: Albumin 2.8 g/dL (3.5-5.0); Calcium 9.1 mg/dL (8.4-10.2); Total Bilirubin 0.7 mg/dL (0.2-1.3); Total Protein 5.4 g/dL (6.3-8.2)
[2017-10-01 06:27] LABS: Anisocytosis Slight; Basophils # (A) 0.1 k/uL (0-0.2); Basophils % (A) 0 %; Eosinophils # (A) 0.3 k/uL (0-0.7); Eosinophils % (A) 2 %; HCT 33.9 % (34.0-46.0); HGB 10.7 gm/dL (11.4-16.0); Hypochromasia Marked; Lymphocytes % (A) 7 %; MCH 28.1 pg (25.0-35.0); MCHC 31.6 g/dL (31.0-37.0); MCV 88.7 fL (80.0-100.0); Mean Platelet Volume 7.5; Monocytes # (A) 0.6 k/uL (0-1.0); Monocytes % (A) 4 %; Neutrophils # (A) 11.8 k/uL (1.3-7.7); Neutrophils % (A) 85 %; Platelet Count 386 k/uL (150-450); RBC 3.82 m/uL (3.80-5.40); RDW 18.5 % (11.5-15.5); WBC 13.9 k/uL (3.8-10.6)
[2017-10-01] MEDS: IPRATROPIUM-ALBUTEROL 3 ML NEB INHALATION SCH ×3 (07:56→20:24)
--- NOTE | 2017-10-01 08:04 | P.PN ---
Subjective Progress Note Date: 10/01/17 Principal diagnosis: Shortness of breath, mental status changes, possible sepsis Progress note dated 09/15/2017 81-year-old female with history of mental status changes, possible sepsis/ infection, mild CHF COPD medical noncompliance with COPD regimen and previous history of heavy tobacco use. The patient was feeling better and was able to be moved from the 6 for down to the fifth floor yesterday. Her respiratory status is improved. She does use oxygen 24 7. Does not really take her breathing medications at this time. Apparently has seen a lung doctor in the past. Does have an established diagnosis of COPD. Her primary care physician is Dr. Laine Fuentes. Progress note dated 10/01/2017 The patient is again seen here in the ICU. The patient has been here since September 13 and has had 3 trips to the intensive care unit. Apparently the nurse spoke to the family yesterday and there was some consideration of making the patient a DO NOT RESUSCITATE although I don't believe that was confirmed. Apparently there are 5 siblings who have to agree. The patient's on 9 L high flow oxygen therapy. Also receiving norepinephrine at 4 mcg/m and a saline IV at KVO. The patient may have had infiltration of norepinephrine in the right forearm. Terbutaline was given per protocol. The patient will get a PIC line. Overall, prognosis remains very poor. Today's labs include a white count of 13.9 hemoglobin 10.7 hematocrit 33.9 and platelet count normal at 386,000. In addition, the sodium was 145, potassium 4, chloride 96, CO2 35, and BUN and creatinine of 38 and 1.52 respectively. Cultures this point remain negative. Labs x-rays a medications are all reviewed. Objective - Vital Signs Vital signs: Vital Signs Temp 97.5 F L 10/01/17 04:00 Pulse 77 10/01/17 07:00 Resp 19 10/01/17 07:00 BP 118/63 10/01/17 07:00 Pulse Ox 99 10/01/17 07:00 Intake & Output 09/30/17 10/01/17 10/01/17 18:59 06:59 18:59 Intake Total 403.500 277.500 Output Total 1373 620 Balance -969.500 -342.500 Weight 43.6 kg Intake: IV 230 180.0 0.9 Normal Saline 130 130 Piperacillin-Tazobactam 3 100 50.0 .375 gm In Dextrose/Water 1 50ml.bag @ 12.5 mls/hr IVPB Q8HR [facility] Rx#: [id number] Intake, IV Titration 123.500 97.500 Amount Norepinephrin 4 mg-0.9% 123.500 97.500 Ns Pmx 4 mg In 250 ml @ Titrate IV .Q0M [facility] Rx#: [id number] Oral 50 Output: Urine 1370 620 Stool 3 Other: Voiding Method Indwelling Catheter Indwelling Catheter # Voids 0 - Exam No acute distress, oriented 3. 9 L high flow oxygen in place. HEENT examination is grossly unremarkable. Mucous membranes are moist. No oral lesions. Neck supple. Full range of motion. No adenopathy thyromegaly or neck vein distention. Cardiovascular examination reveals regular rhythm rate. S1-S2 normal. No S3 or S4. No discernible murmur noted. Lungs reveal a few scattered bibasilar crackles. Breath sounds are equal. No wheezes. No rhonchi.. Abdomen soft bowel sounds are heard. No masses or tenderness. Extremities are intact. No cyanosis clubbing or edema. Skin is without rash or lesion. Neurologic examination is difficult to evaluate as the patient is intermittently confused - Labs CBC & Chem 7: 10/01/17 04:35 10/01/17 04:35 Labs: Abnormal Lab Results - Last 24 Hours (Table) 10/01/17 10/01/17 Range/Units 04:35 04:35 WBC 13.9 H (3.8-10.6) k/uL Hgb 10.7 L (11.4-16.0) gm/dL Hct 33.9 L (34.0-46.0) % RDW 18.5 H (11.5-15.5) % Neutrophils # 11.8 H (1.3-7.7) k/uL Chloride 96 L (98-107) mmol/L Carbon Dioxide 35 H (22-30) mmol/L BUN 38 H (7-17) mg/dL Creatinine 1.52 H (0.52-1.04) mg/dL Glucose 126 H (74-99) mg/dL Total Protein 5.4 L (6.3-8.2) g/dL Albumin 2.8 L (3.5-5.0) g/dL Microbiology - Last 24 Hours (Table) 09/28/17 19:30 Urine Culture - Final Urine,Catheterized 09/26/17 09:00 Anaerobic Culture - Final Pleural Fluid 09/26/17 09:00 Gram Stain - Final Pleural Fluid Body Fluid Culture - Final Assessment and Plan Assessment: Assessmen 1 acute on chronic hypoxic history failure with worsening in her oxygenation and the patient is currently requiring high flow oxygen 9 L/m nasal cannula. No clear indication of an underlying pneumonia. The patient had a CT angios the chest that showed no evidence of any pulmonary embolism. His advanced COPD and emphysema and small right-sided pleural effusion and compressive atelectasis of the right lung base. We repeated the VQ scan on 09/27/2017 which showed low probability of pulmonary embolism. Overall oxygenation remains poor. Patient had an episode of presumable aspiration pneumonia significant to vomiting on 09/27/2017 and at present she seems to be stable, on any empiric antibiotics in the form of Zosyn 2 severe pulmonary hypertension, most likely chronic in nature and a CT angios the chest showed no pulmonary embolism. 3 COPD with chronic hypoxic respiratory failure maintained on 9 L of oxygen . Normally patient is on 3 L at home 4 leukocytosis, improving and the white cell count is down to 13.9 without any source of an infection, patient was placed on empiric antibiotic in the form of Zosyn, and pleural fluid cultures are pending at this time, blood cultures have been negative since admission, sputum culture was only positive for Lucero, likely due to oral contamination 5 mild anion gap metabolic acidosis with some lactic acidosis at the time of admission , recovered completely 6 dementia with episodes of altered mentation, episodic 7.generalized weakness 8 acute versus chronic renal insufficiency, probably stage II to 3 chronic kidney failure 9 small bilateral pleural effusion, status post ultrasound-guided right thoracentesis, with transudative pleural fluid and cytology still pending at this time 10 nephrolithiasis 11 degenerative arthritis 12 cholelithiasis without evidence of any cholecystitis 13 acute GI bleed, likely of a lower GI source as the patient had bloody bright red bowel movement with clots. The patient was asymptomatic. The patient's hemoglobin is stable and the patient does not have any further bleeding episodes. Plan: Plan dated 09/14/2017 The patient seemed be doing a lot better. She is awake and alert. Much of the history is provided by the daughter. The patient does wear oxygen 03/12. " COPD." Currently she is just on oxygen therapy. Not on any treatments. She does not want any treatments. I did ask her to come back and see us in the office post discharge. That may help to better define her COPD. No clearcut source of infection at this time. Chest x-ray does not show any clear-cut infiltrate. Microbiologic studies are negative and urine looks pretty good. We 'll continue to follow. No additional recommendations are made. Plan dated 09/15/2017 The patient appears much more stable today. Much more awake and alert. Not having any respiratory issues. The patient remains on oxygen therapy. She remains on Zosyn for suspected infection, source unclear. She also remains on updrafts with DuoNeb 3 times a day and when necessary. Lung sounds have improved. She's is not a particular good historian. Has a history of significant dementia. Plan dated 10/01/2017 The patient has been here since September 13. Has had 3 trips to the ICU. She remains on norepinephrine at 4 mics per minute and high flow oxygen at night liters. The patient may have had norepinephrine infiltrated the right forearm yesterday. We'll see if we can talk to the family again about CODE STATUS. I think that will be very appropriate given her age and her plethora of medical problems. Overall prognosis remains very poor. Labs x-rays and medications are all reviewed. Microbiology remains negative. Critical care time 33 minutes Time with Patient: Greater than 30
[2017-10-01] MEDS: FAMOTIDINE 20 MG TAB PO SCH (10:02)
[2017-10-01] MEDS: DONEPEZIL 10 MG TAB PO SCH (10:02)
[2017-10-01] MEDS: FLUTICASONE 50MCG/SPRAY NASAL 16GM EA NOSTRIL SCH (10:03)
[2017-10-01] MEDS: MEMANTINE 10 MG TAB PO SCH ×2 (10:03→21:01)
[2017-10-01] MEDS: FUROSEMIDE 10 MG/ML 4 ML VIAL IV SCH (10:03)
[2017-10-01] MEDS: MECLIZINE 12.5 MG TAB PO SCH (10:03)
[2017-10-01] MEDS: HEPARIN SODIUM,PORCINE 5,000 UNIT/ML 1 ML VIAL SQ SCH ×2 (10:03→21:01)
--- NOTE | 2017-10-01 10:03 | CDI ---
Last Revision, April 2017 Documentation Clarification Form Date: October 01, 2017 From: Guillermina Willams RN Admit Date: 09/13/2017 4:29:00 PM Patient Name: Brenda Dave Visit Number: [id number] ATTENTION: The Clinical Documentation Specialists (CDI) and [facility] Coding Staff appreciate your assistance in clarifying documentation. Please respond to the clarification below the line at the bottom and electronically sign. The CDI & [facility] Coding staff will review the response and follow-up if needed. Please note: Queries are made part of the Legal Health Record. If you have any questions, please contact the author of this message via ITS. Dr. Lacho Tejada, CHF is charted throughout the chart Pulmonary states Diastolic congestive heart failure stated on 09/28. CXR 09/13 No evidence for acute pulmonary disease 09/26: congestive heart failure . 09/29/17 "Correlate for congestive heart failure" Cardiology was consulted, however they did not mention CHF in any of their notes. History/Risk Factors: COPD, dementia, gerd, hyperlipidemia, memory impairment pneumonia, verigo , x smoker Clinical Indicators: VS on admission: T 98.7, P 111, R 20, 127/61, 93% 2L Echocardiogram Results: EF>70% and Pulmonary Hypertension Chest X Ray: 09/29/17 "Correlate for congestive heart failure" and Pulmonary edema Treatment: IV Lasix and PO 40mg daily Monitor Labs In your professional opinion, can you please clarify the acuity and type of CHF if known? Diastolic Heart Failure: Acute Chronic Acute on Chronic Unable to Determine Other, please specify Please continue to document in your progress notes and discharge summary in order to capture severity of illness and risk of mortality. Include clinical findings that support your diagnosis. NO evidence of CHF MTDD
[2017-10-01] MEDS: SPIRONOLACTONE 25 MG TAB PO SCH (10:04)
[2017-10-01] MEDS: MULTIVITAMINS, THERA 1 EACH TAB PO SCH (13:17)
--- NOTE | 2017-10-01 13:24 | P.PN ---
Subjective Progress Note Date: 10/01/17 Brenda Dave is an 81-year-old female, patient of [facility], who presented to [facility] emergency room with a chief complaint of generalized weakness, daughter states that patient was seen at [facility] one week ago, she was given an antibiotic for presumed urinary tract infection, however her condition continued to worsen, she was seen by her visiting nurse and was advised to come to emergency room. Patient was evaluated by Dr. Brown in the emergency room, she had evidence of sepsis with hypotension, tachycardia, and leukocytosis, also d-dimer was elevated at 5.64, she was admitted to telemetry floor, she was started on IV antibiotic and IV fluid. Bilateral lower extremity Doppler was done and was negative for DVT, VQ scan was done and was low probability for pulmonary embolism. On 09/15/2017 patient is alert and oriented 3 in no apparent distress, she is complaining of feeling cold and having shaking chills, otherwise no complaints, patient has tachycardia, and has evidence sepsis, with leukocytosis white blood count still at 30,000, primary site of infection is still unclear she is complaining of cough, chest x-ray did not reveal any evidence of pneumonia, blood culture is pending, echocardiogram is pending, sodium is up to 114 9 IV fluid change to half-normal saline, will check lactic acid. 09/16/2017 patient is confused. She states things like "did you know that I am ". Patient's son is at bedside patient does have some baseline confusion usually mostly short term memory loss. However, since she's been sick the confusion has worsened. Patient is lying in bed comfortably no evidence of distress. Earlier this morning per nursing staff patient was satting around 84% on 3 L and had to be increased to 5 L and was able to get into the 90s. Patient's white count is still elevated at 30.5. Infectious disease and pulmonary service are following. Repeat chest x-ray shows no acute changes. And for the screening negative. Patient denies any chest pain. Patient has been having some cough. Denies any nausea or vomiting no diarrhea. Patient did have one loose stool, but not watery. 09/17/2017 patient was transferred to the ICU yesterday afternoon for closer monitoring. She remains in the ICU. Case was discussed with pulmonary service in detail. Patient's white count has been decreased from 30.5-25.4 she's on 10 L oxygen satting at 95%. The exact source of infection is still unclear. She remains on Zosyn and vancomycin. Echocardiogram shows severe pulmonary hypertension and severe tricuspid regurgitation. CTA of the chest was negative for a PE did reveal atelectasis and a small right-sided pleural effusion. Moderate pericardial effusion and no evidence of pericarditis. Abdominal ultrasound showed no evidence of an acute cholecystitis. Did reveal cholelithiasis. Pulmonary service did order a dose of IV Lasix for her fluid overload. Infectious disease is also following. Urine output is adequate. Patient is still confused. 09/19/2017 nursing staff called and notified that patient had a massive bloody stool with large blood clots. Repeat hemoglobin check went up from 10.4-10.8. Patient was transferred to the ICU. Fluids were increased to 75 mL an hour. Patient was hypotensive earlier in the morning. Blood pressures are showing improvement. Case was discussed with industrial education instructor Dr. Romo. GI service was consulted. They have Re: Evaluated patient and there is no plan for colonoscopy at this point. Patient's previous computed tomography scan of the abdomen had showed evidence of diverticulosis this possibly could be related to a diverticular bleed. Patient denies any abdominal pain no nausea or vomiting reported. Currently on 8 L of oxygen. White count 21.2 09/20/2017 patient currently in the ICU. She is doing well. No further bloody bowel movements today. Likely symptoms related to a diverticular bleed. Seen by GI service. No plans for endoscopy at this time. Patient on 10 L options a 96%. Hemoglobin at 10.1. 09/23/2017 patient had a drop in oxygen saturation to around 80%. Oxygen has been increased to 8 L satting around 92%. Patient also complaining of some hoarseness and postnasal drip. Flonase has been ordered. Chest x-ray has also been ordered. Patient denies any chest pain or shortness of breath. Has had no further episodes of bleeding in her stools. Diet will be advanced to regular diet. Patient also is very weak and is working with physical therapy 09/24/2017 patient still requiring 8 L of oxygen. Denies any shortness of breath. Repeat chest x-ray from this morning shows improved aeration of the right lung base on the liver remains a trace right pleural effusion on the bases of congestive heart failure and right basilar airspace disease. This is favored to represent atelectasis however pneumonia should be considered. Incentive spirometer has been ordered. She remains on antibiotics. Patient is reporting a mild cough. She did receive an extra dose of IV Lasix yesterday. White count has improved from 14-11.4. Patient did have a drop in her hemoglobin from 10.4-8.8. Nursing staff and family reported known bloody bowel movements. 09/26/2017 patient underwent a right-sided thoracentesis this morning she had 460 mL's removed. Follow-up chest x-ray shows no evidence of pneumothorax. Does show improvement in aeration of the right lung base after thoracentesis. Patient currently on 8 L. Pulmonary service following. Patient denies any chest pain or shortness of breath. She did have a bowel movement this morning no blood reported per nursing staff. Patient denies any nausea or vomiting. Denies any chest pain or shortness of breath. Patient had been complaining of some pain at the thoracentesis site. Ultram has been ordered. On 09/27/2017 patient is alert and responsive in no apparent distress she is still requiring 6 L of oxygen nasal cannula to keep her oxygen saturation at 90 % she is resting comfortably in bed without any complaints at this time there is no fever or chills no headache or dizziness she has occasional cough no chest pain no shortness of breath at rest no nausea or vomiting no abdominal pain no diarrhea and no urinary symptoms. On 09/28/2017 patient is alert and responsive in no apparent distress she had episode of syncope yesterday subsequence to that she started having worsening oxygen desaturation she was transferred to intensive care unit white blood count is elevated from 11.8-19.8 likely patient had an episode of vomiting during her syncopal episode. She developed an aspiration pneumonia. currently she is requiring 10 L of oxygen high flow she is complaining of cough otherwise she denies any symptoms there is no fever or chills no headache or dizziness no chest pain or shortness of breath no nausea or vomiting no abdominal pain no diarrhea and no urinary symptoms. On 09/29/2017 patient remains in ICU she is alert and responsive in no apparent distress, she is still requiring 10 L of high flow oxygen O2 sat duration is 96 % she denies any chest pain she has occasional cough she denies any shortness of breath at rest there is no fever or chills no nausea or vomiting no abdominal pain no diarrhea and no urinary symptoms. 09/30/2017 patient remains in the ICU. She's on 1 ramesh of levo. They're working on titrating her off of the levo today. Supple pressure in the 90s. Patient also requiring 12 L of oxygen. Patient sitting up in bed comfortably. No evidence of distress. Family members at bedside questions were answered. Discussed case with pulmonary service. They will be titrating Lasix down to 40 mg every 12 hours. Chest x-ray still showing some evidence of congestive heart failure and pneumonia. Creatinine is up to 1.6. White count has come down from 18.4-16.1. Patient denies any chest pain shortness of breath. Denies any nausea or vomiting. He's having regular bowel movements no bleeding. 10/01/2017 patient is on 4 mics of norepinephrine. Also had oxygen desaturation on 9 L went down to about 60-50% requiring a Ventimask to be placed. Patient was unable to take Ventimask off to eat for lunch due to oxygen desaturation. Patient has no complaints. Reports having bowel movements no blood in the stool. Objective - Vital Signs Vital signs: Vital Signs Temp 97.7 F 10/01/17 12:00 Pulse 82 10/01/17 13:02 Resp 18 10/01/17 13:00 BP 89/56 10/01/17 13:00 Pulse Ox 95 10/01/17 13:00 Intake & Output 09/30/17 10/01/17 10/01/17 18:59 06:59 18:59 Intake Total 403.500 277.500 260 Output Total 1373 620 405 Balance -969.500 -342.500 -145 Weight 43.6 kg Intake: IV 230 180.0 60 0.9 Normal Saline 130 130 60 Piperacillin-Tazobactam 3 100 50.0 .375 gm In Dextrose/Water 1 50ml.bag @ 12.5 mls/hr IVPB Q8HR [facility] Rx#: [id number] Intake, IV Titration 123.500 97.500 Amount Norepinephrin 4 mg-0.9% 123.500 97.500 Ns Pmx 4 mg In 250 ml @ Titrate IV .Q0M [facility]BD[facility] Rx#: [id number] Oral 50 200 Output: Urine 1370 620 405 Stool 3 Other: Voiding Method Indwelling Catheter Indwelling Catheter Indwelling Catheter # Voids 0 - Exam Head normocephalic Neck supple Lungs crackles in the right lower lobe. No wheezing Heart regular rate and rhythm S1-S2, no rub or gallop Abdomen is soft nontender nondistended positive bowel sounds no hepatosplenomegaly Extremities no edema Neuro awake and alert but confused - Labs CBC & Chem 7: 10/01/17 04:35 10/01/17 04:35 Labs: Abnormal Lab Results - Last 24 Hours (Table) 10/01/17 10/01/17 Range/Units 04:35 04:35 WBC 13.9 H (3.8-10.6) k/uL Hgb 10.7 L (11.4-16.0) gm/dL Hct 33.9 L (34.0-46.0) % RDW 18.5 H (11.5-15.5) % Neutrophils # 11.8 H (1.3-7.7) k/uL Chloride 96 L (98-107) mmol/L Carbon Dioxide 35 H (22-30) mmol/L BUN 38 H (7-17) mg/dL Creatinine 1.52 H (0.52-1.04) mg/dL Glucose 126 H (74-99) mg/dL Total Protein 5.4 L (6.3-8.2) g/dL Albumin 2.8 L (3.5-5.0) g/dL Microbiology - Last 24 Hours (Table) 09/28/17 19:30 Urine Culture - Final Urine,Catheterized 09/26/17 09:00 Anaerobic Culture - Final Pleural Fluid Assessment and Plan Assessment: #1 sepsis likely secondary to diverticular disease. Initially on Augmentin. This has improved. #2 acute on chronic hypoxic respiratory failure. CT of the chest showed no evidence of a pulmonary embolism. VQ scan showing low probability PE. Possibly related to her advanced COPD and pleural effusion. Worsening acute hypoxic respiratory failure due to aspiration pneumonia and fluid overload requiring. Patient currently on a Ventimask. #3 underlying history of COPD, at this time patient will be given DuoNeb updraft , no need for systemic steroids #4 severe pulmonary hypertension likely secondary to her COPD and exacerbated by her recent illness. #5 underlying history of dementia maintained on Aricept and Namenda #6 hypernatremia improved. Sodium level has normalized #7 acute on chronic renal failure, stage III. Kidney functions showing a creatinine of 1.52. #8 metabolic acidosis improved after sodium bicarb drip. Sodium bicarbonate drip discontinued by pulmonary service #9 metabolic encephalopathy secondary to her acute infection with underlying history of dementia #10 acute lower GI bleed: Likely related to a diverticular bleed. Patient seen by GI service. No plan for colonoscopy at this time. No further bloody bowel movements reported. Hemoglobin stable #11 right-sided pleural effusion status post thoracentesis with 460 mL's removed. Primary service has decreased the IV Lasix to 40 mg IV daily. x-ray' s still show some evidence of pleural effusion #12 aspiration pneumonia: Started on IV Zosyn over the weekend #13 hypotension titrating levo. #14 hypokalemia: Potassium 3.4. Patient receiving supplement. Repeat labs in a.m. CODE STATUS has been changed to DO NOT RESUSCITATE DVT prophylaxis subcu heparin I performed an examination of the patient and discussed their management with the physician Melter Loader. I have reviewed the Physician Melter Loader's notes and agree with the documented findings and plan of care
--- NOTE | 2017-10-01 13:26 | P.PN ---
Progress Note - Text Progress Note Date: 10/01/17 Patient's CODE STATUS was changed to DO NOT RESUSCITATE early this morning. Family meeting occurred this afternoon with Dr. Tejada and the patient's daughter. Options of current plan of care and possible comfort care and hospice were addressed. At this time family wants to proceed with current treatment and continuing medical treatment. They do not wish to proceed with hospice yet.
[2017-10-01] MEDS: LIDOCAINE 2% INJ 20 MG/ML SQ ONE ×2 (13:59→14:38)
--- NOTE | 2017-10-01 14:47 | PN ---
PROGRESS NOTE DATE OF SERVICE: 10/01/2017 REASON FOR FOLLOWUP: Aspiration pneumonia. INTERVAL HISTORY: The patient is afebrile. She has had problem with oxygenation requiring a partial non- rebreather. The patient is hemodynamically stable. Not on any pressor support. This does not seem any respiratory distress. Denies any active symptoms. No nausea, vomiting or any diarrhea. PHYSICAL EXAMINATION: Blood pressure 109/56, pulse of 80, temperature of 97.7, she is 100% on partial non- rebreather. General description is an elderly female, lying in bed in no distress. RESPIRATORY SYSTEM: Unlabored breathing, clear to auscultation anteriorly. HEART: S1, S2. Regular rate and rhythm. ABDOMEN: Soft, no tenderness. LABS: Hemoglobin 10.7, white count of 13.9 with a BUN of 38, creatinine 1.52. DIAGNOSTIC IMPRESSION AND PLAN: Patient with episodes of aspiration and pneumonia. Currently covered with Zosyn. White count has taken a normal trend; however, the patient requiring more and more of oxygenation. Pulmonary is on the case. Will follow their recommendation. Discussed with the RN to try Mucomyst nebulized treatment to see if that will help with some of the secretions and help with respiratory status. Daughter was present at bedside. Questions were answered. MMODL / IJN: [id number] /
--- NOTE | 2017-10-01 15:05 | XR ---
EXAMINATION TYPE: XR chest 1V portable DATE OF EXAM: 10/01/2017 COMPARISON: 09/30/2017 INDICATION: PICC line placement TECHNIQUE: Single frontal view of the chest is obtained. FINDINGS: The heart size is enlarged. The pulmonary vasculature is normal. Right pleural effusion is likely present. PICC line enters on the right has tip in the region of the right atrium. Left shoulder prosthesis is present. EKG leads overlie the chest. IMPRESSION: 1. Right-sided PICC line with tip in the region of the right atrium. 2. Right pleural effusion. 3. Cardiomegaly
[2017-10-01] MEDS: NOREPINEPHRIN 4 MG-0.9% NS PMX 4 MG/250 ML ML IV SCH (16:28)
--- NOTE | 2017-10-01 19:58 | IR ---
EXAMINATION TYPE: IR cvc insert >=5 years DATE OF EXAM: 10/01/2017 COMPARISON: NONE HISTORY: Poor intravenous access, congestive heart failure, needs intravenous access for therapy FINDINGS: Maximal barrier technique was utilized. The skin overlying the left basilic vein was local ized with ultrasound and noted to be compressible and patent by ultrasound. An ultrasound image was obtained and submitted on patient's chart. Sterile technique utilized with the ultrasound machine. Th e skin overlying was prepped and draped and Lidocaine used for local anesthesia. A skin jen was mad e with a scalpel. Access was gained to the vein under direct ultrasound guidance with a 21-gauge nee dle and a 0.018 inch wire was advanced. Access site was dilated with a peel-away sheath and the cath eter tailored to length. The catheter could not be advanced centrally. Utilization of the different w ires with catheter combination were unsuccessful. The sheath was removed, attention directed to the r ight upper extremity. Using similar technique access was gained to the right basilic vein. Sterile technique utilized with the ultrasound machine. The skin overlying was prepped and draped and Lidocaine used for local anesth esia. A skin jen was made with a scalpel. Access was gained to the vein under direct ultrasound gu idance with a 21-gauge needle and a 0.018 inch wire was advanced. Access site was dilated with a pee l-away sheath and the catheter tailored to length. Catheter advanced centrally and a post procedure chest x-ray verified placement with the tip at level of the right atrium. Catheter was fixed to the skin and a sterile dressing placed. Hemostasis achieved and the catheter was aspirated and flushed w ith sterile saline. The patient remained in stable condition. IMPRESSION: STATUS POST ULTRASOUND GUIDED PICC LINE PLACEMENT, READY FOR USE. THIS PROCEDURE WAS PER FORMED BY THE UNDERSIGNED.
[2017-10-02 05:17] LABS: Albumin 2.9 g/dL (3.5-5.0); Calcium 9.2 mg/dL (8.4-10.2); Total Bilirubin 0.7 mg/dL (0.2-1.3); Total Protein 5.7 g/dL (6.3-8.2)
[2017-10-02 05:22] LABS: Magnesium 2.6 mg/dL (1.6-2.3); Potassium 4.7 mmol/L (3.5-5.1)
[2017-10-02 05:32] LABS: Anisocytosis Slight; Basophils % (A) 0 %; Eosinophils # (A) 0.8 k/uL (0-0.7); Eosinophils % (A) 7 %; HCT 33.9 % (34.0-46.0); HGB 10.9 gm/dL (11.4-16.0); Hypochromasia Moderate; Lymphocytes # (A) 1.1 k/uL (1.0-4.8); Lymphocytes % (A) 9 %; MCH 28.1 pg (25.0-35.0); MCHC 32.2 g/dL (31.0-37.0); MCV 87.4 fL (80.0-100.0); Mean Platelet Volume 7.5; Monocytes # (A) 0.4 k/uL (0-1.0); Monocytes % (A) 4 %; Neutrophils # (A) 9.6 k/uL (1.3-7.7); Neutrophils % (A) 79 %; Platelet Count 416 k/uL (150-450); RBC 3.88 m/uL (3.80-5.40); RDW 18.3 % (11.5-15.5); WBC 12.2 k/uL (3.8-10.6)
[2017-10-02] MEDS: IPRATROPIUM-ALBUTEROL 3 ML NEB INHALATION SCH ×3 (07:33→19:25)
[2017-10-02] MEDS: PIPERACILLIN-TAZOBACTAM 3.375 GM in DEXTROSE/WATER 1 50ML.BAG IVPB SCH ×2 (08:15→20:55)
[2017-10-02] MEDS: SPIRONOLACTONE 25 MG TAB PO SCH (08:16)
[2017-10-02] MEDS: MEMANTINE 10 MG TAB PO SCH ×2 (08:16→22:27)
[2017-10-02] MEDS: FUROSEMIDE 10 MG/ML 4 ML VIAL IV SCH (08:16)
[2017-10-02] MEDS: MECLIZINE 12.5 MG TAB PO SCH (08:16)
[2017-10-02] MEDS: DONEPEZIL 10 MG TAB PO SCH (08:16)
[2017-10-02] MEDS: HEPARIN SODIUM,PORCINE 5,000 UNIT/ML 1 ML VIAL SQ SCH ×2 (08:16→22:28)
[2017-10-02] MEDS: FAMOTIDINE 20 MG TAB PO SCH (08:16)
[2017-10-02] MEDS: FLUTICASONE 50MCG/SPRAY NASAL 16GM EA NOSTRIL SCH (08:17)
--- NOTE | 2017-10-02 09:30 | P.PN ---
Subjective Progress Note Date: 10/02/17 Principal diagnosis: Shortness of breath, mental status changes, possible sepsis Progress note dated 09/15/2017 81-year-old female with history of mental status changes, possible sepsis/ infection, mild CHF COPD medical noncompliance with COPD regimen and previous history of heavy tobacco use. The patient was feeling better and was able to be moved from the 6 for down to the fifth floor yesterday. Her respiratory status is improved. She does use oxygen 24 7. Does not really take her breathing medications at this time. Apparently has seen a lung doctor in the past. Does have an established diagnosis of COPD. Her primary care physician is Dr. Laine Fuentes. Progress note dated 10/01/2017 The patient is again seen here in the ICU. The patient has been here since September 13 and has had 3 trips to the intensive care unit. Apparently the nurse spoke to the family yesterday and there was some consideration of making the patient a DO NOT RESUSCITATE although I don't believe that was confirmed. Apparently there are 5 siblings who have to agree. The patient's on 9 L high flow oxygen therapy. Also receiving norepinephrine at 4 mcg/m and a saline IV at KVO. The patient may have had infiltration of norepinephrine in the right forearm. Terbutaline was given per protocol. The patient will get a PIC line. Overall, prognosis remains very poor. Today's labs include a white count of 13.9 hemoglobin 10.7 hematocrit 33.9 and platelet count normal at 386,000. In addition, the sodium was 145, potassium 4, chloride 96, CO2 35, and BUN and creatinine of 38 and 1.52 respectively. Cultures this point remain negative. Labs x-rays a medications are all reviewed. Progress note dated 10/02/2017 This patient was admitted here on September 13. She has had 3 trips to the intensive care unit. She is now a DO NOT RESUSCITATE. The patient has a history of multiple medical problems including hypoxemic respiratory failure severe pulmonary hypertension COPD bilateral pleural effusions metabolic acidosis dementia and generalized weakness and general medical debility renal insufficiency degenerative joint disease cholelithiasis and GI bleed. Currently , the patient is still on 10 L high flow. The patient is getting a saline IV at 10 mL an hour and norepinephrine at 4 mcg/m. I did ask the nurse to put her on midodrine at 5 mg 3 times a day to see if we can get the norepinephrine off and also to check a cortisol level. The patient's awake and alert. Doesn't really have much to say today. The patient did have a PICC line placed. Hopefully we can get her ready for discharge. Hopefully she will be discharged to some sort of rehab or nursing facility for rehabilitation. Objective - Vital Signs Vital signs: Vital Signs Temp 97.7 F 10/02/17 08:00 Pulse 84 10/02/17 09:00 Resp 17 10/02/17 09:00 BP 107/64 10/02/17 09:00 Pulse Ox 99 10/02/17 09:00 Intake & Output 10/01/17 10/02/17 10/02/17 18:59 06:59 18:59 Intake Total 920.5 170.0 20 Output Total 750 555 78 Balance 170.5 -385.0 -58 Weight 44.5 kg Intake: IV 150 170.0 20 0.9 Normal Saline 100 120 20 Piperacillin-Tazobactam 3 50 50.0 .375 gm In Dextrose/Water 1 50ml.bag @ 12.5 mls/hr IVPB Q8HR [facility] Rx#: [id number] Intake, IV Titration 145.5 Amount Norepinephrin 4 mg-0.9% 145.5 Ns Pmx 4 mg In 250 ml @ Titrate IV .Q0M [facility] Rx#: [id number] Oral 625 Output: Urine 750 555 78 Other: Voiding Method Indwelling Catheter Indwelling Catheter - Exam No acute distress, oriented 3. 10 L high flow oxygen in place. HEENT examination is grossly unremarkable. Mucous membranes are moist. No oral lesions. Neck supple. Full range of motion. No adenopathy thyromegaly or neck vein distention. Cardiovascular examination reveals regular rhythm rate. S1-S2 normal. No S3 or S4. No discernible murmur noted. Lungs reveal a few scattered bibasilar crackles. Breath sounds are equal. No wheezes. No rhonchi.. Abdomen soft bowel sounds are heard. No masses or tenderness. Extremities are intact. No cyanosis clubbing or edema. A PICC line has been inserted. Skin is without rash or lesion. Neurologic examination is difficult to evaluate as the patient is intermittently confused - Labs CBC & Chem 7: 10/02/17 05:20 10/02/17 04:21 Labs: Abnormal Lab Results - Last 24 Hours (Table) 10/02/17 10/02/17 Range/Units 04:21 05:20 WBC 12.2 H (3.8-10.6) k/uL Hgb 10.9 L (11.4-16.0) gm/dL Hct 33.9 L (34.0-46.0) % RDW 18.3 H (11.5-15.5) % Neutrophils # 9.6 H (1.3-7.7) k/uL Eosinophils # 0.8 H (0-0.7) k/uL Sodium 146 H (137-145) mmol/L Chloride 97 L (98-107) mmol/L Carbon Dioxide 35 H (22-30) mmol/L BUN 43 H (7-17) mg/dL Creatinine 1.57 H (0.52-1.04) mg/dL Glucose 100 H (74-99) mg/dL Magnesium 2.6 H (1.6-2.3) mg/dL AST 38 H (14-36) U/L Total Protein 5.7 L (6.3-8.2) g/dL Albumin 2.9 L (3.5-5.0) g/dL Assessment and Plan Assessment: Assessmen 1 acute on chronic hypoxic history failure with worsening in her oxygenation and the patient is currently requiring high flow oxygen 9 L/m nasal cannula. No clear indication of an underlying pneumonia. The patient had a CT angios the chest that showed no evidence of any pulmonary embolism. His advanced COPD and emphysema and small right-sided pleural effusion and compressive atelectasis of the right lung base. We repeated the VQ scan on 09/27/2017 which showed low probability of pulmonary embolism. Overall oxygenation remains poor. Patient had an episode of presumable aspiration pneumonia significant to vomiting on 09/27/2017 and at present she seems to be stable, on any empiric antibiotics in the form of Zosyn 2 severe pulmonary hypertension, most likely chronic in nature and a CT angios the chest showed no pulmonary embolism. 3 COPD with chronic hypoxic respiratory failure maintained on 10 L of oxygen . Normally patient is on 3 L at home 4 leukocytosis, improving and the white cell count is down to 13.9 without any source of an infection, patient was placed on empiric antibiotic in the form of Zosyn, and pleural fluid cultures are pending at this time, blood cultures have been negative since admission, sputum culture was only positive for Lucreo, likely due to oral contamination 5 mild anion gap metabolic acidosis with some lactic acidosis at the time of admission , recovered completely 6 dementia with episodes of altered mentation, episodic 7.generalized weakness 8 acute versus chronic renal insufficiency, probably stage II to 3 chronic kidney failure 9 small bilateral pleural effusion, status post ultrasound-guided right thoracentesis, with transudative pleural fluid and cytology still pending at this time 10 nephrolithiasis 11 degenerative arthritis 12 cholelithiasis without evidence of any cholecystitis 13 acute GI bleed, likely of a lower GI source as the patient had bloody bright red bowel movement with clots. The patient was asymptomatic. The patient's hemoglobin is stable and the patient does not have any further bleeding episodes. Plan: Plan dated 09/14/2017 The patient seemed be doing a lot better. She is awake and alert. Much of the history is provided by the daughter. The patient does wear oxygen 03/12. " COPD." Currently she is just on oxygen therapy. Not on any treatments. She does not want any treatments. I did ask her to come back and see us in the office post discharge. That may help to better define her COPD. No clearcut source of infection at this time. Chest x-ray does not show any clear-cut infiltrate. Microbiologic studies are negative and urine looks pretty good. We 'll continue to follow. No additional recommendations are made. Plan dated 09/15/2017 The patient appears much more stable today. Much more awake and alert. Not having any respiratory issues. The patient remains on oxygen therapy. She remains on Zosyn for suspected infection, source unclear. She also remains on updrafts with DuoNeb 3 times a day and when necessary. Lung sounds have improved. She's is not a particular good historian. Has a history of significant dementia. Plan dated 10/01/2017 The patient has been here since September 13. Has had 3 trips to the ICU. She remains on norepinephrine at 4 mics per minute and high flow oxygen at night liters. The patient may have had norepinephrine infiltrated the right forearm yesterday. We'll see if we can talk to the family again about CODE STATUS. I think that will be very appropriate given her age and her plethora of medical problems. Overall prognosis remains very poor. Labs x-rays and medications are all reviewed. Microbiology remains negative. Critical care time 33 minutes Plan dated 10/02/2017 The patient has been here since September 13. She's had 3 different trips to the ICU. She remains on norepinephrine at 4 mics per minute. A PICC line was placed yesterday. Better IV access. The patient remains on high flow oxygen at 10 L. She is a DO NOT RESUSCITATE. Chest x-ray shows bilateral effusions. The chest x-ray was done yesterday. Microbiology remains negative. Overall prognosis is poor. Hopeful to be able to get her to discharged to a correction or something like select specialty. Critical care time 32 minutes Time with Patient: Greater than 30
[2017-10-02] MEDS: MIDODRINE 5 MG TAB PO SCH ×3 (09:49→17:42)
[2017-10-02 10:28] VITALS: BMI 18.5
--- NOTE | 2017-10-02 11:04 | P.PN ---
Subjective Progress Note Date: 10/02/17 Brenda Dave is an 81-year-old female, patient of [facility], who presented to [facility] emergency room with a chief complaint of generalized weakness, daughter states that patient was seen at [facility] one week ago, she was given an antibiotic for presumed urinary tract infection, however her condition continued to worsen, she was seen by her visiting nurse and was advised to come to emergency room. Patient was evaluated by Dr. Brown in the emergency room, she had evidence of sepsis with hypotension, tachycardia, and leukocytosis, also d-dimer was elevated at 5.64, she was admitted to telemetry floor, she was started on IV antibiotic and IV fluid. Bilateral lower extremity Doppler was done and was negative for DVT, VQ scan was done and was low probability for pulmonary embolism. On 09/15/2017 patient is alert and oriented 3 in no apparent distress, she is complaining of feeling cold and having shaking chills, otherwise no complaints, patient has tachycardia, and has evidence sepsis, with leukocytosis white blood count still at 30,000, primary site of infection is still unclear she is complaining of cough, chest x-ray did not reveal any evidence of pneumonia, blood culture is pending, echocardiogram is pending, sodium is up to 114 9 IV fluid change to half-normal saline, will check lactic acid. 09/16/2017 patient is confused. She states things like "did you know that I am ". Patient's son is at bedside patient does have some baseline confusion usually mostly short term memory loss. However, since she's been sick the confusion has worsened. Patient is lying in bed comfortably no evidence of distress. Earlier this morning per nursing staff patient was satting around 84% on 3 L and had to be increased to 5 L and was able to get into the 90s. Patient's white count is still elevated at 30.5. Infectious disease and pulmonary service are following. Repeat chest x-ray shows no acute changes. And for the screening negative. Patient denies any chest pain. Patient has been having some cough. Denies any nausea or vomiting no diarrhea. Patient did have one loose stool, but not watery. 09/17/2017 patient was transferred to the ICU yesterday afternoon for closer monitoring. She remains in the ICU. Case was discussed with pulmonary service in detail. Patient's white count has been decreased from 30.5-25.4 she's on 10 L oxygen satting at 95%. The exact source of infection is still unclear. She remains on Zosyn and vancomycin. Echocardiogram shows severe pulmonary hypertension and severe tricuspid regurgitation. CTA of the chest was negative for a PE did reveal atelectasis and a small right-sided pleural effusion. Moderate pericardial effusion and no evidence of pericarditis. Abdominal ultrasound showed no evidence of an acute cholecystitis. Did reveal cholelithiasis. Pulmonary service did order a dose of IV Lasix for her fluid overload. Infectious disease is also following. Urine output is adequate. Patient is still confused. On 09/18/2017 patient is more alert she denies any pain or discomfort she was seen and examined in the intensive care unit there is no fever or chills no headache no dizziness no chest pain, shortness of breath is improving, still complaining of cough, no nausea or vomiting no abdominal pain no diarrhea and no urinary symptoms. 09/19/2017 nursing staff called and notified that patient had a massive bloody stool with large blood clots. Repeat hemoglobin check went up from 10.4-10.8. Patient was transferred to the ICU. Fluids were increased to 75 mL an hour. Patient was hypotensive earlier in the morning. Blood pressures are showing improvement. Case was discussed with auto parts professional Dr. Romo. GI service was consulted. They have Re: Evaluated patient and there is no plan for colonoscopy at this point. Patient's previous computed tomography scan of the abdomen had showed evidence of diverticulosis this possibly could be related to a diverticular bleed. Patient denies any abdominal pain no nausea or vomiting reported. Currently on 8 L of oxygen. White count 21.2 09/20/2017 patient currently in the ICU. She is doing well. No further bloody bowel movements today. Likely symptoms related to a diverticular bleed. Seen by GI service. No plans for endoscopy at this time. Patient on 10 L options a 96%. Hemoglobin at 10.1. 09/23/2017 patient had a drop in oxygen saturation to around 80%. Oxygen has been increased to 8 L satting around 92%. Patient also complaining of some hoarseness and postnasal drip. Flonase has been ordered. Chest x-ray has also been ordered. Patient denies any chest pain or shortness of breath. Has had no further episodes of bleeding in her stools. Diet will be advanced to regular diet. Patient also is very weak and is working with physical therapy 09/24/2017 patient still requiring 8 L of oxygen. Denies any shortness of breath. Repeat chest x-ray from this morning shows improved aeration of the right lung base on the liver remains a trace right pleural effusion on the bases of congestive heart failure and right basilar airspace disease. This is favored to represent atelectasis however pneumonia should be considered. Incentive spirometer has been ordered. She remains on antibiotics. Patient is reporting a mild cough. She did receive an extra dose of IV Lasix yesterday. White count has improved from 14-11.4. Patient did have a drop in her hemoglobin from 10.4-8.8. Nursing staff and family reported known bloody bowel movements. On 09/25/2017 patient is alert slightly confused in no apparent distress, she is still requiring 8 L of oxygen nasal cannula, oxygen saturation is 90%, she was seen by pulmonary and there are no plans for thoracentesis at this time, otherwise patient is complaining of fatigue no other complaints, there is occasional cough but no chest pain, no nausea or vomiting no abdominal pain no diarrhea and no urinary symptoms. 09/26/2017 patient underwent a right-sided thoracentesis this morning she had 460 mL's removed. Follow-up chest x-ray shows no evidence of pneumothorax. Does show improvement in aeration of the right lung base after thoracentesis. Patient currently on 8 L. Pulmonary service following. Patient denies any chest pain or shortness of breath. She did have a bowel movement this morning no blood reported per nursing staff. Patient denies any nausea or vomiting. Denies any chest pain or shortness of breath. Patient had been complaining of some pain at the thoracentesis site. Ultram has been ordered. On 09/27/2017 patient is alert and responsive in no apparent distress she is still requiring 6 L of oxygen nasal cannula to keep her oxygen saturation at 90 % she is resting comfortably in bed without any complaints at this time there is no fever or chills no headache or dizziness she has occasional cough no chest pain no shortness of breath at rest no nausea or vomiting no abdominal pain no diarrhea and no urinary symptoms. On 09/28/2017 patient is alert and responsive in no apparent distress she had episode of syncope yesterday subsequence to that she started having worsening oxygen desaturation she was transferred to intensive care unit white blood count is elevated from 11.8-19.8 likely patient had an episode of aspiration pneumonia during her syncopal episode currently she is requiring 10 L of oxygen high flow she is complaining of cough otherwise she denies any symptoms there is no fever or chills no headache or dizziness no chest pain or shortness of breath no nausea or vomiting no abdominal pain no diarrhea and no urinary symptoms. On 09/29/2017 patient remains in ICU she is alert and responsive in no apparent distress, she is still requiring 10 L of high flow oxygen O2 sat duration is 96 % she denies any chest pain she has occasional cough she denies any shortness of breath at rest there is no fever or chills no nausea or vomiting no abdominal pain no diarrhea and no urinary symptoms. 09/30/2017 patient remains in the ICU. She's on 1 rmaesh of levo. They're working on titrating her off of the levo today. Supple pressure in the 90s. Patient also requiring 12 L of oxygen. Patient sitting up in bed comfortably. No evidence of distress. Family members at bedside questions were answered. Discussed case with pulmonary service. They will be titrating Lasix down to 40 mg every 12 hours. Chest x-ray still showing some evidence of congestive heart failure and pneumonia. Creatinine is up to 1.6. White count has come down from 18.4-16.1. Patient denies any chest pain shortness of breath. Denies any nausea or vomiting. He's having regular bowel movements no bleeding. 10/01/2017 patient is on 4 mics of norepinephrine. Also had oxygen desaturation on 9 L went down to about 60-50% requiring a Ventimask to be placed. Patient was unable to take Ventimask off to eat for lunch due to oxygen desaturation. Patient has no complaints. Reports having bowel movements no blood in the stool. On 10/02/2017 patient is more alert today she is responsive to questions, she states she is feeling better, she denies any chest pain or shortness of breath no nausea or vomiting no abdominal pain no diarrhea and no urinary symptoms, she still has Bahena catheter). She is still maintained on levophed dose is being decreased to gradually. She is scheduled for PICC line placement today. Objective - Vital Signs Vital signs: Vital Signs Temp 97.7 F 10/02/17 08:00 Pulse 80 10/02/17 10:00 Resp 19 10/02/17 10:00 BP 108/62 10/02/17 10:00 Pulse Ox 97 10/02/17 10:00 Intake & Output 10/01/17 10/02/17 10/02/17 18:59 06:59 18:59 Intake Total 920.5 170.0 158 Output Total 750 555 198 Balance 170.5 -385.0 -40 Weight 44.5 kg 44.5 kg Intake: IV 150 170.0 40 0.9 Normal Saline 100 120 40 Piperacillin-Tazobactam 3 50 50.0 .375 gm In Dextrose/Water 1 50ml.bag @ 12.5 mls/hr IVPB Q8HR COUNT INCLUDES THE [facility] Rx#: [id number] Intake, IV Titration 145.5 Amount Norepinephrin 4 mg-0.9% 145.5 Ns Pmx 4 mg In 250 ml @ Titrate IV .Q0M COUNT INCLUDES THE [facility] Rx#: [id number] Oral 625 118 Output: Urine 750 555 198 Other: Voiding Method Indwelling Catheter Indwelling Catheter Indwelling Catheter - Exam In general patient is alert, slightly confused in no apparent distress HEENT head normocephalic and atraumatic Neck is supple no JVD no goiter no lymphadenopathy Chest exam reveals a few scattered rhonchi no wheezing Cardiac exam reveals regular heart sounds S1 and S2 no gallops no murmurs Abdomen is soft nontender no organomegaly with normal bowel sounds Extremity exam reveals no edema no cyanosis or clubbing - Labs CBC & Chem 7: 10/02/17 05:20 10/02/17 04:21 Labs: Abnormal Lab Results - Last 24 Hours (Table) 10/02/17 10/02/17 Range/Units 04:21 05:20 WBC 12.2 H (3.8-10.6) k/uL Hgb 10.9 L (11.4-16.0) gm/dL Hct 33.9 L (34.0-46.0) % RDW 18.3 H (11.5-15.5) % Neutrophils # 9.6 H (1.3-7.7) k/uL Eosinophils # 0.8 H (0-0.7) k/uL Sodium 146 H (137-145) mmol/L Chloride 97 L (98-107) mmol/L Carbon Dioxide 35 H (22-30) mmol/L BUN 43 H (7-17) mg/dL Creatinine 1.57 H (0.52-1.04) mg/dL Glucose 100 H (74-99) mg/dL Magnesium 2.6 H (1.6-2.3) mg/dL AST 38 H (14-36) U/L Total Protein 5.7 L (6.3-8.2) g/dL Albumin 2.9 L (3.5-5.0) g/dL Assessment and Plan Plan: #1 sepsis likely secondary to diverticular disease. Initially on Augmentin. This has improved. #2 acute on chronic hypoxic respiratory failure. CT of the chest showed no evidence of a pulmonary embolism. VQ scan showing low probability PE. Possibly related to her advanced COPD and pleural effusion. Worsening acute hypoxic respiratory failure due to aspiration pneumonia and fluid overload requiring. Patient currently on a Ventimask. #3 underlying history of COPD, at this time patient will be given DuoNeb updraft , no need for systemic steroids #4 severe pulmonary hypertension likely secondary to her COPD and exacerbated by her recent illness. #5 underlying history of dementia maintained on Aricept and Namenda #6 hypernatremia improved. Sodium level has normalized #7 acute on chronic renal failure, stage III. Kidney functions showing a creatinine of 1.52. #8 metabolic acidosis improved after sodium bicarb drip. Sodium bicarbonate drip discontinued by pulmonary service #9 metabolic encephalopathy secondary to her acute infection with underlying history of dementia #10 acute lower GI bleed: Likely related to a diverticular bleed. Patient seen by GI service. No plan for colonoscopy at this time. No further bloody bowel movements reported. Hemoglobin stable #11 right-sided pleural effusion status post thoracentesis with 460 mL's removed. Primary service has decreased the IV Lasix to 40 mg IV daily. x-ray' s still show some evidence of pleural effusion #12 aspiration pneumonia: Started on IV Zosyn over the weekend #13 hypotension titrating levo. #14 hypokalemia: Potassium 3.4. Patient receiving supplement. Repeat labs in a.m. CODE STATUS has been changed to DO NOT RESUSCITATE DVT prophylaxis subcu heparin. Patient is improving slowly, continue was current management at this time [place] for PICC line placement today
[2017-10-02] MEDS: MULTIVITAMINS, THERA 1 EACH TAB PO SCH (12:36)
[2017-10-02] MEDS: NOREPINEPHRIN 4 MG-0.9% NS PMX 4 MG/250 ML ML IV SCH (12:37)
--- NOTE | 2017-10-02 20:43 | PN ---
PROGRESS NOTE DATE OF SERVICE: 10/02/2017 REASON FOR FOLLOWUP: Aspiration pneumonia. INTERVAL HISTORY: The patient is afebrile. She is hemodynamically slightly stable requiring less amount of Levophed. She is breathing comfortably. Denies having any chest pain or shortness of breath. Occasional cough. No nausea, vomiting or any diarrhea. PHYSICAL EXAMINATION: Blood pressure is 124/56, pulse of 83, temperature of 97.4. She is 96% on 8 L high-flow oxygen. General description is an elderly female up in the chair in no distress. RESPIRATORY SYSTEM: Unlabored breathing. Clear to auscultation anteriorly. HEART: S1, S2. Regular rate and rhythm. ABDOMEN: Soft. No tenderness. EXTREMITIES: No edema of the feet. LABS: Hemoglobin is 10.9, white count of 12.2 with a BUN of 43, creatinine 1.57. DIAGNOSTIC IMPRESSION AND PLAN: Patient with a component of aspiration pneumonia. Her white count is showing a downward trend, currently on Zosyn. That will be continued to finish a course of therapy. Continue with supportive care. MMODL / IJN: [id number] /
[2017-10-03 06:05] LABS: Anisocytosis Slight; Basophils # (A) 0.1 k/uL (0-0.2); Basophils % (A) 1 %; Eosinophils # (A) 0.7 k/uL (0-0.7); Eosinophils % (A) 6 %; HCT 33.4 % (34.0-46.0); HGB 10.5 gm/dL (11.4-16.0); Hypochromasia Moderate; Lymphocytes # (A) 1.3 k/uL (1.0-4.8); Lymphocytes % (A) 11 %; MCH 27.7 pg (25.0-35.0); MCHC 31.5 g/dL (31.0-37.0); MCV 87.9 fL (80.0-100.0); Mean Platelet Volume 7.3; Monocytes # (A) 0.4 k/uL (0-1.0); Monocytes % (A) 4 %; Neutrophils # (A) 9.4 k/uL (1.3-7.7); Neutrophils % (A) 76 %; Platelet Count 367 k/uL (150-450); RDW 18.2 % (11.5-15.5); WBC 12.3 k/uL (3.8-10.6)
[2017-10-03 06:19] LABS: Albumin 2.7 g/dL (3.5-5.0); Calcium 9.2 mg/dL (8.4-10.2); Potassium 3.9 mmol/L (3.5-5.1); Total Bilirubin 0.5 mg/dL (0.2-1.3); Total Protein 5.2 g/dL (6.3-8.2)
[2017-10-03 08:06] VITALS: TEMP 98.6
[2017-10-03] MEDS: PIPERACILLIN-TAZOBACTAM 3.375 GM in DEXTROSE/WATER 1 50ML.BAG IVPB SCH (08:20)
[2017-10-03] MEDS: DONEPEZIL 10 MG TAB PO SCH (08:20)
[2017-10-03] MEDS: FLUTICASONE 50MCG/SPRAY NASAL 16GM EA NOSTRIL SCH (08:20)
[2017-10-03] MEDS: MIDODRINE 5 MG TAB PO SCH ×3 (08:20→18:18)
[2017-10-03] MEDS: FAMOTIDINE 20 MG TAB PO SCH (08:20)
[2017-10-03] MEDS: SPIRONOLACTONE 25 MG TAB PO SCH (08:21)
[2017-10-03] MEDS: HEPARIN SODIUM,PORCINE 5,000 UNIT/ML 1 ML VIAL SQ SCH (08:21)
[2017-10-03] MEDS: MECLIZINE 12.5 MG TAB PO SCH (08:21)
[2017-10-03] MEDS: MEMANTINE 10 MG TAB PO SCH (08:21)
[2017-10-03] MEDS: FUROSEMIDE 10 MG/ML 4 ML VIAL IV SCH (08:21)
--- NOTE | 2017-10-03 09:08 | P.PN ---
Subjective Progress Note Date: 10/03/17 Principal diagnosis: Shortness of breath, mental status changes, possible sepsis Progress note dated 09/15/2017 81-year-old female with history of mental status changes, possible sepsis/ infection, mild CHF COPD medical noncompliance with COPD regimen and previous history of heavy tobacco use. The patient was feeling better and was able to be moved from the 6 for down to the fifth floor yesterday. Her respiratory status is improved. She does use oxygen 24 7. Does not really take her breathing medications at this time. Apparently has seen a lung doctor in the past. Does have an established diagnosis of COPD. Her primary care physician is Dr. Laine Fuentes. Progress note dated 10/01/2017 The patient is again seen here in the ICU. The patient has been here since September 13 and has had 3 trips to the intensive care unit. Apparently the nurse spoke to the family yesterday and there was some consideration of making the patient a DO NOT RESUSCITATE although I don't believe that was confirmed. Apparently there are 5 siblings who have to agree. The patient's on 9 L high flow oxygen therapy. Also receiving norepinephrine at 4 mcg/m and a saline IV at KVO. The patient may have had infiltration of norepinephrine in the right forearm. Terbutaline was given per protocol. The patient will get a PIC line. Overall, prognosis remains very poor. Today's labs include a white count of 13.9 hemoglobin 10.7 hematocrit 33.9 and platelet count normal at 386,000. In addition, the sodium was 145, potassium 4, chloride 96, CO2 35, and BUN and creatinine of 38 and 1.52 respectively. Cultures this point remain negative. Labs x-rays a medications are all reviewed. Progress note dated 10/02/2017 This patient was admitted here on September 13. She has had 3 trips to the intensive care unit. She is now a DO NOT RESUSCITATE. The patient has a history of multiple medical problems including hypoxemic respiratory failure severe pulmonary hypertension COPD bilateral pleural effusions metabolic acidosis dementia and generalized weakness and general medical debility renal insufficiency degenerative joint disease cholelithiasis and GI bleed. Currently , the patient is still on 10 L high flow. The patient is getting a saline IV at 10 mL an hour and norepinephrine at 4 mcg/m. I did ask the nurse to put her on midodrine at 5 mg 3 times a day to see if we can get the norepinephrine off and also to check a cortisol level. The patient's awake and alert. Doesn't really have much to say today. The patient did have a PICC line placed. Hopefully we can get her ready for discharge. Hopefully she will be discharged to some sort of rehab or nursing facility for rehabilitation. Progress note dated 10/03/2017 Patient is again seen today on October 03. She was admitted back on September 13. She's been here for 20 days. She's had 3 different trips to the intensive care unit. She is a DO NOT RESUSCITATE. Patient currently is on 10 L high flow which is being weaned down. In addition, the patient still on norepinephrine at 2 mcg/ m. This nurse to turn that off. The patient is currently receiving a basic saline IV at KVO. She appears much better today. Cortisol level was okay. Chest x-ray is stable. All in all, doing better in my opinion. A PICC line was placed a couple days ago. She has a history of multiple medical problems as you can see my previous notes. Her primary issue is COPD with pulmonary hypertension as well as general medical debility and weakness. Objective - Vital Signs Vital signs: Vital Signs Temp 98.6 F 10/03/17 08:00 Pulse 78 10/03/17 08:00 Resp 19 10/03/17 08:00 BP 114/59 10/03/17 08:00 Pulse Ox 94 L 10/03/17 08:00 Intake & Output 10/02/17 10/03/17 10/03/17 18:59 06:59 18:59 Intake Total 1491.687 287.407 44.375 Output Total 1104 339 54 Balance 387.687 -51.593 -9.625 Weight 44.5 kg 48 kg Intake: IV 120 130.0 20 0.9 Normal Saline 120 80 20 Piperacillin-Tazobactam 3 50.0 .375 gm In Dextrose/Water 1 50ml.bag @ 12.5 mls/hr IVPB Q8HR [facility] Rx#: [id number] Intake, IV Titration 303.687 52.407 24.375 Amount Norepinephrin 4 mg-0.9% 303.687 52.407 24.375 Ns Pmx 4 mg In 250 ml @ Titrate IV .Q0M [facility] Rx#: [id number] Oral 1068 105 Output: Urine 1103 335 54 Stool 1 4 Other: Voiding Method Indwelling Catheter Indwelling Catheter Indwelling Catheter # Voids 0 # Bowel Movements 1 1 - Exam No acute distress, oriented 3. 10 L high flow oxygen in place. HEENT examination is grossly unremarkable. Mucous membranes are moist. No oral lesions. Neck supple. Full range of motion. No adenopathy thyromegaly or neck vein distention. Cardiovascular examination reveals regular rhythm rate. S1-S2 normal. No S3 or S4. No discernible murmur noted. Lungs reveal a few scattered bibasilar crackles. Breath sounds are equal. No wheezes. No rhonchi.. Abdomen soft bowel sounds are heard. No masses or tenderness. Extremities are intact. No cyanosis clubbing or edema. A PICC line has been inserted. Skin is without rash or lesion. Neurologic examination is difficult to evaluate as the patient is intermittently confused - Labs CBC & Chem 7: 10/03/17 05:50 10/03/17 05:50 Labs: Abnormal Lab Results - Last 24 Hours (Table) 10/03/17 10/03/17 Range/Units 05:50 05:50 WBC 12.3 H (3.8-10.6) k/uL Hgb 10.5 L (11.4-16.0) gm/dL Hct 33.4 L (34.0-46.0) % RDW 18.2 H (11.5-15.5) % Neutrophils # 9.4 H (1.3-7.7) k/uL Chloride 94 L (98-107) mmol/L Carbon Dioxide 39 H (22-30) mmol/L BUN 41 H (7-17) mg/dL Creatinine 1.49 H (0.52-1.04) mg/dL Total Protein 5.2 L (6.3-8.2) g/dL Albumin 2.7 L (3.5-5.0) g/dL Assessment and Plan Assessment: Assessmen 1 acute on chronic hypoxic history failure with worsening in her oxygenation and the patient is currently requiring high flow oxygen 9 L/m nasal cannula. No clear indication of an underlying pneumonia. The patient had a CT angios the chest that showed no evidence of any pulmonary embolism. His advanced COPD and emphysema and small right-sided pleural effusion and compressive atelectasis of the right lung base. We repeated the VQ scan on 09/27/2017 which showed low probability of pulmonary embolism. Overall oxygenation remains poor. Patient had an episode of presumable aspiration pneumonia significant to vomiting on 09/27/2017 and at present she seems to be stable, on any empiric antibiotics in the form of Zosyn 2 severe pulmonary hypertension, most likely chronic in nature and a CT angios of the chest showed no pulmonary embolism. 3 COPD with chronic hypoxic respiratory failure maintained on 10 L of oxygen . Normally patient is on 3 L at home 4 leukocytosis, improving and the white cell count is down to 13.9 without any source of an infection, patient was placed on empiric antibiotic in the form of Zosyn, and pleural fluid cultures are pending at this time, blood cultures have been negative since admission, sputum culture was only positive for Lucero, likely due to oral contamination 5 mild anion gap metabolic acidosis with some lactic acidosis at the time of admission , recovered completely 6 dementia with episodes of altered mentation, episodic 7.generalized weakness 8 acute versus chronic renal insufficiency, probably stage II to 3 chronic kidney failure 9 small bilateral pleural effusion, status post ultrasound-guided right thoracentesis, with transudative pleural fluid and cytology still pending at this time 10 nephrolithiasis 11 degenerative arthritis 12 cholelithiasis without evidence of any cholecystitis 13 acute GI bleed, likely of a lower GI source as the patient had bloody bright red bowel movement with clots. The patient was asymptomatic. The patient's hemoglobin is stable and the patient does not have any further bleeding episodes. Plan: Plan dated 09/14/2017 The patient seemed be doing a lot better. She is awake and alert. Much of the history is provided by the daughter. The patient does wear oxygen 03/12. " COPD." Currently she is just on oxygen therapy. Not on any treatments. She does not want any treatments. I did ask her to come back and see us in the office post discharge. That may help to better define her COPD. No clearcut source of infection at this time. Chest x-ray does not show any clear-cut infiltrate. Microbiologic studies are negative and urine looks pretty good. We 'll continue to follow. No additional recommendations are made. Plan dated 09/15/2017 The patient appears much more stable today. Much more awake and alert. Not having any respiratory issues. The patient remains on oxygen therapy. She remains on Zosyn for suspected infection, source unclear. She also remains on updrafts with DuoNeb 3 times a day and when necessary. Lung sounds have improved. She's is not a particular good historian. Has a history of significant dementia. Plan dated 10/01/2017 The patient has been here since September 13. Has had 3 trips to the ICU. She remains on norepinephrine at 4 mics per minute and high flow oxygen at night liters. The patient may have had norepinephrine infiltrated the right forearm yesterday. We'll see if we can talk to the family again about CODE STATUS. I think that will be very appropriate given her age and her plethora of medical problems. Overall prognosis remains very poor. Labs x-rays and medications are all reviewed. Microbiology remains negative. Critical care time 33 minutes Plan dated 10/02/2017 The patient has been here since September 13. She's had 3 different trips to the ICU. She remains on norepinephrine at 4 mics per minute. A PICC line was placed yesterday. Better IV access. The patient remains on high flow oxygen at 10 L. She is a DO NOT RESUSCITATE. Chest x-ray shows bilateral effusions. The chest x-ray was done yesterday. Microbiology remains negative. Overall prognosis is poor. Hopeful to be able to get her to discharged to a shelter or something like [facility]. Critical care time 32 minutes Plan dated 10/03/2017 The patient seemed be doing a bit better. Alert and awake. Very talkative. The patient probably can move out of the ICU later today. We'll make sure that physical therapy is involved. I've asked the nurse to wean the FiO2. I don't believe she needs much oxygen. In addition, the norepinephrine was turned off. This also blood pressure remains relatively stable and she continues to be over sedated and alert, the patient could be discharged out. She is a DO NOT RESUSCITATE. Microbiology remains negative. Overall prognosis given her time here in the hospital is poor. Critical care time 32 minutes Time with Patient: Greater than 30
[2017-10-03] MEDS: IPRATROPIUM-ALBUTEROL 3 ML NEB INHALATION SCH ×2 (09:51→11:23)
[2017-10-03] MEDS: MEMANTINE 5 MG TAB PO SCH (11:22)
[2017-10-03] MEDS: MULTIVITAMINS, THERA 1 EACH TAB PO SCH (12:33)
--- NOTE | 2017-10-03 13:48 | P.PN ---
Subjective Progress Note Date: 10/03/17 Brenda Dave is an 81-year-old female, patient of [facility], who presented to [facility] emergency room with a chief complaint of generalized weakness, daughter states that patient was seen at [facility] one week ago, she was given an antibiotic for presumed urinary tract infection, however her condition continued to worsen, she was seen by her visiting nurse and was advised to come to emergency room. Patient was evaluated by Dr. Brown in the emergency room, she had evidence of sepsis with hypotension, tachycardia, and leukocytosis, also d-dimer was elevated at 5.64, she was admitted to telemetry floor, she was started on IV antibiotic and IV fluid. Bilateral lower extremity Doppler was done and was negative for DVT, VQ scan was done and was low probability for pulmonary embolism. On 09/15/2017 patient is alert and oriented 3 in no apparent distress, she is complaining of feeling cold and having shaking chills, otherwise no complaints, patient has tachycardia, and has evidence sepsis, with leukocytosis white blood count still at 30,000, primary site of infection is still unclear she is complaining of cough, chest x-ray did not reveal any evidence of pneumonia, blood culture is pending, echocardiogram is pending, sodium is up to 114 9 IV fluid change to half-normal saline, will check lactic acid. 09/16/2017 patient is confused. She states things like "did you know that I am ". Patient's son is at bedside patient does have some baseline confusion usually mostly short term memory loss. However, since she's been sick the confusion has worsened. Patient is lying in bed comfortably no evidence of distress. Earlier this morning per nursing staff patient was satting around 84% on 3 L and had to be increased to 5 L and was able to get into the 90s. Patient's white count is still elevated at 30.5. Infectious disease and pulmonary service are following. Repeat chest x-ray shows no acute changes. And for the screening negative. Patient denies any chest pain. Patient has been having some cough. Denies any nausea or vomiting no diarrhea. Patient did have one loose stool, but not watery. 09/17/2017 patient was transferred to the ICU yesterday afternoon for closer monitoring. She remains in the ICU. Case was discussed with pulmonary service in detail. Patient's white count has been decreased from 30.5-25.4 she's on 10 L oxygen satting at 95%. The exact source of infection is still unclear. She remains on Zosyn and vancomycin. Echocardiogram shows severe pulmonary hypertension and severe tricuspid regurgitation. CTA of the chest was negative for a PE did reveal atelectasis and a small right-sided pleural effusion. Moderate pericardial effusion and no evidence of pericarditis. Abdominal ultrasound showed no evidence of an acute cholecystitis. Did reveal cholelithiasis. Pulmonary service did order a dose of IV Lasix for her fluid overload. Infectious disease is also following. Urine output is adequate. Patient is still confused. 09/19/2017 nursing staff called and notified that patient had a massive bloody stool with large blood clots. Repeat hemoglobin check went up from 10.4-10.8. Patient was transferred to the ICU. Fluids were increased to 75 mL an hour. Patient was hypotensive earlier in the morning. Blood pressures are showing improvement. Case was discussed with imaging services director Dr. Romo. GI service was consulted. They have Re: Evaluated patient and there is no plan for colonoscopy at this point. Patient's previous computed tomography scan of the abdomen had showed evidence of diverticulosis this possibly could be related to a diverticular bleed. Patient denies any abdominal pain no nausea or vomiting reported. Currently on 8 L of oxygen. White count 21.2 09/20/2017 patient currently in the ICU. She is doing well. No further bloody bowel movements today. Likely symptoms related to a diverticular bleed. Seen by GI service. No plans for endoscopy at this time. Patient on 10 L options a 96%. Hemoglobin at 10.1. 09/23/2017 patient had a drop in oxygen saturation to around 80%. Oxygen has been increased to 8 L satting around 92%. Patient also complaining of some hoarseness and postnasal drip. Flonase has been ordered. Chest x-ray has also been ordered. Patient denies any chest pain or shortness of breath. Has had no further episodes of bleeding in her stools. Diet will be advanced to regular diet. Patient also is very weak and is working with physical therapy 09/24/2017 patient still requiring 8 L of oxygen. Denies any shortness of breath. Repeat chest x-ray from this morning shows improved aeration of the right lung base on the liver remains a trace right pleural effusion on the bases of congestive heart failure and right basilar airspace disease. This is favored to represent atelectasis however pneumonia should be considered. Incentive spirometer has been ordered. She remains on antibiotics. Patient is reporting a mild cough. She did receive an extra dose of IV Lasix yesterday. White count has improved from 14-11.4. Patient did have a drop in her hemoglobin from 10.4-8.8. Nursing staff and family reported known bloody bowel movements. 09/26/2017 patient underwent a right-sided thoracentesis this morning she had 460 mL's removed. Follow-up chest x-ray shows no evidence of pneumothorax. Does show improvement in aeration of the right lung base after thoracentesis. Patient currently on 8 L. Pulmonary service following. Patient denies any chest pain or shortness of breath. She did have a bowel movement this morning no blood reported per nursing staff. Patient denies any nausea or vomiting. Denies any chest pain or shortness of breath. Patient had been complaining of some pain at the thoracentesis site. Ultram has been ordered. On 09/27/2017 patient is alert and responsive in no apparent distress she is still requiring 6 L of oxygen nasal cannula to keep her oxygen saturation at 90 % she is resting comfortably in bed without any complaints at this time there is no fever or chills no headache or dizziness she has occasional cough no chest pain no shortness of breath at rest no nausea or vomiting no abdominal pain no diarrhea and no urinary symptoms. On 09/28/2017 patient is alert and responsive in no apparent distress she had episode of syncope yesterday subsequence to that she started having worsening oxygen desaturation she was transferred to intensive care unit white blood count is elevated from 11.8-19.8 likely patient had an episode of vomiting during her syncopal episode. She developed an aspiration pneumonia. currently she is requiring 10 L of oxygen high flow she is complaining of cough otherwise she denies any symptoms there is no fever or chills no headache or dizziness no chest pain or shortness of breath no nausea or vomiting no abdominal pain no diarrhea and no urinary symptoms. On 09/29/2017 patient remains in ICU she is alert and responsive in no apparent distress, she is still requiring 10 L of high flow oxygen O2 sat duration is 96 % she denies any chest pain she has occasional cough she denies any shortness of breath at rest there is no fever or chills no nausea or vomiting no abdominal pain no diarrhea and no urinary symptoms. 09/30/2017 patient remains in the ICU. She's on 1 ramesh of levo. They're working on titrating her off of the levo today. Supple pressure in the 90s. Patient also requiring 12 L of oxygen. Patient sitting up in bed comfortably. No evidence of distress. Family members at bedside questions were answered. Discussed case with pulmonary service. They will be titrating Lasix down to 40 mg every 12 hours. Chest x-ray still showing some evidence of congestive heart failure and pneumonia. Creatinine is up to 1.6. White count has come down from 18.4-16.1. Patient denies any chest pain shortness of breath. Denies any nausea or vomiting. He's having regular bowel movements no bleeding. 10/01/2017 patient is on 4 mics of norepinephrine. Also had oxygen desaturation on 9 L went down to about 60-50% requiring a Ventimask to be placed. Patient was unable to take Ventimask off to eat for lunch due to oxygen desaturation. Patient has no complaints. Reports having bowel movements no blood in the stool. 10/03/2017 patient is currently off pressors today. She is also off the Ventimask. She is on on [address] Bhagat ordered Midodrine to help with her blood pressures. Patient has no new complaints Objective - Vital Signs Vital signs: Vital Signs Temp 98.6 F 10/03/17 08:00 Pulse 95 10/03/17 11:36 Resp 20 10/03/17 11:30 BP 98/56 10/03/17 11:30 Pulse Ox 93 L 10/03/17 11:30 Intake & Output 10/02/17 10/03/17 10/03/17 18:59 06:59 18:59 Intake Total 1491.687 287.407 94.375 Output Total 1104 339 554 Balance 387.687 -51.593 -459.625 Weight 44.5 kg 48 kg Intake: IV 120 130.0 20 0.9 Normal Saline 120 80 20 Piperacillin-Tazobactam 3 50.0 .375 gm In Dextrose/Water 1 50ml.bag @ 12.5 mls/hr IVPB Q8HR [facility] Rx#: [id number] Intake, IV Titration 303.687 52.407 74.375 Amount Norepinephrin 4 mg-0.9% 303.687 52.407 24.375 Ns Pmx 4 mg In 250 ml @ Titrate IV .Q0M [facility] Rx#: [id number] Piperacillin-Tazobactam 3 50 .375 gm In Dextrose/Water 1 50ml.bag @ 12.5 mls/hr IVPB Q12H [facility] Rx#: [id number] Oral 1068 105 Output: Urine 1103 335 554 Stool 1 4 Other: Voiding Method Indwelling Catheter Indwelling Catheter Indwelling Catheter # Voids 0 # Bowel Movements 1 1 - Exam Head normocephalic Neck supple Lungs crackles in the right lower lobe. No wheezing Heart regular rate and rhythm S1-S2, no rub or gallop Abdomen is soft nontender nondistended positive bowel sounds no hepatosplenomegaly Extremities no edema Neuro awake and alert but confused Skin redness dermatitis to the buttocks area. Blanchable - Labs CBC & Chem 7: 10/03/17 05:50 10/03/17 05:50 Labs: Abnormal Lab Results - Last 24 Hours (Table) 10/03/17 10/03/17 Range/Units 05:50 05:50 WBC 12.3 H (3.8-10.6) k/uL Hgb 10.5 L (11.4-16.0) gm/dL Hct 33.4 L (34.0-46.0) % RDW 18.2 H (11.5-15.5) % Neutrophils # 9.4 H (1.3-7.7) k/uL Chloride 94 L (98-107) mmol/L Carbon Dioxide 39 H (22-30) mmol/L BUN 41 H (7-17) mg/dL Creatinine 1.49 H (0.52-1.04) mg/dL Total Protein 5.2 L (6.3-8.2) g/dL Albumin 2.7 L (3.5-5.0) g/dL Assessment and Plan Assessment: #1 sepsis likely secondary to diverticular disease. Initially on Augmentin. This has improved. #2 acute on chronic hypoxic respiratory failure. CT of the chest showed no evidence of a pulmonary embolism. VQ scan showing low probability PE. Possibly related to her advanced COPD and pleural effusion. Worsening acute hypoxic respiratory failure due to aspiration pneumonia. Patient was able to come off the Ventimask. Still requiring high oxygen level. Continue to monitor #3 underlying history of COPD, at this time patient will be given DuoNeb updraft , no need for systemic steroids #4 severe pulmonary hypertension likely secondary to her COPD and exacerbated by her recent illness. #5 underlying history of dementia maintained on Aricept and Namenda #6 hypernatremia improved. Sodium level has normalized #7 acute on chronic renal failure, stage III. Kidney functions showing a creatinine of 1.49 #8 metabolic acidosis improved after sodium bicarb drip. Sodium bicarbonate drip discontinued by pulmonary service #9 metabolic encephalopathy secondary to her acute infection with underlying history of dementia #10 acute lower GI bleed: Likely related to a diverticular bleed. Patient seen by GI service. No plan for colonoscopy at this time. No further bloody bowel movements reported. Hemoglobin stable #11 right-sided pleural effusion status post thoracentesis with 460 mL's removed. Currently on Lasix 40 mg IV daily . Pulmonate service following #12 aspiration pneumonia: Continue IV Zosyn #13 hypotension : Off of norepinephrine. Pulmonary service has started midodrine #14 hypokalemia: Resolved #15 sacral dermatitis add zinc oxide #16 medical deconditioning continue physical therapy. Consult Dr. Sullivan for possible inpatient rehab Patient will possibly be transferred to the sixth floor today CODE STATUS has been changed to DO NOT RESUSCITATE DVT prophylaxis subcu heparin I performed an examination of the patient and discussed their management with the physician [employer] Supervisor. I have reviewed the Physician [employer] Supervisor's notes and agree with the documented findings and plan of care
--- NOTE | 2017-10-03 16:43 | P.NPCON ---
History of Present Illness - Chief Complaint Medical debility - History of Present Illness I had the opportunity to see patient for inpatient rehab consultation with regard to medical debility. She was admitted to [facility] September 13 with generalized weakness, mental status change and sepsis. Seen by Dr. Toney for pulmonary, known chronic hypoxic respiratory failure. Seen by Dr. Lauren Ferro for hematochezia, diverticulosis and blood loss anemia. Chest x-rays followed for cardiomegaly and right pleural effusion. PT reports total two-person assistance for functional mobility. OT reports two-person total assistance for bathing, dressing, toileting. Previous functional history as elicited son: 81-year-old right-handed white female who is and lives in fourth floor apartment, elevator, alone. Son describes the patient was independent with sponge bath. Using a walker for last 4 weeks, only. Otherwise receive Meals on Wheels and her kids did laundry in errands. Review of Systems Review of systems: Very thin body build, wasted appearance. ENT: Denies sneezes or discharge. Eyes: Denies discharge or photophobia. Cardiac: Denies chest pain or palpitation. Pulmonary: Denies cough or shortness of breath. Breast: Denies discharge or lumps. Gastrointestinal: Denies nausea, emesis, constipation, diarrhea. Genitourinary: Denies discharge or frequency. Musculoskeletal: Denies muscle or bone aches. Thin limbs. Neurologic: Generalized weakness. Confused, son had to answer biographical questions. Endocrine: Denies shakes or sweats. Oncology: Denies cancers. Dermatologic: Denies rash, itching, pruritus. ALLERGY/immunology: Denies sneezes, rashes. Past Medical History Past Medical History: COPD, Dementia, GERD/Reflux, Hyperlipidemia, Memory Impairment, Pneumonia Additional Past Medical History / Comment(s): VERTIGO ,per family pt has home 02 3 liters,family stated pt does have some dementia but request you don't talk about it with pt she gets upset.phlebitis long time ago, arthritis,hx of cholesterol but was taken off her meds 3 months ago History of Any Multi-Drug Resistant Organisms: None Reported Past Surgical History: Joint Replacement, Orthopedic Surgery, Tonsillectomy Additional Past Surgical History / Comment(s): hip replacement, shoulder replacement Past Anesthesia/Blood Transfusion Reactions: Motion Sickness, Postoperative Nausea & Vomiting (PONV) Additional Past Anesthesia/Blood Transfusion Reaction / Comment(s): never received any blood transfusions Smoking Status: Former smoker - Past Family History Father Additional Family Medical History / Comment(s): committed suicide in his 50's Mother Family Medical History: No Reported History Additional Family Medical History / Comment(s): of unk causes at age 62 Sister(s) Family Medical History: Cancer Additional Family Medical History / Comment(s): breast cancer Medications and Allergies Home Medications Medication Instructions Recorded Confirmed Type Aspirin 81 mg PO HS 02/25/14 09/13/17 History Donepezil [Aricept] 10 mg PO DAILY 09/13/17 09/13/17 History Famotidine [Pepcid] 20 mg PO DAILY 09/13/17 09/13/17 History Meclizine [Antivert] 12.5 mg PO DAILY 09/13/17 09/13/17 History Memantine [Namenda] 10 mg PO BID 09/13/17 09/13/17 History Multivitamins, Thera [Multivitamin 1 tab PO DAILY 09/13/17 09/13/17 History (formulary)] Naproxen Sodium [Aleve] 220 mg PO DAILY 09/13/17 09/13/17 History Charlotte-3 Fatty Acids [Charlotte-3] 1,000 mg PO HS 09/13/17 09/13/17 History Allergies Allergy/AdvReac Type Severity Reaction Status Date / Time No Known Allergies Allergy Verified 09/13/17 13:55 Physical Exam Vitals: Vital Signs Temp Pulse Resp BP Pulse Ox 10/03/17 15:30 96 23 106/72 89 L 10/03/17 15:00 94 56 H 95/56 88 L 10/03/17 14:30 96 29 H 97/56 86 L 10/03/17 14:00 100 27 H 109/70 89 L 10/03/17 13:30 101 H 15 98/52 89 L 10/03/17 13:00 102 H 33 H 97/49 88 L 10/03/17 12:30 101 H 18 104/52 87 L 10/03/17 12:00 98.6 F 100 30 H 105/50 87 L 10/03/17 11:36 95 10/03/17 11:30 83 20 98/56 93 L 05/24/18 11:24 87 05/24/18 11:00 84 30 H 92/56 89 L 0524/18 10:30 86 22 93/61 89 L 052418 10:00 87 23 105/59 91 L 0524/18 09:30 93 24 105/58 90 L 052418 09:00 92 25 H 97/51 92 L 052418 08:30 89 28 H 85/52 92 L 0518 08:00 98.6 F 78 19 114/59 94 L 0524/18 07:30 72 21 95/47 92 L 052418 07:00 75 15 87/49 96 18 06:30 69 17 89/52 95 18 06:00 76 46 H 100/58 92 L 18 05:30 71 15 97/56 97 18 05:00 72 17 98/63 95 05/18 04:30 97.8 F 73 16 90/53 96 0518 04:00 69 15 85/55 97 0524/18 03:30 69 15 82/57 97 05/18 03:00 71 18 82/48 97 0524/18 02:30 71 28 H 85/52 96 0518 02:00 67 15 98 05/18 01:30 69 16 97 05/18 01:00 98.0 F 74 17 86/63 97 05/24/18 00:30 80 17 86/63 98 05/24/18 00:00 77 15 86/63 97 05/18 23:30 78 18 86/63 97 05/18 23:00 77 19 100/55 99 05/18 22:30 87 16 99/55 97 05/23/18 22:00 91 25 H 104/57 05//18 21:30 87 20 107/59 96 05/23/18 21:29 85 20 107/59 95 05/23/18 21:00 86 21 108/64 95 05/23/18 20:30 99.1 F 89 22 105/54 96 05/23/18 20:00 96 28 H 120/65 88 L 0523/18 19:40 84 05/23/18 19:30 84 19 109/56 98 05/23/18 19:27 83 10/02/17 19:00 83 21 112/56 96 10/02/17 18:30 82 21 104/60 93 L 10/02/17 18:00 82 26 H 103/57 91 L 10/02/17 17:30 89 12 110/63 97 10/02/17 17:00 82 20 95/66 96 Intake and Output 10/03/17 10/03/17 10/03/17 06:59 14:59 22:59 Intake Total 115.188 94.375 Output Total 233 554 Balance -117.812 -459.625 Intake: IV 85.0 20 0.9 Normal Saline 60 20 Piperacillin-Tazobactam 3 25.0 .375 gm In Dextrose/Water 1 50ml.bag @ 12.5 mls/hr IVPB Q8HR [facility] Rx#: [id number] Intake, IV Titration 30.188 74.375 Amount Norepinephrin 4 mg-0.9% 30.188 24.375 Ns Pmx 4 mg In 250 ml @ Titrate IV .Q0M [facility] Rx#: [id number] Piperacillin-Tazobactam 3 50 .375 gm In Dextrose/Water 1 50ml.bag @ 12.5 mls/hr IVPB Q12H [facility] Rx#: [id number] Output: Urine 230 554 Stool 3 Other: Voiding Method Indwelling Catheter Indwelling Catheter Indwelling Catheter # Voids 0 # Bowel Movements 1 Weight 48 kg Skin: Atrophic, intact. General: Very thin build and comfortable appearance. Head: Normocephalic, atraumatic. Eyes: Symmetric. Pupils equal round. Ears: Symmetric. Hearing within normal limits. Mouth: Clear. Neck: Supple. Carotid without bruit. Cardiac: Regular rate and rhythm. Lungs: Clear anteriorly and posteriorly. Abdomen: Soft active nontender. Extremities: Normal tone. In the, wasted. Neurological: Mental status: Alert, cooperative, pleasant. Cranial nerves: Symmetric facial tone and trapezius. Motor: Can actively elevates all 4 limbs. Sensation: Intact throughout. DTRs: Symmetric and equal throughout. Mobility: Total assistance for bed mobility and care. Results - Lab Results Most recent lab results ABG pH 7.42 (7.35-7.45) 09/16/17 16:35 ABG pCO2 31 mmHg (35-45) L 09/16/17 16:35 ABG pO2 56 mmHg (83-108) L 09/16/17 16:35 ABG HCO3 20 mmol/L (21-25) L 09/16/17 16:35 ABG O2 Saturation 90.3 % (94-97) L 09/16/17 16:35 Calcium 9.2 mg/dL (8.4-10.2) 10/03/17 05:50 Phosphorus 3.6 mg/dL (2.5-4.5) 09/30/17 04:28 Magnesium 2.6 mg/dL (1.6-2.3) H 10/02/17 04:21 10/03/17 05:50 10/03/17 05:50 Assessment and Plan (1) Sepsis Current Visit: Yes Status: Acute Code(s): A41.9 - SEPSIS, UNSPECIFIED ORGANISM SNOMED Code(s): 93802879 Plan: Impression: 1. Medical debility. 2. Mental status change. 3. Sepsis. 4. Hematochezia. 5. Diverticula diverticulosis. 6. Anemia. 7. Chronic hypoxic respiratory failure. 8. COPD. 9. Dyslipidemia. 10. Dementia with memory impairment. Comments and plan: At this time PT and OT are ongoing. Rehab prognosis however guarded. Appears endurance is poor. Son is already aware of this and they're beginning consider alternative discharge planning. Currently would recommend ECF placement.
[2017-10-03 20:19] VITALS: BP 121/60; RESP 22
[2017-10-03 20:30] VITALS: PULSE 108
--- NOTE | 2017-10-03 20:50 | PN ---
PROGRESS NOTE DATE OF SERVICE: 10/03/2017 REASON FOR FOLLOWUP: Aspiration pneumonia. INTERVAL HISTORY: The patient is afebrile. She seems to be breathing more comfortably, hemodynamically stable. Denies having any chest pain. Occasional cough. No abdominal pain or any diarrhea. PHYSICAL EXAMINATION: Blood pressure 106/52 with a pulse of 95, temperature 98.6. She is 90% on 10 L high- flow oxygen. General description is an elderly female up in the bed in no distress. RESPIRATORY SYSTEM: Unlabored breathing. Clear to auscultation anteriorly. HEART: S1, S2. Regular rate and rhythm. ABDOMEN: Soft. No tenderness. LABS: Hemoglobin is 12.5, white count 12.3, BUN of 41, creatinine 1.49. DIAGNOSTIC IMPRESSION AND PLAN: Patient with episode of aspiration pneumonia. Aspiration could not be obtained. Blood cultures have been negative. Currently on Zosyn. White count on a downward trend. That will be continued to finish a course of therapy. Son was present at the bedside. Questions were answered. MMODL / IJN: [id number] /
--- NOTE | 2017-10-08 15:13 | P.DS ---
Providers Date of admission: 09/13/17 16:29 Expected date of discharge: 10/03/17 Attending physician: Lacho Tejada Consults: 09/13/17 16:23 Consult Physician Stat Consulting Provider: Eulalio Bhagat Consult Reason/Comments: Acute exacerbation of COPD and elevated d-dimer Do you want consulting provider notified?: Yes Consult Physician Stat Consulting Provider: Baldemar Brown Consult Reason/Comments: Sepsis Do you want consulting provider notified?: Yes 09/16/17 13:26 Consult Physician Routine Consulting Provider: Pablo Payne Consult Reason/Comments: pericardial effusion Do you want consulting provider notified?: Already Contacted 10/03/17 13:42 Consult Physician Routine Consulting Provider: Haim Lin Consult Reason/Comments: inpatient rehab Do you want consulting provider notified?: Yes Primary care physician: Laine Fuentes Hospital Course: summary and diagnosis Preliminary cause of : Cardiac arrest and acute hypoxic respiratory failure #1 sepsis likely secondary to diverticular disease. Initially on Augmentin. This has improved. #2 acute on chronic hypoxic respiratory failure. CT of the chest showed no evidence of a pulmonary embolism. VQ scan showing low probability PE. Possibly related to her advanced COPD and pleural effusion. Worsening acute hypoxic respiratory failure due to aspiration pneumonia. Patient was able to come off the Ventimask. Still requiring high oxygen level. Continue to monitor #3 underlying history of COPD, at this time patient will be given DuoNeb updraft , no need for systemic steroids #4 severe pulmonary hypertension likely secondary to her COPD and exacerbated by her recent illness. #5 underlying history of dementia maintained on Aricept and Namenda #6 hypernatremia improved. Sodium level has normalized #7 acute on chronic renal failure, stage III. Kidney functions showing a creatinine of 1.49 #8 metabolic acidosis improved after sodium bicarb drip. Sodium bicarbonate drip discontinued by pulmonary service #9 metabolic encephalopathy secondary to her acute infection with underlying history of dementia #10 acute lower GI bleed: Likely related to a diverticular bleed. Patient seen by GI service. No plan for colonoscopy at this time. No further bloody bowel movements reported. Hemoglobin stable #11 right-sided pleural effusion status post thoracentesis with 460 mL's removed. Currently on Lasix 40 mg IV daily . Pulmonate service following #12 aspiration pneumonia: Continue IV Zosyn #13 hypotension : Off of norepinephrine. Pulmonary service has started midodrine #14 hypokalemia: Resolved #15 sacral dermatitis add zinc oxide #16 medical deconditioning Hospital course Brenda Dave is an 81-year-old female, patient of [facility], who presented to [facility] emergency room with a chief complaint of generalized weakness, daughter states that patient was seen at [facility] one week ago, she was given an antibiotic for presumed urinary tract infection, however her condition continued to worsen, she was seen by her visiting nurse and was advised to come to emergency room. Patient was evaluated by Dr. Brown in the emergency room, she had evidence of sepsis with hypotension, tachycardia, and leukocytosis, also d-dimer was elevated at 5.64, she was admitted to telemetry floor, she was started on IV antibiotic and IV fluid. Bilateral lower extremity Doppler was done and was negative for DVT, VQ scan was done and was low probability for pulmonary embolism. On 09/15/2017 patient is alert and oriented 3 in no apparent distress, she is complaining of feeling cold and having shaking chills, otherwise no complaints, patient has tachycardia, and has evidence sepsis, with leukocytosis white blood count still at 30,000, primary site of infection is still unclear she is complaining of cough, chest x-ray did not reveal any evidence of pneumonia, blood culture is pending, echocardiogram is pending, sodium is up to 114 9 IV fluid change to half-normal saline, will check lactic acid. 09/16/2017 patient is confused. She states things like "did you know that I am ". Patient's son is at bedside patient does have some baseline confusion usually mostly short term memory loss. However, since she's been sick the confusion has worsened. Patient is lying in bed comfortably no evidence of distress. Earlier this morning per nursing staff patient was satting around 84% on 3 L and had to be increased to 5 L and was able to get into the 90s. Patient's white count is still elevated at 30.5. Infectious disease and pulmonary service are following. Repeat chest x-ray shows no acute changes. And for the screening negative. Patient denies any chest pain. Patient has been having some cough. Denies any nausea or vomiting no diarrhea. Patient did have one loose stool, but not watery. 09/17/2017 patient was transferred to the ICU yesterday afternoon for closer monitoring. She remains in the ICU. Case was discussed with pulmonary service in detail. Patient's white count has been decreased from 30.5-25.4 she's on 10 L oxygen satting at 95%. The exact source of infection is still unclear. She remains on Zosyn and vancomycin. Echocardiogram shows severe pulmonary hypertension and severe tricuspid regurgitation. CTA of the chest was negative for a PE did reveal atelectasis and a small right-sided pleural effusion. Moderate pericardial effusion and no evidence of pericarditis. Abdominal ultrasound showed no evidence of an acute cholecystitis. Did reveal cholelithiasis. Pulmonary service did order a dose of IV Lasix for her fluid overload. Infectious disease is also following. Urine output is adequate. Patient is still confused. 09/19/2017 nursing staff called and notified that patient had a massive bloody stool with large blood clots. Repeat hemoglobin check went up from 10.4-10.8. Patient was transferred to the ICU. Fluids were increased to 75 mL an hour. Patient was hypotensive earlier in the morning. Blood pressures are showing improvement. Case was discussed with [employer] Dr. Romo. GI service was consulted. They have Re: Evaluated patient and there is no plan for colonoscopy at this point. Patient's previous computed tomography scan of the abdomen had showed evidence of diverticulosis this possibly could be related to a diverticular bleed. Patient denies any abdominal pain no nausea or vomiting reported. Currently on 8 L of oxygen. White count 21.2 09/20/2017 patient currently in the ICU. She is doing well. No further bloody bowel movements today. Likely symptoms related to a diverticular bleed. Seen by GI service. No plans for endoscopy at this time. Patient on 10 L options a 96%. Hemoglobin at 10.1. 09/23/2017 patient had a drop in oxygen saturation to around 80%. Oxygen has been increased to 8 L satting around 92%. Patient also complaining of some hoarseness and postnasal drip. Flonase has been ordered. Chest x-ray has also been ordered. Patient denies any chest pain or shortness of breath. Has had no further episodes of bleeding in her stools. Diet will be advanced to regular diet. Patient also is very weak and is working with physical therapy 09/24/2017 patient still requiring 8 L of oxygen. Denies any shortness of breath. Repeat chest x-ray from this morning shows improved aeration of the right lung base on the liver remains a trace right pleural effusion on the bases of congestive heart failure and right basilar airspace disease. This is favored to represent atelectasis however pneumonia should be considered. Incentive spirometer has been ordered. She remains on antibiotics. Patient is reporting a mild cough. She did receive an extra dose of IV Lasix yesterday. White count has improved from 14-11.4. Patient did have a drop in her hemoglobin from 10.4-8.8. Nursing staff and family reported known bloody bowel movements. 09/26/2017 patient underwent a right-sided thoracentesis this morning she had 460 mL's removed. Follow-up chest x-ray shows no evidence of pneumothorax. Does show improvement in aeration of the right lung base after thoracentesis. Patient currently on 8 L. Pulmonary service following. Patient denies any chest pain or shortness of breath. She did have a bowel movement this morning no blood reported per nursing staff. Patient denies any nausea or vomiting. Denies any chest pain or shortness of breath. Patient had been complaining of some pain at the thoracentesis site. Ultram has been ordered. On 09/27/2017 patient is alert and responsive in no apparent distress she is still requiring 6 L of oxygen nasal cannula to keep her oxygen saturation at 90 % she is resting comfortably in bed without any complaints at this time there is no fever or chills no headache or dizziness she has occasional cough no chest pain no shortness of breath at rest no nausea or vomiting no abdominal pain no diarrhea and no urinary symptoms. On 09/28/2017 patient is alert and responsive in no apparent distress she had episode of syncope yesterday subsequence to that she started having worsening oxygen desaturation she was transferred to intensive care unit white blood count is elevated from 11.8-19.8 likely patient had an episode of vomiting during her syncopal episode. She developed an aspiration pneumonia. currently she is requiring 10 L of oxygen high flow she is complaining of cough otherwise she denies any symptoms there is no fever or chills no headache or dizziness no chest pain or shortness of breath no nausea or vomiting no abdominal pain no diarrhea and no urinary symptoms. On 09/29/2017 patient remains in ICU she is alert and responsive in no apparent distress, she is still requiring 10 L of high flow oxygen O2 sat duration is 96 % she denies any chest pain she has occasional cough she denies any shortness of breath at rest there is no fever or chills no nausea or vomiting no abdominal pain no diarrhea and no urinary symptoms. 09/30/2017 patient remains in the ICU. She's on 1 ramesh of levo. They're working on titrating her off of the levo today. Supple pressure in the 90s. Patient also requiring 12 L of oxygen. Patient sitting up in bed comfortably. No evidence of distress. Family members at bedside questions were answered. Discussed case with pulmonary service. They will be titrating Lasix down to 40 mg every 12 hours. Chest x-ray still showing some evidence of congestive heart failure and pneumonia. Creatinine is up to 1.6. White count has come down from 18.4-16.1. Patient denies any chest pain shortness of breath. Denies any nausea or vomiting. He's having regular bowel movements no bleeding. 10/01/2017 patient is on 4 mics of norepinephrine. Also had oxygen desaturation on 9 L went down to about 60-50% requiring a Ventimask to be placed. Patient was unable to take Ventimask off to eat for lunch due to oxygen desaturation. Patient has no complaints. Reports having bowel movements no blood in the stool. 10/03/2017 patient is currently off pressors today. She is also off the Ventimask. She is on on [address] Bhagat ordered Midodrine to help with her blood pressures. Patient has no new complaints Patient was able to be transferred out of the ICU on 10/03/2017. At that time she was able to be off of the pressors and was on oxygen. Her overall condition was poor and guarded. According to the nurse's note at shift change telemetry had announced to the nurse to go check on the patient at her heart rate was in the low 30s. Nurse found the patient with agonal breathing and no palpable pulse and patient was unresponsive. CODE STATUS it was a DO NOT RESUSCITATE. Patient was made comfortable and with staff at bedside during the evening. Please refer to chart for further details. Patient Condition at Discharge: Undetermined Plan - Discharge Summary Discharge Rx Participant: Yes New Discharge Prescriptions: No Action Aspirin 81 mg PO HS Naproxen Sodium [Aleve] 220 mg PO DAILY Multivitamins, Thera [Multivitamin (formulary)] 1 tab PO DAILY Meclizine [Antivert] 12.5 mg PO DAILY Famotidine [Pepcid] 20 mg PO DAILY Donepezil [Aricept] 10 mg PO DAILY Memantine [Namenda] 10 mg PO BID Sal[place]-3 Fatty Acids [Sal[place]-3] 1,000 mg PO HS Discharge Medication List Aspirin 81 mg PO HS 02/25/14 [History] Donepezil [Aricept] 10 mg PO DAILY 09/13/17 [History] Famotidine [Pepcid] 20 mg PO DAILY 09/13/17 [History] Meclizine [Antivert] 12.5 mg PO DAILY 09/13/17 [History] Memantine [Namenda] 10 mg PO BID 09/13/17 [History] Multivitamins, Thera [Multivitamin (formulary)] 1 tab PO DAILY 09/13/17 [History ] Naproxen Sodium [Aleve] 220 mg PO DAILY 09/13/17 [History] Salina-3 Fatty Acids [Salina-3] 1,000 mg PO HS 09/13/17 [History] Follow up Appointment(s)/Referral(s): Laine Fuentes DO [Primary Care Provider] - 1-2 days Discharge Disposition: - Preliminary Cause of Preliminary Cause of : Cardiac arrest with acute hypoxic respiratory failure
== END 2017-10-03 20:56 | disposition expired | DRG 871 ==
LOC: EC 13:05 → 6SEL 16:29 → 5MS5E 09-14 14:21 → 6ICU 09-16 15:57 → 6SEL 09-18 16:03 → 6ICU 09-19 11:45 → 5MS5E 09-20 14:53 → 6ICU 09-27 12:59 → 6SEL 10-03 17:29
PROVIDERS: ADMIT Internal Medicine; ATTEND Internal Medicine
PROC: 0W993ZX Drainage of Right Pleural Cavity, Percutaneous Approach, Diagnostic (ICD-10-PCS; principal; 2017-09-26)
PROC: 02H633Z Insertion of Infusion Device into Right Atrium, Percutaneous Approach (ICD-10-PCS; 2017-10-01 13:29)
DX: A41.9 Sepsis, unspecified organism (principal); G93.41 Metabolic encephalopathy; J69.0 Pneumonitis due to inhalation of food and vomit; J96.21 Acute and chronic respiratory failure with hypoxia; K57.33 Diverticulitis of large intestine without perforation or abscess with bleeding; D62 Acute posthemorrhagic anemia; E87.0 Hyperosmolality and hypernatremia; E87.2 Acidosis; I31.3 Pericardial effusion (noninflammatory); Z66 Do not resuscitate; J98.11 Atelectasis; N17.9 Acute kidney failure, unspecified; E78.5 Hyperlipidemia, unspecified; E87.6 Hypokalemia; E87.8 Other disorders of electrolyte and fluid balance, not elsewhere classified; F03.90 Unspecified dementia, unspecified severity, without behavioral disturbance, psychotic disturbance, mood disturbance, and anxiety; I08.1 Rheumatic disorders of both mitral and tricuspid valves; I27.29 Other secondary pulmonary hypertension; J43.9 Emphysema, unspecified; K21.9 Gastro-esophageal reflux disease without esophagitis; K80.20 Calculus of gallbladder without cholecystitis without obstruction; L30.9 Dermatitis, unspecified; M19.90 Unspecified osteoarthritis, unspecified site; N18.3 Chronic kidney disease, stage 3 (moderate); N20.0 Calculus of kidney; R79.1 Abnormal coagulation profile; R11.2 Nausea with vomiting, unspecified; R32 Unspecified urinary incontinence; R49.0 Dysphonia; E86.0 Dehydration; R55 Syncope and collapse; K43.9 Ventral hernia without obstruction or gangrene; Z79.899 Other long term (current) drug therapy; Z79.82 Long term (current) use of aspirin; Z99.81 Dependence on supplemental oxygen; Z96.649 Presence of unspecified artificial hip joint; Z96.619 Presence of unspecified artificial shoulder joint; Z91.19 Patient's noncompliance with other medical treatment and regimen; Z87.891 Personal history of nicotine dependence; Z86.72 Personal history of thrombophlebitis; Z87.01 Personal history of pneumonia (recurrent); Z80.3 Family history of malignant neoplasm of breast
CPT/HCPCS: 32555; 36415; 36569; 36600; 70450; 71045; 71046; 71275; 74176; 76604; 76700; 76937; 77001; 78582; 80048; 80053; 80202; 81001; 82533; 82550; 82553; 82803; 82805; 82945; 83036; 83605; 83615; 83735; 84100; 84155; 84157; 84443; 84484; 85025; 85379; 85610; 85730; 87040; 87070; 87075; 87086; 87205; 87502; 88108; 88305; 88341; 88342; 89050; 93005; 93306; 94640; 94760; 96361; 96365; 96366; 96375; 99291